=== PATIENT | female | born 1955 | race Caucasian/White ===

== ENCOUNTER 2019-10-23 09:51 | Outpatient (CLI) | payer OTHER, SELFPAY ==
[2019-10-23 10:07] LABS: Basophils Absolute Auto 0.03 K/mm3 (0.00-0.10); Basophils Percent Auto 0.3 % (0.0-1.0); Eosinophils Absolute Auto 0.24 K/mm3 (0.02-0.50); Eosinophils Percent Auto 2.7 % (1.0-6.0); Hematocrit 45.9 % (35.0-49.0); Hemoglobin 15.4 g/dL (12.0-15.0); Immature Granulocyte Absolute 0.04 K/mm3 (0.00-0.00); Immature Granulocyte Percent A 0.4 % (0.0-0.0); Lymphocytes Absolute Auto 1.97 K/mm3 (1.10-4.50); Lymphocytes Percent Auto 22.2 % (18.0-42.0); Mean Corpuscular HGB Conc 33.6 g/dL (32.0-36.0); Mean Corpuscular Hemoglobin 30.5 pg (27.0-31.0); Mean Corpuscular Volume 90.9 fL (78.0-102.0); Mean Platelet Volume 10.1 fl (9.2-11.8); Monocytes Percent Auto 7.9 % (2.0-11.0); Neutrophils Absolute Auto 5.9 K/mm3 (1.7-7.2); Neutrophils Percent Auto 66.5 % (50.0-70.0); Platelet Count Result 260 K/mm3 (150-420); Red Blood Count 5.05 M/mm3 (4.20-5.40); Red Cell Distribution Width 12.6 % (11.6-14.4); White Blood Count 8.9 K/mm3 (4.8-10.8)
[2019-10-23 10:23] LABS: INR 0.9; Prothrombin Time 9.8 Seconds (9.64-11.0)
[2019-10-23 13:14] LABS: Anion Gap 15.7 mmol/L (7-16); Blood Urea Nitrogen 10 mg/dL (7-18); Carbon Dioxide 29 mmol/L (21-32); Chloride 100 mmol/L (98-108); Potassium 4.7 mmol/L (3.5-5.1); Sodium 140 mmol/L (136-145)
[2019-10-23 13:15] LABS: Calcium 9.8 mg/dL (8.5-10.1); Estimated Glomerular Filt Rate > 60; Glucose 131 mg/dL (70-99); Magnesium 1.8 mg/dL (1.8-2.4); Osmolality Calculated 291 mOsm/kg (285-295)
== END 2019-10-23 09:52 | disposition home or self-care (01) ==
LOC: CHSLAB 09:55
PROVIDERS: PCP Emergency Medicine; Visit Provider Specialist
DX: I25.10 Atherosclerotic heart disease of native coronary artery without angina pectoris (principal); Z01.812 Encounter for preprocedural laboratory examination
CPT/HCPCS: 36415; 80048; 83735; 85025; 85610

== ENCOUNTER 2020-04-14 09:50 | Outpatient (CLI) | payer OTHER, SELFPAY ==
[2020-04-14 10:41] LABS: Creatinine Urine 59.04 mg/dL (40-278)
[2020-04-14 10:42] LABS: Hemoglobin A1C 8.1 % (<5.7)
[2020-04-14 10:49] LABS: MALB Creatinine Ratio 20.6 mg/g (0-30); Microalbumin Urine Random 12.2 mg/L
[2020-04-14 11:05] LABS: Alanine Aminotransferase 27 U/L (14-59); Albumin Level 3.7 g/dL (3.4-5.0); Alkaline Phosphatase 125 U/L (46-116); Anion Gap 9 mmol/L (8-16); Aspartate Amino Transferase 19 U/L (15-37); Bilirubin,Total 0.9 mg/dL (0.00-1.00); Blood Urea Nitrogen 13 mg/dL (7-18); Calcium 9.6 mg/dL (8.5-10.1); Carbon Dioxide 30 mmol/L (21-32); Chloride 99 mmol/L (98-108); Cholesterol 112 mg/dL (0-200); Estimated Glomerular Filt Rate > 60; Glucose 148 mg/dL (70-99); HDL Direct 32 mg/dL (40-60); LDL Cholesterol Calculated 41 mg/dL (<130); Osmolality Calculated 289 mOsm/kg (285-295); Potassium 4.5 mmol/L (3.5-5.1); Sodium 138 mmol/L (136-145); Total Protein 6.9 g/dL (6.4-8.2); Triglycerides 195 mg/dL (0-150)
[2020-04-18 20:13] LABS: Vitamin D 25 Hydroxy 71 ng/mL (30-100)
== END 2020-04-14 09:51 | disposition home or self-care (01) ==
PROVIDERS: PCP Emergency Medicine; Visit Provider Internal Medicine Endocrinology, Diabetes & Metabolism
DX: E78.5 Hyperlipidemia, unspecified (principal); E55.9 Vitamin D deficiency, unspecified; E11.9 Type 2 diabetes mellitus without complications
CPT/HCPCS: 36415; 80053; 80061; 82043; 82306; 83036

== ENCOUNTER 2020-04-18 12:46 | Outpatient (CLI) | payer OTHER, SELFPAY ==
--- NOTE | ~2020-04-18 | CT_ITS ---
EXAMINATION:CT lung screening DATE: 04/18/2020 14:18 INDICATION: Personal history of tobacco dependence. Current smoker with 41 pack year history. TECHNIQUE: Computed tomography (CT) of the chest was performed without intravenous contrast. Automate d exposure control and iterative reconstruction technique were employed. The dose-length product (DLP ) was 284.99 mGy-cm. COMPARISON: None. FINDINGS: There is mild emphysema. There is a 5 mm nodule in right lower lobe. Calcified left lung no dules and calcified left hilar lymph nodes are consistent with old granulomatous disease. No pleural effusion. The heart size is normal. There are coronary artery calcifications. No pericardial effusion . Calcifications in the spleen are consistent with old granulomatous disease. There is diffuse hepati c steatosis. There is mild thoracic spondylosis. IMPRESSION: 1. Lung-RADS category 2: Benign appearance or behavior. Continue annual screening with noncontrast lo w-dose chest CT in 12 months. Reviewed, dictated and finalized at location A. IMPRESSION: 1. Lung-RADS category 2: Benign appearance or behavior. Continue annual screeni ng with noncontrast low-dose chest CT in 12 months.
== END 2020-04-18 12:47 | disposition home or self-care (01) ==
LOC: CHSIMG 12:47
PROVIDERS: PCP Emergency Medicine; Visit Provider Nurse Practitioner
DX: Z12.2 Encounter for screening for malignant neoplasm of respiratory organs (principal); Z87.891 Personal history of nicotine dependence
CPT/HCPCS: G0297

== ENCOUNTER 2020-05-06 08:49 | Outpatient (CLI) | payer OTHER, SELFPAY ==
--- NOTE | ~2020-05-06 | MM_ITS ---
EXAMINATION: MM screening tiffany BI w elton HISTORY: Screening TECHNIQUE: Craniocaudal and mediolateral oblique 3-D tomosynthesis images were obtained and synthetic 2-D images were generated. CAD analysis was submitted and interpreted. COMPARISON: Comparison to multiple prior studies sequentially, with oldest reviewed study dated 12/2018. BREAST PARENCHYMAL COMPOSITION: There are scattered areas of fibroglandular density. FINDINGS: There is a cluster of nodules in the lower inner quadrant of the left breast. The right kaitlynn ast is stable without evidence for malignancy. IMPRESSION: 1. Cluster of small subcentimeter left breast nodules, lower inner quadrant. 2. Additional mammographic views and possible breast ultrasound are recommended. BI-RADS Category 0: Incomplete: Needs additional imaging evaluation. Reviewed, dictated and finalized at location A. IMPRESSION: 1. Cluster of small subcentimeter left breast nodules, lower inner quadrant. 2. Additional mammographic views and possible breast ultrasound are recommended . BI-RADS Category 0: Incomplete: Needs additional imaging evaluation.
== END 2020-05-06 08:50 | disposition home or self-care (01) ==
LOC: CHSIMG 08:50
PROVIDERS: PCP Emergency Medicine; Visit Provider Emergency Medicine
DX: Z12.31 Encounter for screening mammogram for malignant neoplasm of breast (principal)
CPT/HCPCS: 77063; 77067

== ENCOUNTER 2020-06-23 08:46 | Outpatient (CLI) | payer OTHER, SELFPAY ==
--- NOTE | ~2020-06-23 | MMUS_ITS ---
EXAMINATION: MM diagnostic tiffany LT w elton, US breast LT limited HISTORY: Cluster of small subcentimeter left breast nodules in the lower inner quadrant on 05/06/2020 s creening mammogram TECHNIQUE: Additional 3-D tomosynthesis images of the left breast were performed and synthetic 2-D im ages were generated. CAD analysis was submitted and interpreted. High resolution upper inner and lowe r inner quadrant left breast ultrasound was performed. COMPARISON: 05/06/2020, 11/04/2018 bilateral digital screening mammogram examinations FINDINGS: MAMMOGRAPHIC FINDINGS: There is mildly nodular appearing fibroglandular stroma in the mid and lower inner left breast. No lamas spicious mass, architectural distortion or significant new or developing density since 11/04/2018 is ev ident. ULTRASOUND: No suspicious mass, vascularity or shadowing is detected. Approximately 2.2 x 5mm sonolucent area without internal vascularity or suspicious shadowing is 7:00 2 cm from the nipple. At 8:00 4 cm from the nipple there is a cluster of cysts measuring approximately 3.7 x 9.3 mm There is a 3 mm simple cyst at 9:00 5 cm from the nipple. There is a cluster of cysts at 10:00 4 cm from nipple, measuring 6.3 x 3.7 mm overall dimension. IMPRESSION: 1. Probably benign findings 2. 6 month diagnostic left mammogram and left breast ultrasound follow-up are recommended. BI-RADS category 3, probably benign findings. Reviewed, dictated and finalized at location A. IMPRESSION: 1. Probably benign findings 2. 6 month diagnostic left mammogram and left breast ultrasound follow-up are r ecommended. BI-RADS category 3, probably benign findings.
== END 2020-06-23 08:47 | disposition home or self-care (01) ==
LOC: CHSIMG 08:47
PROVIDERS: PCP Emergency Medicine; Visit Provider Emergency Medicine
DX: R92.2 Inconclusive mammogram (principal)
CPT/HCPCS: 76642; 77061; 77065; G0279

== ENCOUNTER 2020-09-09 07:56 | Outpatient (CLI) | payer OTHER, SELFPAY ==
[2020-09-09 08:22] LABS: Creatinine Urine 63.49 mg/dL (40-278); MALB Creatinine Ratio 20.4 mg/g (0-30); Microalbumin Urine Random < 13.0 mg/L
[2020-09-09 08:24] LABS: Hemoglobin A1C 6.3 % (<5.7)
[2020-09-09 09:57] LABS: Rheumatoid Factor Screen Negative (Negative)
[2020-09-09 10:04] LABS: Alanine Aminotransferase 21 U/L (14-59); Alkaline Phosphatase 118 U/L (46-116); Anion Gap 7 mmol/L (8-16); Aspartate Amino Transferase 11 U/L (15-37); Bilirubin,Total 0.8 mg/dL (0.00-1.00); Blood Urea Nitrogen 8 mg/dL (7-18); Calcium 9.7 mg/dL (8.5-10.1); Carbon Dioxide 31 mmol/L (21-32); Chloride 98 mmol/L (98-108); Estimated Glomerular Filt Rate > 60; Free T4 Free Thyroxine 1.27 ng/dL (0.76-1.46); Glucose 82 mg/dL (70-99); Osmolality Calculated 279 mOsm/kg (285-295); Potassium 4.2 mmol/L (3.5-5.1); Sodium 136 mmol/L (136-145); Thyroid Stimulating Hormone 0.81 uIU/mL (0.36-3.74); Vitamin B12 220 pg/mL (193-986)
[2020-09-12 03:34] LABS: Thyroid Peroxidase Antibodies <1 IU/mL (<9)
[2020-09-13 22:08] LABS: Anti Cyclic Citrullinated Pept <16 Units (<20)
== END 2020-09-09 07:57 | disposition home or self-care (01) ==
LOC: CHSLAB 07:58
PROVIDERS: PCP Emergency Medicine; Visit Provider Internal Medicine Endocrinology, Diabetes & Metabolism
DX: E11.9 Type 2 diabetes mellitus without complications (principal); R53.83 Other fatigue; M19.90 Unspecified osteoarthritis, unspecified site
CPT/HCPCS: 36415; 80053; 82043; 82607; 83036; 84439; 84443; 86038; 86200; 86376; 86430

== ENCOUNTER 2020-12-08 10:04 | Outpatient (CLI) | payer OTHER, SELFPAY ==
[2020-12-08 10:37] LABS: Hemoglobin A1C 6.5 % (<5.7)
[2020-12-08 10:38] LABS: Creatinine Urine 18.27 mg/dL (40-278); MALB Creatinine Ratio 71.1 mg/g (0-30); Microalbumin Urine Random < 13.0 mg/L
[2020-12-08 11:40] LABS: Alanine Aminotransferase 20 U/L (14-59); Albumin Level 3.7 g/dL (3.4-5.0); Alkaline Phosphatase 123 U/L (46-116); Anion Gap 8 mmol/L (8-16); Aspartate Amino Transferase 12 U/L (15-37); Bilirubin,Total 0.9 mg/dL (0.00-1.00); Blood Urea Nitrogen 11 mg/dL (7-18); Calcium 9.5 mg/dL (8.5-10.1); Carbon Dioxide 29 mmol/L (21-32); Chloride 99 mmol/L (98-108); Cholesterol 122 mg/dL (0-200); Estimated Glomerular Filt Rate > 60; Glucose 103 mg/dL (70-99); HDL Direct 32 mg/dL (40-60); LDL Cholesterol Calculated 58 mg/dL (<130); Osmolality Calculated 281 mOsm/kg (285-295); Potassium 4.4 mmol/L (3.5-5.1); Sodium 136 mmol/L (136-145); Thyroid Stimulating Hormone 0.24 uIU/mL (0.36-3.74); Triglycerides 158 mg/dL (0-150)
[2020-12-08 12:22] LABS: Free T4 Free Thyroxine 1.31 ng/dL (0.76-1.46)
== END 2020-12-08 10:05 | disposition home or self-care (01) ==
LOC: CHSLAB 10:07
PROVIDERS: PCP Emergency Medicine; Visit Provider Internal Medicine Endocrinology, Diabetes & Metabolism
DX: E11.9 Type 2 diabetes mellitus without complications (principal); E78.5 Hyperlipidemia, unspecified
CPT/HCPCS: 36415; 80053; 80061; 82043; 83036; 84439; 84443

== ENCOUNTER 2020-12-26 08:42 | Outpatient (CLI) | payer OTHER, SELFPAY ==
--- NOTE | ~2020-12-26 | CT_ITS ---
EXAMINATION:CT diagnostic chest wo con DATE: 12/26/2020 09:08 INDICATION: Solitary pulmonary nodule. TECHNIQUE: Computed tomography (CT) of the chest was performed without intravenous contrast. Automate d exposure control and iterative reconstruction technique were employed. The dose-length product (DLP ) was 212.25 mGy-cm. COMPARISON: Chest CT 04/18/2020 FINDINGS: There is mild emphysema. Calcified left lung nodules and calcified left hilar lymph nodes a re consistent with old granulomatous disease. There is a stable 6 mm nodule in right lower lobe, like ly benign. No pleural effusion. There are nodules in the thyroid measuring up to 13 mm, likely not cl inically significant. The heart size is normal. There are coronary artery calcifications. No pericard ial effusion. There are changes of cholecystectomy. Calcifications in the spleen are consistent with old granulomatous disease. There is mild thoracic spondylosis. IMPRESSION: 1. Lung-RADS category 2: Benign appearance or behavior. Continue annual screening with noncontrast lo w-dose chest CT in 12 months. Reviewed, dictated and finalized at location A. IMPRESSION: 1. Lung-RADS category 2: Benign appearance or behavior. Continue annual screeni ng with noncontrast low-dose chest CT in 12 months.
== END 2020-12-26 08:43 | disposition home or self-care (01) ==
LOC: CHSIMG 08:44
PROVIDERS: PCP Emergency Medicine; Visit Provider Nurse Practitioner
DX: R91.1 Solitary pulmonary nodule (principal)
CPT/HCPCS: 71250

== ENCOUNTER 2021-01-24 08:45 | Outpatient (CLI) | payer OTHER, SELFPAY ==
--- NOTE | ~2021-01-24 | MMUS_ITS ---
EXAMINATION: MM diagnostic tiffany LT w elton, US breast LT limited HISTORY: Six-month diagnostic mammogram and ultrasound follow-up of probable benign findings TECHNIQUE: Full field and spot ML, MLO and craniocaudal 3-D tomosynthesis images of the left breast w ere performed and synthetic 2-D images were generated. CAD analysis was submitted and interpreted. Hi gh resolution targeted left breast ultrasound at 7:00-10:00 was performed. COMPARISON: 06/23/2020 diagnostic left mammogram and limited left breast ultrasound 05/2020, 11/04/2018 left digital screening views BREAST PARENCHYMAL COMPOSITION: There are scattered areas of fibroglandular density. FINDINGS: MAMMOGRAPHIC FINDINGS: No suspicious mass, architectural distortion, malignant calcification, skin thickening or retraction or significant new or developing density is evident. Occasional benign calcifications. ULTRASOUND: There is no significant interval change in size or sonographic features of 4 lesions noted between 7: 00, 8:00, 9:00 and 10:00 position since 06/23/2020. No suspicious shadowing or suspicious internal va scularity is noted. IMPRESSION: 1. Probable benign findings 2. Six-month follow-up diagnostic left mammogram and left breast ultrasound examination are recommend ed BI-RADS category 3, probably benign findings. Reviewed, dictated and finalized at location A. IMPRESSION: 1. Probable benign findings 2. Six-month follow-up diagnostic left mammogram and left breast ultrasound exa mination are recommended BI-RADS category 3, probably benign findings.
== END 2021-01-24 08:46 | disposition home or self-care (01) ==
LOC: CHSIMG 08:46
PROVIDERS: PCP Emergency Medicine; Visit Provider Emergency Medicine
DX: R92.2 Inconclusive mammogram (principal)
CPT/HCPCS: 76642; 77061; 77065; G0279

== ENCOUNTER 2021-04-28 07:47 | Outpatient (RCR) | payer OTHER, SELFPAY ==
--- NOTE | 2021-04-28 09:00 | PTOPEVAL ---
Thank you for referring Drea Barker to [facility].? The patient is scheduled to be seen for therapy? ____x/week for ___ weeks. Please review, sign, date and return this plan of care ERASMO. I agree with and certify that the following plan of care is medically necessary. Referring Physician Date Admitting Provider: Attending Provider: Brandon Schroeder MD Referring Provider: *PT Outpatient Evaluation Start: 04/28/21 08:05 Freq: Status: Active Protocol: Document 04/28/21 08:[address] [facility] (Rec: 04/28/21 08:[address] [facility] [id number]) Therapy Assessment Status Assessment Status Assessment Status Evaluation Evaluation Information Problem Diagnosis L knee pain Onset 03/20/21 Additional Evaluation Detail LEFS = 72% functionally declined Subjective Information patient reports she has been Query Text:As Reported By Patient/ having pain along the inside Family of the L knee that she describes as pinching. she reports no injury, but after her follow up with her MD last month she had a string of 3-4 days in a row of mm spasms in the L LE. she reports she then she has had this pinching pain along the inside of the L knee. she reports her pain is not constant. she reports increased pain when up on her feet, walking, ambulating stairs. she reports decreased pain when resting/off her feet . she reports a history of lower back pain/surgeries ( fusions). she reports her fusions were due to having symptoms radiating down the L LE. she reports this new knee pain feels different. Prior Level of Function Comments Additional Prior Level of Function prior to her L knee pain Comments beginning, she reports she has had pain in the LE's from back issues, but was able to walk and ambulate stairs without this pinching pain on the inside of the L knee. Pain Assessment Timing of Pain Assessment Timing of Pain Assessment Assessment Pain Scale Pain Scale Used Numeric (1 - 10)
--- NOTE | 2021-06-27 09:58 | PCPTNOTE ---
patient reports her MD has cancelled her therapy for now. as of this date, she will be dc'd from skilled PT services and all progress will be taken from her most recent evaluation/note KENYA
== END 2021-05-18 16:06 | disposition home or self-care (01) ==
LOC: CHSPT 07:47
PROVIDERS: PCP Emergency Medicine; Visit Provider Emergency Medicine
DX: M25.562 Pain in left knee (principal)
CPT/HCPCS: 97014; 97110; 97161; G0283

== ENCOUNTER 2021-05-30 09:26 | Outpatient (CLI) | payer OTHER, SELFPAY ==
[2021-05-30 09:52] LABS: Hemoglobin A1C 6.2 % (<5.7)
[2021-05-30 10:03] LABS: Basophils Absolute Auto 0.03 K/mm3 (0.00-0.10); Basophils Percent Auto 0.4 % (0.0-1.0); Eosinophils Absolute Auto 0.15 K/mm3 (0.02-0.50); Eosinophils Percent Auto 2.1 % (1.0-6.0); Hematocrit 42.3 % (35.0-49.0); Hemoglobin 14.1 g/dL (12.0-15.0); Immature Granulocyte Absolute 0.02 K/mm3 (0.00-0.00); Immature Granulocyte Percent A 0.3 % (0.0-0.0); Lymphocytes Absolute Auto 2.01 K/mm3 (1.10-4.50); Lymphocytes Percent Auto 27.8 % (18.0-42.0); Mean Corpuscular HGB Conc 33.3 g/dL (32.0-36.0); Mean Corpuscular Hemoglobin 29.9 pg (27.0-31.0); Mean Corpuscular Volume 89.8 fL (78.0-102.0); Mean Platelet Volume 10.7 fl (9.2-11.8); Monocytes Absolute Auto 0.54 K/mm3 (0.10-0.90); Monocytes Percent Auto 7.5 % (2.0-11.0); Neutrophils Absolute Auto 4.5 K/mm3 (1.7-7.2); Neutrophils Percent Auto 61.9 % (50.0-70.0); Platelet Count Result 228 K/mm3 (150-420); Red Blood Count 4.71 M/mm3 (4.20-5.40); Red Cell Distribution Width 12.3 % (11.6-14.4); White Blood Count 7.2 K/mm3 (4.8-10.8)
[2021-05-30 10:33] LABS: Creatinine Urine 28.19 mg/dL (40-278); MALB Creatinine Ratio 46.1 mg/g (0-30); Microalbumin Urine Random < 13.0 mg/L
[2021-05-30 10:41] LABS: Alanine Aminotransferase 24 U/L (14-59); Albumin Level 3.8 g/dL (3.4-5.0); Alkaline Phosphatase 106 U/L (46-116); Anion Gap 9 mmol/L (8-16); Aspartate Amino Transferase 12 U/L (15-37); Bilirubin,Total 0.8 mg/dL (0.00-1.00); Blood Urea Nitrogen 11 mg/dL (7-18); Calcium 9.1 mg/dL (8.5-10.1); Carbon Dioxide 31 mmol/L (21-32); Chloride 101 mmol/L (98-108); Cholesterol 199 mg/dL (0-200); Estimated Glomerular Filt Rate > 60; Free T4 Free Thyroxine 1.07 ng/dL (0.76-1.46); Glucose 104 mg/dL (70-99); HDL Direct 37 mg/dL (40-60); LDL Cholesterol Calculated 125 mg/dL (<130); Osmolality Calculated 291 mOsm/kg (285-295); Potassium 4.2 mmol/L (3.5-5.1); Sodium 141 mmol/L (136-145); Thyroid Stimulating Hormone 0.47 uIU/mL (0.36-3.74); Total Protein 6.4 g/dL (6.4-8.2); Triglycerides 186 mg/dL (0-150)
[2021-06-02 11:30] LABS: Alpha-1-Antitrypsin, QN 180 mg/dL (83-199)
[2021-06-05 05:00] LABS: Immunoglobulin E 21 kU/L (<=114)
== END 2021-05-30 09:27 | disposition home or self-care (01) ==
LOC: CHSLAB 09:29
PROVIDERS: PCP Emergency Medicine; Visit Provider Nurse Practitioner
DX: E11.9 Type 2 diabetes mellitus without complications (principal); E78.5 Hyperlipidemia, unspecified; J44.9 Chronic obstructive pulmonary disease, unspecified; R06.09 Other forms of dyspnea
CPT/HCPCS: 36415; 80053; 80061; 82043; 82103; 82104; 82785; 83036; 84439; 84443; 85025; 86003

== ENCOUNTER 2021-06-30 10:56 | Outpatient (CLI) | payer OTHER, SELFPAY ==
--- NOTE | ~2021-06-30 | XR_ITS ---
EXAMINATION: XR knee LT 3V DATE: 06/30/2021 11:22 INDICATION: Left knee pain. TECHNIQUE: 3 views of left knee were obtained. COMPARISON: None. FINDINGS: Bone alignment is normal. No fracture. Osteopenia is noted. There is mild tricompartmental osteoarthritis. No knee joint effusion. IMPRESSION: 1. Mild left knee osteoarthritis. Reviewed, dictated and finalized at location A.
== END 2021-06-30 10:57 | disposition home or self-care (01) ==
LOC: CHSIMG 10:57
PROVIDERS: PCP Emergency Medicine; Visit Provider Emergency Medicine
DX: M25.562 Pain in left knee (principal)
CPT/HCPCS: 73562

== ENCOUNTER 2021-07-31 09:31 | Outpatient (CLI) | payer OTHER, SELFPAY ==
--- NOTE | ~2021-07-31 | MMUS_ITS ---
EXAMINATION: MM diagnostic tiffany BI w elton, US breast LT limited HISTORY: Six-month follow-up of probable benign findings at 7:00-10:00, left breast TECHNIQUE: ML, MLO and craniocaudal 3-D tomosynthesis images of both breasts were performed and synth etic 2-D images were generated. CAD analysis was submitted and interpreted. High resolution upper inn er and lower inner left breast ultrasound was performed. COMPARISON: 01/24/2021 and 06/23/2020 diagnostic left mammogram and limited left breast ultrasound exa minations 05/06/2020 bilateral screening mammogram BREAST PARENCHYMAL COMPOSITION: There are scattered areas of fibroglandular density. FINDINGS: MAMMOGRAPHIC FINDINGS: There is a 3.4 x 5.8 mm circumscribed mass in the posterior inner mid left breast Small benign-appearing right axillary tail circumscribed mass, likely a benign intramammary lymph nod e, stable since 05/06/2020. No suspicious mass or architectural distortion, malignant calcification, skin thickening or retractio n of either breast is noted otherwise. Minimal benign calcification. ULTRASOUND: 8:00 4 cm from nipple: Circumscribed approximately 3.2 x 5.2 mm probable septated cyst without [employer] intern al vascularity or posterior shadowing. No suspicious mass or shadowing is detected in the inner half of the left breast. IMPRESSION: 1. Probable benign findings 2. 6 month diagnostic left mammogram and left breast ultrasound follow-up are recommended BI-RADS category 3, probably benign findings. Reviewed, dictated and finalized at location A. ET MAKER IMPRESSION: 1. Probable benign findings 2. 6 month diagnostic left mammogram and left breast ultrasound follow-up are r ecommended BI-RADS category 3, probably benign findings.
== END 2021-07-31 09:32 | disposition home or self-care (01) ==
LOC: CHSIMG 09:32
PROVIDERS: PCP Emergency Medicine; Visit Provider Emergency Medicine
DX: R92.2 Inconclusive mammogram (principal)
CPT/HCPCS: 76642; 77062; 77066; G0279

== ENCOUNTER 2021-12-04 08:01 | Outpatient (CLI) | payer OTHER, SELFPAY ==
[2021-12-04 09:02] LABS: Creatinine Urine 28.73 mg/dL (40-278); MALB Creatinine Ratio 45.2 mg/g (0-30); Microalbumin Urine Random < 13.0 mg/L
[2021-12-04 11:08] LABS: Alanine Aminotransferase 19 U/L (14-59); Albumin Level 3.8 g/dL (3.4-5.0); Alkaline Phosphatase 137 U/L (46-116); Anion Gap 9 mmol/L (8-16); Aspartate Amino Transferase 11 U/L (15-37); Bilirubin,Total 0.8 mg/dL (0.00-1.00); Blood Urea Nitrogen 16 mg/dL (7-18); Calcium 9.5 mg/dL (8.5-10.1); Carbon Dioxide 30 mmol/L (21-32); Chloride 97 mmol/L (98-108); Cholesterol 114 mg/dL (0-200); Estimated Glomerular Filt Rate > 60; Free T4 Free Thyroxine 1.29 ng/dL (0.76-1.46); Glucose 142 mg/dL (70-99); HDL Direct 34 mg/dL (40-60); LDL Cholesterol Calculated 37 mg/dL (<130); Osmolality Calculated 285 mOsm/kg (285-295); Potassium 4.4 mmol/L (3.5-5.1); Sodium 136 mmol/L (136-145); Total Protein 6.6 g/dL (6.4-8.2); Triglycerides 216 mg/dL (0-150)
== END 2021-12-04 08:02 | disposition home or self-care (01) ==
LOC: CHSLAB 08:03
PROVIDERS: PCP Emergency Medicine; Visit Provider Internal Medicine Endocrinology, Diabetes & Metabolism
DX: E78.5 Hyperlipidemia, unspecified (principal); E11.65 Type 2 diabetes mellitus with hyperglycemia
CPT/HCPCS: 36415; 80053; 80061; 82043; 83036; 84439; 84443

== ENCOUNTER 2021-12-21 08:09 | Outpatient (CLI) | payer OTHER, SELFPAY ==
--- NOTE | ~2021-12-21 | DEXA_ITS ---
Bone Density Report Name: MARY JO NEWELL Age: 66 Sex: Female Ethnicity: White Date of : 1955 Indication: postmenopausal; screening for osteoporosis; prior fracture; Referring Provider: HARESH, TISHA Study: Bone densitometry was performed. Exam Date: December 21, 2021 Accession number: [id number] Bone Density: Region BMD T-score Z-score Classification Femoral Neck (Left) 0.614 -2.1 -0.6 Osteopenia Total Hip (Left) 0.787 -1.3 -0.1 Osteopenia Femoral Neck (Right) 0.730 -1.1 0.4 Osteopenia Total Hip (Right) 0.817 -1.0 0.2 Normal Femoral Neck Mean 0.672 -1.6 -0.1 Osteopenia Total Hip Mean 0.802 -1.2 0.0 Osteopenia World Health Organization criteria for BMD impression classify patients as: Normal (T-score at or above -1.0), Osteopenia (T-score between -1.0 and -2.5), or Osteoporosis (T-score at or below -2.5). 10-year Fracture Risk: FRAX not reported because: Prior hip or vertebral fracture Clinical Information Provided by Patient: Have had a previous hip or vertebral fracture Has had a low trauma fracture Smokes Has used the following medications: Vitamin D, Calcium Patient maximum height was 68 Menopause Age: 47 No regular weight bearing exercise Does not regularly consume dairy products Drinks caffeinated beverages Onset of menses at age 14 Number of children 2 Impression: The patient has low bone mass, based on the Left Femoral Neck T-score. The patient has risk factors, including: smoking, previous fracture. Discussion: INCREASED RISK OF FRACTURE DUE TO HISTORY OF FRACTURE. The patient's previous fracture puts the patient at high risk of a future fracture. In untreated patients, the risk of osteoporotic fracture increases approximately two-fold for each 1.0 SD decrease in T-score. Low bone density is not the only risk factor for fracture; also consider factors such as patient's age, frailty or poor health, risk of falling, risk of injury, previous osteoporotic fracture, family history of osteoporosis, cigarette smoking, low body weight, etc. Not everyone with a low trauma fracture has osteoporosis; osteomalacia and other metabolic bone disorders should also be considered. Patients who have osteoporosis should be evaluated for specific diseases and conditions (secondary causes) that may cause or contribute to bone loss and fracture risk. National Osteoporosis Foundation (NOF) recommends pharmacologic intervention for patients with a prior hip or vertebral fracture regardless of BMD T-score. The patient should follow a healthful lifestyle (good nutrition with adequate calcium and vitamin D, and appropriate weight-bearing exercise). Follow-Up: Consider a repeat BMD and Vertebral Fracture Assessment (VFA) exam in 2 years or sooner if medically necessary, to reassess this patient's status
--- NOTE | ~2021-12-21 | CT_ITS ---
EXAMINATION:CT diagnostic chest wo con DATE: 12/21/2021 08:33 INDICATION: Solitary pulmonary nodule. TECHNIQUE: Computed tomography (CT) of the chest was performed without intravenous contrast. Automate d exposure control and iterative reconstruction technique were employed. The dose-length product (DLP ) was 373.07 mGy-cm. COMPARISON: Chest CT 12/26/2020, 04/18/2020 FINDINGS: Calcified left lung nodules and calcified left hilar lymph nodes are consistent with old gr anulomatous disease. There is a 5 mm nodule in right lower lobe without change. There are two 2 mm no dules in left upper lobe without change. There is mild emphysema. No pleural effusion. The heart size is normal. There are coronary artery calcifications. No pericardial effusion. Calcifications in the liver and spleen are consistent with old granulomatous disease. There is mild thoracic spondylosis. IMPRESSION: 1. Lung-RADS category 2: Benign appearance or behavior. Continue annual screening with noncontrast lo w-dose chest CT in 12 months. Reviewed, dictated and finalized at location B. IMPRESSION: 1. Lung-RADS category 2: Benign appearance or behavior. Continue annual screeni ng with noncontrast low-dose chest CT in 12 months.
== END 2021-12-21 08:10 | disposition home or self-care (01) ==
PROVIDERS: PCP Emergency Medicine; Visit Provider Nurse Practitioner
DX: R91.1 Solitary pulmonary nodule (principal); M81.0 Age-related osteoporosis without current pathological fracture
CPT/HCPCS: 71250; 77080

== ENCOUNTER 2022-01-16 00:17 | Day surgery (SDC) | payer OTHER, SELFPAY ==
[2022-01-08 08:31] VITALS: BMI 28.1
[2022-01-16 09:00] VITALS: BP 123/68; PULSE 74; RESP 19; TEMP 36.3; O2SAT 98
[2022-01-16] MEDS: LACTATED RINGERS 1,000 ML 150 ML IV CONT (09:13)
[2022-01-16 09:16] LABS: Glucose Point of Care 187 mg/dl (65-105)
--- NOTE | 2022-01-16 09:36 | WPDANESEPPF ---
Anes - Initial Pre Proc Eval Procedure: Operation Date: 01/16/22 10:00 Proposed Procedures p Esophagogastroduodenoscopy & Screening Colonoscopy - Caio Nicholas MD Date/Time: 01/16/22 09:36 Surgeon: Caio Nicholas MD Pre Op Diagnosis: french's esophagus, hx of colon polyps Patient Data Age: 66 Gender: F Height: 1.73 m Weight: 81.2 kg Last Vital Signs Temp 97.3 F L 01/16/22 09:00 Pulse 74 01/16/22 09:00 Resp 19 01/16/22 09:00 BP 123/68 01/16/22 09:00 Pulse Ox 98 01/16/22 09:00 Allergies Allergy/AdvReac Type Severity Reaction Status Date / Time cyclobenzaprine Allergy Unknown unkwown Verified 01/16/22 08:58 lisinopril Allergy Unknown unkwown Verified 01/16/22 08:58 Home Medications Medication Instructions Recorded Confirmed Type albuterol sulfate 90 mcg/actuation 1 inhalation INHALATION Q4H PRN 08/06/19 01/08/22 History aerosol inhaler ergocalciferol (vitamin D2) 1,250 50,000 unit PO WEEKLY 08/06/19 01/08/22 History mcg (50,000 unit) capsule hydrocodone 10 mg-acetaminophen 1 tablet PO Q6H PRN 08/06/19 01/08/22 History 325 mg tablet losartan 100 mg tablet 100 mg PO DAILY 08/06/19 01/08/22 History lovastatin 20 mg tablet 20 mg PO DAILY 08/06/19 01/08/22 History metformin 500 mg tablet,extended 1,000 mg PO BID tablet 08/06/19 01/08/22 History release 24 hr metoprolol succinate 200 mg 200 mg PO DAILY 08/06/19 01/08/22 History tablet,extended release 24 hr omeprazole 20 mg capsule,delayed 20 mg PO DAILY 08/06/19 01/08/22 History release glimepiride 1 mg PO DAILY 01/08/22 01/08/22 History liraglutide [Victoza 2-Naren] 1.2 mg SUBCUT DAILY 01/08/22 01/08/22 History Laboratory Tests 01/16/22 09:11 POC Capillary Glucose 187 mg/dl H mg/dl (65-105) Patient hx anesthesia problems: none Family hx anesthesia problems: none Results Review: All pre-operative results and documents have been reviewed as part of the pre-operative evaluation. [facility] Past Medical History Medical History (Updated 08/07/19 @ 10:10 by Baldemar Fowler, DO) CAD in [place] artery Chest pain in adult Diabetes 1.5, managed as type 2 ADAMES (dyspnea on exertion) Dyslipidemia Elevated hemoglobin Essential hypertension Hyperkalemia Spinal stenosis of lumbar region Type 2 diabetes mellitus without complication, without long-term current use of insulin Surgical History Surgical History (Updated 08/06/19 @ 11:38 by Magdalena Osullivan, [facility]) Personal history of spine surgery Family History Family History (Updated 12/26/18 @ 09:15 by DOCTOR UNKNOWN) Father Family history of cardiovascular disease Acute myocardial infarction Sibling Family history of cardiovascular disease Mother Family history of malignant neoplasm Social History Social History Smoking packs per day: 1 Smoking cigarettes per day: 20.0 Years smoked: 50 Smoking pack-years: 50.00 Smoking status: Current every day smoker Tobacco type: cigarettes Alcohol intake: never Living arrangements: with family Spiritual care concerns: No Anes - Eval Final PreProcedure Day of Procedure 01/16/22 09:36 Patient weight: overweight Heart: regular rate and rhythm Lungs: clear to auscultation Airway: Mallampati scale class II Neurological: alert and oriented Last oral intake: >/= 8 hours ASA classification: III Emergent: no Anesthetic plan: proceed Anesthesia type and monitoring: general GIVS and standard monitoring Results Review: All pre-operative results and documents have been reviewed as part of the pre-operative evaluation. Informed Consent: The patient's anesthetic plan and its attendant risks and benefits were discussed with the patient/family/POA. Questions were solicited and answers provided to the satisfaction of the patient/family/POA.
--- NOTE | 2022-01-16 09:43 | PM.HPGS ---
History of Present Illness History of Present Illness Consent: Risks, benefits, and alternatives have been discussed and questions answered. Patient agrees to proceed with procedure. Chief complaint: french's esophagus, hx of colon polyps Narrative: Drea Barker is a 66 year old female with french's in 2019 on ppi, history of polyps with last colonoscopy 2019 Review of Systems Constitutional: Constitutional: Denies headache(s) and Denies weakness Eyes: Eyes: Denies blurry vision ENT: Reports Normal hearing present, Denies headache(s) and Denies neck pain Cardiovascular: Cardiovascular: Denies chest pain and Denies dyspnea Respiratory: Respiratory: Denies dyspnea Gastrointestinal: Gastrointestinal: Reports no additional gastrointestinal complaints Genitourinary: Genitourinary: Denies dysuria Musculoskeletal: Musculoskeletal: Denies neck pain Integumentary/Breasts: Skin/Breast: Denies dry skin Neurologic: Reports Normal hearing present, Denies headache(s) and Denies weakness Psychiatric: Psychiatric: Denies anxiety Endocrine: Endocrine: Denies change in body appearance Hematologic/Lymphatic: Hematologic/Lymphatic: Denies easy bleeding Allergic/Immunologic: Allergic/Immunologic: Denies urticaria PMFSH Past Medical History Medical History (Updated 01/16/22 @ 09:44 by Caio Nicholas MD) French esophagus CAD in [place] artery Chest pain in adult Colon polyp Diabetes 1.5, managed as type 2 ADAMES (dyspnea on exertion) Dyslipidemia Elevated hemoglobin Essential hypertension Hyperkalemia Spinal stenosis of lumbar region Type 2 diabetes mellitus without complication, without long-term current use of insulin Surgical History Surgical History (Updated 08/06/19 @ 11:38 by Magdalena Osullivan CMA) Personal history of spine surgery Family History Family History (Updated 12/26/18 @ 09:15 by DOCTOR UNKNOWN) Father Family history of cardiovascular disease Acute myocardial infarction Sibling Family history of cardiovascular disease Mother Family history of malignant neoplasm Social History Social History Smoking packs per day: 1 Smoking cigarettes per day: 20.0 Years smoked: 50 Smoking pack-years: 50.00 Smoking status: Current every day smoker Tobacco type: cigarettes Alcohol intake: never Living arrangements: with family Spiritual care concerns: No Meds Home Medications and Allergies Home Medications Medication Instructions Recorded Confirmed Type albuterol sulfate 90 mcg/actuation 1 inhalation INHALATION Q4H PRN 08/06/19 01/08/22 History aerosol inhaler ergocalciferol (vitamin D2) 1,250 50,000 unit PO WEEKLY 08/06/19 01/08/22 History mcg (50,000 unit) capsule hydrocodone 10 mg-acetaminophen 1 tablet PO Q6H PRN 08/06/19 01/08/22 History 325 mg tablet losartan 100 mg tablet 100 mg PO DAILY 08/06/19 01/08/22 History lovastatin 20 mg tablet 20 mg PO DAILY 08/06/19 01/08/22 History metformin 500 mg tablet,extended 1,000 mg PO BID tablet 08/06/19 01/08/22 History release 24 hr metoprolol succinate 200 mg 200 mg PO DAILY 08/06/19 01/08/22 History tablet,extended release 24 hr omeprazole 20 mg capsule,delayed 20 mg PO DAILY 08/06/19 01/08/22 History release glimepiride 1 mg PO DAILY 01/08/22 01/08/22 History liraglutide [Victoza 2-Naren] 1.2 mg SUBCUT DAILY 01/08/22 01/08/22 History Allergies Allergy/AdvReac Type Severity Reaction Status Date / Time cyclobenzaprine Allergy Unknown unkwown Verified 01/16/22 08:58 lisinopril Allergy Unknown unkwown Verified 01/16/22 08:58 Vital Signs Vital Signs - 24 hr 01/16/22 09:00 Temperature 97.3 F L Pulse Rate 74 Respiratory Rate 19 Blood Pressure 123/68 Pulse Oximetry 98 Exam Const: General: comfortable and no acute distress HENMT: General nose exam: Normal nares present Eyes: General: appearance normal, both eyes and all related structures Neck: Neck:
--- NOTE | 2022-01-16 10:01 | SUR.OPER ---
EGD COMPLETED [id number] COLONOSCOPY STARTED AT 1001
[2022-01-16 10:22] VITALS: BP 111/65; PULSE 70; RESP 20; O2SAT 94
[2022-01-16 10:32] VITALS: BP 104/54; PULSE 68; RESP 16; O2SAT 95
[2022-01-16 10:42] VITALS: BP 121/69; PULSE 66; RESP 19; O2SAT 96
== END 2022-01-16 10:55 | disposition home or self-care (01) ==
PROVIDERS: PCP Emergency Medicine; Visit Provider Internal Medicine Gastroenterology
PROC: 0DJ08ZZ Inspection of Upper Intestinal Tract, Via Natural or Artificial Opening Endoscopic (ICD-10-PCS; CPT 43235; principal; 2022-01-16 10:00)
DX: Z12.11 Encounter for screening for malignant neoplasm of colon (principal); D12.3 Benign neoplasm of transverse colon; K57.30 Diverticulosis of large intestine without perforation or abscess without bleeding; K64.8 Other hemorrhoids; K21.9 Gastro-esophageal reflux disease without esophagitis; K22.70 Barrett's esophagus without dysplasia; K44.9 Diaphragmatic hernia without obstruction or gangrene; K29.50 Unspecified chronic gastritis without bleeding; I25.10 Atherosclerotic heart disease of native coronary artery without angina pectoris; E13.9 Other specified diabetes mellitus without complications; I10 Essential (primary) hypertension; E78.5 Hyperlipidemia, unspecified; F17.210 Nicotine dependence, cigarettes, uncomplicated; Z79.51 Long term (current) use of inhaled steroids; Z79.84 Long term (current) use of oral hypoglycemic drugs; Z79.899 Other long term (current) drug therapy
CPT/HCPCS: 45385; 43239; 82948; 88305; J2704; J7120

== ENCOUNTER 2022-02-20 08:48 | Outpatient (CLI) | payer OTHER, SELFPAY ==
--- NOTE | ~2022-02-20 | MMUS_ITS ---
EXAMINATION: MM diagnostic tiffany LT w elton, US breast LT limited HISTORY: Six-month follow-up of probable benign finding of left breast at 8:00 4 cm from nipple TECHNIQUE: ML, MLO and CC 3-D tomosynthesis images of the left breast were performed and synthetic 2- D images were generated. CAD analysis was submitted and interpreted. High resolution targeted 8:00 le ft breast ultrasound was performed. COMPARISON: 07/31/2021 diagnostic left mammogram and limited left breast ultrasound 01/24/2021 diagnostic left mammogram and Limited breast ultrasound BREAST PARENCHYMAL COMPOSITION: There are scattered areas of fibroglandular density. FINDINGS: MAMMOGRAPHIC FINDINGS: No suspicious mass, architectural distortion, malignant calcification, skin thickening or retraction or significant new or developing density is evident. Occasional benign calcifications. ULTRASOUND: 8:00 5 cm from nipple: 1.7 x 2.5 x 2.8 mm circumscribed hypoechoic lesion without internal vascularit y or posterior shadowing this is diminished in size since 07/31/2021. IMPRESSION: 1. No mammographic evidence of malignancy 2. Routine annual mammographic screening is recommended BI-RADS Category 2: Benign finding(s). Reviewed, dictated and finalized at location A. IMPRESSION: 1. No mammographic evidence of malignancy 2. Routine annual mammographic screening is recommended BI-RADS Category 2: Benign finding(s).
== END 2022-02-20 08:49 | disposition home or self-care (01) ==
LOC: CHSIMG 08:49
PROVIDERS: PCP Emergency Medicine; Visit Provider Emergency Medicine
DX: N63.20 Unspecified lump in the left breast, unspecified quadrant (principal)
CPT/HCPCS: 76642; 77061; 77065; G0279

== ENCOUNTER 2022-05-09 09:14 | Outpatient (CLI) | payer OTHER, SELFPAY ==
[2022-05-09 09:56] LABS: Basophils Absolute Auto 0.01 K/mm3 (0.00-0.10); Basophils Percent Auto 0.2 % (0.0-1.0); Eosinophils Absolute Auto 0.08 K/mm3 (0.02-0.50); Eosinophils Percent Auto 1.7 % (1.0-6.0); Hematocrit 40.5 % (35.0-49.0); Hemoglobin 13.4 g/dL (12.0-15.0); Immature Granulocyte Absolute 0.01 K/mm3 (0.00-0.00); Immature Granulocyte Percent A 0.2 % (0.0-0.0); Lymphocytes Absolute Auto 1.29 K/mm3 (1.10-4.50); Lymphocytes Percent Auto 27.5 % (18.0-42.0); Mean Corpuscular HGB Conc 33.1 g/dL (32.0-36.0); Mean Corpuscular Hemoglobin 30.1 pg (27.0-31.0); Mean Platelet Volume 10.3 fl (9.2-11.8); Monocytes Absolute Auto 0.48 K/mm3 (0.10-0.90); Monocytes Percent Auto 10.2 % (2.0-11.0); Neutrophils Absolute Auto 2.8 K/mm3 (1.7-7.2); Neutrophils Percent Auto 60.2 % (50.0-70.0); Platelet Count Result 188 K/mm3 (150-420); Red Blood Count 4.45 M/mm3 (4.20-5.40); Red Cell Distribution Width 12.3 % (11.6-14.4); White Blood Count 4.7 K/mm3 (4.8-10.8)
[2022-05-09 10:05] LABS: Creatinine Urine 27.56 mg/dL (40-278); MALB Creatinine Ratio 47.1 mg/g (0-30); Microalbumin Urine Random < 13.0 mg/L
[2022-05-09 10:06] LABS: Hemoglobin A1C 6.6 % (<5.7)
[2022-05-09 10:32] LABS: Alanine Aminotransferase 17 U/L (14-59); Albumin Level 3.4 g/dL (3.4-5.0); Alkaline Phosphatase 105 U/L (46-116); Anion Gap 6 mmol/L (8-16); Aspartate Amino Transferase 15 U/L (15-37); Bilirubin,Total 0.5 mg/dL (0.00-1.00); Blood Urea Nitrogen 9 mg/dL (7-18); Carbon Dioxide 33 mmol/L (21-32); Chloride 100 mmol/L (98-108); Cholesterol 103 mg/dL (0-200); Estimated Glomerular Filt Rate > 60; Free T4 Free Thyroxine 1.38 ng/dL (0.76-1.46); Glucose 111 mg/dL (70-99); HDL Direct 34 mg/dL (40-60); LDL Cholesterol Calculated 40 mg/dL (<130); Osmolality Calculated 287 mOsm/kg (285-295); Potassium 3.9 mmol/L (3.5-5.1); Sodium 139 mmol/L (136-145); Thyroid Stimulating Hormone 0.21 uIU/mL (0.36-3.74); Total Protein 6.7 g/dL (6.4-8.2); Triglycerides 144 mg/dL (0-150)
== END 2022-05-09 09:15 | disposition home or self-care (01) ==
LOC: CHSLAB 09:17
PROVIDERS: PCP Emergency Medicine; Visit Provider Internal Medicine Endocrinology, Diabetes & Metabolism
DX: E78.5 Hyperlipidemia, unspecified (principal); E11.9 Type 2 diabetes mellitus without complications
CPT/HCPCS: 36415; 80053; 80061; 82043; 83036; 84439; 84443; 85025

== ENCOUNTER 2022-08-21 08:05 | Outpatient (CLI) | payer OTHER, SELFPAY ==
--- NOTE | ~2022-08-21 | MM_ITS ---
EXAMINATION: MM screening [facility] BI w elton HISTORY: Screening TECHNIQUE: Craniocaudal and mediolateral oblique 3-D tomosynthesis images were obtained and synthetic 2-D images were generated. CAD analysis was submitted and interpreted. COMPARISON: 05/06/2020 BREAST PARENCHYMAL COMPOSITION: Breast composed of scattered areas of fibroglandular density FINDINGS: Stable appearance to left breast asymmetries. There is no evidence of suspicious mass, calc ification, or architectural distortion to suggest malignancy in either breast. There has been no susp icious interval change. IMPRESSION: 1. No mammographic evidence of malignancy. 2. Recommend routine screening mammography in one year. BI-RADS Category 2: Benign finding(s). Reviewed, dictated and finalized at location A. INIST CLASS B
== END 2022-08-21 08:06 | disposition home or self-care (01) ==
LOC: CHSIMG 08:07
PROVIDERS: PCP Emergency Medicine; Visit Provider Emergency Medicine
DX: Z12.31 Encounter for screening mammogram for malignant neoplasm of breast (principal)
CPT/HCPCS: 77063; 77067

== ENCOUNTER 2022-09-18 09:20 | Outpatient (CLI) | payer OTHER, SELFPAY ==
[2022-09-18 10:27] LABS: Free T4 Free Thyroxine 1.28 ng/dL (0.76-1.46)
[2022-09-20 16:57] LABS: Vitamin D 25 Hydroxy 80 ng/mL (30-100)
[2022-09-21 05:40] LABS: Thyroid Peroxidase Antibodies <1 IU/mL (<9)
[2022-09-22 14:17] LABS: Total Triiodothyronine (T3) 168.7 ng/dL (76-181)
[2022-09-22 14:23] LABS: Thyroid Stimulating Immunoglob <89 % baseline (<140)
== END 2022-09-18 09:21 | disposition home or self-care (01) ==
LOC: CHSLAB 09:22
PROVIDERS: PCP Emergency Medicine; Visit Provider Emergency Medicine
DX: E07.9 Disorder of thyroid, unspecified (principal); M85.80 Other specified disorders of bone density and structure, unspecified site
CPT/HCPCS: 36415; 82306; 84439; 84443; 84445; 84480; 86376

== ENCOUNTER 2022-11-23 10:02 | Outpatient (CLI) | payer OTHER, SELFPAY ==
[2022-11-23 11:09] LABS: Creatinine Urine 13.18 mg/dL (40-278); MALB Creatinine Ratio 98.6 mg/g (0-30); Microalbumin Urine Random < 13.0 mg/L
[2022-11-23 11:11] LABS: Hemoglobin A1C 5.9 % (<5.7)
[2022-11-23 11:38] LABS: Alanine Aminotransferase 19 U/L (14-59); Alkaline Phosphatase 119 U/L (46-116); Anion Gap 7 mmol/L (8-16); Aspartate Amino Transferase 14 U/L (15-37); Bilirubin,Total 0.7 mg/dL (0.00-1.00); Blood Urea Nitrogen 13 mg/dL (7-18); Calcium 9.9 mg/dL (8.5-10.1); Carbon Dioxide 34 mmol/L (21-32); Chloride 101 mmol/L (98-108); Cholesterol 106 mg/dL (0-200); Estimated Glomerular Filt Rate > 60; Glucose 97 mg/dL (70-99); HDL Direct 36 mg/dL (40-60); LDL Cholesterol Calculated 42 mg/dL (<130); Osmolality Calculated 294 mOsm/kg (285-295); Potassium 4.6 mmol/L (3.5-5.1); Sodium 142 mmol/L (136-145); Thyroid Stimulating Hormone 0.17 uIU/mL (0.36-3.74); Total Protein 7.1 g/dL (6.4-8.2); Triglycerides 139 mg/dL (0-150)
== END 2022-11-23 10:03 | disposition home or self-care (01) ==
PROVIDERS: PCP Emergency Medicine; Visit Provider Internal Medicine Endocrinology, Diabetes & Metabolism
DX: E11.65 Type 2 diabetes mellitus with hyperglycemia (principal); E78.5 Hyperlipidemia, unspecified
CPT/HCPCS: 36415; 80053; 80061; 82043; 83036; 84443

== ENCOUNTER 2022-12-21 07:42 | Outpatient (CLI) | payer OTHER, SELFPAY ==
--- NOTE | ~2022-12-21 | CT_ITS ---
EXAMINATION: CT diagnostic chest wo con DATE: 12/21/2022 08:03 INDICATION: Solitary pulmonary nodule TECHNIQUE: Computed tomography (CT) of the chest was performed without intravenous contrast. The dose -length product was 131.39 mGy-cm. Automated exposure control and iterative reconstruction technique were employed. COMPARISON: CT dated 12/21/2021 FINDINGS: Heart size is normal. There is atherosclerosis of the aorta and coronary arteries. No signi ficant pleural or pericardial effusion. There are calcifications of the spleen, consistent with chron ic granulomatous disease. There are calcified granulomas of the lungs. There is mild emphysema. Stabl e 5 mm right lower lobe nodule. There are small left upper lobe nodules measuring 2 mm or less. No en dobronchial lesions. No thoracic lymphadenopathy. No acute osseous abnormality. IMPRESSION: 1. Stable pulmonary nodules, likely benign. Recommend follow-up low dose CT chest in 12 months Reviewed, dictated and finalized at location A. IMPRESSION: 1. Stable pulmonary nodules, likely benign. Recommend follow-up low dose CT [facility] st in 12 months
== END 2022-12-21 07:43 | disposition home or self-care (01) ==
LOC: CHSIMG 07:44
PROVIDERS: PCP Emergency Medicine; Visit Provider Nurse Practitioner
DX: R91.1 Solitary pulmonary nodule (principal)
CPT/HCPCS: 71250

== ENCOUNTER 2023-02-04 08:00 | Outpatient (CLI) | payer OTHER, SELFPAY ==
[2023-02-04 08:19] LABS: Basophils Absolute Auto 0.04 K/mm3 (0.00-0.10); Basophils Percent Auto 0.4 % (0.0-1.0); Eosinophils Absolute Auto 0.17 K/mm3 (0.02-0.50); Eosinophils Percent Auto 1.8 % (1.0-6.0); Hematocrit 45.3 % (35.0-42.0); Hemoglobin 14.4 g/dL (11.7-13.8); Immature Granulocyte Absolute 0.03 K/mm3 (0.00-0.00); Immature Granulocyte Percent A 0.3 % (0.0-0.0); Lymphocytes Absolute Auto 1.74 K/mm3 (1.10-4.50); Lymphocytes Percent Auto 18.8 % (18.0-42.0); Mean Corpuscular HGB Conc 31.8 g/dL (32.0-36.0); Mean Corpuscular Hemoglobin 29.1 pg (27.0-31.0); Mean Corpuscular Volume 91.5 fL (78.0-102.0); Mean Platelet Volume 10.1 fl (9.2-11.8); Monocytes Absolute Auto 0.78 K/mm3 (0.10-0.90); Monocytes Percent Auto 8.4 % (2.0-11.0); Neutrophils Absolute Auto 6.5 K/mm3 (1.7-7.2); Neutrophils Percent Auto 70.3 % (50.0-70.0); Platelet Count Result 254 K/mm3 (150-420); Red Blood Count 4.95 M/mm3 (4.20-5.40); Red Cell Distribution Width 13.1 % (11.6-14.4); White Blood Count 9.2 K/mm3 (4.8-10.8)
[2023-02-04 08:20] LABS: Appearance Urine Clear (Clear); Bilirubin Urine Negative (Negative); Blood Urine Negative (Negative); Color Urine Light Yellow (Yellow); Glucose Urine UA Negative (Negative); Ketones Urine Negative (Negative); Leukocyte Esterase Ur Negative LEU/UL (Negative); Nitrate Urine Negative (Negative); Protein Urine Negative (Negative); Specific Grav Ur <= 1.005 (1.010-1.020); Urobilinogen Urine 0.2 mg/dL (0.2-1.0)
[2023-02-04 08:28] LABS: Add Urine Microscopic? NO
[2023-02-04 08:37] LABS: Hemoglobin A1C 5.6 % (<5.7)
[2023-02-04 08:56] LABS: Creatinine Urine 13.15 mg/dL (40-278)
[2023-02-04 08:59] LABS: MALB Creatinine Ratio 100.3 mg/g (0-30); Microalbumin Urine Random 13.2 mg/L
[2023-02-04 09:16] LABS: Alanine Aminotransferase 18 U/L (14-59); Albumin Level 3.8 g/dL (3.4-5.0); Alkaline Phosphatase 109 U/L (46-116); Anion Gap 8 mmol/L (8-16); Aspartate Amino Transferase 14 U/L (15-37); Bilirubin Direct 0.2 mg/dL (0-0.2); Bilirubin,Total 0.7 mg/dL (0.00-1.00); Blood Urea Nitrogen 12 mg/dL (7-18); Calcium 9.5 mg/dL (8.5-10.1); Carbon Dioxide 32 mmol/L (21-32); Chloride 100 mmol/L (98-108); Cholesterol 102 mg/dL (0-200); Estimated Glomerular Filt Rate > 60; Folic Acid 16.4 ng/mL (8.6->20); Glucose 103 mg/dL (70-99); HDL Direct 42 mg/dL (40-60); LDL Cholesterol Calculated 31 mg/dL (<130); Magnesium 1.6 mg/dL (1.8-2.4); Osmolality Calculated 289 mOsm/kg (285-295); Phosphorus 4.3 mg/dL (2.6-4.7); Potassium 4.2 mmol/L (3.5-5.1); Sodium 140 mmol/L (136-145); Total Protein 6.8 g/dL (6.4-8.2); Triglycerides 144 mg/dL (0-150); Vitamin B12 198 pg/mL (193-986)
[2023-02-04 09:17] LABS: Thyroid Stimulating Hormone Reflex 0.12 u/IU/mL (0.36-3.74)
[2023-02-07 17:45] LABS: Vitamin D 25 Hydroxy 84 ng/mL (30-100)
== END 2023-02-04 08:01 | disposition home or self-care (01) ==
LOC: CHSLAB 08:04
PROVIDERS: PCP Emergency Medicine; Visit Provider Emergency Medicine
DX: Z00.00 Encounter for general adult medical examination without abnormal findings (principal); E07.9 Disorder of thyroid, unspecified; E11.41 Type 2 diabetes mellitus with diabetic mononeuropathy; E55.9 Vitamin D deficiency, unspecified; E78.2 Mixed hyperlipidemia; G89.4 Chronic pain syndrome; I10 Essential (primary) hypertension; J43.2 Centrilobular emphysema; M85.80 Other specified disorders of bone density and structure, unspecified site; R63.4 Abnormal weight loss
CPT/HCPCS: 36415; 80061; 80069; 80076; 81003; 82043; 82306; 82607; 82746; 83036; 83735; 84439; 84443; 85025

== ENCOUNTER 2023-03-08 08:45 | Outpatient (CLI) | payer OTHER, SELFPAY ==
[2023-03-08 09:18] LABS: Creatinine Urine < 13.00 mg/dL (40-278); Microalbumin Urine Random < 13.0 mg/L
[2023-03-08 09:20] LABS: Hemoglobin A1C 5.7 % (<5.7)
[2023-03-08 10:10] LABS: Alanine Aminotransferase 19 U/L (14-59); Albumin Level 3.7 g/dL (3.4-5.0); Alkaline Phosphatase 100 U/L (46-116); Anion Gap 7 mmol/L (8-16); Aspartate Amino Transferase 10 U/L (15-37); Bilirubin,Total 0.7 mg/dL (0.00-1.00); Blood Urea Nitrogen 10 mg/dL (7-18); Calcium 9.5 mg/dL (8.5-10.1); Carbon Dioxide 30 mmol/L (21-32); Chloride 100 mmol/L (98-108); Cholesterol 108 mg/dL (0-200); Estimated Glomerular Filt Rate > 60; Glucose 111 mg/dL (70-99); HDL Direct 40 mg/dL (40-60); LDL Cholesterol Calculated 50 mg/dL (<130); Osmolality Calculated 284 mOsm/kg (285-295); Potassium 4.3 mmol/L (3.5-5.1); Sodium 137 mmol/L (136-145); Thyroid Stimulating Hormone 0.17 uIU/mL (0.36-3.74); Total Protein 6.5 g/dL (6.4-8.2); Triglycerides 92 mg/dL (0-150)
== END 2023-03-08 08:46 | disposition home or self-care (01) ==
LOC: CHSLAB 08:49
PROVIDERS: PCP Emergency Medicine; Visit Provider Internal Medicine Endocrinology, Diabetes & Metabolism
DX: E78.5 Hyperlipidemia, unspecified (principal); E11.9 Type 2 diabetes mellitus without complications
CPT/HCPCS: 36415; 80053; 80061; 82043; 83036; 84443

== ENCOUNTER 2023-05-11 09:56 | Outpatient (CLI) | payer MEDICARE, SELFPAY ==
[2023-05-15 06:52] LABS: Prolactin 3.9 ng/mL (***)
== END 2023-05-11 09:57 | disposition home or self-care (01) ==
LOC: CHSLAB 09:57
PROVIDERS: PCP Nurse Practitioner; Visit Provider Nurse Practitioner
DX: N64.52 Nipple discharge (principal)
CPT/HCPCS: 36415; 84146

== ENCOUNTER 2023-07-15 08:55 | Outpatient (CLI) | payer MEDICARE, SELFPAY ==
[2023-07-15 09:15] LABS: Basophils Absolute Auto 0.04 K/mm3 (0.00-0.10); Basophils Percent Auto 0.5 % (0.0-1.0); Eosinophils Absolute Auto 0.15 K/mm3 (0.02-0.50); Hematocrit 46.1 % (35.0-42.0); Hemoglobin 15.4 g/dL (11.7-13.8); Immature Granulocyte Absolute 0.04 K/mm3 (0.00-0.00); Immature Granulocyte Percent A 0.5 % (0.0-0.0); Lymphocytes Absolute Auto 2.25 K/mm3 (1.10-4.50); Lymphocytes Percent Auto 30.3 % (18.0-42.0); Mean Corpuscular HGB Conc 33.4 g/dL (32.0-36.0); Mean Corpuscular Hemoglobin 30.9 pg (27.0-31.0); Mean Corpuscular Volume 92.4 fL (78.0-102.0); Mean Platelet Volume 10.1 fl (9.2-11.8); Monocytes Absolute Auto 0.68 K/mm3 (0.10-0.90); Monocytes Percent Auto 9.2 % (2.0-11.0); Neutrophils Absolute Auto 4.3 K/mm3 (1.7-7.2); Neutrophils Percent Auto 57.5 % (50.0-70.0); Platelet Count Result 258 K/mm3 (150-420); Red Blood Count 4.99 M/mm3 (4.20-5.40); Red Cell Distribution Width 11.9 % (11.6-14.4); White Blood Count 7.4 K/mm3 (4.8-10.8)
[2023-07-15 10:19] LABS: Ferritin 38 ng/mL (8-252); Free T4 Free Thyroxine 1.26 ng/dL (0.76-1.46); Iron 52 ug/dL (50-170); Percent Iron Saturation 14 % (12-57); Thyroid Stimulating Hormone 0.31 uIU/mL (0.36-3.74)
[2023-07-17 13:28] LABS: Total Triiodothyronine (T3) 130.8 ng/dL (76-181)
[2023-07-20 14:57] LABS: Block/Specimen ID Not Given; CALR Exon 9 Mutation Not Detected (Not Detected); CSF3R Exon 14/17 Mutation Not Detected (Not Detected); Clinical Indication Not Given; JAK2 Exon 12 Mutation Not Detected (Not Detected); JAK2 V617F Mutation Not Detected (Not Detected); MPL Exon 10 Mutation Not Detected (Not Detected)
== END 2023-07-15 08:56 | disposition home or self-care (01) ==
LOC: CHSLAB 09:02
PROVIDERS: PCP Emergency Medicine; Visit Provider Emergency Medicine
DX: D75.1 Secondary polycythemia (principal); E07.9 Disorder of thyroid, unspecified; E83.42 Hypomagnesemia; G89.4 Chronic pain syndrome; N64.59 Other signs and symptoms in breast; E11.9 Type 2 diabetes mellitus without complications
CPT/HCPCS: 36415; 81219; 81270; 81279; 81339; 81479; 82728; 83540; 83550; 83735; 84439; 84443; 84480; 85025

== ENCOUNTER 2023-07-19 08:35 | Outpatient (CLI) | payer MEDICARE, SELFPAY ==
--- NOTE | ~2023-07-19 | MMUS_ITS ---
EXAMINATION: MM diagnostic tiffany BI w elton, US breast BI limited HISTORY: Bilateral nipple discharge TECHNIQUE: Craniocaudal, mediolateral, and mediolateral oblique 3-D tomosynthesis images of the breas ts were performed and synthetic 2-D images were generated. CAD analysis was submitted and interpreted . High resolution limited bilateral breast ultrasound was performed. COMPARISON: 08/21/2022, 02/20/2022, 07/31/2021, 01/24/2021, 06/23/2020 BREAST PARENCHYMAL COMPOSITION: There are scattered areas of fibroglandular density. FINDINGS: MAMMOGRAPHIC FINDINGS: No suspicious mass, calcification, or architectural distortion are identified in either breast to sug gest malignancy. There has been no suspicious interval change. No mammographic correlate is identifie d for the patient's reported bilateral nipple discharge. ULTRASOUND: No sonographic correlate is identified for the patient's reported bilateral nipple discharge. IMPRESSION: 1. No specific mammographic or sonographic correlate is identified for the patient's reported bilater al nipple discharge Further evaluation at this time should be based on clinical assessment. Continued follow-up physical examination is recommended.. Consider surgical evaluation. 2. Recommend routine screening mammography in one year. BI-RADS Category 1: Negative Reviewed, dictated and finalized at location A. RT PACKER IMPRESSION: 1. No specific mammographic or sonographic correlate is identified for the radha ent's reported bilateral nipple discharge Further evaluation at this time shoul d be based on clinical assessment. Continued follow-up physical examination is recommended.. Consider surgical evaluation. 2. Recommend routine screening mammography in one year. BI-RADS Category 1: Negative
== END 2023-07-19 08:36 | disposition home or self-care (01) ==
LOC: CHSIMG 08:36
PROVIDERS: PCP Emergency Medicine; Visit Provider Nurse Practitioner
DX: N64.52 Nipple discharge (principal)
CPT/HCPCS: 76642; 77062; 77066; G0279

== ENCOUNTER 2023-07-31 12:47 | Outpatient (CLI) | payer MEDICARE, SELFPAY ==
--- NOTE | 2023-08-22 13:44 | WPDPFTINT ---
PFT Procedure Performed PFT Procedure Performed Spirometry with Pre/Post Bronchodilator Plethysmography (Lung Vol) Diffusing Cap (DLCO) Flow Vol Loop PFT Interpretation DOS: 07/31/2023 REQUESTING: Latonia Barber [facility] REASON FOR TESTING: COPD PULMONARY FUNCTION TESTS Results are reliable and reproducible. Spirometry: FEV1 is 1.77 L, 70% predicted, mildly reduced. FVC is 2.89 L, 91% predicted, normal. FEV1/ FVC ratio is 61% decreased, consistent with airflow obstruction. After bronchodilator, there is a 3% increase in the FEV1, 1.82 L, 72% predicted, mildly reduced. After bronchodilator there is an 8% increase in the FVC, 3.12 L, 98% predicted, normal. FEV1/FVC ratio is 58%, reduced, consistent with airflow obstruction. Lung volumes: Total lung capacity 6.68 L, 118% predicted, normal. Residual volume is 3.79 L, 171%, moderate air trapping. RV/TLC is increased 57% consistent with air trapping. Airway resistance elevated 378%. Diffusion: DLCO is 15.4, 69% predicted, normal. DLCO/ VA is 3.35, 90% predicted, normal. Flow volume loop: There is mild coving of the expiratory limb. IMPRESSION: This study shows a mild obstructive ventilatory impairment without response to bronchodilator, moderate air trapping, and normal diffusion. Lack of response to bronchodilator should not preclude use if clinically indicated. No prior studies for comparison. Olinda Islas MD
== END 2023-07-31 12:48 | disposition home or self-care (01) ==
PROVIDERS: PCP Emergency Medicine; Visit Provider Nurse Practitioner
DX: J44.9 Chronic obstructive pulmonary disease, unspecified (principal)
CPT/HCPCS: 94060; 94618; 94726; 94729

== ENCOUNTER 2023-10-11 12:44 | Emergency (ER) | payer MEDICARE, SELFPAY ==
[2023-10-11 12:44] VITALS: BP 126/66; PULSE 73; RESP 20; TEMP 36.6; O2SAT 96
--- NOTE | 2023-10-11 12:58 | PCRCNOTE ---
1250 called talked with Mague LLOYD, asked for SANDRITA REESE to order a f/u ABG now that pt has been placed on the vent x 2 hrs
--- NOTE | 2023-10-11 14:33 | ED.EXTPRO ---
HPI - Extremity Problem General Chief complaint: Extremity Problem,Nontraumatic Stated complaint: right elbow swelling and redness Time Seen by Provider: 10/11/23 13:01 Source: patient Mode of arrival: ambulatory Limitations: no limitations History of Present Illness HPI Narrative: Patient is a 68-year-old female with a significant past medical history presents today with a cyst on her right elbow. Patient has had a cyst on right elbow over the last couple weeks. He states that it just got worse last few days. And was worsened today and anchored on to the ER. He states that is affecting her ability to bend her elbow. She would like to get this is removed. MD Complaint: extremity pain Onset (ago): week(s) Pain Consistency: intermittent Location: right and upper extremity Severity scale (1-10): 3 Quality: sharp Radiation: none Relieving factors: nothing Exacerbating factors: range of motion Associated symptoms: denies other symptoms Related Data Home Medications Medication Instructions Recorded Confirmed albuterol sulfate 90 mcg/actuation 1 inhalation inhalation Q4H PRN 08/06/19 01/08/22 aerosol inhaler (Ventolin HFA) Shortness Of Breath ergocalciferol (vitamin D2) 1,250 50,000 unit PO WEEKLY 08/06/19 01/08/22 mcg (50,000 unit) capsule hydrocodone 10 mg-acetaminophen 1 tablet PO Q6H PRN Pain 08/06/19 01/08/22 325 mg tablet ([place]) losartan 100 mg tablet 100 mg PO DAILY 08/06/19 01/08/22 lovastatin 20 mg tablet 20 mg PO DAILY 08/06/19 01/08/22 metformin 500 mg tablet,extended 1,000 mg PO BID 08/06/19 01/08/22 release 24 hr metoprolol succinate 200 mg 200 mg PO DAILY 08/06/19 01/08/22 tablet,extended release 24 hr glimepiride 1 mg tablet 1 mg PO DAILY 01/08/22 01/08/22 liraglutide 0.6 mg/0.1 mL (18 mg/3 1.2 mg subcut DAILY 01/08/22 01/08/22 mL) subcutaneous pen injector (Victoza 2-Naren) Allergies Allergy/AdvReac Type Severity Reaction Status Date / Time cyclobenzaprine Allergy Unknown unkwown Verified 01/16/22 08:58 lisinopril Allergy Unknown unkwown Verified 01/16/22 08:58 Review of Systems Review of Systems: All systems reviewed & are unremarkable except as noted in HPI and below Constitutional: Constitutional: Reports no additional constitutional complaints Eyes: Eyes: Reports no additional eye complaints ENT: Reports system reviewed and no additional complaints, except as documented Cardiovascular: Cardiovascular: Reports no additional cardiovascular complaints Respiratory: Respiratory: Reports no additional respiratory complaints Gastrointestinal: Gastrointestinal: Reports no additional gastrointestinal complaints Genitourinary: Genitourinary: Reports no additional female genitourinary complaints Musculoskeletal: Musculoskeletal: Reports no additional musculoskeletal complaints Integumentary/Breasts: Skin/Breast: Reports as per HPI Comments: skin cyst Neurologic: Reports system reviewed and no additional complaints, except as documented Psychiatric: Psychiatric: Reports no additional psychiatric complaints Endocrine: Endocrine: Reports no additional endocrine complaints Hematologic/Lymphatic: Hematologic/Lymphatic: Reports no additional hematologic/lymphatic complaints Allergic/Immunologic: Allergic/Immunologic: Reports no additional allergic/immunologic complaints [facility] Past Medical History Medical History Epstein esophagus CAD in [place] artery Chest pain in adult Colon polyp Diabetes 1.5, managed as type 2 ADAMES (dyspnea on exertion) Dyslipidemia Elevated hemoglobin Essential hypertension Hyperkalemia Spinal stenosis of lumbar region Type 2 diabetes mellitus without complication, without long-term current use of insulin Surgical History Surgical History Personal history of spine surgery Family History Family History (Reviewed 10/11/23 @ 14:37 by Yamil
[2023-10-11 14:50] VITALS: BP 125/68; PULSE 75; RESP 17; TEMP 36.6; O2SAT 97
== END 2023-10-11 14:50 | disposition home or self-care (01) ==
PROVIDERS: Emergency Provider Family Medicine; PCP Emergency Medicine
DX: L02.413 Cutaneous abscess of right upper limb (principal); L72.9 Follicular cyst of the skin and subcutaneous tissue, unspecified; I25.10 Atherosclerotic heart disease of native coronary artery without angina pectoris; E78.5 Hyperlipidemia, unspecified; I10 Essential (primary) hypertension; E13.9 Other specified diabetes mellitus without complications; F17.210 Nicotine dependence, cigarettes, uncomplicated
CPT/HCPCS: 10060; 99283

== ENCOUNTER 2023-10-16 23:20 | Emergency (ER) | payer MEDICARE, SELFPAY ==
--- NOTE | ~2023-10-16 | XR_ITS ---
Portable chest x-ray Comparison: None Clinical History: Chest pain Findings: Calcified left midlung granuloma noted. Lungs are otherwise clear. Cardiomediastinal silh ouette is stable. Bones and soft tissues are unremarkable. Impression: No significant pulmonary abnormality. Reviewed, dictated and finalized at [facility]. N MARKETING ANALYST Impression: No significant pulmonary abnormality.
--- NOTE | 2023-10-16 23:24 | ED.CHESTPAIN ---
HPI - Chest Pain General Chief Complaint: Chest Pain Stated Complaint: chest pain Time Seen by Provider: 10/16/23 23:24 Source: patient Mode of arrival: EMS Limitations: no limitations History of Present Illness HPI narrative: 68-year-old female, smoker with a history of hypertension, diabetes mellitus, dyslipidemia, colonic polyps, spinal stenosis, Status post back surgery many years ago, CAD, negative stress test in December of 2018 with an EF of greater than 70%, presents to the ER with acute onset -- substernal chest pain radiating to the back. The patient rated the pain as 8/10. The pain started acutely while she was resting 1 hour ago. She received aspirin and sublingual nitro by EMS which decreased her chest pain to 2/10. No nausea/ vomiting. No diaphoresis or lightheadedness. An EKG done by the EMS did not show any acute ST-T changes. Patient had chest pains for which she had a negative stress test in December of 2018. Subsequently she was seen by [facility] and had a cardiac catheterization following which she did not have placement of any stents. -- Bilateral leg weakness. the patient felt that her leg sway not able to support her. The patient is able to raise her legs and move her legs on command. no bladder or bowel involvement. The patient has a history of spinal stenosis status post surgery more than 20 years ago. The patient had a recent cyst removal from the elbow and she is currently on doxycycline. MD complaint: chest pain Onset (ago): minute(s) ( 30 minutes ago) Timing of current episode: constant Prior episodes: Yes Onset: during rest Pain location: substernal Pain radiation: back Severity: severe Pain scale (0-10): 8 Quality: aching Relieving factors: nitroglycerin Exacerbating factors: nothing Related Data Home Medications Medication Instructions Recorded Confirmed albuterol sulfate 90 mcg/actuation 1 inhalation inhalation Q4H PRN 08/06/19 10/16/23 aerosol inhaler (Ventolin HFA) Shortness Of Breath hydrocodone 10 mg-acetaminophen 1 tablet PO Q6H PRN Pain 08/06/19 10/16/23 325 mg tablet ([place]) losartan 100 mg tablet 100 mg PO DAILY 08/06/19 10/16/23 metformin 500 mg tablet,extended 1,000 mg PO BID 08/06/19 10/16/23 release 24 hr metoprolol succinate 200 mg 200 mg PO DAILY 08/06/19 10/16/23 tablet,extended release 24 hr magnesium oxide 400 mg PO BID 10/14/23 10/16/23 rosuvastatin 10 mg tablet 10 mg PO DAILY 10/16/23 10/16/23 umeclidinium 62.5 mcg-vilanterol 1 inh inhalation DAILY 10/16/23 10/16/23 25 mcg/actuation powdr for inhalation (Anoro Ellipta) Allergies Allergy/AdvReac Type Severity Reaction Status Date / Time cyclobenzaprine Allergy Unknown unkwown Verified 10/14/23 08:15 lisinopril Allergy Unknown unkwown Verified 10/14/23 08:15 Review of Systems Review of Systems: All systems reviewed & are unremarkable except as noted in HPI and below Constitutional: Constitutional: Reports as per HPI and Reports no additional constitutional complaints Eyes: Eyes: Reports as per HPI and Reports no additional eye complaints ENT: Reports system reviewed and no additional complaints, except as documented and Reports as per HPI Cardiovascular: Cardiovascular: Reports as per HPI, Reports no additional cardiovascular complaints and Reports chest pain Respiratory: Respiratory: Reports as per HPI and Reports no additional respiratory complaints Gastrointestinal: Gastrointestinal: Reports as per HPI and Reports no additional gastrointestinal complaints Genitourinary: Genitourinary: Reports no additional female genitourinary complaints Musculoskeletal: Musculoskeletal: Reports no additional musculoskeletal complaints and Reports as per HPI Integumentary/Breasts: Skin/Breast: Reports system reviewed and no additional complaints, except as docu and Reports as per HPI Neurologic: Reports system reviewed and no additional complaints, except as documented and Reports as per HPI Comments:
--- NOTE | 2023-10-16 23:32 | ECG_ITS ---
Measurements Intervals [place] Rate: 62 P: 68 TN: 238 QRS: 5 QRSD: 115 T: 51 QT: 426 QTc: 434 Interpretive Statements SINUS RHYTHM WITH FIRST DEGREE AV BLOCK MODERATE INTRAVENTRICULAR CONDUCTION DELAY [110+ ms QRS DURATION] NO PREVIOUS ECG AVAILABLE FOR COMPARISON Electronically Signed On 10-17-2023 12:32:22 RECYCLABLE MATERIALS DISTRIBUTOR by Missy North M.D.
[2023-10-16 23:33] VITALS: BP 162/74; PULSE 63; RESP 20; TEMP 36.6; O2SAT 100
[2023-10-16 23:35] VITALS: PULSE 68
[2023-10-16 23:51] LABS: Basophils Absolute Auto 0.07 K/mm3 (0.00-0.10); Basophils Percent Auto 0.6 % (0.0-1.0); Eosinophils Absolute Auto 0.15 K/mm3 (0.02-0.50); Eosinophils Percent Auto 1.3 % (1.0-6.0); Hematocrit 41.1 % (35.0-42.0); Hemoglobin 13.7 g/dL (11.7-13.8); Immature Granulocyte Absolute 0.04 K/mm3 (0.00-0.00); Immature Granulocyte Percent A 0.3 % (0.0-0.0); Lymphocytes Absolute Auto 1.66 K/mm3 (1.10-4.50); Lymphocytes Percent Auto 14.2 % (18.0-42.0); Mean Corpuscular HGB Conc 33.3 g/dL (32.0-36.0); Mean Corpuscular Volume 89.9 fL (78.0-102.0); Mean Platelet Volume 10.4 fl (9.2-11.8); Monocytes Absolute Auto 0.79 K/mm3 (0.10-0.90); Monocytes Percent Auto 6.8 % (2.0-11.0); Neutrophils Percent Auto 76.8 % (50.0-70.0); Platelet Count Result 238 K/mm3 (150-420); Red Blood Count 4.57 M/mm3 (4.20-5.40); Red Cell Distribution Width 11.9 % (11.6-14.4); White Blood Count 11.7 K/mm3 (4.8-10.8)
[2023-10-17 00:04] VITALS: BP 130/63; PULSE 65; RESP 18; O2SAT 97
[2023-10-17 00:05] LABS: INR 0.9; Partial Thromboplastin Time 24.6 SEC (23.90-30.70); Prothrombin Time 10.3 Seconds (9.50-12.10)
[2023-10-17 00:10] LABS: Appearance Urine Clear (Clear); Bilirubin Urine Negative (Negative); Blood Urine Negative (Negative); Color Urine Light Yellow (Yellow); Glucose Urine UA Negative (Negative); Ketones Urine Negative (Negative); Leukocyte Esterase Ur Negative LEU/UL (Negative); Nitrate Urine Negative (Negative); Protein Urine Negative (Negative); Specific Grav Ur <= 1.005 (1.010-1.020); Urobilinogen Urine 0.2 mg/dL (0.2-1.0)
[2023-10-17 00:11] LABS: Add Urine Microscopic? NO
[2023-10-17 00:11] LABS: Alanine Aminotransferase 17 U/L (14-59); Albumin Level 3.3 g/dL (3.4-5.0); Alkaline Phosphatase 142 U/L (46-116); Anion Gap 5 mmol/L (8-16); Aspartate Amino Transferase 10 U/L (15-37); Bilirubin,Total 0.7 mg/dL (0.00-1.00); Blood Urea Nitrogen 15 mg/dL (7-18); Calcium 8.8 mg/dL (8.5-10.1); Carbon Dioxide 31 mmol/L (21-32); Chloride 96 mmol/L (98-108); Estimated CRCL calculation 70 ml/min; Estimated Glomerular Filt Rate > 60; Glucose 214 mg/dL (70-99); Osmolality Calculated 280 mOsm/kg (285-295); Potassium 4.3 mmol/L (3.5-5.1); Sodium 132 mmol/L (136-145); Total Protein 6.5 g/dL (6.4-8.2); Troponin I 31.2 ng/L (0.00-60.4)
[2023-10-17 00:14] LABS: Lactic Acid Reflex 1.5 mmol/L (0.4-2.0)
[2023-10-17 00:43] VITALS: BP 130/74; PULSE 68; RESP 18; O2SAT 97
--- NOTE | 2023-10-17 00:46 | PC.NURSE ---
Spoke c pt about d/c home and repeat troponin. Pt wanting to go see her safe expert and PCP this Saturday as scheduled and decided no need for repeat trop. Pt given d/c instructions.
== END 2023-10-17 00:49 | disposition home or self-care (01) ==
PROVIDERS: Emergency Provider Internal Medicine Critical Care Medicine; PCP Emergency Medicine
DX: R07.9 Chest pain, unspecified (principal); J44.9 Chronic obstructive pulmonary disease, unspecified; E11.65 Type 2 diabetes mellitus with hyperglycemia; I10 Essential (primary) hypertension; E78.5 Hyperlipidemia, unspecified; I25.10 Atherosclerotic heart disease of native coronary artery without angina pectoris; F17.210 Nicotine dependence, cigarettes, uncomplicated; Z79.84 Long term (current) use of oral hypoglycemic drugs; Z79.899 Other long term (current) drug therapy
CPT/HCPCS: 36415; 71045; 80053; 81003; 83605; 84484; 85025; 85610; 85730; 93005; 99284

== ENCOUNTER 2023-10-18 10:00 | Outpatient (CLI) | payer MEDICARE, SELFPAY ==
--- NOTE | ~2023-10-18 | CT_ITS ---
EXAMINATION: CTA chest PE protocol DATE: 10/18/2023 10:38 INDICATION: Chest pain and leg pain TECHNIQUE: Computed tomography angiography (CTA) of the chest was performed with 100 mL Omnipaque-350 intravenous contrast timed to evaluate the pulmonary arteries. Coronal maximum intensity projection 3D-reconstructions were created by the technologist. Automated exposure control and iterative reconst ruction technique were employed. Exam dose: 575.98 mGy-cm total exam DLP. COMPARISON: October 16, 2023 portable AP chest December 21, 2022 CT chest FINDINGS: There is diagnostic contrast enhancement of the pulmonary arteries and no evidence of pulmo nary embolism. Thyroid generalized enlargement, heterogeneous density and occasional calcifications, consistent with thyroid goiter. Mild discoid atelectasis or scarring at the lingula. No pulmonary infiltrate or consolidation. Stable small opacity in the peripheral right lower lobe no significant new or enlarging pulmonary opa cities are noted. Calcified pulmonary granulomas and calcified left hilar nodes, consistent with old pulmonary granulom atous disease. Multiple splenic calcified granulomas are noted as well. Normal heart size. Trace pericardial fluid. No thoracic aortic aneurysm. There is aortic and coronary artery calcification. No hilar or mediastinal mass lesion or lymphadenopathy. Normal morphology of the adrenal glands. Status post cholecystectomy. Degenerative changes of the cervical and thoracic spine; no suspicious osteolytic or osteoblastic les ions. IMPRESSION: No evidence of pulmonary embolism Reviewed, dictated and finalized at Location [facility]. Reviewed, dictated and finalized at location B. ING TECHNICIAN
--- NOTE | ~2023-10-18 | US_ITS ---
EXAMINATION: US venous doppler [facility] DATE: 10/18/2023 11:14 INDICATION: Chest pain and lower limb pain TECHNIQUE: Grayscale ultrasound images without and with compression and Doppler ultrasound images of the bilateral lower extremity veins were obtained. COMPARISON: None. FINDINGS: The visualized portions of right common femoral vein, profunda (deep) femoral vein, femoral vein, pop liteal vein, posterior tibial veins, peroneal veins, gastrocnemius vein and greater saphenous vein at the outflow and throughout the thigh are patent. The visualized portions of left common femoral vein, profunda femoral vein, femoral vein, popliteal v ein, posterior tibial veins, peroneal veins, gastrocnemius vein and greater saphenous vein at the out flow and throughout the thigh are patent. IMPRESSION: 1. No deep venous thrombosis in either lower limb. Reviewed, dictated and finalized at location A. RMATION ASSISTANT
== END 2023-10-18 10:01 | disposition home or self-care (01) ==
LOC: ANHIMG 10:01
PROVIDERS: PCP Emergency Medicine; Visit Provider Emergency Medicine
DX: M79.662 Pain in left lower leg (principal); M79.661 Pain in right lower leg; R07.9 Chest pain, unspecified
CPT/HCPCS: 71275; 93970; Q9967

== ENCOUNTER 2023-10-28 09:09 | Outpatient (CLI) | payer MEDICARE, SELFPAY ==
--- NOTE | ~2023-10-28 | MR_ITS ---
MR breast BI wo/w con 10/28/2023 12:27 ORNAMENTAL METALWORK DESIGNER INDICATION: Nipple discharge TECHNIQUE: MRI of the breasts perform using standard protocol pre-and post IV contrast with the follo wing sequences: Axial T2 STIR, axial T1, axial vibrant T1 with fat suppression precontrast and multip hasic postcontrast. 15 cc MultiHance administered intravenously. COMPARISON: Comparison to multiple prior studies sequentially, with oldest reviewed study dated 08/03. FINDINGS: There are no abnormalities on the precontrast sequences. There is minimal background parenc hymal enhancement. No enhancing lesions following contrast administration. No areas of enhancement meeting threshold criteria on CAD analysis. No evidence of signal abnormalities in the axillary or i nternal mammary node distributions. LEFT BREAST: No signal abnormalities on precontrast sequences. There is minimal background parenchym al enhancement. There is focal nonmass-like enhancement with rapid washout kinetics in the lower inne r quadrant of the left breast at approximately 9:00, middle third with area measuring 9 x 7 x 8 mm. T here is a second area of nonmass-like enhancement in the lower inner quadrant with rapid washout kine tics, located at 7:00, middle third measuring 7 x 5 x 3 mm. No evidence of signal abnormalities in th e axillary or internal mammary node distributions.] IMPRESSION: 1: Right breast: Negative. No evidence of malignancy. BI-RADS category 1. Recommend annual mammo graphy follow-up. 2: Left breast: 2 separate areas of nonmasslike enhancement in the lower inner quadrant. Recommend f ollow-up second look left breast ultrasound. BI-RADS CATEGORY 0 - INCOMPLETE STUDY, NEED ADDITIONAL IMAGING EVALUATION. Reviewed, dictated and finalized at location A. MENTAL METALWORK DESIGNER IMPRESSION: 1: Right breast: Negative. No evidence of malignancy. BI-RADS category 1. Recommend annual mammography follow-up. 2: Left breast: 2 separate areas of nonmasslike enhancement in the lower inner quadrant. Recommend follow-up second look left breast ultrasound. BI-RADS CATEGORY 0 - INCOMPLETE STUDY, NEED ADDITIONAL IMAGING EVALUATION.
== END 2023-10-28 09:10 | disposition home or self-care (01) ==
LOC: ANHIMG 09:17
PROVIDERS: PCP Emergency Medicine; Visit Provider Surgery
DX: N64.52 Nipple discharge (principal); R93.89 Abnormal findings on diagnostic imaging of other specified body structures
CPT/HCPCS: 77049; A9577; C8908

== ENCOUNTER 2023-11-28 07:36 | Outpatient (CLI) | payer MEDICARE, SELFPAY ==
--- NOTE | ~2023-11-28 | MR_ITS ---
EXAMINATION: MR lumbar spine wo con DATE: 11/28/2023 08:36 INDICATION: Back pain. Leg weakness. TECHNIQUE: Magnetic resonance imaging (MRI) of the lumbar spine was performed without intravenous con trast. COMPARISON: Lumbar spine MRI 07/15/2018 FINDINGS: There is 14 degrees levoscoliosis of lumbar spine. There is 7 mm anterolisthesis of L5 on S 1. There are changes of anterior fusion procedure at L5-S1 with pedicle screws. Vertebral body height s are normal. There is mildly decreased disc height at L2-L3, severely decreased disc height at L3-L4 , mildly decreased disc height at L4-L5, and severely decreased disc height at L5-S1. The distal spin al cord signal intensity is normal. The conus medullaris is at L1-L2. The following disc levels are s pecifically discussed: L1-L2: The disc does not extend beyond the endplate margin. There is mild bilateral facet joint osteo arthritis. There is no neural foraminal stenosis. There is no central canal stenosis. L2-L3: The disc is bulging. There is mild bilateral facet joint osteoarthritis. There is mild bilater al neural foraminal stenosis. There is mild central canal stenosis. L3-L4: The disc is bulging and has an annular fissure. There is severe bilateral facet joint osteoart hritis. There is moderate bilateral neural foraminal stenosis. There is mild central canal stenosis w ith posterior decompression. L4-L5: There is a central protrusion with annular fissure. There is mild bilateral facet joint hypert rophy. There is mild right neural foraminal stenosis. There is mild central canal stenosis. L5-S1: The disc does not extend beyond the endplate margin. There is no facet joint hypertrophy. Ther e is no neural foraminal stenosis. There is no central canal stenosis. IMPRESSION: 1. Severe lumbar spondylosis, mildly worsened from 07/15/2018. 2. Posterior fusion procedure at L5-S1. 3. Lumbar levoscoliosis. Reviewed, dictated and finalized at location A.
--- NOTE | ~2023-11-28 | US_ITS ---
EXAMINATION: US thyroid DATE: 11/28/2023 08:07 INDICATION: Thyroid nodule. Enlarged thyroid. TECHNIQUE: Multiple ultrasound images of the thyroid were obtained. COMPARISON: None. FINDINGS: The right thyroid lobe measures 5.4 x 2.4 x 2.3 cm. The left thyroid lobe measures 5.9 x 2.5 x 2.8 c m. There are multiple nodules in the thyroid with similar ultrasound appearance. In the right thyroi d lobe, there is a 2.8 cm almost entirely solid, hypoechoic, wider than tall nodule with lobulated ma rgin without echogenic foci (TI-RADS TR4). In the right thyroid lobe, there is an 1.8 cm almost entir lyly solid, hypoechoic, wider than tall nodule with lobulated margin without echogenic foci (TR4). In the left thyroid lobe, there is a 2.3 cm almost entirely solid, hypoechoic, wider than tall nodule lo bulated margin without echogenic foci (TR4). IMPRESSION: 1. Multinodular goiter. Ultrasound-guided fine-needle aspiration of 2 nodules is recommended. Reviewed, dictated and finalized at location A. IMPRESSION: 1. Multinodular goiter. Ultrasound-guided fine-needle aspiration of 2 nodules i s recommended.
== END 2023-11-28 07:37 | disposition home or self-care (01) ==
LOC: CHSIMG 07:37
PROVIDERS: PCP Emergency Medicine; Visit Provider Emergency Medicine
DX: M54.50 Low back pain, unspecified (principal); R53.1 Weakness; E04.1 Nontoxic single thyroid nodule; M43.06 Spondylolysis, lumbar region; Z98.1 Arthrodesis status; M41.86 Other forms of scoliosis, lumbar region
CPT/HCPCS: 72148; 76536

== ENCOUNTER 2023-12-19 01:22 | Day surgery (SDC) | payer MEDICARE, SELFPAY ==
[2023-12-12 09:39] VITALS: BMI 26.8
--- NOTE | 2023-12-12 09:59 | PC.NURSE ---
Report to the Outpatient Waiting Room, entrance under the green pavilion located off [facility], at time __8:30AM on date __12/19/23 . Planned Procedure Time: __9:30AM . Time changes happen often and if your time is changed the preop area will call you the afternoon before. - You and your visitor will be asked to self-screen and do not enter if you have any COVID symptoms. - A mask is optional within the hospital at this time. LOCAL ANESTHESIA LIGHT BREAKFAST MORNING OF SURGERY. Take the following medications with a SIP of water the morning of surgery: ____MORNING MEDICATION DO NOT STOP ANY OF YOUR OTHER PRESCRIPTION MEDICATIONS PRIOR TO SURGERY ?EXCEPT THE FOLLOWING Medications to discontinue per physician NONE Date to take last dose Please no make-up, nail bahraini, hairspray, perfume, deodorant, or body powder the day of surgery. No jewelry (including any body piercings) or valuables the day of surgery, leave them at home. Please take a shower or bath the night before, or the morning of, surgery with an antibacterial soap. Wear comfortable, loose fitting clothing. Children are encouraged to wear pajamas. - Jewelry must be removed prior to entering the operating room. Rings and piercings that are not removed may be cut off. - The hospital will not accept responsibility for valuables. - Please leave all valuables, including medications, at home the day of surgery. If you are going home after surgery, a licensed road train driver must drive you home. - NO public transportation without another adult if you receive anesthesia. - We recommend that an adult stay with you for 24 hours following discharge. - We also recommend that you do not drive, make important decision, drink alcoholic beverages, or take any drugs that were not prescribed by your health care provider for at least 24 hours after your discharge time. Follow any additional instructions given to you from your surgeon. If you or anyone in your household have experienced Covid symptoms in the past week, please notify your surgeon or the nurse liaison at the phone number below for possible testing. Telephone instructions given to ____PATIENT and asked if any additional questions and then verbalized understanding. Patient advised to call surgeon office or pre surgery nurse liaison [phone] if any additional questions.
[2023-12-19] VITALS (11 sets, daily range): BP systolic 112–150; BP diastolic 58–92; PULSE 61–71; RESP 16–18; TEMP 36.1; O2SAT 85–94
--- NOTE | 2023-12-19 07:19 | WPDHPUPDATE1 ---
History and Physical Update Update Date/Time: 12/19/23 07:19 History and Physical has been reviewed, including an updated exam of the patient. There are NO changes in the patient's condition. Risks, benefits, and alternatives have been discussed and questions answered. Patient agrees to proceed with procedure.
[2023-12-19] MEDS: LIDO 1%/EPINEPHRINE 1:100,000 50 ML VIAL 8 ML INFILTRATE (10:12)
[2023-12-19] MEDS: BACITRACIN OINTMENT 15 GM TUBE 1 APPLIC TOPICAL (10:43)
--- NOTE | 2023-12-19 12:08 | W.PM.PROC2 ---
Procedure Note - Detailed Date of Procedure 12/19/23 Pre-op Diagnosis BCCA right nasal ala Post-op Diagnosis Other Procedure Performed 0.7 cm excision of basal cell carcinoma of the right nasal ala with frozen section and full-thickness skin graft 0.5 sq cm Surgeon Jose Jeff MD Anesthesia Local Indications Biopsy-proven basal cell carcinoma Findings Basal cell carcinoma Description of Procedure The biopsy site on the right nasal ala was marked as the patient waited in the holding area. She had signed consent for the surgery. She was taken to the operating placed supine on the operating table. A time-out was held and confirmed. The site was identified the face was prepped and draped in usual fashion including the right upper neck. The site was carefully marked for a small excision. This area was infiltrated with 1% lidocaine with epinephrine. Adequate anesthesia was obtained. A 15 C blade was used to excise the biopsy site and 1 and half mm of radial margin in addition. The excision extended through the skin and into subcutaneous fat. The specimen was marked with a suture for the most superior aspect and sent for frozen section. The pathologist revealed basal cell carcinoma and free margins. The small site was closed with a full-thickness skin graft this was harvested from the right auricular sulcus region. It sat nicely in the recipient wound. It was fixed with 6 0 interrupted nylon. The donor site was closed with 6 0 interrupted nylon.. Patient tolerated this well and was discharge instructions wound care follow-up and some bacitracin on sutures. Estimated Blood Loss 3 Drains No Packing No Pathology Yes Complications No immediate complications Condition Stable Disposition Same day
== END 2023-12-19 12:14 | disposition home or self-care (01) ==
PROVIDERS: PCP Emergency Medicine; Visit Provider Plastic Surgery
PROC: (CPT 11641; principal; 2023-12-19 09:30)
DX: C44.311 Basal cell carcinoma of skin of nose (principal); E11.9 Type 2 diabetes mellitus without complications; I10 Essential (primary) hypertension
CPT/HCPCS: 11641; 15260; 88305; 88331; A9270

== ENCOUNTER 2024-01-16 08:00 | Outpatient (CLI) | payer MEDICARE, SELFPAY ==
[2024-01-16 08:23] LABS: Basophils Absolute Auto 0.04 K/mm3 (0.00-0.10); Basophils Percent Auto 0.6 % (0.0-1.0); Eosinophils Absolute Auto 0.15 K/mm3 (0.02-0.50); Eosinophils Percent Auto 2.4 % (1.0-6.0); Hematocrit 43.9 % (35.0-42.0); Hemoglobin 14.4 g/dL (11.7-13.8); Immature Granulocyte Absolute 0.02 K/mm3 (0.00-0.00); Immature Granulocyte Percent A 0.3 % (0.0-0.0); Lymphocytes Absolute Auto 1.67 K/mm3 (1.10-4.50); Lymphocytes Percent Auto 26.9 % (18.0-42.0); Mean Corpuscular HGB Conc 32.8 g/dL (32-36); Mean Corpuscular Volume 91.5 fL (78.0-102.0); Mean Platelet Volume 10.2 fl (9.2-11.8); Monocytes Absolute Auto 0.42 K/mm3 (0.10-0.90); Monocytes Percent Auto 6.8 % (2.0-11.0); Neutrophils Absolute Auto 3.91 K/mm3 (1.70-7.20); Platelet Count Result 238 K/mm3 (150-420); Red Cell Distribution Width 11.5 % (11.6-14.4); White Blood Count 6.2 K/mm3 (4.8-10.8)
[2024-01-16 08:24] LABS: Appearance Urine Clear (Clear); Bilirubin Urine Negative (Negative); Blood Urine Negative (Negative); Color Urine Light Yellow (Yellow); Glucose Urine UA Negative (Negative); Ketones Urine Negative (Negative); Leukocyte Esterase Ur Trace LEU/UL (Negative); Nitrate Urine Negative (Negative); Protein Urine Negative (Negative); Urobilinogen Urine 0.2 mg/dL (0.2-1.0)
[2024-01-16 08:34] LABS: Creatinine Urine 16.15 mg/dL (40-278); MALB Creatinine Ratio 80.4 mg/g (0-30); Microalbumin Urine Random < 13.0 mg/L
[2024-01-16 08:38] LABS: Hemoglobin A1C 7.8 % (<5.7)
[2024-01-16 08:48] LABS: Add Urine Microscopic? YES; Bacteria Urine Rare /hpf; RBC Urine None seen /hpf (0-2); WBC Urine None seen /hpf (0-3)
[2024-01-16 09:26] LABS: Alanine Aminotransferase 11 U/L (14-59); Albumin Level 3.5 g/dL (3.4-5.0); Alkaline Phosphatase 148 U/L (46-116); Anion Gap 6 mmol/L (4-12); Aspartate Amino Transferase < 10 U/L (15-37); Bilirubin Direct 0.2 mg/dL (0-0.2); Bilirubin,Total 0.6 mg/dL (0.00-1.00); Blood Urea Nitrogen 11 mg/dL (7-18); Calcium 9.6 mg/dL (8.5-10.1); Carbon Dioxide 33 mmol/L (21-32); Chloride 97 mmol/L (98-108); Cholesterol 129 mg/dL (0-200); Estimated Glomerular Filt Rate > 60; Folic Acid 10.3 ng/mL (8.6->20); Glucose 167 mg/dL (70-99); HDL Direct 41 mg/dL (40-60); Iron 49 ug/dL (50-170); LDL Cholesterol Calculated 66 mg/dL (<130); Magnesium 1.7 mg/dL (1.8-2.4); Osmolality Calculated 285 mOsm/kg (285-295); Percent Iron Saturation 14 % (12-57); Phosphorus 3.9 mg/dL (2.6-4.7); Potassium 4.4 mmol/L (3.5-5.1); Sodium 136 mmol/L (136-145); Total Protein 6.2 g/dL (6.4-8.2); Triglycerides 108 mg/dL (0-150); Vitamin B12 234 pg/mL (193-986)
[2024-01-16 09:28] LABS: Free T4 Free Thyroxine Reflex 1.15 ng/dL (0.76-1.46); Thyroid Stimulating Hormone Reflex 0.09 u/IU/mL (0.36-3.74)
[2024-01-17 08:36] LABS: Ferritin 46 ng/mL (8-252)
[2024-01-18 07:29] LABS: Vitamin D 25 Hydroxy 100 ng/mL (30-100)
== END 2024-01-16 08:01 | disposition home or self-care (01) ==
LOC: CHSLAB 08:03
PROVIDERS: PCP Emergency Medicine; Visit Provider Emergency Medicine
DX: C44.91 Basal cell carcinoma of skin, unspecified (principal); D75.1 Secondary polycythemia; E04.1 Nontoxic single thyroid nodule; E11.41 Type 2 diabetes mellitus with diabetic mononeuropathy; E78.2 Mixed hyperlipidemia; E83.42 Hypomagnesemia; G89.4 Chronic pain syndrome; I10 Essential (primary) hypertension; I25.10 Atherosclerotic heart disease of native coronary artery without angina pectoris; I78.1 Nevus, non-neoplastic; J43.2 Centrilobular emphysema; K22.70 Barrett's esophagus without dysplasia; M47.896 Other spondylosis, lumbar region; M85.80 Other specified disorders of bone density and structure, unspecified site; N64.59 Other signs and symptoms in breast; M62.81 Muscle weakness (generalized)
CPT/HCPCS: 36415; 80061; 80069; 80076; 81001; 82043; 82306; 82607; 82728; 82746; 83036; 83540; 83550; 83735; 84439; 84443; 85025

== ENCOUNTER 2024-01-28 12:11 | Outpatient (CLI) | payer MEDICARE, SELFPAY ==
--- NOTE | ~2024-01-28 | US_ITS ---
EXAMINATION: 1. US FNA w image guidance 2. US FNA additional DATE: 01/28/2024 13:37 INDICATION: Thyroid nodule. TECHNIQUE: The procedure and its benefits and risks were discussed with the patient. Risks specifically discusse d included bleeding. The patient verbalized understanding of the risks and agreed to proceed. The nec k was prepped and draped in the usual sterile manner. 1% lidocaine was used for local anesthesia. 6 passes were made with a 25G needle into the lesion in right thyroid lobe under ultrasound guidance. 6 passes were made with a 25-gauge needle into the lesion in the left thyroid lobe under ultrasound g uidance. There were no immediate complications. FINDINGS: Grayscale ultrasound images demonstrate needles advanced into a 3.1 cm nodule in right thyroid lobe f or biopsy. Ultrasound images demonstrate needles advanced into a 2.4 cm nodule in left thyroid lobe f or biopsy. IMPRESSION: 1. Ultrasound-guided fine needle aspiration of a right thyroid nodule. 2. Ultrasound-guided fine-needle aspiration of a left thyroid nodule. Reviewed, dictated and finalized at location A. IMPRESSION: 1. Ultrasound-guided fine needle aspiration of a right thyroid nodule. 2. Ultrasound-guided fine-needle aspiration of a left thyroid nodule.
== END 2024-01-28 12:12 | disposition home or self-care (01) ==
PROVIDERS: PCP Emergency Medicine; Visit Provider Emergency Medicine
DX: E04.2 Nontoxic multinodular goiter (principal)
CPT/HCPCS: 10005; 10006; 88172; 88173; 88305; J1100; J1200; J2371; J2405; J2704

== ENCOUNTER 2024-02-07 06:59 | Outpatient (CLI) | payer MEDICARE, SELFPAY ==
--- NOTE | ~2024-02-07 | US_ITS ---
Renal-Bladder ultrasound Clinical History: Proteinuria Technique: Real-time sonographic imaging of the kidneys and urinary bladder was performed. Findings: The right kidney measures 10.5 cm in length and the left kidney measures 10.8 cm. There is no hydronephrosis or renal calculus identified. Renal cortical echogenicity is within normal limits. No renal mass lesion is identified. The urinary bladder is partially distended at the time of this exam. No intraluminal echoes are ident ified. No abnormal wall thickening is seen. Impression: Unremarkable ultrasound of the kidneys and urinary bladder. Reviewed, dictated and finalized at location M. Impression: Unremarkable ultrasound of the kidneys and urinary bladder.
== END 2024-02-07 07:00 | disposition home or self-care (01) ==
LOC: CHSIMG 07:00
PROVIDERS: PCP Emergency Medicine; Visit Provider Emergency Medicine
DX: R80.9 Proteinuria, unspecified (principal)
CPT/HCPCS: 76775

== ENCOUNTER 2024-06-29 09:32 | Outpatient (CLI) | payer MEDICARE, SELFPAY ==
--- NOTE | ~2024-06-29 | MMUS_ITS ---
EXAMINATION: MM diagnostic tiffany BI w elton, US breast LT limited HISTORY: Left breast discharge and medial pain TECHNIQUE: 3-D tomosynthesis images of the breasts were performed and synthetic 2-D images were gener ated. CAD analysis was submitted and interpreted. High resolution limited left breast ultrasound was performed. COMPARISON: 07/19/2023 BREAST PARENCHYMAL COMPOSITION:Not Dense. The breasts are almost entirely fatty FINDINGS: MAMMOGRAPHIC FINDINGS: Parenchymal pattern of both breasts is unchanged. No suspicious mass lesion or distortion seen. No lamas spicious microcalcification. ULTRASOUND: No dilated ducts seen in the left subareolar region. There is a 3 mm probable cystic mass at the 9:00 position left breast, 9 cm from the nipple. IMPRESSION: No evidence for malignancy. 3 mm probable left breast cyst, as above. BI-RADS Category 2: Benign finding(s). Reviewed, dictated and finalized at [facility]. IMPRESSION: No evidence for malignancy. 3 mm probable left breast cyst, as above. BI-RADS Category 2: Benign finding(s).
== END 2024-06-29 09:33 | disposition home or self-care (01) ==
LOC: CHSIMG 09:37
PROVIDERS: PCP Emergency Medicine; Visit Provider Surgery
DX: R92.8 Other abnormal and inconclusive findings on diagnostic imaging of breast (principal); N64.52 Nipple discharge; N60.02 Solitary cyst of left breast
CPT/HCPCS: 76642; 77062; 77066; G0279

== ENCOUNTER 2024-10-06 08:24 | Outpatient (CLI) | payer MEDICARE, SELFPAY ==
--- OUTSIDE RECORDS SUMMARY | 2024-10-06 08:38 | XMS_ITS | Encounter Summary ---
Author Organization [facility] Healthcare Address [address] [place] [address] Care Team Providers Care Sales Superintendent Name Role Phone Brandon Schroeder MD Primary Care Provider [phone] Dasha Collazo KILN TENDER Unavailable [phone] Reason for Visit * Reason Comments Diabetes Encounter Details Date Type Department Care Team (Late st Contact Info) Description 10/05/2024 9:30 AM TRADING SPECIALIST Office Visit [facility] Diabetes and Endocrinology [address] [place] [phone] [place] [address] [facility] [address], [place] [address] Type 2 diabetes mellitus with diabetic polyneuropathy, without long-term current use of insulin (HCC) (Primary Dx); Abnormal thyroid function test; Hypertension associated with diabetes (HCC); Hyperlipidemia associated with type 2 diabetes mellitus (HCC); Overweight with body mass index (BMI) of 29 to 29.9 in adult; Smoking greater than 40 pack years Social History Tobacco Use Types Packs/Day Years Used Date Smoking Tobacco: Heavy Smoker Cigarettes Smokeless Tobacco: Never Comments:Smoking History Pac ks/day: 1 Packs Alcohol Use Standard Drinks/Week Comments No 0 (1 standard drink = 0.6 oz pur e alcohol) AUDIT-C Answer Date Recorded Q1: How often do you have a drink containing alc ohol? Never 11/04/2020 Average Number of Drinks Not on file 021 Frequency of Binge Drinking Not on file 12/2020 Comments Unknown Sex and Gender Information Value Date Recorded Sex Assigned at Not on file Legal Sex Female 11:41 AM TRADING SPECIALIST Gender Identity Not on file Sexual Orientation Not on file documented as of this encounter Last Filed Vital Signs Vital Sign Reading Time Taken Comments Blood Pressure 130/80 10/05/2024 9:34 AM TRADING SPECIALIST Pulse 77 10/05/2024 9:34 AM TRADING SPECIALIST Temperature - - Respiratory Rate 17 10/05/2024 9:34 AM TRADING SPECIALIST Oxygen Saturation - - Inhaled Oxygen Concentration - - Weight 86.6 kg (191 lb) 10/05/2024 9:34 AM TRADING SPECIALIST Height 172.7 cm (5' 8 ) 10/05/2024 9:34 AM TRADING SPECIALIST Body Mass Index 29.04 10/05/2024 9:34 AM TRADING SPECIALIST documented in this encounter Patient Instructions * Patient Instructions* Tisha Nash MD - 10/05/2024 9:30 AM TRADING SPECIALIST VISIT SUMMARY: Today, we discussed your current health status and made several adjustments to your treatment plan to better manage your conditions. We reviewed your diabetes, hypertension, hyperlipidemia, vitamin levels, thyroid function, and smoking habits. We also discussed the importance of regular foot and eye exams, especially given your diabetes. YOUR PLAN: -TYPE 2 DIABETES MELLITUS: Your blood sugar levels have increased slightly. We will increase your Glimepiride dose to 1mg twice daily to help lower your blood sugar. Please check your A1c again in 3 months to see how this adjustment is working. -HYPERLIPIDEMIA: Your cholesterol levels are being well-managed with your current medication. Continue taking Rosuvastatin 10mg daily. -HYPERTENSION: Your blood pressure is under control with your current medications. Continue taking Losartan 100mg daily and Metoprolol XL 200mg daily. -VITAMIN B12 DEFICIENCY: Your Vitamin B12 levels are on the low side. Start taking ecna-hzw-ehlrqbhOsdcnop B12 supplements, 1000mcg, two tablets daily. -VITAMIN D SUPPLEMENTATION: Your Vitamin D levels are high. Reduce your Vitamin D supplementation to 50,000 IU once a month. -THYROID FUNCTION: Your thyroid levels were low. We will repeat the TSH and free T4 tests to monitor your thyroid function. -DIABETIC FOOT EXAM: You have mild bunions and calluses on your feet but no signs of nerve damage. Continue with regular foot care and consider using insoles to reduce pressure on the callused areas. -SMOKING: Smoking increases your risk of cancer, heart disease, and stroke, especially with diabetes. Please try to reduce your smoking. -BONE DENSITY: You have not had a bone density scan in several years. We will order a bone density scan to check your bone health. -DIABETIC EYE EXAM: You have not had an eye exam in several years. Please schedule a diabetic eye exam with an garment steamer to check for any eye issues related to diabetes. INSTRUCTIONS: Please follow up in 3 months to assess your response to the increased Glimepiride dose and review your lab results. Additionally, schedule a diabetic eye exam and a bone density scan as soon as possible. ING SPECIALIST documented in this encounter Ordered Prescriptions Prescription Sig Dispense Quantity Refills Last Filled Start Date End Date metFORMIN (GLUCOPHAGE) 500 mg tabletIndications: Type 2 diabetes mellitus with diabetic polyneuropathy, without long-term current use of insulin (HCC) Take 2 tablets (1,000 mg total) by mouth 2 (two) times a day with meals 360 tablet 3 10/05/2024 6 glimepiride (AMARYL) 1 mg tabletIndications: Type 2 diabetes mellitus with diabetic polyneuropathy, without long-term current use of insulin (HCC) Take 1 tablet (1 mg total) by mouth 2 (two) times a day with meals 180 tablet 3 10/05/2024 6 metoprolol XL (TOPROL-XL) 200 mg extended release tabletIndications: Hypertension associated with diabetes (HCC) Take 1 tablet (200 mg total) by mouth daily 10/05/2024 documented in this encounter Progress Notes * Tisha Nash MD - 10/05/2024 9:30 AM CST Images from the original note were not included. [facility] Subjective/Objective Patient ID: Drea Barker is a 69 y.o. female Chief Complaint Diabetes HPI This patient has verbally consented to recording this visit in order to utilize AI technology in generating this note. History of Present Illness Patient is seen today for consultation for type 2 diabetes mellitus, requested by Dr. Alexandre REESE Drea, a patient with a history of type 2 diabetes, hypertension, hyperlipidemia, and COPD, presents for her first visit after being referred by her primary care doctor, Dr. Schroeder. She has been managing her diabetes for several years and was previously under the care of Dr. Edith Barrios, a habilitation training specialist who has since left the practice. Drea has been taking metformin and glimepiride for her diabetes. She previously used Victoza injections, which she discontinued due to side effects. She reports that she has gained some weight back after discontinuing the Victoza injections, but is still below her highest recorded weight. Her most recent hemoglobin A1c was 8.1, up from 7.8 in December of the previous year. Drea also has a history of hypertension, for which she takes losartan and metoprolol. She has hyperlipidemia, managed with rosuvastatin. She has COPD and is a long-term smoker, currently smoking about a pack to a pack and a half per day. She has not had any complications from her diabetes, such asneuropathy, heart attacks, strokes, or diabetic retinopathy. However, she has not had an eye examination in many years. Drea has had multiple surgeries on her arms and back, and experiences some tremors in her left hand, which she attributes to weakness from her surgeries. She has not had any falls or fractures. She has been on and off steroids for bronchitis. Physical Exam VITALS: BP- 130/80 MEASUREMENTS: WT- 191 HEENT: Neck soft, thyroid gland palpable. No lymph nodes palpable. Submandibular glands noted. CARDIOVASCULAR: Heart sounds normal, no murmurs. EXTREMITIES: Mild bilateral bunions, calluses on both feet. Fungal infection on toes. NEUROLOGICAL: Sensation to light touch intact on feet. Certain tremors noted on left hand. SKIN: Fungal infection on toes. Calluses on both feet. Physical Exam Musculoskeletal: Right foot: Bunion present. Left foot: Bunion present. Feet: Right foot: Protective Sensation: 10 sites tested. 10 sites sensed. Skin integrity: Callus present. Toenail Condition: Fungal disease present. Left foot: Protective Sensation: 10 sites tested. 10 sites sensed. Skin integrity: Callus present. Toenail Condition: Fungal disease present. Results LABS HbA1c: 8.1 (10/05/2024) HbA1c: 7.8 (01/2024) Cr: 0.65 (01/16/2024) eGFR: >60 (01/16/2024) Total cholesterol: 129 (01/16/2024) HDL: 41 (01/16/2024) LDL: 66 (01/16/2024) Triglycerides: 108 (01/16/2024) Vitamin B12: 234 (01/16/2024) Free T4: 1.15 (01/16/2024) TSH: 0.09 (01/16/2024) Vitamin D 25-hydroxy: 100 (01/16/2024) Drea was seen today for diabetes. Diagnoses and all orders for this visit: Type 2 diabetes mellitus with diabetic polyneuropathy, without long-term current use of insulin (HCC) - POCT glucose - POCT hemoglobin A1c - glimepiride (AMARYL) 1 mg tablet; Take 1 tablet (1 mg total) by mouth 2 (two) times a day with meals - metFORMIN (GLUCOPHAGE) 500 mg tablet; Take 2 tablets (1,000 mg total) by mouth 2 (two) times a day with meals - Comprehensive metabolic panel; Future - Albumin Creatinine Ratio, Urine; Future - Lipid panel; Future - Comprehensive metabolic panel - Albumin Creatinine Ratio, Urine - Lipid panel Abnormal thyroid function test - TSH; Future - T4, free; Future - T3, free; Future - TSH - T4, free - T3, free Hypertension associated with diabetes (HCC) - metoprolol XL (TOPROL-XL) 200 mg extended release tablet; Take 1 tablet (200 mg total) by mouth daily Hyperlipidemia associated with type 2 diabetes mellitus (HCC) Overweight with body mass index (BMI) of 29 to 29.9 in adult Smoking greater than 40 pack years Assessment & Plan Type 2 Diabetes Mellitus Chronic, uncontrolled, slight worsening, goal A1c less than 7% without hypoglycemia A1c increased from 7.8 to 8.1. Patient previously had weight loss with Victoza but is not interested in resuming. Currently on Metformin 1000mg BID and Glimepiride 1mg daily. Discussed options for intensifying treatment including increasing Glimepiride, adding Januvia, or switching to Farxiga. Patient prefers to increase Glimepiride. -Increase Glimepiride to 1mg BID. -Check A1c in 3 months. Hyperlipidemia On Rosuvastatin 10mg daily. Lipid panel from January 2024 was within normal limits. -Continue Rosuvastatin 10mg daily. Hypertension On Losartan 100mg daily and Metoprolol XL 200mg daily. Blood pressure today was 130/80. -Continue Losartan 100mg daily and Metoprolol XL 200mg daily. Vitamin B12 deficiency Vitamin B12 on the low normal side. Patient has a history of B12 deficiency and was previously on injections and then oral supplements. -Start tmub-xae-olmkwtb Vitamin B12 1000mcg, take 2 tablets daily. Vitamin D supplementation Vitamin D level in the upper limit of normal. Patient currently taking 50,000 IU every other week. -Reduce Vitamin D supplementation to 50,000 IU monthly. Thyroid function TSH was low at 0.09 in January 2024. Patient denies symptoms of hyperthyroidism. -Repeat TSH and free T4. Diabetic foot exam Mild bilateral bunions and calluses on both feet. No signs of neuropathy. -Advise patient to continue foot care and consider insoles to reduce pressure on callused areas. Smoking Patient smokes 1-1.5 packs per day. Discussed the increased risk of cancer, cardiovascular disease,and stroke, especially in the context of diabetes. -Encourage patient to reduce smoking. Bone density Patient has not had a bone density scan in several years and has a history of smoking. -Order bone density scan. Diabetic eye exam Patient has not had an eye exam in several years. -Advise patient to schedule a diabetic eye exam with an garment steamer. Follow-up Plan to see patient back in 3 months to assess response to increased Glimepiride dose and review lab results. Tisha Celeste MD ING SPECIALIST documented in this encounter Plan of Treatment Scheduled Orders Name Type Priority Associated Diagnoses Orde r Schedule Comprehensive metabolic panel Lab Routine Type 2 diabetes mellitus with diabetic polyneuropathy, without long-term current use of insulin ([facility]) Expected: 10/05/2024, Expires: 10/05/2025 Albumin Creatinine Ratio, Urine Lab Routine Type 2 diabetes mellitus with diabetic polyneuropathy, without long-term current use of insulin (HCC) Expected: 10/05/2024, Expires: 10/05/2025 Lipid panel Lab Routine Type 2 diabetes mellitus with diabetic polyneuropathy, without long-term current use of insulin (HCC) Expected: 10/05/2024, Expires: 10/05/2025 TSH Lab Routine Abnormal thyroid function test Expected: 10/05/2024, Expires: 10/05/2025 T4, free Lab Routine Abnormal thyroid function test Expected: 10/05/2024, Expires: 10/05/2025 T3, free Lab Routine Abnormal thyroid function test Expected: 10/05/2024, Expires: 10/05/2025 documented as of this encounter Procedures Procedure Name Priority Date/Time Associated Diagnosis Comments POCT HEMOGLOBIN A1C Routine 10/05/2024 9 :36 AM TRADING SPECIALIST Type 2 diabetes mellitus with diabetic polyneuropathy, without long-term current use of insulin (HCC) POCT GLUCOSE Routine 10/05/2024 9:36 AM TRADING SPECIALIST Type 2 diabetes mellitus with diabetic polyneuropathy, without long-term current use of insulin ([facility]) documented in this encounter Results * POCT hemoglobin A1c (10/05/2024 9:36 AM TRADING SPECIALIST) Hemoglobin A1C, POC 8.1 4.0 - 5.6 % Blood 10/05/2024 9:36 AM TRADING SPECIALIST Tisha Celeste MD POINT OF CARE TEST ORDERABLES Final Result * POCT glucose (10/05/2024 9:36 AM TRADING SPECIALIST) Glucose Blood, POC 156 mg/dL Blood 10/05/2024 9:36 AM TRADING SPECIALIST Tisha Celeste MD POINT OF CARE TEST ORDERABLES Final Result documented in this encounter Visit Diagnoses Diagnosis Type 2 diabetes mellitus with diabetic polyneuropathy, without long-term current use of insulin (HCC)- Primary Abnormal thyroid function test Nonspecific abnormal results of thyroid function study Hypertension associated with diabetes (HCC) Unspecified essential hypertension Hyperlipidemia associated with type 2 diabetes mellitus (HCC) Overweight with body mass index (BMI) of 29 to 29.9 in adult Smoking greater than 40 pack years documented in this encounter Discontinued Medications Medication Sig Discontinue Reason Start Date End Da te Victoza 2-Naren 0.6 mg/0.1 mL (18 mg/3 mL) injection 07/20/2021 10/05/2024 metoprolol XL (TOPROL-XL) 200 mg 24 hr tablet take 1 Tablet by ORAL route 2 times every day 11/30/2016 10/05/2024 glimepiride (AMARYL) 1 mg tablet Reorder 06/13/2021 10/05/2024 metFORMIN (GLUCOPHAGE) 500 mg tablet take 1 by Oral route 2 times every day Reorder 11/30/2016 10/05/2024 documented as of this encounter Care Teams Sales Superintendent Relationship Specialty Start Date End Date Brandon Schroeder MD [address] [place] [address] [place] [address] PCP - General Family Medicine 10/12/21 Dasha Collazo NP [address] [place] [address] Nurse Practitioner Obstetrics and Gynecology 07/23/23 documented as of this encounter
--- OUTSIDE RECORDS SUMMARY | 2024-10-06 08:38 | XMS_ITS | Clinical Summary ---
Author Organization [facility] Address [address] [place] [address]. [place], [place] [address] [place] [address] Care Team Providers Care Imaging Analyst Name Role Phone Brandon Schroeder MD Primary Care Provider [phone] Leonid Cameron MD Unavailable [phone] Allergies Active Allergy Reactions Criticality Noted Date Comments Cyclobenzaprine Nausea Only 10/07/2019 Empagliflozin Unknown 05/10/2022 Lisinopril Nausea Only 10/07/2019 Medications losartan 100 MG tablet Take 1 tablet (100 mg total) by mouth daily. 9 Active metFORMIN 500 MG tablet Take 1 tablet (500 mg total) by mouth daily with breakfast. 9 Active metoprolol succinate ER 200 MG 24 hr tablet Take 1 tablet (200 mg total) by mouth daily. 4 Active albuterol sulfate HFA 108 (90 Base) MCG/ACT inhaler Inhale 2 puffs into the lungs every 4 (four) hours as needed. 6 Active hydrocodone-melanie taminophen 10-325 MG tablet Take 1 tablet by mouth 3 (three) times daily as needed. 9 Active vitamin D2, ergocalciferol, 01518 UNITS capsule Take 1 capsule (50,000 Units total) by mouth once a week. 9 Active alogliptin 25 MG tablet Take 1 tablet (25 mg total) by mouth daily. 0 Active aspirin 81 MG chewable tablet Chew 1 tablet (81 mg total) by mouth daily. Active vitamin D3, cholecalciferol , 5000 UNITS capsule Take 1 capsule (5,000 Units total) by mouth daily. Active umeclidinium-vi lanterol 62.5-25 MCG/INH inhaler Inhale 1 puff into the lungs daily. Active omeprazole 20 MG capsule 1 Active Blood Glucose Monitoring Suppl (Sandglaz VERIO) w/Device Kit 2 Active ONETOUCH VERIO test strip 2 Active TRUEPLUS PEN NEEDLES 31G X 8 MM [facility] 2 Active TRUEplus Lancets 28G [facility] 2 Active BEVESPI AEROSPHERE 9-4.8 MCG/ACT Aerosol 1 Active magnesium oxide (MAG-OX) 400 MG tablet take one tablet orally BID 4 Active albuterol (PROVENTIL) (2.5 MG/3ML) 0.083% nebulizer solution Inhale 3 mL 3 times a day by nebulization route for 30 days. Active rosuvastatin (CRESTOR) 10 MG tablet Take 1 tablet (10 mg total) by mouth nightly at bedtime. Active Active Problems Problem Noted Date Diagnosed Date Coronary artery calcification seen on CAT scan 0 10/19/2019 Essential hypertension 10/19/2019 Tobacco abuse 10/19/2019 Mixed hyperlipidemia 10/19/2019 EDIE (obstructive sleep apnea) 10/19/2019 GERD (gastroesophageal reflux disease) Immunizations Name Administration Dates Next Due MODERNA COVID-19 (12+) MRNA, LNP-S, PF, 100 MCG/ 0.5 ML DOSE 12/20/2020,11/22/2020 Family History Medical History Relation Comments CHF Father Cancer Mother Relation Status Comments Father Mother Social History Tobacco Use Types Packs/Day Years Used Date Smoking Tobacco: Heavy Smoker Cigarettes Smokeless Tobacco: Never Alcohol Use Standard Drinks/Week Comments Not Currently 0 (1 standard drink = 0.6 oz pur e alcohol) Comments Unknown Sex and Gender Information Value Date Recorded Sex Assigned at Not on file Legal Sex Female 1:30 AM CDT Gender Identity Not on file Sexual Orientation Not on file Occupation Industry Job Start Date Job End Date Disabled Not on file Not on file Not on file Last Filed Vital Signs Vital Sign Reading Time Taken Comments Blood Pressure 124/58 10/10/2023 8:00 AM FIRST GRADE TEACHER Pulse 69 10/10/2023 8:00 AM FIRST GRADE TEACHER Temperature 36.2 ??C (97.2 ??F) 10/29/2019 9:05 AM CS T Respiratory Rate 14 10/10/2023 8:00 AM FIRST GRADE TEACHER Oxygen Saturation 94% 05/10/2022 2:55 PM CDT Inhaled Oxygen Concentration - - Weight 80.5 kg (177 lb 6.4 oz) 10/10/2023 8:00 A M FIRST GRADE TEACHER Height 172.7 cm (5' 8 ) 10/10/2023 8:00 AM FIRST GRADE TEACHER Body Mass Index 26.97 10/10/2023 8:00 AM FIRST GRADE TEACHER Plan of Treatment Upcoming Encounters Date Type Department Care Team (Late st Contact Info) Description 10/14/2024 2:00 PM FIRST GRADE TEACHER Office Visit [facility] [place] [address] Leonid Cameron MD [address] [place] [id number] Health Maintenance Due Date Last Done Comments Colorectal Cancer Screening Colonoscopy (10 Years) 1957 Hepatitis C 1975 DTaP, Tdap and Td Vaccines (1 - Tdap) 1976 Mammogram Screening 1997 Zoster Vaccines (1 of 2) 2007 ASCVD LDL 12/12/2016 12/13/2015, 05/01/2015, 09/06/2014, Additional history exists RSV Immunization or 60+ Years (1 - Risk 60-74 years 1-dose series) 2017 Annual Medicare Wellness Visit 2022 Dexa Scan (General) 2022 Pneumococcal Vaccine: 65+ Years (3 of 3 - PPSV23 or PCV20) 2022 11/20/2016, 06/04/2014 COVID-19 Vaccine (3 - season) 2024 12/20/2020, 11/22/2020 Influenza Adult (#1) 2024 07/31/2022, 07/18/2021, 06/04/2014, Additional history exists Meningococcal B Vaccine Aged Out No l onger eligible based on patient's age to complete this topic Meningococcal Vaccine Aged Out No jessenia tino eligible based on patient's age to complete this topic RSV Immunizations Under 20 Months Aged Out No longer eligible based on patient's age to complete this topic Procedures Procedure Name Priority Date/Time Associated Diagnosis Comments LIPID W/CALC LDL Routine 12/13/2015 9:49 AM CDT COLONOSCOPY Routine FIRST GRADE TEACHER from Last 3 Months or Most Recently Relevant to Health Maintenance Results * (ABNORMAL) LIPID W/CALC LDL (12/13/2015 9:49 AM CDT) CHOLESTEROL 166 <200 MG/DL [facility] TO EPIC CONVERSION TRIGLYCERIDES 399(H) <150 MG/DL [facility] TO EPIC CONVERSION HDL 35(L) >55 MG/DL [facility] T O EPIC CONVERSION LDL (CALCULATED) 51.2 <130 MG/L [facility] TO EPIC CONVERSION CHOL/HDL RATIO 4.7 [facility] OUP TO EPIC CONVERSION Comment: Result Comment: ? INTERPRETATION OF RESULTS NHLBI RECOMMENDED RANGES ? CHOLESTEROL MG/DL ?LDL MG/DL ?DESIRABLE ? <200 ?<130 ?BORDERLINE ?200-239 ? 130-159 ?HIGH RISK ? >240 ?>160 ?? REFERENCE VALUE FOR HDL CHOLESTEROL ?RISK LEVEL ??MALE MG/DL ? FEMALE MG/DL ?DECREASED ?>45 ?>55 ?AVERAGE ? 45 ? 55 ?INCREASED ?<45 ?<55 12/13/2015 9:49 AM CDT 12/13/2015 9:49 AM CDT Narrative [facility] TO EPIC CONVERSION - 12/13/2015 12:45 PM CDT Result Communication: Mail Results to Patient us Michael Tapia MD LABORATORY Final Res ult [facility] TO EPIC CONVERSION * Colonoscopy ( FIRST GRADE TEACHER) Narrative [facility] TO EPIC CONVERSION - FIRST GRADE TEACHER Documented hx of procedure Procedure Note Rolando Reese MD - 07/06/2018 Documented hx of procedure us Generic Conversion Md REESE GI PROCEDURE ORDERABLES Final Result Performing Organization Address [facility] de Phone Number [facility] TO EPIC CONVERSION from Last 3 Months or Most Recently Relevant to Health Maintenance Insurance Advance Directives * Full Code (Latest Code Status on File) Date Activated Date Inactivated Comments 10/29/2019 12:00 PM 10/29/2019 3:27 PM Care Teams Imaging Analyst Relationship Specialty Start Date End Date Brandon Schroeder MD PCP - General FAMILY PRACTICE 09/03/19 Leonid Cameron MD [address] [place] [address] INTERVENTIONAL CARDIOLOGY 04/14/24
--- OUTSIDE RECORDS SUMMARY | 2024-10-06 08:38 | XMS_ITS | Clinical Summary ---
Author Organization [facility] [place] Address [facility] [place] [address] Care Team Providers Care Zoo Director Name Role Phone Brandon Schroeder MD Primary Care Provider [phone] Dasha Collazo SHEEP RANCHER Unavailable [phone] Allergies Active Allergy Reactions Criticality Noted Date Comments Cyclobenzaprine Nausea only,Nausea A nd Vomiting Medium 10/20/2018 Reaction: Nausea, Cyclobenzaprine Hcl Nausea only Low 10/12/2021 Empagliflozin Unknown 10/20/2018 Lisinopril Other (See comments),Cough,Nausea only High Reaction: dry throat, choking, cough, Medications albuterol HFA (VENTOLIN HFA) 90 mcg/actuation inhaler inhale 2 puff by inhalation route every 4 - 6 hours as needed 0 Inhaler 0 12/01/19 17 Active OneTouch Verio test strips strip 07/20/20 21 Active ergocalciferol (VITAMIN D) 50,000 unit capsule 07/20/20 21 Active omeprazole (PriLOSEC) 20 mg capsule 03/18/20 20 Active rosuvastatin (CRESTOR) 10 mg tablet 07/20/20 21 Active HYDROcodone-ac etaminophen (NORCO) 10-325 mg per tablet 07/20/20 21 Active Bevespi Aerosphere 9-4.8 mcg inhaler 08/21/20 21 Active losartan (COZAAR) 100 mg tablet 09/19/19 22 Active TechLITE Pen Needle 31 gauge x 5/16 needle 10/08/19 22 Active blood glucose diagnostic (OneTouch Verio test strips) strip OneTouch Verio test strips USE TO TEST BLOOD SUGAR TWICE A DAY BEFORE MEALS Active metoprolol XL (TOPROL-XL) 200 mg extended release tabletIndicati ons:Hypertensi on associated with diabetes (HCC) Take 1 tablet (200 mg total) by mouth daily 10/05/19 25 Active glimepiride (AMARYL) 1 mg tabletIndicati ons:Type 2 diabetes mellitus with diabetic polyneuropathy , without long-term current use of insulin (HCC) Take 1 tablet (1 mg total) by mouth 2 (two) times a day with meals 180 tablet 3 10/05/19 25 026 Active metFORMIN (GLUCOPHAGE) 500 mg tabletIndicati ons:Type 2 diabetes mellitus with diabetic polyneuropathy , without long-term current use of insulin (HCC) Take 2 tablets (1,000 mg total) by mouth 2 (two) times a day with meals 360 tablet 3 10/05/19 25 026 Active metoprolol XL (TOPROL-XL) 200 mg 24 hr tablet take 1 Tablet by ORAL route 2 times every day 0 0 12/01/19 17 025 Discontinued metFORMIN (GLUCOPHAGE) 500 mg tablet take 1 by Oral route 2 times every day 0 0 12/01/19 17 025 Discontinued(Re order) Victoza 2-Naren 0.6 mg/0.1 mL (18 mg/3 mL) injection 07/20/20 21 025 Discontinued glimepiride (AMARYL) 1 mg tablet 06/13/20 21 025 Discontinued(Re order) Active Problems Problem Noted Date Diagnosed Date Type 2 diabetes mellitus wit h diabetic mononeuropathy, without long-term current use of insulin 10/05/2024 Abnormal thyroid function test 10/05/2024 Overweight with body mass in dex (BMI) of 29 to 29.9 in adult 10/05/2024 Smoking greater than 40 pack years 10/05/2024 Chest pain 11/30/2016 Overview (01/25/2017): Chest pain in adult Hypertension associated with diabetes 11/30/2016 Overview (01/25/2017): Essential hypertension Tobacco use 11/30/2016 Overview (01/25/2017): Tobacco use Hyperlipidemia associated with type 2 diabetes m ellitus 11/30/2016 Overview (01/25/2017): Mixed hyperlipidemia Chronic pain associated with significant psychosocial dysfunction 11/30/2016 Overview (01/25/2017): Chronic pain disorder Diabetic neuropathy 11/30/2016 Overview (01/25/2017): Type 2 diabetes, uncontrolled, with neuropathy Encounters Date Type Department Care Team Description 10/05/2024 9:30 AM DICTAPHONE OPERATOR Office Visit [facility] Diabetes and Endocrinology [address] [place] [address] Tisha Nash MD Type 2 diabetes mellitus with diabetic polyneuropathy, without long-term current use of insulin (HCC) (Primary Dx); Abnormal thyroid function test; Hypertension associated with diabetes (HCC); Hyperlipidemia associated with type 2 diabetes mellitus (HCC); Overweight with body mass index (BMI) of 29 to 29.9 in adult; Smoking greater than 40 pack years from Last 3 Months Surgical History Surgery Date Site/Laterality Comments CHOLECYSTECTOMY Cholecystectomy BACK SURGERY ULNAR TUNNEL RELEASE THORACIC OUTLET SURGERY Medical History Medical History Date Comments Hx Other Medical Lumbar laminect arturo Hx Other Medical Thoracic outlet surgery Type 2 diabetes mellitus (HCC) D iabetes type 2 Hypercholesterolemia High choles terol Heart valve disease Valvular dis ease Disease of thyroid gland Thyroid disease; Comments: ELU 11/30/2016 -for benign nodules Chronic obstructive pulmonary disease (HCC) COPD Family History Medical History Relation Name Comments Other Brother CABG in his 30' s; Heart disease Father Cardiovascular disease; Cause of : Cardiovascular disease Other Father MS's when young CABG; Cause of : MS's when young CABG Hyperlipidemia Mother Hyperlipidemi a; Hypertension Mother Hypertension; Liver cancer Mother Cancer, liver; Cause of : Cancer, liver Lung cancer Mother Cancer, lung; C ause of : Cancer, lung Stroke Mother Stroke; Relation Name Status Comments Brother Father Mother (Age 60) Social History Tobacco Use Types Packs/Day Years [...] on file Legal Sex Female 11:41 AM DICTAPHONE OPERATOR Gender Identity Not on file Sexual Orientation Not on file Obstetrics History Last Filed Vital Signs Vital Sign Reading Time Taken Comments Blood Pressure 130/80 10/05/2024 9:34 AM DICTAPHONE OPERATOR Pulse 77 10/05/2024 9:34 AM DICTAPHONE OPERATOR Temperature 36.1 ??C (97 ??F) 11/04/2020 9:23 AM DICTAPHONE OPERATOR Respiratory Rate 17 10/05/2024 9:34 AM DICTAPHONE OPERATOR Oxygen Saturation 90% 11/30/2016 3:58 PM CDT Inhaled Oxygen Concentration - - Weight 86.6 kg (191 lb) 10/05/2024 9:34 AM DICTAPHONE OPERATOR Height 172.7 cm (5' 8 ) 10/05/2024 9:34 AM DICTAPHONE OPERATOR Body Mass Index 29.04 10/05/2024 9:34 AM DICTAPHONE OPERATOR Plan of Treatment Health Maintenance Due Date Last Done Comments Albumin Creatinine Ratio, Urine 1957 Breast Cancer Screening-Mammogram 1957 Colon Cancer Screening-Colonoscopy 1957 Depression Screening 1957 Fall Risk Assessment 1957 Hepatitis C Screening 1957 Osteoporosis Screening-Bone Density Scan 1957 eGFR 1957 Dilated Eye Exam 1957 Foot Exam 1957 DTaP/Tdap/Td Vaccine (1 - Tdap) 1968 Hepatitis B Screening 1975 Zoster Vaccine (1 of 2) 2007 Lipid Panel 09/02/2016 09/02/2015 Pneumococcal vaccine 65+ (3 of 3 - PPSV23 or PCV20) 2022 11/20/2016, 06/04/2014 Well Visit 65+ 2022 Covid-19 Vaccine (3 - 2023-2 5 season) 2024 12/20/2020, 11/22/2020 Influenza Vaccine (#1) 2024 1, 09/03/2015, 06/04/2014, Additional history exists Hemoglobin A1C 04/04/2025 10/05/2024 Procedures Procedure Name Priority Date/Time Associated Diagnosis Comments POCT HEMOGLOBIN A1C Routine 10/05/2024 9 :36 AM DICTAPHONE OPERATOR Type 2 diabetes mellitus with diabetic polyneuropathy, without long-term current use of insulin (HCC) POCT GLUCOSE Routine 10/05/2024 9:36 AM DICTAPHONE OPERATOR Type 2 diabetes mellitus with diabetic polyneuropathy, without long-term current use of insulin (HCC) SERUM LIPID PANEL Routine 09/02/2015 1:5 5 AM DICTAPHONE OPERATOR from Last 3 Months or Most Recently Relevant to Health Maintenance Results * POCT hemoglobin A1c (10/05/2024 9:36 AM DICTAPHONE OPERATOR) Hemoglobin A1C, POC 8.1 4.0 - 5.6 % Blood 10/05/2024 9:36 AM DICTAPHONE OPERATOR Tisha Celeste MD POINT OF CARE TEST ORDERABLES Final Result * POCT glucose (10/05/2024 9:36 AM DICTAPHONE OPERATOR) Glucose Blood, POC 156 mg/dL Blood 10/05/2024 9:36 AM DICTAPHONE OPERATOR Tisha Celeste MD POINT OF CARE TEST ORDERABLES Final Result * (ABNORMAL) Serum lipid panel (09/02/2015 1:55 AM DICTAPHONE OPERATOR) Cholesterol 135 0 - 200 mg/dl HISTORICAL RESULTS Comment: Interpretive Data Desirable: ?<200 mg/dL Borderline high: ??200-239 mg/dL High: ? >240 mg/dL Literature Reference: National Cholesterol Education Program (NCEP) Expert Panel on Detection, Evaluation, and Treatment of High Blood Cholesterol in Adults (Adult Treatment Panel III). ??Circulation 2004; 110:227. Current interpretive data was last revised on 2005. Triglycerides 155(H) 0 - 150 mg/dl HISTORICAL RESULTS Comment: Interpretive Data Desirable: ? < 150 mg/dL Borderline High: ? 150 - 199 mg/dL High: ?> 200 mg/dL Literature Reference: See Cholesterol Current interpretive data was last revised on 07. HDL 37(L) 40 - 199 mg/dl HISTORICAL RESULTS Comment: Interpretive Data Less than 40 mg/dL - low; A major risk factor for heart disease. Greater than or equal to 60 mg/dL - High; ??considered protective of heart disease. Literature Reference: See Cholesterol Current interpretive data was last revised on 2008. LDL 67 0 - 129 mg/dl HISTORICAL RESULTS Comment: Interpretive Data Optimal: ? < 100 mg/dL Near Optimal: ?100 - 129 mg/dL Borderline High: ?? 130 - 159 mg/dL High: ?> 160 mg/dL Literature Reference: See Cholesterol Current interpretive data was last revised on 07. Non-HDL cholesterol, calculated 98 mg/dl HISTORICAL RESULTS Comment: Interpretive Data When triglycerides are >200 mg/dL, non-HDL C is a secondary target of therapy, with a goal 30 mg/dL higher than the identified LDL-C goal. Reference: ??See Cholesterol Reference. Current interpretive data was last revised 2012. Serum 09/02/2015 1:55 AM DICTAPHONE OPERATOR us Historical Provider LAB BLOOD ORDERABLES Sara morales Result HISTORICAL RESULTS from Last 3 Months or Most Recently Relevant to Health Maintenance Insurance [facility] MEDICARE [facility] MEDICARE Address: [address] [place] [id number] Care Teams Zoo Director Relationship Specialty Start Date End Date Brandon Schroeder MD [address] [place] [address] PCP - General Family Medicine 10/12/21 Dasha Collazo NP [address] [place] [address] Nurse Practitioner Obstetrics and Gynecology 07/23/23
--- OUTSIDE RECORDS SUMMARY | 2024-10-06 08:38 | XMS_ITS | Referral Summary ---
Author Organization [facility] Address [address] [place] [address] Care Team Providers Care Inventory Administrator Name Role Phone Brandon Schroeder MD Primary Care Provider [phone] Dasha Collazo [employer]NT Unavailable [phone] Encounters Date Type Department Care Team Description 10/05/2024 9:30 AM CASE ASSISTANT Office Visit [facility] Diabetes and Endocrinology [address] [place] [id number] Tisha Nash MD Type 2 diabetes mellitus with diabetic polyneuropathy, without long-term current use of insulin (HCC) (Primary Dx); Abnormal thyroid function test; Hypertension associated with diabetes (HCC); Hyperlipidemia associated with type 2 diabetes mellitus (HCC); Overweight with body mass index (BMI) of 29 to 29.9 in adult; Smoking greater than 40 pack years from Last 3 Months Allergies Active Allergy Reactions Criticality Noted Date [...] etaminophen (NORCO) 10-325 mg per tablet 07/20/20 Active Bevespi Aerosphere 9-4.8 mcg inhaler 08/21/20 Active losartan (COZAAR) 100 mg tablet 09/19/19 Active TechLITE Pen Needle 31 gauge x 5/16 needle 10/08/19 22 Active blood glucose diagnostic (OneTouch Verio test strips) strip OneTouch Verio test strips USE TO TEST BLOOD SUGAR TWICE A DAY BEFORE MEALS Active metoprolol XL (TOPROL-XL) 200 mg extended release tabletIndicati ons:Hypertensi on associated with diabetes (HCC) Take 1 tablet (200 mg total) by mouth daily 10/05/19 Active glimepiride (AMARYL) 1 mg tabletIndicati ons:Type [...] (01/25/2017): Type 2 diabetes, uncontrolled, with neuropathy Social History Tobacco Use Types Packs/Day Years [...] on file Legal Sex Female 11:41 AM CASE ASSISTANT Gender Identity Not on file Sexual Orientation Not on file Last Filed Vital Signs Vital Sign Reading Time Taken Comments Blood Pressure 130/80 10/05/2024 9:34 AM CASE ASSISTANT Pulse 77 10/05/2024 9:34 AM CASE ASSISTANT Temperature 36.1 ??C (97 ??F) 11/04/2020 9:23 AM CASE ASSISTANT Respiratory Rate 17 10/05/2024 9:34 AM CASE ASSISTANT Oxygen Saturation 90% 11/30/2016 3:58 PM CDT Inhaled Oxygen Concentration - - Weight 86.6 kg (191 lb) 10/05/2024 9:34 AM CASE ASSISTANT Height 172.7 cm (5' 8 ) 10/05/2024 9:34 AM CASE ASSISTANT Body Mass Index 29.04 10/05/2024 9:34 AM CASE ASSISTANT Plan of Treatment Not on file Procedures Procedure Name Priority Date/Time Associated Diagnosis Comments POCT HEMOGLOBIN A1C Routine 10/05/2024 9 :36 AM CASE ASSISTANT Type 2 diabetes mellitus with diabetic polyneuropathy, without long-term current use of insulin (HCC) POCT GLUCOSE Routine 10/05/2024 9:36 AM CASE ASSISTANT Type 2 diabetes mellitus with diabetic polyneuropathy, without long-term current use of insulin (HCC) SERUM LIPID PANEL Routine 09/02/2015 1:5 5 AM CASE ASSISTANT from Last 3 Months or Most Recently Relevant to Health Maintenance Results * POCT hemoglobin A1c (10/05/2024 9:36 AM CASE ASSISTANT) Hemoglobin A1C, POC 8.1 4.0 - 5.6 % Blood 10/05/2024 9:36 AM CASE ASSISTANT Tisha Celeste MD POINT OF CARE TEST ORDERABLES Final Result * POCT glucose (10/05/2024 9:36 AM CASE ASSISTANT) Glucose Blood, POC 156 mg/dL Blood 10/05/2024 9:36 AM CASE ASSISTANT Tisha Celeste MD POINT OF CARE TEST ORDERABLES Final Result * (ABNORMAL) Serum lipid panel (09/02/2015 1:55 AM CASE ASSISTANT) Cholesterol 135 0 - 200 mg/dl HISTORICAL [...] last revised 2012. Serum 09/02/2015 1:55 AM CASE ASSISTANT us Historical Provider LAB BLOOD ORDERABLES Sara morales Result HISTORICAL RESULTS from Last 3 Months or Most Recently Relevant to Health Maintenance Insurance [facility] MEDICARE [facility] MEDICARE Address: [address] [address] [place] [address] Care Teams Inventory Administrator Relationship Specialty Start Date End Date Brandon Schroeder MD [facility] [place] [address] PCP - General Family Medicine 10/12/21 Dasha Collazo NP [address] [place] [address] Nurse Practitioner Obstetrics and Gynecology 07/23/23
--- OUTSIDE RECORDS SUMMARY | 2024-10-06 08:39 | XMS_ITS | Encounter Summary ---
Author Organization [facility] Address [address] [place] [address]. [place], [place] [address] [place] [address] Care Team Providers Care Family Preservation Worker Name Role Phone Michael Tapia MD Primary Care Provider [phone] Alfred Benton MD Primary Care Provider [phone] Alfred Benton MD Primary Care Provider [phone] Alfred Benton MD Primary Care Provider [phone] Alfred Benton MD Primary Care Provider [phone] Alfred Benton MD Primary Care Provider [phone] Brandon Schroeder MD Primary Care Provider [phone] Jose Childers MD Unavailable Leonid Mari MD Unavailable [phone] Encounter Details Date Type Department Care Team (Late st Contact Info) Description 08/17/2013 Abstract [facility] CONVERSION [address] [place] [address] , Generic Conversion, Social History Tobacco Use Types Packs/Day Years Used Date Smoking Tobacco: Smoker, Current Status Unknown Comments Unknown Sex and Gender Information Value Date Recorded Sex Assigned at Not on file Legal Sex Female 1:30 AM CDT Gender Identity Not on file Sexual Orientation Not on file documented as of this encounter Plan of Treatment Upcoming Encounters Date Type Department Care Team (Late st Contact Info) Description 10/14/2024 2:00 PM E LEARNING SPECIALIST Office Visit [facility] [place] [address] Leonid Cameron MD [address] [place] [id number] documented as of this encounter Visit Diagnoses Not on filedocumented in this encounter Care Teams Family Preservation Worker Relationship Specialty Start Date End Date Michael Tapia MD PCP - General INTERNAL MEDICINE 10/31/16 09/02/19 [place] [address] [place] [address] PCP - General 05/10/14 10/30/16 [place] [address] [place] [address] PCP - General 12/28/13 05/09/14 [place] [address] [address] PCP - General 11/23/13 12/27/13 [place] [address] [place] [address] PCP - General 11/18/13 11/22/13 [place] [address] [address] PCP - General 11/09/13 11/17/13 [place] [address] [place] [address] PCP - General FAMILY PRACTICE 09/03/19 [place] [address] Forest Supervisor CARDIOVASCULAR DISEASE 09/03/19 04/13/24 Leonid Cameron MD [address] [place], [place] [id number] INTERVENTIONAL CARDIOLOGY 04/14/24 documented as of this encounter
--- OUTSIDE RECORDS SUMMARY | 2024-10-06 08:39 | XMS_ITS | Encounter Summary ---
Author Organization [facility] Address [address] [facility] [address] [place] [address] Care Team Providers Care Mental Health Coordinator Name Role Phone Michael Tapia MD Primary Care Provider + Brandon Schroeder MD Primary Care Provider [phone] Dasha Collazo COLLEGE TUTOR Unavailable [phone] Encounter Details Date Type Department Care Team (Late st Contact Info) Description 11/30/2016 Orders Only [facility] ProviderIshan MD [address] [place] [address] Social History Tobacco Use Types Packs/Day Years Used Date Smoking Tobacco: Never Assessed Comments Unknown Sex and Gender Information Value Date Recorded Sex Assigned at Not on file Legal Sex Female 11:41 AM INSTRUCTOR WEAVING Gender Identity Not on file Sexual Orientation Not on file documented as of this encounter Plan of Treatment Not on file documented as of this encounter Procedures Procedure Name Priority Date/Time Associated Diagnosis Comments CARDIOLOGY REPORT 11/30/2016 documented in this encounter Results * CARDIOLOGY REPORT (11/30/2016) Anatomical Region Laterality Modality Other Narrative 11/30/2016 Ordered by an unspecified provider. Historical Provider [facility] BENJI PEREZ Final Result documented in this encounter Visit Diagnoses Not on filedocumented in this encounter Care Teams Mental Health Coordinator Relationship Specialty Start Date End Date Michael Tapia MD PCP - General 11/30/16 10/11/21 Brandon Schroeder MD [facility] [place] [address] PCP - General Family Medicine 10/12/21 Dasha Collazo NP [address] [place] [address] Nurse Practitioner Obstetrics and Gynecology 07/23/23 documented as of this encounter
--- OUTSIDE RECORDS SUMMARY | 2024-10-06 08:39 | XMS_ITS | Encounter Summary ---
Author Organization [facility] Address [address] [place] [address]. [place], [place] [address] [place] [address] Care Team Providers Care Labor Economics Teacher Name Role Phone Michael Tapia MD Primary Care Provider [phone] Alfred Benton MD Primary Care Provider [phone] Brandon Schroeder MD Primary Care Provider [phone] Jose Childers MD Unavailable Unavailabl e Leonid Cameron MD Unavailable [phone] Encounter Details Date Type Department Care Team (Late st Contact Info) Description 04/17/2016 Abstract [facility] CONVERSION [address] [place], [place] [id number] , Generic ConversionMD Social History Tobacco Use Types Packs/Day Years [...] st Contact Info) Description 10/14/2024 2:00 PM HOME CARE LIAISON Office Visit [facility] [place] [address] Leonid Cameron MD [address] [place] [address] documented as of this encounter Visit Diagnoses Not on filedocumented in this encounter Care Teams Labor Economics Teacher Relationship Specialty Start Date End Date Michael Tapia MD PCP - General INTERNAL MEDICINE 10/31/16 09/02/19 [place] [address] [place], [place] [id number] PCP - General 05/10/14 10/30/16 [place] [address] [place], [place] [id number] PCP - General FAMILY PRACTICE 09/03/19 [place] [address] [place] [address] Vehicle Body Sander CARDIOVASCULAR DISEASE 09/03/19 04/13/24 Leonid Cameron MD [address] [place] [id number] INTERVENTIONAL CARDIOLOGY 04/14/24 documented as of this encounter
--- OUTSIDE RECORDS SUMMARY | 2024-10-06 08:39 | XMS_ITS | Continuity of Care Document ---
Author Organization [facility] Address [address] [place] [address] [place] [address] Phone Care Team Providers Care Flight Reservations Manager Name Role Phone Brandon Schroeder MD Unavailable Unavailable Allergies, Adverse Reactions, Alerts Substance Reaction Status Criticality empagliflozin Active No Information lisinopril Nausea Active No Information CYCLOBENZAPRINE HCL Nausea Active No Infor mation Medications Medication Instructions Dosage Effective Dates (start - stop) Status Comments hydrocodone 10 mg-acetaminophen 325 mg tablet take 1 by Oral route 3 times every day as needed 1 - Active PRN for pain, avoid driving or operate machines omeprazole 20 mg capsule,delayed release take 1 capsule by oral route every day before a meal 20 MG - Active glimepiride 2 mg tablet take 1 tablet by oral route every day 2 MG - Active magnesium 400 mg (as magnesium oxide) tablet take one tablet orally BID - Active metformin 500 mg tablet take 2 tablet by oral route 2 times every day with morning and evening meals 1000 MG - Active metoprolol succinate ER 200 mg tablet,extended release 24 hr take 1 tablet by oral route every day 200 MG - Active Ventolin HFA 90 mcg/actuation aerosol inhaler inhale 2 puff by inhalation route every 4 - 6 hours as needed as needed - Active PRN For sob losartan 100 mg tablet take 1 tablet by oral route every day 100 MG - Active Crestor 10 mg tablet take 1 tablet by oral route every day 10 MG - Active Vitamin D2 1,250 mcg (50,000 unit) capsule take 1 capsule by oral route every week - Active Anoro Ellipta 62.5 mcg-25 mcg/actuation powder for inhalation inhale 1 puff by inhalation route every day at the same time each day 1.00 puff - Active Procedures Procedure Date OFFICE/OUTPATIENT VISIT, EST OFFICE/OUTPATIENT VISIT, EST OFFICE/OUTPATIENT VISIT, EST OFFICE/OUTPATIENT VISIT, EST OFFICE/OUTPATIENT VISIT, EST OFFICE/OUTPATIENT VISIT, EST OFFICE/OUTPATIENT VISIT, EST OFFICE/OUTPATIENT VISIT, EST OFFICE/OUTPATIENT VISIT, EST OFFICE/OUTPATIENT VISIT, EST OFFICE/OUTPATIENT VISIT, EST OFFICE/OUTPATIENT VISIT, EST OFFICE/OUTPATIENT VISIT, EST OFFICE/OUTPATIENT VISIT, EST OFFICE/OUTPATIENT VISIT, EST OFFICE/OUTPATIENT VISIT, EST OFFICE/OUTPATIENT VISIT, EST PREV VISIT, EST, 65 & OVER OFFICE/OUTPATIENT VISIT, EST OFFICE/OUTPATIENT VISIT, EST OFFICE/OUTPATIENT VISIT, EST OFFICE/OUTPATIENT VISIT, EST OFFICE/OUTPATIENT VISIT, EST OFFICE/OUTPATIENT VISIT, EST -2022 PREV VISIT, EST, 65 & OVER OFFICE/OUTPATIENT VISIT, EST OFFICE/OUTPATIENT VISIT, EST OFFICE/OUTPATIENT VISIT, EST OFFICE/OUTPATIENT VISIT, EST OFFICE/OUTPATIENT VISIT, EST OFFICE/OUTPATIENT VISIT, EST OFFICE/OUTPATIENT VISIT, EST OFFICE/OUTPATIENT VISIT, EST OFFICE/OUTPATIENT VISIT, EST OFFICE/OUTPATIENT VISIT, EST OFFICE/OUTPATIENT VISIT, EST PREV VISIT, EST, AGE 40-64 OFFICE/OUTPATIENT VISIT, EST OFFICE/OUTPATIENT VISIT, EST OFFICE/OUTPATIENT VISIT, EST OFFICE/OUTPATIENT VISIT, EST OFFICE/OUTPATIENT VISIT, EST OFFICE/OUTPATIENT VISIT, EST OFFICE/OUTPATIENT VISIT, EST OFFICE/OUTPATIENT VISIT, EST OFFICE/OUTPATIENT VISIT, EST OFFICE/OUTPATIENT VISIT, EST OFFICE/OUTPATIENT VISIT, EST PREV VISIT, EST, AGE 40-64 OFFICE/OUTPATIENT VISIT, EST OFFICE/OUTPATIENT VISIT, EST OFFICE/OUTPATIENT VISIT, EST OFFICE/OUTPATIENT VISIT, EST OFFICE/OUTPATIENT VISIT, EST OFFICE/OUTPATIENT VISIT, EST OFFICE/OUTPATIENT VISIT, EST OFFICE/OUTPATIENT VISIT, EST OFFICE/OUTPATIENT VISIT, EST OFFICE/OUTPATIENT VISIT, EST OFFICE/OUTPATIENT VISIT, EST OFFICE/OUTPATIENT VISIT, EST OFFICE/OUTPATIENT VISIT, EST OFFICE/OUTPATIENT VISIT, EST PREV VISIT, EST, AGE 40-64 OFFICE/OUTPATIENT VISIT, EST OFFICE/OUTPATIENT VISIT, EST OFFICE/OUTPATIENT VISIT, EST OFFICE/OUTPATIENT VISIT, EST OFFICE/OUTPATIENT VISIT, EST OFFICE/OUTPATIENT VISIT, EST OFFICE/OUTPATIENT VISIT, EST OFFICE/OUTPATIENT VISIT, EST OFFICE/OUTPATIENT VISIT, EST OFFICE/OUTPATIENT VISIT, EST OFFICE/OUTPATIENT VISIT, EST OFFICE/OUTPATIENT VISIT, EST PREV VISIT, NEW, AGE 40-64 OFFICE/OUTPATIENT VISIT, NEW Advance Directives Directive Yes / No Effective Date File Name No Information Encounters Encounter Description Practice Location Reason(s) For Visit Diagnoses Date Provider Providers Copied on Encounter OFFICE/OUTPA TIENT VISIT, EST [facility], [address], [place], [place], [address], tel:[phone] [facility] DM (chief complaint) pain (chief complaint) mag (chief complaint) french (chief complaint) Chronic pain syndromeHypomagnese miaBarrett's esophagus without dysplasiaType 2 diabetes mellitus with diabetic mononeuropathy 0- 5 Schroeder Brandon. [address], [place], [place], [address] , [place]. tel:[phone] OFFICE/OUTPA TIENT VISIT, EST [facility], [address] [place], [address], [place] tel:[phone] [facility] pain (chief complaint) skin (chief complaint) HTN (chief complaint) Chronic pain syndromeEssential (primary) hypertensionNevus, non-neoplastic 4 Alexandre Taylor. [address], [place], [place], [address] , [place]. tel:[phone] OFFICE/OUTPA TIENT VISIT, EST [facility], [address] [place] [place], [address], [place] tel:[phone] [facility] pain (chief complaint) breast1 (chief complaint) DM (chief complaint) Chronic pain syndromeType 2 diabetes mellitus with diabetic mononeuropathyMass in the left breast 4 Alexandre Taylor. [address], [place], [place], [address] , [place]. tel:[phone] OFFICE/OUTPA TIENT VISIT, EST [facility], [address] [place], [address], [place] tel:[phone] [facility] pain (chief complaint) breast (chief complaint) HTN (chief complaint) Chronic pain syndromeEssential (primary) hypertensionMass in the left breast 4 Alexandre Taylor. [address], [place], [place], [address] , [place]. tel:[phone] [facility], [address], [place], [place], [address], [place] tel:[phone] [facility] No Information Sep-3 4 Schroeder Brandon. [address], [place], [place], [address] , [place]. tel:[phone] OFFICE/OUTPA TIENT VISIT, [facility], [address], [place], [place], [address], [place] tel:[phone] [facility] pain (chief complaint) Chronic pain syndrome Sep-2 4 Alexandre Taylor. [address], [place], [place], [address] , [place]. tel:[phone] OFFICE/OUTPA TIENT VISIT, [facility], [address], [place], [place], [address], [place] tel:[phone] [facility] pain (chief complaint) DM (chief complaint) Chronic pain syndromeType 2 diabetes mellitus with diabetic mononeuropathy 4 Alexandre Taylor. [address], [place], [place], [address] , [place]. tel:[phone] OFFICE/OUTPA TIENT VISIT, [facility], [address], [place], [place], [address], [place] tel:[phone] [facility] pain (chief complaint) COPD1 (chief complaint) DM (chief complaint) Centrilobular emphysemaChronic pain syndromeType 2 diabetes mellitus with diabetic nephropathy 4 Schroeder Brandon. [address], [place], [place], [address] , [place]. tel:[phone] OFFICE/OUTPA TIENT VISIT, [facility], [address], [place], [place], [address], [place] tel:[phone] [facility] pain (chief complaint) DM (chief complaint) thyroid1 (chief complaint) Chronic pain syndromeThyroid noduleType 2 diabetes mellitus with diabetic nephropathy Stewart-2 8-202 4 Alexandre Brandon. [address], [place], [place], [address] , [place]. tel:[phone] OFFICE/OUTPA TIENT VISIT, [facility], [address], [place], [place], [address], [place] tel:[phone] [facility] Barrett1 (chief complaint) DM (chief complaint) Type 2 diabetes mellitus with diabetic mononeuropathyBarre tt's esophagus without dysplasia 4 Schroeder Brandon. [address], [place], [place], [address] , [place]. tel:[phone] OFFICE/OUTPA TIENT VISIT, [facility], [address], [place], [place], [address], [place] tel:[phone] [facility] DM (chief complaint) polycythem ia1 (chief complaint) thyroid1 (chief complaint) pain1 (chief complaint) osteopenia 1 (chief complaint) COPD1 (chief complaint) Centrilobular emphysemaHypomagnes emiaOther spondylosis, lumbar regionType 2 diabetes mellitus with diabetic mononeuropathySecon victor manuel polycythemiaOther specified disorder of bone densityThyroid nodule 4 Alexandre Brandon. [address], [place], [place], [address] , [place]. tel:[phone] OFFICE/OUTPA TIENT VISIT, [facility], [address] [place] [place], [address], [place] tel:[phone] [facility] back pain1 (chief complaint) COPD1 (chief complaint) thyroid nodule1 (chief complaint) HTN (chief complaint) HLP (chief complaint) DM (chief complaint) Thyroid noduleCentrilobular emphysemaEssential (primary) hypertensionHypomag nesemiaMixed hyperlipidemiaOther spondylosis, lumbar regionType 2 diabetes mellitus with diabetic mononeuropathy 4 Alexandre Brandon. [address], [place], [place], [address] , [place]. tel:[phone] OFFICE/OUTPA TIENT VISIT, [facility], [address], [place], [place], [address], [place] tel:[phone] [facility] thyroid nodule1 (chief complaint) back pain1 (chief complaint) basal (chief complaint) Other spondylosis, lumbar regionThyroid noduleBasal cell carcinoma of skin Dec-0 4 Alexandre Taylor. [address], [place], [place], [address] , [place]. tel:[phone] OFFICE/OUTPA TIENT VISIT, [facility], [address] [place] [place], [address], [place] tel:[phone] [facility] pain (chief complaint) skin (chief complaint) leg weak1 (chief complaint) thyroid1 (chief complaint) Chronic pain syndromeMuscle weakness (generalized)Thyroi d noduleNevus, non-neoplastic Oct-0 4 Alexandre Taylor. [address], [place], [place], [address] , [place]. tel:[phone] OFFICE/OUTPA TIENT VISIT, [facility], [address] [place] [place], [address], [place] tel:[phone] [facility] pain (chief complaint) elbow cyst1 (chief complaint) leg pain1 (chief complaint) nipple1 (chief complaint) Anterior chest-wall painMuscle weakness (generalized)Other signs and symptoms in breastAbscess of bursa, right elbow 4 Alexandre Taylor. [address], [place], [place], [address] , [place]. tel:[phone] OFFICE/OUTPA TIENT VISIT, [facility], [address] [place] [place], [address], [place] tel:[phone] [facility] osteopenia 1 (chief complaint) COPD1 (chief complaint) pain (chief complaint) CAD (chief complaint) Centrilobular emphysemaOther specified disorder of bone densityChronic pain syndromeCoronary artery disease of [place] coronary artery without angina pectoris Feb 4 Alexandre Taylor. [address], [place], [place], [address] , [place]. tel:[phone] OFFICE/OUTPA TIENT VISIT, EST [facility], [address], [place], [place], [address], [place] tel:[phone] [facility] pain (chief complaint) HTN (chief complaint) mag1 (chief complaint) Chronic pain syndromeHypomagnese miaEssential (primary) hypertensionOther signs and symptoms in breast 4 Alexandre Taylor. [address], [place], [place], [address] , [place]. tel:[phone] OFFICE/OUTPA TIENT VISIT, EST [facility], [address], [place], [place], [address], [place] tel:[phone] [facility] polycythem ia1 (chief complaint) thyroid1 (chief complaint) barrett1 (chief complaint) mag (chief complaint) pain (chief complaint) nipple (chief complaint) French's esophagus without dysplasiaChronic pain syndromeDisorder of thyroid, unspecifiedHypomagn esemiaSecondary polycythemiaCentril obular emphysemaOther signs and symptoms in breast 3 Alexandre Taylor. [address], [place], [place], [address] , [place]. [phone] PREV VISIT, EST, 65 & OVER [facility], [address], [place], [place], [address], [place] tel:[phone] [facility] physical (chief complaint) HypomagnesemiaEssen tial (primary) hypertensionChronic pain syndromeSecondary polycythemiaType 2 diabetes mellitus with diabetic mononeuropathyDisor moises of thyroid, unspecifiedMixed hyperlipidemiaBarre tt's esophagus without dysplasiaEncounter for general adult medical exam w abnormal findingsObstructive sleep apnea (adult) (pediatric) 3 Alexandre Taylor. [address], [place], [place], [address] , [place]. tel:[phone] OFFICE/OUTPA TIENT VISIT, [facility], [address], [place], [place], [address], [place] tel:[phone] [facility] pain (chief complaint) HTN (chief complaint) low mag (chief complaint) Chronic pain syndromeHypomagnese miaEssential (primary) hypertensionOther signs and symptoms in breastSecondary polycythemia 3 Alexandre Taylor. [address], [place], [place], [address] , [place]. tel:[phone] OFFICE/OUTPA TIENT VISIT, [facility], [address], [place], [place], [address], [place] tel:[phone] [facility] DM (chief complaint) pain1 (chief complaint) breast1 (chief complaint) Chronic pain syndromeType 2 diabetes mellitus with diabetic mononeuropathyOther signs and symptoms in breast 3 Alexandre Taylor. [address], [place], [place], [address] , [place]. tel:[phone] OFFICE/OUTPA TIENT VISIT, [facility], [address] [place] [place], [address], [place] tel:[phone] [facility] DM (chief complaint) pain (chief complaint) mag (chief complaint) breast1 (chief complaint) Chronic pain syndromeType 2 diabetes mellitus with diabetic mononeuropathyOther signs and symptoms in breastDisorder of thyroid, unspecifiedHypomagn esemia 3 Alexandre Taylor. [address], [place], [place], [address] , [place]. tel:[phone] OFFICE/OUTPA TIENT VISIT, [facility], [address] [place] [place], [address], [place] tel:[phone] [facility] thyroid1 (chief complaint) polycytehe mia1 (chief complaint) mag (chief complaint) DM (chief complaint) polycythem ia1 (chief complaint) barrett1 (chief complaint) Mixed hyperlipidemiaDisor moises of thyroid, unspecifiedType 2 diabetes mellitus with diabetic mononeuropathySecon victor manuel polycythemiaBarrett 's esophagus without dysplasiaHypomagnes emiaChronic pain syndrome 3 Alexandre Taylor. [address], [place], [place], [address] , [place]. tel:[phone] OFFICE/OUTPA TIENT VISIT, [facility], [address], [place], [place], [address], [place] tel:[phone] [facility] pain (chief complaint) HLP (chief complaint) HTN (chief complaint) Chronic pain syndromeMixed hyperlipidemiaEssen tial (primary) hypertension 3 Alexandre Mary [address], [place], [place], [address] , [place]. tel:[phone] PREV VISIT, EST, 65 & OVER [facility], [address], [place], [place], [address], [place] tel:[phone] [facility] physical (chief complaint) Encounter for general adult medical examination without abnormal findings 3 Alexandre Mary [address], [place], [place], [address] , [place]. tel:[phone] OFFICE/OUTPA TIENT VISIT, [facility], [address], [place], [place], [address], [place] tel:[phone] [facility] pain (chief complaint) Chronic pain syndromeCentrilobul ar emphysema 3 Alexandre Taylor. [address], [place], [place], [address] , [place]. tel:[phone] OFFICE/OUTPA TIENT VISIT, [facility], [address], [place], [place], [address], [place] tel:[phone] [facility] pain (chief complaint) HTN (chief complaint) weight loss1 (chief complaint) Chronic pain syndromeEssential (primary) hypertensionDisorde r of thyroid, unspecifiedAbnormal weight loss 3 Alexandre Taylor. [address], [place], [place], [address] , [place]. tel:[phone] OFFICE/OUTPA TIENT VISIT, [facility], [address] [place], [address], [place] tel:[phone] [facility] HTN (chief complaint) pain (chief complaint) thyroid1 (chief complaint) osteopenia 1 (chief complaint) Disorder of thyroid, unspecifiedEssentia l (primary) hypertensionOther specified disorder of bone densityChronic pain syndrome 3 Alexandre Taylor. [address], [place], [place], [address] , [place]. [phone] OFFICE/OUTPA TIENT VISIT, [facility], [address] [place], [address], [place] tel:[phone] [facility] Thyroid1 (chief complaint) DM (chief complaint) HTN (chief complaint) pain (chief complaint) osteopenia 1 (chief complaint) Inconclusive mammogramOther specified disorder of bone densityType 2 diabetes mellitus with diabetic mononeuropathyDisor moises of thyroid, unspecifiedAbnormal weight lossMixed hyperlipidemiaEssen tial (primary) hypertension 3 Alexandre Taylor. [address], [place], [place], [address] , [place]. [phone] OFFICE/OUTPA TIENT VISIT, [facility], [address] [place], [address], [place] tel:[phone] [facility] pain (chief complaint) HTN (chief complaint) Chronic pain syndromeEssential (primary) hypertension 2 Alexandre Taylor. [address], [place], [place], [address] , [place]. [phone] OFFICE/OUTPA TIENT VISIT, [facility], [address] [place] [place], [address], [place] tel:[phone] [facility] pain (chief complaint) HTN (chief complaint) mammo (chief complaint) Essential (primary) hypertensionInconcl usive mammogramChronic pain syndrome 2 Schroeder Brandon. [address], [place], [place], [address] , [place]. tel:[phone] OFFICE/OUTPA TIENT VISIT, [facility], [address], [place], [place], [address], [place] tel:[phone] [facility] pain (chief complaint) HTN (chief complaint) mammo (chief complaint) Chronic pain syndromeInconclusiv e mammogramEssential (primary) hypertension 2 Schroeder Brandon. [address], [place], [place], [address] , [place]. tel:[phone] OFFICE/OUTPA TIENT VISIT, [facility], [address], [place], [place], [address], [place] tel:[phone] [facility] Chronic pain syndrome 2 Alexandre Taylor. [address], [place], [place], [address] , [place]. tel:[phone] OFFICE/OUTPA TIENT VISIT, [facility], [address], [place], [place], [address], [place] tel:[phone] [facility] pain (chief complaint) Chronic pain syndrome 2 Schroeder Brandon. [address], [place], [place], [address] , [place]. tel:[phone] OFFICE/OUTPA TIENT VISIT, [facility], [address], [place], [place], [address], [place] tel:[phone] [facility] HLP (chief complaint) Barrett1 (chief complaint) mammo1 (chief complaint) pain (chief complaint) Inconclusive mammogramChronic pain syndromeBarrett's esophagus without dysplasiaPolyp of colonMixed hyperlipidemia 2 Schroeder Brandon. [address], [place], [address] , [place]. tel:[phone] OFFICE/OUTPA TIENT VISIT, [facility], [address], [place], [place], [address], [place] tel:[phone] [facility] pain1 (chief complaint) mammo (chief complaint) Chronic pain syndromeInconclusiv e mammogram 2 Alexandre Taylor. [address], [place], [place], [address] , [place]. tel:[phone] PREV VISIT, EST, AGE 40-64 [facility], [address], [place], [place], [address], [place] tel:[phone] [facility] physical (chief complaint) Encounter for general adult medical examination without abnormal findings 2 Alexandre Taylor. [address], [place], [place], [address] , [place]. tel:[phone] OFFICE/OUTPA TIENT VISIT, [facility], [address], [place], [place], [address], [place] tel:[phone] [facility] pain (chief complaint) knee pain1 (chief complaint) lung nodule1 (chief complaint) barrett1 (chief complaint) sleep apnea1 (chief complaint) Chronic pain syndromeBarrett's esophagus without dysplasiaPolyp of colonOther specified disorder of bone densityPain in left kneeSleep apneaSolitary lung noduleInconclusive mammogram 2 Alexandre Taylor. [address], [place], [address] , [place]. [phone] OFFICE/OUTPA TIENT VISIT, EST [facility], [address], [place], [place], [address], [place] tel:[phone] [facility] pain (chief complaint) french (chief complaint) osteopenia 1 (chief complaint) French's esophagus without dysplasiaChronic pain syndromeOther specified disorder of bone density 2 Alexandre Taylor. [address], [place], [place], [address] , [place]. [phone] OFFICE/OUTPA TIENT VISIT, [facility], [address], [place], [place], [address], [place] tel:[phone] [facility] pain (chief complaint) knee pain1 (chief complaint) Chronic pain syndromePain in left knee 2 Alexandre Mary [address], [place], [place], [address] , [place]. tel:[phone] OFFICE/OUTPA TIENT VISIT, [facility], [address], [place], [place], [address], [place] tel:[phone] [facility] pain (chief complaint) knee pain1 (chief complaint) mammo (chief complaint) Pain in left kneeInconclusive mammogramChronic pain syndromeOther specified disorder of bone density 2 Alexandre Mary [address], [place], [place], [address] , [place]. tel:[phone] OFFICE/OUTPA TIENT VISIT, [facility], [address], [place], [place], [address], [place] tel:[phone] [facility] pain (chief complaint) Chronic pain syndromeInconclusiv e mammogram 1 Alexandre Mary [address], [place], [place], [address] , [place]. tel:[phone] OFFICE/OUTPA TIENT VISIT, [facility], [address] [place] [place], [address], [place] [phone] [facility] pain (chief complaint) Chronic pain syndromePain in left knee 1 Alexandre Mary [address], [place], [place], [address] , [place]. tel:[phone] OFFICE/OUTPA TIENT VISIT, [facility], [address], [place], [place], [address], [place] tel:[phone] [facility] pain (chief complaint) mammo (chief complaint) HTN (chief complaint) nevus1 (chief complaint) Chronic pain syndromeNevus, non-neoplasticPain in left kneeInconclusive mammogramEssential (primary) hypertension 1 Alexandre Mary [address], [place], [place], [address] , [place]. tel:[phone] OFFICE/OUTPA TIENT VISIT, [facility], [address], [place], [address], [place] tel:[phone] [facility] pain1 (chief complaint) knee pain1 (chief complaint) mole (chief complaint) Chronic pain syndromeNevus, non-neoplasticPain in left knee Sep-2 1 Alexandre Mary [address], [place], [place], [address] , [place]. tel:[phone] OFFICE/OUTPA TIENT VISIT, [facility], [address], [place], [place], [address], [place] tel:[phone] [facility] pain (chief complaint) leg pain1 (chief complaint) nevus1 (chief complaint) weight loss1 (chief complaint) Chronic pain syndromeAbnormal weight lossNevus, non-neoplasticPain in left kneeNeuropathy 1 Alexandre Mary [address], [place], [place], [address] , [place]. tel:[phone] OFFICE/OUTPA TIENT VISIT, [facility], [address], [place], [address], [place] tel:[phone] [facility] pain (chief complaint) HLP (chief complaint) mammo (chief complaint) Inconclusive mammogramHyperlipid emiaChronic pain syndrome 1 Alexandre Mary [address], [place], [place], [address] , [place]. tel:[phone] OFFICE/OUTPA TIENT VISIT, [facility], [address], [place], [place], [address], [place] tel:[phone] [facility] back pain1 (chief complaint) Chronic pain syndrome 1 Schroeder Brandon. [address] [address], [place], [place], [address] , [place]. tel:[phone] PREV VISIT, EST, AGE 40-64 [facility], [address], [place], [place], [address], [place] tel:[phone] [facility] physical (chief complaint) Encounter for general adult medical examination without abnormal findings 1 Alexandre Taylor. [address], [address], [place], [place], [address] , [place]. tel:[phone] OFFICE/OUTPA TIENT VISIT, [facility], [address], [place], [place], [address], [place] tel:[phone] [facility] back pain1 (chief complaint) breast1 (chief complaint) barrett1 (chief complaint) HLP (chief complaint) Chronic pain syndromeBarrett's esophagus without dysplasiaSolitary lung noduleInconclusive mammogramHyperlipid emia 1 Alexandre Taylor. [address], [address], [place], [place], [address] , [place]. tel:[phone] OFFICE/OUTPA TIENT VISIT, EST [facility], [address], [place], [place], [address], [place] tel:[phone] [facility] pain (chief complaint) Chronic pain syndromeOther spondylosis, lumbar region 1 Alexandre Taylor. [address], [address], [place], [place], [address] , [place]. tel:[phone] OFFICE/OUTPA TIENT VISIT, EST [facility], [address], [place], [place], [address], [place] tel:[phone] [facility] pain (chief complaint) Other spondylosis, lumbar regionChronic pain syndrome Fe 1 Alexandre Taylor. [address], [address], [place], [place], [address] , [place]. tel:[phone] OFFICE/OUTPA TIENT VISIT, [facility], [address], [place], [place], [address], [place] tel:[phone] [facility] pain (chief complaint) osteoporos is1 (chief complaint) DM (chief complaint) french (chief complaint) Chronic pain syndromeBarrett's esophagus without dysplasiaOther specified disorder of bone densityType 2 diabetes mellitus with diabetic mononeuropathy 1 Alexandre Mary [address], [address], [place], [place], [address] , [place]. tel: [phone] OFFICE/OUTPA TIENT VISIT, [facility], [address], [place], [place], [address], [place] tel:[phone] [facility] pain (chief complaint) Chronic pain syndrome 0 Alexandre Mary [address], [address], [place], [place], [address] , [place]. tel:[phone] OFFICE/OUTPA TIENT VISIT, [facility], [address], [place], [address], [place] tel:[phone] [facility] pain (chief complaint) mammogram1 (chief complaint) Inconclusive mammogramChronic pain syndrome 0 Alexandre Mary [address], [address], [place], [place], [address] , [place]. tel:[phone] OFFICE/OUTPA TIENT VISIT, [facility], [address], [place], [place], [address], [place] tel:[phone] [facility] pain (chief complaint) mammo (chief complaint) HLP (chief complaint) HTN (chief complaint) Inconclusive mammogramHyperlipid emiaEssential (primary) hypertensionType 2 diabetes mellitus with diabetic mononeuropathyChron ic pain syndrome 0 Alexandre Mary [address], [address], [place], [address] , [place]. tel:[phone] OFFICE/OUTPA TIENT VISIT, [facility], [address], [place], [place], [address], [place] tel:[phone] [facility] back pain1 (chief complaint) mammo (chief complaint) sleep apnea1 (chief complaint) lung nodule1 (chief complaint) Chronic pain syndromeSleep apneaSolitary lung noduleInconclusive mammogram 0 Alexandre Mary [address], [address], [place], [place], [address] , [place]. tel:[phone] OFFICE/OUTPA TIENT VISIT, [facility], [address], [place], [place], [address], [place] tel:[phone] [facility] back pain1 (chief complaint) tobacco1 (chief complaint) HLP (chief complaint) DM (chief complaint) HyperlipidemiaChron ic pain syndromeType 2 diabetes mellitus with diabetic mononeuropathyOsteo porosisTobacco useEncounter for oth screening for malignant neoplasm of breast 0 Alexandre Mary [address], [address], [place], [place], [address] , [place]. tel:[phone] OFFICE/OUTPA TIENT VISIT, [facility], [address], [place], [place], [address], [place] tel:[phone] [facility] French (chief complaint) back pain1 (chief complaint) Chronic pain syndromeBarrett's esophagus without dysplasiaHyperlipid emia 0 Alexandre Mary [address], [address], [place], [place], [address] , [place]. tel:[phone] OFFICE/OUTPA TIENT VISIT, [facility], [address], [place], [address], [place] tel:[phone] [facility] back pain1 (chief complaint) HTN (chief complaint) HLP (chief complaint) sleep apnea1 (chief complaint) Chronic pain syndromeHyperlipide miaEssential (primary) hypertensionSleep apnea 0 Alexandre Mary [address], [address], [place], [address] , [place]. [phone] OFFICE/OUTPA TIENT VISIT, [facility], [address], [place], [place], [address], [place] tel:[phone] [facility] back pain1 (chief complaint) Barrett1 (chief complaint) French's esophagus without dysplasiaChronic pain syndrome 0 Alexandre Mary [address], [address], [place], [place], [address] , [place]. tel:[phone] OFFICE/OUTPA TIENT VISIT, [facility], [address], [place], [place], [address], [place] tel:[phone] [facility] back pain1 (chief complaint) DM (chief complaint) osteoporos is1 (chief complaint) COPD1 (chief complaint) CAD (chief complaint) OsteoporosisEmphyse maChronic pain syndromeType 2 diabetes mellitus with diabetic mononeuropathyCoron angelo artery disease of [place] coronary artery without angina pectoris 0 Alexandre Mary [address], [address], [place], [place], [address] , [place]. tel:[phone] OFFICE/OUTPA TIENT VISIT, [facility], [address], [place], [place], [address], [place] tel:[phone] [facility] back pain1 (chief complaint) sleep apnea1 (chief complaint) DM (chief complaint) osteopenia 1 (chief complaint) HLP (chief complaint) Chronic pain syndromeHyperlipide miaType 2 diabetes mellitus with diabetic mononeuropathyOther specified disorder of bone densitySleep apneaIron deficiency 0 Alexandre Mary [address], [address], [place], [place], [address] , [place]. [phone] Referring Provider: Garima Camacho [address], [place], [place], [address]. tel:[phone] PREV VISIT, EST, AGE 40-64 [facility], [address], [place], [place], [address], [place] tel:[phone] [facility] physical (chief complaint) Encntr for general adult medical exam w/o abnormal findings Fe-2 0-202 0 Alexandre Taylor. [address], [address], [place], [place], [address] , [place]. tel:[phone] Referring Provider: Brandon Schroeder [address], [place], [place], [address]. tel:[phone] OFFICE/OUTPA TIENT VISIT, [facility], [address], [place], [address], [place] tel:[phone] [facility] sleep apnea1 (chief complaint) back pain1 (chief complaint) osteoporos is1 (chief complaint) barrett1 (chief complaint) CAD (chief complaint) Coronary artery disease of [place] coronary artery without angina pectorisSleep apneaOsteoporosisBa rrett's esophagus without dysplasiaLumbago with sciatica, left side 0 Alexandre Taylor. [address], [address], [place], [place], [address] , [place]. tel:[phone] Referring Provider: Garima Camacho [address], [place], [place], [address]. tel:[phone] OFFICE/OUTPA TIENT VISIT, [facility], [address], [place], [place], [address], [place] tel:[phone] [facility] back pain1 (chief complaint) sleep apnea1 (chief complaint) Sleep apneaLumbago with sciatica, left sideNeuropathyNevus , non-neoplastic 9 Alexandre Taylor. [address], [address], [place], [place], [address] , [place]. tel:[phone] Referring Provider: Garima Camacho [address], [place], [place], [address]. tel:[phone] OFFICE/OUTPA TIENT VISIT, [facility], [address], [place], [address], [place] tel:[phone] [facility] chronic pain1 (chief complaint) sleep apnea1 (chief complaint) osteoporos is1 (chief complaint) Sleep apneaOsteoporosisCh ronic pain syndromeTobacco use 0 9 Alexandre Mary [address], [address], [place], [address] , [place]. tel:[phone] Referring Provider: Garima Camacho [address], [place], [place], [address]. tel:[phone] OFFICE/OUTPA TIENT VISIT, [facility], [address], [place], [address], [place] tel:[phone] [facility] chronic pain (chief complaint) sleep apnea1 (chief complaint) CAD (chief complaint) Chronic pain syndromeSleep apneaCoronary artery disease of [place] coronary artery without angina pectoris 9 Alexandre Mary [address], [address], [place], [place], [address] , [place]. [phone] Referring Provider: Garima Camacho [address], [place], [place], [address]. tel:[phone] OFFICE/OUTPA TIENT VISIT, [facility], [address], [place], [place], [address], [place] tel:[phone] [facility] sleep apnea1 (chief complaint) chronic pain1 (chief complaint) DM (chief complaint) COPD1 (chief complaint) Type 2 diabetes mellitus with diabetic mononeuropathyEmphy semaSleep apneaChronic pain syndrome 9 Alexandre Mary [address], [place], [place], [address] , [place]. [phone] Referring Provider: Garima Camacho [address], [place], [place], [address]. tel:[phone] OFFICE/OUTPA TIENT VISIT, [facility], [address], [place], [address], [place] tel:[phone] [facility] chronic pain1 (chief complaint) sleep apena1 (chief complaint) Chronic pain syndromeSleep apnea 9 Alexandre Mary [address], [address], [place], [place], [address] , [place]. tel:[phone] Referring Provider: Brandon Schroeder, [address], [place], [place], [address]. tel:[phone] OFFICE/OUTPA TIENT VISIT, [facility], [address], [place], [place], [address], [place] tel:[phone] [facility] chronic pain (chief complaint) French (chief complaint) sleep apnea1 (chief complaint) COPD1 (chief complaint) DM (chief complaint) HTN (chief complaint) EmphysemaBarrett's esophagus without dysplasiaSleep apneaChronic pain syndromeType 2 diabetes mellitus with diabetic mononeuropathyEssen tial (primary) hypertension 9 Alexandre Taylor. [address], [address], [place], [place], [address] , . tel:[phone] Referring Provider: Garima Camacho [address], [place], [place], [address]. tel:[phone] OFFICE/OUTPA TIENT VISIT, [facility], [address], [place], [place], [address], [place] tel:[phone] [facility] GERD1 (chief complaint) back pain1 (chief complaint) CAD1 (chief complaint) sleep apnea1 (chief complaint) COPD1 (chief complaint) EmphysemaCoronary artery disease of [place] coronary artery without angina pectorisGERD with esophagitisSleep apneaOsteoporosisCh ronic pain syndrome 9 Alexandre Taylor. [address], [address], [place], [place], [address] , [place]. tel:[phone] Referring Provider: Brandon Schroeder [address], [place], [place], [address]. tel:[phone] OFFICE/OUTPA TIENT VISIT, [facility], [address], [place], [address], [place] tel:[phone] [facility] back pain1 (chief complaint) CAD1 (chief complaint) sleep apnea1 (chief complaint) GERD1 (chief complaint) Coronary artery disease of [place] coronary artery without angina pectorisGERD with esophagitisSleep apneaChronic pain syndrome 9 Alexandre Taylor. [address], [address], [place], [place], [address] , [place]. tel:[phone] Referring Provider: Garima Camacho [address], [place], [place], [address]. tel:[phone] OFFICE/OUTPA TIENT VISIT, [facility], [address], [place], [place], [address], [place] tel:[phone] [facility] gerd1 (chief complaint) CAD (chief complaint) back pain1 (chief complaint) Inconclusive mammogramSleep apneaCoronary artery disease of [place] coronary artery without angina pectorisGERD with esophagitisChronic pain syndrome 9 Alexandre Taylor. [address], [place], [place], [address] , [place]. tel:[phone] Referring Provider: Garima Camacho [address], [place], [place], [address]. tel:[phone] OFFICE/OUTPA TIENT VISIT, [facility], [address], [place], [place], [address], [place] tel:[phone] [facility] osteoporos is1 (chief complaint) chronic pain (chief complaint) breast1 (chief complaint) sleep apnea1 (chief complaint) HLP (chief complaint) HyperlipidemiaChron ic pain syndromeOsteoporosi sInconclusive mammogramSleep apneaTobacco useType 2 diabetes mellitus with diabetic mononeuropathy 9 Alexandre Taylor. [address], [address], [place], [place], [address] , [place]. tel:[phone] Referring Provider: Garima Camacho [address], [place], [place], [address]. tel:[phone] OFFICE/OUTPA TIENT VISIT, [facility], [address], [place], [place], [address], [place] tel:[phone] [facility] DM (chief complaint) polycythem ia1 (chief complaint) HLP (chief complaint) chronic pain1 (chief complaint) HyperlipidemiaSecon victor manuel polycythemiaType 2 diabetes mellitus with diabetic mononeuropathyOther specified abnormal findings of blood chemistryChronic pain syndrome 9 Alexandre Taylor. [address], [address], [place], [place], [address] , [place]. tel:[phone] Referring Provider: Garima Camacho [facility], [place], [place], [address]. tel:[phone] PREV VISIT, NEW, AGE 40-64 [facility], [address], [place], [place], [address], [place] tel:[phone] [facility] Physical (chief complaint) Encounter for general adult medical exam w abnormal findingsEssential (primary) hypertensionType 2 diabetes mellitus with diabetic mononeuropathyHyper lipidemiaChronic pain syndrome 9 Alexandre Taylor. [address], [place], [place], [address] , [place]. tel:[phone] Referring Provider: Garima Camacho [facility] [address], [place], [place], [address]. tel:[phone] Family History Family Member Type Diagnosis Age At Onset Mother Problem (finding) of colon CA (Cause Of ) 68 Father Problem (finding) of CHF (Cause Of D eath) 65 Brother Problem (finding) Alive and well Payers Payer name Insurance type Covered alliance party ID Authoriza tion(s) No Information Social History Type Description Quantity Date Captured Comments Alcohol Use Details No Caffeine Use Details Unknown Tobacco Use Status Heavy cigarette smok er (20-39 cigs/day) Smoking Status Heavy tobacco smoker Sex Female Vital Signs Date / Time: Height Weight BMI Pulse Rate Blood Pressure Temperature Respiratory Rate Body Surface Area Head Circumference BMI percentile Pulse Ox Inhaled Ox 10:26 AM 68.00 in 190.60 lbs 28.9 8 kg/m eter (2) 74 /min 120/72 mm[Hg] 98.0 F 16 /min Chief Complaint And Reason For Visit From encounter dated '09/11/2024 10:21'. DM (chief complaint). Description: Pt has DM Pt is on metformin and amaryl. Her glucose is around 120s. Pt has alysa with endo next month Pt needs amaryl refilled. pain (chief complaint). Description: Pt has low back pain with neuropathy. Pt failed neurontin. Pt takes norco PRn for pain. . Pt denies any loss of bladder control. Pt has chronic sciatica and leg numbness. Pt denies any worsening pain. Pt denies any saddle area paresthesia. Pt had MRI done which showed severe spondylosis. mag (chief complaint). Description: Pt has low mag. Pt is on mag. Pt needs it refilled french (chief complaint). Description: Pt has french Pt is on omeprazole and doing ok pt denies any GERD Plan Of Treatment Date Type Action Status Goal Tobacco cessation counseling completed Goal Tobacco cessation counseling completed Goal Tobacco cessation counseling completed Goal Special diet education compl eted Goal Tobacco cessation counseling completed Goal Special diet education compl eted Goal Special diet education compl eted Goal Special diet education compl eted Goal Tobacco cessation counseling completed Goal Tobacco cessation counseling completed Goal Special diet education compl eted Goal Special diet education compl eted Goal Tobacco cessation counseling completed Goal Tobacco cessation counseling completed Goal Special diet education compl eted Goal Special diet education compl eted Goal Tobacco cessation counseling completed Goal Special diet education compl eted Goal Special diet education compl eted Goal Tobacco cessation counseling completed Goal Tobacco cessation counseling completed Goal Special diet education compl eted Goal Special diet education compl eted Goal Tobacco cessation counseling completed Goal Tobacco cessation counseling completed Goal Special diet education compl eted Referral Ordered: Dermatology (related to Nevus, non-neoplastic) ordered Referral Ordered: Endocrinology, Diabetes and Metabolism (related to Type 2 diabetes mellitus with diabetic mononeuropathy) ordered Referral Ordered: US KIDNEY ordered Referral Referred To: Janel REESE, Olinda Ramos [id number] [facility]
[address] [place], [place], [address] Ordered: Referrals: Olinda Islas MD. Evaluate and treat ordered Referral Ordered: US GUIDANCE ordered Referral Ordered: Plastic Surgery (related to Nevus, non-neoplastic) ordered Referral Ordered: Referrals: Plastic Surgery. Evaluate and treat ordered Referral Ordered: US THYROID ordered Referral Ordered: CT PULMONARY ordered Referral Ordered: MRI LUMBAR SPINE W/O DYE ordered Referral Ordered: Pulmonology (related to Centrilobular emphysema) ordered Referral Ordered: Vivian Harper -[facility] : Surgery (related to Other signs and symptoms in breast) ordered Referral Referred To: Vivian Harper [address] [place], [place], [phone] Ordered: Referrals: [facility] : Surgery. Vivian Harper. Evaluate and treat ordered Referral Ordered: Endocrinology, Diabetes and Metabolism (related to Type 2 diabetes mellitus with diabetic mononeuropathy) ordered Referral Ordered: Dwayne Hennessy MD -[facility] : Obstetrics & Gynecology (related to Other signs and symptoms in breast) ordered Referral Referred To: Dwayne Hennessy MD, Dr [place], [place], [phone] Ordered: Referrals: [facility] : Obstetrics & Gynecology. Dwayne Hennessy MD. Evaluate and treat ordered Referral Ordered: Referrals: Endocrinology, Diabetes and Metabolism. Evaluate and treat ordered Referral Ordered: MAMMOGRAM, BOTH BREASTS ordered Referral Ordered: KNEE XRAY, 3 VIEW Left ordered Referral Referred To: Estela REESE, Rosales Shoemaker [address]
[place] [address] [place], [place], [address] Ordered: Referrals: Estela REESE, Rosales Shoemaker. Evaluate and treat ordered Referral Ordered: Physical Therapy (related to Pain in left knee) ordered Referral Ordered: Dermatology (related to Nevus, non-neoplastic) ordered Referral Referred To: Physical Therapy Ordered: Referrals: Physical Therapy. Evaluate and treat ordered Referral Ordered: Dermatology (related to Nevus, non-neoplastic) ordered Referral Ordered: Referrals: Dermatology. Evaluate and treat ordered Referral Referred To: Vineet Willis MD [address]
[place], [address] Ordered: Referrals: Vineet Willis MD. Evaluate and treat ordered Referral Ordered: Pulmonology (related to Sleep apnea) ordered Referral Ordered: Referrals: Pulmonology. Evaluate and treat ordered Referral Ordered: Baldemar Fowler -[facility] : Internal Medicine : Cardiovascular Disease (related to Coronary artery disease of [place] coronary artery without angina pectoris) ordered Referral Referred To: Baldemar Fowler [address] [place], [place] [address] Ordered: Referrals: [facility] : Internal Medicine : Cardiovascular Disease. Baldemar Fowler. Evaluate and treat ordered Referral Ordered: MAMMOGRAM, ONE BREAST ordered Referral Ordered: Grant Mendez -[facility] : Internal Medicine : Endocrinology, Diabetes & Metabolism (related to Type 2 diabetes mellitus with diabetic mononeuropathy) ordered Referral Ordered: SLEEP STUDY, ATTENDED ordered Referral Referred To: Grant Mendez [address] [place], [place] [id number] Ordered: Referrals: [facility] : Internal Medicine : Endocrinology, Diabetes & Metabolism. Grant Mendez. Evaluate and treat ordered Referral Ordered: DXA BONE DENSITY, AXIAL ordered Referral Ordered: COLONOSCOPY AND BIOPSY ordered Referral Ordered: CT THORAX W/O DYE ordered Referral Ordered: MAMMOGRAM, SCREENING ordered Appointment Drea Barker BOOKED History Of Present Illness Encounter Date Complaint History Of Prese nt Illness DM Pt has DM Pt is on metformin and amaryl. Her glucose is around 120s. Pt has alysa with endo next month Pt needs amaryl refilled. mag Pt has low mag. Pt is on mag. Pt needs it refilled french Pt has french P t is on omeprazole and doing ok pt denies any GERD pain Pt has low back pain with neuropathy. Pt failed neurontin. Pt takes norco PRn for pain. . Pt denies any loss of bladder control. Pt has chronic sciatica and leg numbness. Pt denies any worsening pain. Pt denies any saddle area paresthesia. Pt had MRI done which showed severe spondylosis. skin Pt c/o left fore arm skin lesion with recurrent scab for several months Pt denies any bleeding. Pt does have fair skin HTN Pt has HTN. Pt t akes metoprolol and losartan and her bp is borderline high Pt denies any chest pain or headache pain Pt has low back pain with neuropathy. Pt failed neurontin. Pt takes norco PRn for pain. . Pt denies any loss of bladder control. Pt has chronic sciatica and leg numbness. Pt denies any worsening pain. Pt denies any saddle area paresthesia. Pt had MRI done which showed severe spondylosis. DM Pt has DM Pt is on metformin and amaryl. Pt states that her glucose is around 120s Pt has alysa with endo next October Pt needs med refilled breast1 Pt has chronic l eft nipple discharge. Pt is seeing breast specialist and she had negative diagnostic mammo and left ultrasound pt will do breast surgery to remove duct soon pain Pt has low back pain with neuropathy. Pt failed neurontin. Pt takes norco PRn for pain. . Pt denies any loss of bladder control. Pt has chronic sciatica and leg numbness. Pt denies any worsening pain. Pt denies any saddle area paresthesia. Pt had MRI done which showed severe spondylosis. pain Pt has low back pain with neuropathy. Pt failed neurontin. Pt takes norco PRn for pain. . Pt denies any loss of bladder control. Pt has chronic sciatica and leg numbness. Pt denies any worsening pain. Pt denies any saddle area paresthesia. Pt had MRI done which showed severe spondylosis. breast Additional infor mation: PIt has abnormal breast MRi and she supposes to do ultrasound but she never did. Pt wants screening mammo. Pt denies any breast abnormality. Pt denies any breast discharge. HTN Pt has HTn pt ta kes metoprolol and losartan and her bp is borderline high pain Pt has low back pain with neuropathy. Pt failed neurontin. Pt takes norco PRn for pain. . Pt denies any loss of bladder control. Pt has chronic sciatica and leg numbness. Pt denies any worsening pain. Pt denies any saddle area paresthesia. Pt had MRI done which showed severe spondylosis. DM Pt has DM Pt is on metformin and amaryl and her BG is improving and around 100. Pt denies any hypoglycemia pain Pt has low back pain with neuropathy. Pt failed neurontin. Pt takes norco PRn for pain. . Pt denies any loss of bladder control. Pt has chronic sciatica and leg numbness. Pt denies any worsening pain. Pt denies any saddle area paresthesia. Pt had MRI done which showed severe spondylosis. pain Pt has low back pain with neuropathy. Pt failed neurontin. Pt takes norco PRn for pain. . Pt denies any loss of bladder control. Pt has chronic sciatica and leg numbness. Pt denies any worsening pain. Pt denies any saddle area paresthesia. Pt had MRI done which showed severe spondylosis. DM Pt has DM pt dorothy es metformin and amaryl. Pt has been taking amaryl after meal and she no longer feels shaky. BG around 110s . COPD1 Pt has COPD Pt i s on anoro Pt saw pulmonary recently and she was told to continue anoro for now DM Pt has DM with n ephropathy Pt had normal renal ultrasound .pt is on metformin and amaryl. Pt states that she feels slightly shaky after taking amaryl Pt has been taking amaryl empty stomached. pt also has not been checking glucose thyroid1 Pt has suppresse d TSH and normal T4 .Pt denies any chest pain or palpitation Pt has benign thyroid nodule Pt has not heard from endo yet pain Pt has low back pain with neuropathy. Pt failed neurontin. Pt takes norco PRn for pain. . Pt denies any loss of bladder control. Pt has chronic sciatica and leg numbness. Pt denies any worsening pain. Pt denies any saddle area paresthesia. Pt had MRI done which showed severe spondylosis. Barrett1 Pt has french e sophagus .Pt takes omeprazole. Pt denies any GERD or abd pain DM Pt has DM Pt is on metformin and amaryl. Her glucose is around 130s pt needs metformin refilled. pain1 Pt has low back pain with neuropathy. Pt failed neurontin. Pt takes norco PRn for pain. . Pt denies any loss of bladder control. Pt has chronic sciatica and leg numbness. Pt denies any worsening pain. Pt denies any saddle area paresthesia. Pt had MRI done which showed severe spondylosis. DM Pt has DM> pt is on metformin only. Her glucose and a1c are getting worse .Pt never followed up with endo. polycythemia1 Pt has polycythe delisa Pt has normal iron and ferritin and also JAK2. Pt does smoke thyroid1 Pt has chronical ly subclinical hyperthyroidism. Pt denies any dysphagia or neck pain. Pt has thyroid nodule. Pt had biopsy done which was benign. Pt denies any dysphagia or neck pain osteopenia1 Pt has osteopeni a. pt takes calcium and vitamin D, her vitamin D is high COPD1 Pt has COPD Pt u ses anoro and albuterol. Pt has alysa with pulmonary on march 13. Pt needs albuterol refilled. back pain1 Pt has low back pain with neuropathy. Pt failed neurontin. Pt takes norco PRn for pain. . Pt denies any loss of bladder control. Pt has chronic sciatica and leg numbness. Pt denies any worsening pain. Pt denies any saddle area paresthesia. Pt had MRI done which showed severe spondylosis. COPD1 Pt has COPD Pt i s on anoro and she uses albuterol 1-2 per day Pt is still a smoker. Pt wants to see pulmonary closer to [place] thyroid nodule1 Pt has thyroid n odule and she has biopsy scheduled in one week. Pt denies any dysphagia or neck pain HTN Pt takes losarta n and metoprolol. Pt denies any chest pain or headache. Pt denies any chest pain HLP Pt has HLP, Pt t salvador Stephenson. Pt denies any myalgia DM Pt has DM Pt is on metformin only Pt never made alysa with new endo Pt denies any neuropathy Pt denies any polyuria polydipsia. thyroid nodule1 Pt has multiple nodule on thyroid Pt denies any dysphagia or neck. Pt needs biopsy back pain1 Pt has low back pain with neuropathy. Pt failed neurontin. Pt takes norco PRn for pain. . Pt denies any loss of bladder control. Pt has chronic sciatica and leg numbness. Pt denies any worsening pain. Pt denies any saddle area paresthesia. Pt had MRI done which showed severe spondylosis. basal Pt has basal casey l on right side of nose which was diagnosed recently. Pt will go back for further removal pain Pt has low back pain with neuropathy. Pt failed neurontin. Pt takes norco PRn for pain. . Pt denies any loss of bladder control. Pt has chronic sciatica and leg numbness. Pt denies any worsening pain. Pt denies any saddle area paresthesia. skin Pt c/o chronic s pot on right side of nose and sometimes it scabs Pt denies any bleeding or itching or irritation Pt states that sometimes it gets dark under the sun. Pt notices a small spot for more than 6 months Pt denies any size change leg weak1 Pt c/o bilateral leg weakness and low back pain Pt denies any loss of bowel or bladder control or saddle area paresthesia Pt had negative duplex venous doppler study. Pt has not done MRI of L spine yet thyroid1 Pt has enlarged thyroid Pt denies any dysphagia or neck pain elbow cyst1 Pt notices acute onset of swelling and red cyst right elbow area one week ago. Pt denies any fever ,Pt went to ER on 10/11/23 and the cyst was removed by ER with several sutures. Pt was given doxycycline. Pt denies any drainage leg pain1 Pt c/o acute ons et of bilateral leg weakness and pain on 10/16/23 and she could not get up from squatting position .pt does have chronic low back pain with sciatica and neuropathy both legs but her leg weakness and pain is worse since last week. Pt ambulate with cane Pt felt panic and she started to have chest pain and she went to ER and EKG was negative and troponin was negative and she told me ER did not address the leg weakness and pain at all. Pt did see cardiology 4 days ago and she was cleared of any acute cardiac issue Pt no longer has any chest pain. Pt denies any sob Pt denies any incontinences. Pt states that both thigh and leg hurts nipple1 pt has nipple di scharge and she saw breast specialist and will do MRI of breast soon pain Pt has low back pain with neuropathy. Pt failed neurontin. Pt takes norco PRn for pain. . Pt denies any loss of bladder control. Pt has chronic sciatica and leg numbness. Pt denies any worsening pain. Pt denies any saddle area paresthesia. osteopenia1 Pt has osteopeni a Pt takes calcium and D and she needs vitamin d refilled. COPD1 Pt has emphysema on PFT Pt has not been able to make alysa with pulmonary since she moved Pt uses anoro now and albuterol PRn Pt denies any hemoptysis pain Pt has low back pain with neuropathy. Pt failed neurontin. Pt takes norco PRn for pain. . Pt denies any loss of bladder control. Pt has chronic sciatica and leg numbness. Pt denies any worsening pain. Pt denies any saddle area paresthesia. CAD Pt has history o f CAD Pt denies any chest pain Pt had negative cardiac cath several years ago Pt has alysa with cardiology next week pain Pt has low back pain with neuropathy. Pt failed neurontin. Pt takes norco PRn for pain. . Pt denies any loss of bladder control. Pt has chronic sciatica and leg numbness. Pt denies any worsening pain. Pt denies any saddle area paresthesia. HTN Pt has HTN Pt ta kes metoprolol and losartan and her bp is high Pt denies any chest pain or headache Pt states that she is in pain today mag1 Pt has chronic l ow mag. Pt is on mag. Pt needs it refilled polycythemia1 Pt has chronic p olycythemia. Pt has normal iron and ferritin and JAK2. pt does smoke and she has sleep apnea. Pt does not want to use cpap. thyroid1 Pt has slightly suppressed tsh with normal T4 and T3. pt denies any dysphagia or neck pain Pt has been seeing endo and was told she has benign condition. Pt denies any dysphagia or neck pain. Pt has not made alysa with new endo yet due to transportation issue. Pt denies any chest pain or palpitation or headache nipple Pt has bilateral clear nipple discharge for several months Pt denies any breast pain or nodule. Pt denies any breast warmth or rash Pt had benign diagnostic mammo and ultrasound recently by [employer]EC[employer]. Pt was referred to breast specialist in [facility] but she could not make to [facility] mag Pt has been taki ng mag supplement and her mag is normal pain Pt has low back pain with neuropathy. Pt failed neurontin. Pt takes norco PRn for pain. . Pt denies any loss of bladder control. Pt has chronic sciatica and leg numbness. Pt denies any worsening pain. Pt denies any saddle area paresthesia. barrett1 Pt has french . Pt has not been taking omeprazole due to lack of GERD. physical Pt needs annual physical. Pt has chronic back pain Pt takes norco PRN for pain and doing ok Pt denies any loss of bowel or bladder control or saddle area paresthesia. Pt saw neurosurgeon and [facility] in the past without any resolution. Pt has french with colon polyp Pt is on omeprazole and doing ok. . Pt has HLP and high TG Pt takes crestor. Pt denies any myalgia. Pt has DM .Pt takes trulicity, metformin. Pt has alysa with new endo soon. Pt takes losartan and metoprolol and her bp is stable Pt still smokes pt sees pulmonary for COPD Pt had benign LDCT recently Pt overall feels fine. Pt c/o mild cough, sinus congestion, sore throat, ear pain for 3 days Pt denies any fever or sob. pain Pt has low back pain with neuropathy. Pt failed neurontin. Pt takes norco PRn for pain. . Pt denies any loss of bladder control. Pt has chronic sciatica and leg numbness. Pt denies any worsening pain. Pt denies any saddle area paresthesia. HTN Pt has HTN Pt ta kes metoprolol and losartan and her bp is stable. low mag Pt has low mag P t has been taking mag. Pt denies any chest pain or palpitation or weakness. breast1 Pt notices bilat eral clear nipple discharge for one month with mild left breast discomfort for several weeks. Pt denies any redness or warmth or retraction Pt denies any axillary lymph. Pt denies any purulent drainage. Pt denies any fever. Pt had prolactin done which is normal Pt saw porcelain mixer and she was told to do mammogram and do prolactin Pt denies any breast redness or warmth pain1 Pt has back pain with neuropathy. Pt failed neurontin. Pt takes norco PRn for pain. . Pt denies any loss of bladder control. Pt has chronic sciatica and leg numbness. Pt denies any worsening pain. Pt denies any saddle area paresthesia. DM Pt has DM. Pt is on metformin and trulicity Pt has alysa with endo in two months. Her glucose is around 120 DM Pt has DM. Pt sa w jasmina and her glucose and A1c were very low and she is off amaryl and she is on metformin 500 mg once per day now. Pt is still trulicity. pain Pt has back pain with neuropathy. Pt failed neurontin. Pt takes norco PRn for pain. . Pt denies any loss of bladder control. Pt has chronic sciatica and leg numbness. Pt denies any worsening pain. Pt denies any saddle area paresthesia. mag Pt has low mag. Pt started magnesium last month Pt denies any cramp breast1 Pt notices bilat eral clear nipple discharge for several weeks with mild left breast discomfort for several weeks. Pt denies any redness or warmth or retraction Pt denies any axillary lymph. Pt denies any purulent drainage. Pt denies any fever polycythemia1 Pt has polycythe delisa Pt does smoke and she has sleep apnea. thyroid1 Pt has subclinic al hyperthyroidism. .Pt denies any dysphagia or neck pain pt sees endo for above. polycytehemia1 Pt has polycythe delisa. Pt does have sleep apnea but she does not use cpap. Pt is long time smoker mag Pt has low mag. Pt denies any muscle cramp. DM Pt takes metform in and amaryl and trulicity and her glucose and DM is doing very well. Pt sees endo. Pt has proteinuria barrett1 Pt has french . Pt takes omeprazole Pt needs refill but her GI told her to get it from me. HLP Pt has HLP Pt machelle stephenson Pt denies any myalgia. Pt had lab done but results not available pain Pt has back pain with neuropathy. Pt failed neurontin. Pt takes norco PRn for pain. . Pt denies any loss of bladder control. Pt has chronic sciatica and leg numbness. Pt denies any worsening pain. Pt denies any saddle area paresthesia. HTN Pt has HTn< pt t akes losartan and metoprolol and her bp is stable Pt denies any chest pain or headache physical Pt needs annual physical. Pt has chronic back pain Pt takes norco PRN for pain and doing ok Pt denies any loss of bowel or bladder control or saddle area paresthesia. Pt saw neurosurgeon and [facility] management in the past without any resolution. Pt has french with colon polyp Pt is on omeprazole and doing ok. . Pt has HLP and high TG Pt takes crestor. Pt denies any myalgia. Pt has DM .Pt takes trulicity, metformin and amaryl. Pt sees endo. Pt takes losartan and metoprolol and her bp is stable Pt still smokes pt sees pulmonary for COPD Pt had benign LDCT. pain Pt has back pain with neuropathy. Pt failed neurontin. Pt takes norco PRn for pain. . Pt denies any loss of bladder control. Pt has chronic sciatica and leg numbness. Pt denies any worsening pain. Pt denies any saddle area paresthesia. HTN Pt has HTn Pt ta kes losartan and metoprolol. her bp is high Pt feels stressed Pt denies any chest pain or headache weight loss1 Pt has been losi ng weight Pt denies any bowel change or any appetite loss or nausea, vomiting Pt does have suppressed TSH. Pt had negative EGD and colonoscopy. pt is on trulicity pain Pt has back pain with neuropathy. Pt failed neurontin. Pt takes norco PRn for pain. . Pt denies any loss of bladder control. Pt has chronic sciatica and leg numbness. Pt denies any worsening pain. Pt denies any saddle area paresthesia. HTN Pt takes metopro lol and her bp is ok Pt denies any chest pain or headache thyroid1 Pt has subclinic al hyperthyroidism Pt denies any dysphagia or neck pain .her TSH is suppressed but t3, t4 and TPO and TSI all ok .lab missed thyroglobulin osteopenia1 Pt has osteopeni a. her vitamin D is ok Pt denies any fx pain Pt has back pain with neuropathy. Pt failed neurontin. Pt takes norco PRn for pain. . Pt denies any loss of bladder control. Pt has chronic sciatica and leg numbness. Pt denies any worsening pain. Pt denies any saddle area paresthesia. DM Pt has DM Pt dorothy es metformin and amaryl and trulicity. Pt lost some weight. Her A1c is 6.6 Pt denies any neuropathy pt denies any polyuria, ,polydipsia. Pt has proteinuria. Pt has loss of appetite due to trulicity HTN Pt has HTN. Pt t akes losartan and metoprolol but she is out of metoprolol since yesterday Pt denies any chest pian or headache. Pt is also stressed pain Pt has back pain with neuropathy. Pt failed neurontin. Pt takes norco PRn for pain. . Pt denies any loss of bladder control. Pt has chronic sciatica and leg numbness. Pt denies any worsening pain. Pt denies any saddle area paresthesia. osteopenia1 Pt has osteopeni a. Pt takes calcium and D and she tries weight bearing exercise Thyroid1 Pt had lab done by endo last May which showed suppressed TSH. Pt denies any chest pain, palpitation, headache. Pt denies any dysphagia or neck pain HTN Pt has HTN pt ta kes metoprolol and losartan and her bp is ok today pain Pt has back pain with neuropathy. Pt failed neurontin. Pt takes norco PRn for pain. . Pt denies any loss of bladder control. Pt has chronic sciatica and leg numbness. Pt denies any worsening pain. Pt denies any saddle area paresthesia. pain Pt has back pain with neuropathy. Pt failed neurontin. Pt takes norco PRn for pain. . Pt denies any loss of bladder control. Pt has chronic sciatica and leg numbness. Pt denies any worsening pain. Pt denies any saddle area paresthesia. HTN Pt has HTN. Pt t akes losartan and metoprolol and her bp is borderline high today .Pt denies any chest pain or headache . mammo Pt has history o f breast nodule Pt denies any breast issue Pt needs screening mammo HTN Pt has HTN Pt ta kes metoprolol and losartan and her bp is around 130/80 Pt needs metoprolol refilled . mammo Pt has history o f left breast benign nodule Pt denies any breast pain, distortion, discoloration, retraction, nipple discharge, pain, etc. pain Pt has back pain with neuropathy. Pt failed neurontin. Pt takes norco PRn for pain. . Pt denies any loss of bladder control. Pt has chronic sciatica and leg numbness. Pt denies any worsening pain. Pt denies any saddle area paresthesia. pain Pt has back pain with neuropathy. Pt failed neurontin. Pt takes norco PRn for pain. . Pt denies any loss of bladder control. Pt has chronic sciatica and leg numbness. Pt denies any worsening pain. Pt denies any saddle area paresthesia. HLP Pt has HLP Pt ta kes crestor. Pt needs it refilled. Pt denies any myalgia. Lipid profile ok Barrett1 Pt has french a nd tubular adenoma. Pt takes omeprazole and doing ok. pt denies any lower GI issue mammo1 Pt denies any br east issue Pt had diagnostic left mammo and ultrasound done which were benign pain Pt has back pain with neuropathy. Pt failed neurontin. Pt takes norco PRn for pain. . Pt denies any loss of bladder control. Pt has chronic sciatica and leg numbness. Pt denies any worsening pain. Pt denies any saddle area paresthesia. mammo Pt has abnormal mammo and she will do diagnostic left mammo and ultrasound next week pt denies any breast issue pain1 Pt has back pain with neuropathy. Pt failed neurontin. Pt takes norco PRn for pain. . Pt denies any loss of bladder control. Pt has chronic sciatica and leg numbness. Pt denies any worsening pain. Pt denies any saddle area paresthesia. physical Pt needs annual physical. Pt has chronic back pain Pt takes norco PRN for pain and doing ok Pt denies any loss of bowel or bladder control or saddle area paresthesia .Pt has french with colon polyp Pt just had EGD and colonoscopy done and biopsy pending ,pt is on omeprazole. Pt has HLP and high TG Pt takes crestor. Pt denies any myalgia. Pt has DM .Her A1c is slightly worse Pt takes victoza, metformin and amaryl. Pt takes losartan and metoprolol and her bp is stable Pt still smokes pt sees pulmonary for COPD Pt had benign LDCT. pain Pt has back pain with neuropathy. Pt failed neurontin. Pt takes norco PRn for pain. . Pt denies any loss of bladder control. Pt has chronic sciatica and leg numbness. Pt denies any worsening pain. Pt denies any saddle area paresthesia. 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 Pt is seeing ortho who recommended surgery but she could not do surgery now due to family situation. 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 pt denies any fatigue or snoring or any trouble with breathing at night lung nodule1 Pt has history o f lung nodule with tobacco history. pt sees pulmonary. pt uses inhaler .Pt has LDCT scheduled for next week per pulmonary barrett1 Pt has french e sophagus and she is on omeprazole and she also has history of colon polyp with unknown nature. Pt has alysa for EGD and colonoscopy with GI in two weeks. Pt denies any lower GI issue osteopenia1 Pt has osteopeni a on bone density 2018 Pt takes calcium and D. Pt denies any fx french pt has french e sophagus. Pt underwent esophageal ablation 2018. Pt takes omeprazole daily pt denies any abd pain or GERD pain Pt has back pain with neuropathy. Pt failed neurontin. Pt takes norco PRn for pain. . Pt denies any loss of bladder control. Pt has chronic sciatica and leg numbness. Pt denies any worsening pain. Pt denies any saddle area paresthesia. pain Pt has back pain with neuropathy. Pt failed neurontin. Pt takes norco PRn for pain. . Pt denies any loss of bladder control. Pt has chronic sciatica and leg numbness. Pt denies any worsening pain. Pt denies any saddle area paresthesia. knee pain1 Pt has chronic k nee pain Pt is seeing ortho and she will do MRi soon. mammo Pt had diagnotic mammo and left ultrasound done and was benign and needs to repeat in 6 months Pt denies any breast pain, nodule, dimpling or discoloration or nipple drainage pain Pt has back pain with neuropathy. Pt failed neurontin. Pt takes norco PRn for pain. . Pt denies any loss of bladder control. Pt has chronic sciatica and leg numbness. Pt denies any worsening pain. Pt denies any saddle area paresthesia. knee pain1 Pt has left knee pain Pt is seeing ortho and she received an injection but did not help ,Pt denies any redness or warmth . Pt has normal ROM pain Pt has back pain with neuropathy. Pt failed neurontin. Pt takes norco PRn for pain. . Pt denies any loss of bladder control. Pt has chronic sciatica and leg numbness. Pt denies any worsening pain. Pt denies any saddle area paresthesia. pain Pt has back pain with neuropathy. Pt failed neurontin. Pt takes norco PRn for pain. . Pt denies any loss of bladder control. Pt has chronic sciatica and leg numbness. Pt denies any worsening pain. Pt has alysa with ortho for knee pain in August Pt denies any redness or swelling knee Pt denies any injury. her knee x ray showed arthritis only pain Pt has back pain with neuropathy. Pt failed neurontin. Pt takes norco PRn for pain. . Pt denies any loss of bladder control. Pt has chronic sciatica and leg numbness. Pt denies any worsening pain. Pt has alysa with ortho for knee pain in August Pt denies any redness or swelling knee Pt denies any injury mammo Pt denies any br east issue or nodule or discharge. pt needs diagnostic left mammo and she also need right screening mammo HTN Pt has HTn Pt ta kes metoprolol and also losartan and her bp is stable. Pt needs refill nevus1 Pt has multiple nevus and she just had skin check by dermatology and was told ok Pt was told to follow up in one year for recheck knee pain1 Pt c/o medial le ft knee pain Pt denies any swelling Pt states that PT made the pain worse Pt denies any injury mole Pt has multiple nevus all over body. Pt has not heard from dermatology yet pain1 Pt has back pain with neuropathy. Pt failed neurontin. Pt takes norco PRn for pain. . Pt denies any loss of bladder control. Pt has chronic sciatica and leg numbness. Pt denies any worsening pain. Pt saw neurosurgery at [facility] and was told that she is not surgical candidate Pt was told to do injections but she failed injection and she is not interested in it. nevus1 Pt has multiple nevus all over body. Pt never saw dermatology in the past for full skin check weight loss1 Pt has been losi ng weight recently. Pt feels full after eating. Pt denies any appetite loss, nausea, vomiting Pt has french s/p ablation and she is on omeprazole. Pt denies any change of bowel or blood in stool pain Pt has back pain with neuropathy. Pt failed neurontin. Pt takes norco PRn for pain. . Pt denies any loss of bladder control. Pt has chronic sciatica and leg numbness. Pt denies any worsening pain. Pt saw neurosurgery at [facility] and was told that she is not surgical candidate Pt was told to do injections but she failed injection and she is not interested in it. Pt states that lyrica did not help her neuropathy and pain leg pain1 Pt c/o acute ons et of left lower leg pain and she feels that she has something pitched around her leg. Pt states that she feels the pinched feeling around medial to left knee and she denies any calf pain or posterior thigh pain Pt denies any recent travel or bedrest. Pt unable to pinpoint whether it was her knee or leg. Pt denies any leg swelling Pt denies any worsening neuropathy. Pt denies any swelling. Pt also has some jay horse feeling both legs chronically. Pt denies any back pain or sciatica or any loss of bowel or bladder control. Pt denies any saddle area paresthesia. Pt denies any chest pain or sob. Pt feels that the left medial leg feeling is different than typical sciatica HLP Pt has HLP Pt ta ester stephenson and her lipid profile is ok. pt denies any myalgia mammo Pt had benign di agnostic left mammo with ultrasound Pt denies any breast issue pain Pt has back pain with neuropathy. Pt failed neurontin. Pt takes norco PRn for pain. . Pt denies any loss of bladder control. Pt has chronic sciatica and leg numbness. Pt denies any worsening pain. Pt saw neurosurgery at [facility] and was told that she is not surgical candidate Pt was told to do injections but she failed injection and she is not interested in it. Pt wants to take up to 4 norco per day back pain1 Pt has back pain with neuropathy. Pt failed neurontin. Pt takes norco PRn for pain. . Pt denies any loss of bladder control. Pt has chronic sciatica and leg numbness. Pt denies any worsening pain. Pt saw neurosurgery at [facility] last month and was told that she is not surgical candidate Pt was told to do injections but she failed injection and she is not interested in it. physical Pt needs annual physical. Pt has chronic low elan pain Pt has DDD and mild sciatica .Pt denies any loss of bladder or bowel control pt doing ok with norco .Pt has proteinuria, Dm, and slightly suppressed TSH Pt denies any neck pain or dysphagia. Pt had lung CT done which is benign but showed small thyroid nodule. Pt overall feels well. Pt denies any new complaints breast1 Pt denies any br eat issue or palpable nodule or pain Pt needs diagnostic left mammo with ultrasound now. back pain1 Pt has back pain with neuropathy. Pt failed neurontin. Pt takes norco PRn for pain. . Pt denies any loss of bladder control. Pt has chronic sciatica and leg numbness. Pt denies any worsening pain. Pt saw neurosurgery at [facility] last month and was told that she is not surgical candidate Pt was told to do injections but she failed injection and she is not interested in it. barrett1 Pt has french P t underwent ablation last June and she is doing ok with omeprazole. Pt denies any abd pain HLP Pt takes crestor Pt denies any myalgia Pt just had lab done by endo and was A1c down to 6 and lipid ok pain Pt has back pain with neuropathy. Pt failed neurontin. Pt takes norco PRn for pain. . Pt denies any loss of bladder control. Pt has chronic sciatica and leg numbness. Pt denies any worsening pain. Pt saw neurosurgery at [facility] last month and was told that she is not surgical candidate Pt was told to do injections but she failed injection and she is not interested in it. pain Pt has back pain with neuropathy. Pt failed neurontin. Pt takes norco PRn for pain. . Pt denies any loss of bladder control. Pt has chronic sciatica and leg numbness. Pt denies any worsening pain. Pt states that her neurosurgery appointment was canceled again and she told me [facility] told her they no longer takes her scanlon so they will not be able to see her at all. french Pt has french e sophagus s/p ablation Pt is on omeprazole. Pt doing ok DM Pt has DM. Pt ta kes metformin, amaryl and victoza. Pt just saw endo and she had lab done and her A1c is down to 6 per patient. Her amaryl dose was adjusted to lower per pt pain Pt has back pain with neuropathy. Pt failed neurontin. Pt takes norco PRn for pain. . Pt denies any loss of bladder control. Pt has chronic sciatica and leg numbness. Pt denies any worsening pain. Pt has alysa with neurosurgery soon osteoporosis1 Pt has osteopeni a. Pt takes calcium and D and she sees endo. Pt denies any fracture pain Pt has back pain with neuropathy. Pt failed neurontin. Pt takes norco PRn for pain. . Pt denies any loss of bladder control. Pt has chronic sciatica and leg numbness. Pt denies any worsening pain. Pt has alysa with neurosurgery at in October now due to COVID mammogram1 Pt has abnormal left mammogram with cluster nodules Pt denies any palpable nodule or breast pain or discoloration or dimpling or discharge pain Pt has back pain with neuropathy. Pt failed neurontin. Pt takes norco PRn for pain. . Pt denies any loss of bladder control. Pt has chronic sciatica and leg numbness. Pt denies any worsening pain. Pt has alysa with [facility]surgery at [facility] next [facility] HTN Pt has HTn. Pt t akes metoprolol and losartan. Her bp was around 130/70. Pt denies any chest pain or headache HLP Pt just had lab done by jasmina and she is on victoza now and her has borderline high TG. Pt takes crestor. Pt denies any myalgia. Pt is off alogliptin. mammo Pt has left beronica st nodule. Pt has not done diagnostic mammo and ultrasound yet. pain Pt has back pain with neuropathy. Pt failed neurontin. Pt takes norco PRn for pain. . Pt denies any loss of bladder control. Pt has chronic sciatica and leg numbness. Pt denies any worsening pain. Pt still has not made alysa with neurosurgery yet . back pain1 Pt has back pain with neuropathy. Pt failed neurontin. Pt takes norco PRn for pain. . Pt denies any loss of bladder control. Pt has chronic sciatica and leg numbness. Pt denies any worsening pain. Pt still has not made alysa with neurosurgery yet . sleep apnea1 Pt has sleep voice instructor ea Pt failed cpap. pt told me she will have inspire done for implant to help her with sleep apnea lung nodule1 Pt has lung nodu le on LDCT which appears benign Pt told me pulmonary wants her to repeat lung CT in 6 months instead of one year pt does have copd Pt still smoking ,PT denies any hemoptysis mammo Pt had abnormal mammogram .Pt has clusters of nodule left breast .Pt denies any breast nodule or pain. Pt denies any redness or warmth Pt denies any nipple discharge tobacco1 Pt denies any he moptysis, worsening sob or cough. Pt had negative LDCT. Pt sees pulmonary HLP Pt has HLP. Pt t salvador stephenson pt denies any myalgia. Pt just had lab done which showed much improved lipid profile DM Pt sees endo Pt takes metformin and amaryl and alogliptin. by endo. Pt states that her glucose is around 140s. Her A1c is slightly worse .Pt denies any polyuria, polydipsia. Pt does have neuropathy back pain1 Pt has back pain with neuropathy. Pt failed neurontin. Pt takes norco PRn for pain. . Pt denies any loss of bladder control. Pt has chronic sciatica and leg numbness. Pt denies any worsening pain. Pt needs to see neurosurgery at [facility] and she still has not made appointment yet. French Pt has French P t takes omeprazole. Pt denies any abd pain. Pt had EGD done recently and she still has french. Pt will do ablation next week by GI back pain1 Pt has back pain with neuropathy. Pt failed neurontin. Pt takes norco PRn for pain. . Pt denies any loss of bladder control. Pt has chronic sciatica and leg numbness. Pt denies any worsening pain back pain1 Pt has back pain with neuropathy. Pt failed neurontin. Pt takes norco PRn for pain. Pt is waiting for alysa with neurosurgery at [facility]. Pt denies any loss of bladder control. Pt has chronic sciatica and leg numbness. Pt states that neurosurgery at [facility] told her that they are not scheduling new patient due to COVID-19. HTN Pt has HTn. Pt t akes losartan and metoprolol. Pt has not been checking her BP at home Pt denies any chest pain or headache HLP Pt has HLP. Pt t salvador lovastatin Pt denies any myalgia. her LDL is not at goal sleep apnea1 Pt has sleep voice instructor ea .Pt states that she is still not using cpap Pt states that the machine is not working right and she wants to discuss with her pulmonary back pain1 Pt has back pain with neuropathy. Pt failed neurontin. Pt takes norco PRn for pain. Pt is waiting for alysa with neurosurgery at [facility]. Pt denies any loss of bladder control. Pt has chronic sciatica and leg numbness. 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 Pt takes omeprazole and doing ok .Pt denies any GERD or abd pain DM Pt saw Dr Todd vergara nd she is still metformin and amaryl and alogliptin she is taking same medication and she supposes to do lab in 6 months. Pt states that her glucose is 160 at home. osteoporosis1 Pt just saw Dr. Barrios and she was told to continue calcium and D for now. Pt denies any fx COPD1 Pt has COPD pt i s on bevespi now and she is off incruse from pulmonary. Pt uses albuterol twice per day .Pt denies any hemoptysis back pain1 Pt has back pain with neuropathy. Pt failed neurontin. Pt takes norco PRn for pain Pt saw Dr. soto and she was referred to neurosurgery at [facility] for neck issue .However, [facility] is not taking new pt now due to COVID. Pt denies any loss of bladder control CAD Pt had negative cardiac cath recently per pt Pt denies any chest pain HLP Pt takes lovasta tin. her TG is high Pt denies any myalgia osteopenia1 Pt has osteopeni a Pt takes calcium and D and is working on weight bearing exercise. Pt needs D refilled. DM Pt has alysa with todd in 4 days. pt needs meds refill. Pt is on metformin and amaryl. her A1c is 7.6. her glucose is around 160s back pain1 Pt has chronic l ow back pain Pt just saw Dr. Soto who told her she needs to see neurosurgery at [facility]. Pt is waiting for referral. Pt needs norco refilled .Pt failed neurontin sleep apnea1 Pt has sleep voice instructor ea Pt is seeing pulmonary and she has alysa in two weeks. she will ask LDCT. pt was referred to ENT physical Pt needs annual physical, pt has DM Pt takes metformin and amaryl and aloglipitin and her BG is around 170s. her endo canceled appointment again Pt has chronic low back pain pt is seeing Dr. soto and she had MRI of neck and T and L spine recently Pt denies any loss of bladder control. pt has COPD Pt uses incruse and ventolin .Pt sees pulmonary .Pt has CAD. Pt just saw a new sport internship and will do cardiac cath pt denies any chest pain. Pt denies any chest pian. Pt has sleep apnea and she is on cpap now. Pt denies any other complaints barrett1 Pt has french. pt takes omeprazole. Pt will do repeat EGD in 5 months Pt denies any GERD or abd pain osteoporosis1 Pt has osteoporo sis. Pt is on calcium and vitamin D currently. Pt already seen endo and she suppose to start on bisphonates but her endo had some emergency and her alysa was canceled until next month back pain1 Pt has back pain with neuropathy. Pt states that neurontin is not helping pt just seen Dr. soto (ortho spine) and will do MRI of L spine soon. Pt takes norco PRn for pain Pt failed NSAID and ultram sleep apnea1 Pt is seeing pul ligia now and will get new cpap. CAD Pt has alysa with another sport internship for 2nd opinion Pt denies any chest pain Pt had old infarct . back pain1 Pt has chronic l ow back pain with chronic left sciatica. Pt has left leg numbness and tingling Pt states that she notices worsening left leg paresthesia recently Pt states that she feels some weakness left leg and she almost fell twice recently Pt also notices worsening paresthesia on the side of her left foot pt denies any claudication sleep apnea1 Pt has sleep voice instructor ea pt is noncompliant with cpap Pt now states that she has sinus dryness and pain with cpap Pt does have appointment with pulmonary next month, Pt has COPD and she continues to smoke osteoporosis1 Pt takes calcium and D only for now. Pt told me endo told her that there is nothing she can do?? chronic pain1 Pt has chronic l ow back pain Pt denies ay worsening pain Pt denies any loss of bladder control Pt has DDD, Pt takes norco PRN for pain Pt failed NSAID and ultram. Pt has history of back surgery. sleep apnea1 Pt has sleep voice instructor ea. Pt is working with [employer] to try to fix the mask issue Pt states that they did some setting change and she is doing better. pt has alysa with cardiology in 6 days. Pt did not call cardiology regarding the abnormal stress test Pt also did not call cardiology regarding pulmonary sleep apnea1 Pt has sleep voice instructor ea Pt states that she has trouble tolerating the masks which makes her throat very dry. Pt still does not have appointment with pulmonary yet chronic pain Pt has chronic l ow back pain Pt denies ay worsening pain Pt denies any loss of bladder control Pt has DDD, Pt takes norco PRN for pain Pt failed NSAID and ultram. Pt has history of back surgery. CAD Pt has CAD with HTN, P takes metoprolol and losartan. Her BP is stable. Pt is seeing cardiology. Her recent nuclear stress test which showed mild infarct. Pt denies any chest pain sleep apnea1 Pt has sleep voice instructor ea Pt is not using cpap due to unable to tolerate mask on her face. Pt feels fatigue chronic pain1 Pt has chronic l ow back pain Pt denies ay worsening pain Pt denies any loss of bladder control Pt has DDD, Pt takes norco PRN for pain Pt failed NSAID and ultram DM Pt has DM. Pt ta kes metformin, amaryl and alogliptin. Her BG is around 130s Her A1c is down to 6.4. Pt has mild neuropathy symptoms. Pt failed lyrica and neurontin COPD1 Pt has COPD Pt t akes incruse. Pt uses ventolin about 1-2 per week Pt denies any worsening sob, cough. or ay hemoptysis. sleep apena1 Pt has sleep voice instructor ea Pt started CPAP but she is having a hard time tolerating the masks. Pt states that she is up all night with the mask not fitting well Pt feels uncomfortable. Pt feels dry mouth as well. chronic pain1 Pt has chronic l ow back pain. Pt has history of back surgery. Pt denies any loss of bladder control Pt denies any worsening pain Pt has 6/10 pain Pt failed NSAID and ultram chronic pain Pt has chronic l ow back pain Pt denies any worsening pain Pt denies any loss of bladder control. Pt failed NSAID and ultram French pt had EGD done which showed French. Pt has daily GERD. Pt is on omeprazole currently and doing ok. Pt denies any abd pain Her colonoscopy was ok per pt DM Pt has DM. Pt is taking metformin and amaryl and also she just started alogliptin by endo. Pt denies any hypoglycemia. Pt states that her BG is around 130s. HTN Pt takes losarta n and she needs refill. BP stable sleep apnea1 Pt has sleep voice instructor ea. Pt just had cpAP done and is waiting for CPAP set up COPD1 Pt has COPD Pt u ses incruse and ventolin Pt uses ventolin 1-2 per week. pt denies any acute sob. Pt denies any hemoptysis, cough or worsening sob CAD1 Pt has CAD Pt tucker d benign echo. Cardiac stress test showed small infarct pt denies any chest pain. Pt takes baby ASA daily back pain1 pt has chronic l ow back pain Pt denies any worsening pain Pt denies any loss of bladder control. Pt failed NSAID and ultram ,Pt takes norco PRN and doing ok GERD1 Pt has daily KING d Pt takes omeprazole and doing ok. Pt has alysa for EGD tomorrow. Pt denies any ad pain sleep apnea1 Pt has sleep voice instructor ea. Pt supposes to do cpAP study soon. Pt does snore and feels fatigue COPD1 Pt has copd. Pt uses incruse and she uses albuterol very rarely. Pt denies any hemoptysis, worsening sob or cough Pt just had PFT done back pain1 Pt has chronic l ow back pain. Pt has sciatica and leg numbness. pt had back surgery x 2. pt failed NSAID and ultram. Pt failed neurontin and lyrica CAD1 Pt has CAD pt de nies any chest pain. Pt has intermittent nonexertional chest pain Pt seen sport internship already. Pt will do stress test and echo later this week. Pt denies any acute chest pain sleep apnea1 Pt has sleep voice instructor ea symptoms Pt does snore and feels extreme fatigue. Pt will have home sleep study tomorrow. GERD1 Pt states that o meprazole is helping very much with her GERD Pt has appointment with Dr. Decker in two week. Pt has history of colon polyp 4 years ago. Pt denies any lower gi bleeding CAD Pt has signs of CAD on chest CT Pt denies any chest pain gerd1 Pt has GERD Pt h as ? esophagitis. Pt takes tums frequently. Pt denies any abd pain back pain1 Pt has chronic s evere low back pain. pt has numbness and sciatica. Pt denies any loss of bladder control. Pt doing ok with norco. pt failed Neurontin and lyrica chronic pain Pt has chronic s evere low back pain with sciatica and leg numbness. pt has 8/10 pain Pt used to see pain management but they no longer take her insurance Pt denies any loss of bladder control. Pt failed NSAID and ultram breast1 Pt has abnormal mammogram. Pt denies any breast pain or nodule sleep apnea1 Pt does snore an d also she feels fatigue. pt has mild polycythemia. Pt has not heard from sleep study yet. HLP Pt needs lovasta tin refilled. osteoporosis1 Pt has osteoporo sis. Pt denies any fracture. DM Pt has DM with p roteinuria. Pt takes metformin and amaryl. Pt states that she does NOT check her BG. pt denies any polyuria, polydipsia polycythemia1 Pt has polycythe delisa. Pt does smoke. pt does snore at night. Pt feels chronic fatigue HLP Pt has high tG p t takes lovastatin. Pt denies any myalgia. chronic pain1 Pt has chronic s evere low back pain with bilateral sciatica and leg numbness. Pt denies any worsening pain. However pt has severely limited daily function due to severity of her low back pain. Pt has bilateral feet numbness Physical Pt needs annual physical. Pt has DM Pt takes metformin and amaryl. Her BG is around 150s. Pt denies any polyuria, polydipsia. Pt has HTn. Pt takes metoprolol and losartan and her bp is stable. Pt has HLP. Pt takes lovastatin. Pt denies any myalgia. Pt has chronic severe low back pain with bilateral sciatica and leg numbness. Pt denies any loss of bladder control. Pt denies any worsening pain Pt has 7/10 pain daily. Pt used to take pain medication from pain management who no longer takes her insurance. Pt has not had any pain meds for several months Pt failed NSAID and ultram. Pt denies any other complaints Instructions Date Instruction Additional Infor vinny Special diet education Related t o Body mass index (BMI) 31.0-31.9, adult Quit smoking Related to Sleep apnea Special diet education Related t o Body mass index (BMI) 31.0-31.9, adult Quit smoking Related to Sleep apnea Quit smoking Related to Sleep apnea Special diet education Related t o Body mass index (BMI) 30.0-30.9, adult Special diet education Related t o Body mass index (BMI) 30.0-30.9, adult Quit smoking Related to Chron ic pain syndrome Quit smoking Related to Type 2 diabetes mellitus with diabetic mononeuropathy Weight management Related to Typ e 2 diabetes mellitus with diabetic mononeuropathy Special diet education Related t o Body mass index (BMI) 31.0-31.9, adult Weight management Related to Chr onic pain syndrome Quit smoking Related to Chron ic pain syndrome Increase physical activity Relat ed to Chronic pain syndrome Special diet education Related t o Body mass index (BMI) 30.0-30.9, adult Special diet education Related t o Body mass index (BMI) 30.0-30.9, adult Quit smoking Related to Emphy sema Special diet education Related t o Body mass index (BMI) 31.0-31.9, adult Quit smoking Related to Emphy sema Special diet education Related t o Body mass index (BMI) 30.0-30.9, adult Quit smoking Related to Coron angelo artery disease of [place] coronary artery without angina pectoris Quit smoking Related to Incon clusive mammogram Special diet education Related t o Body mass index (BMI) 32.0-32.9, adult Special diet education Related t o Body mass index (BMI) 31.0-31.9, adult Stop smoking. Related to Hyper lipidemia Follow a low sodium diet. Relate d to Hyperlipidemia Special diet education Related t o Body mass index (BMI) 31.0-31.9, adult Special diet education Related t o Body mass index (BMI) 30.0-30.9, adult Assessments Type Assessment Date assessment Chronic pain syndrome assessment Hypomagnesemia assessment French's esophagus without dysp lasia assessment Type 2 diabetes mellitus with di abetic mononeuropathy Mental Status Date Cognitive Assessment Orientation - [place] ed to time, place, person, situation.
== END 2024-10-06 08:25 | disposition home or self-care (01) ==
LOC: ANHSURGERY 08:27
PROVIDERS: PCP Emergency Medicine; Visit Provider Surgery
DX: Z01.818 Encounter for other preprocedural examination (principal); E11.9 Type 2 diabetes mellitus without complications
CPT/HCPCS: 36415

== ENCOUNTER → 2024-10-07 01:15 | Day surgery (SDC) | payer MEDICARE, SELFPAY ==
--- NOTE | 2024-10-01 13:18 | PC.NURSE ---
Report to the Outpatient Waiting Room, entrance under the green pavilion located off [facility], at time _12OO NOON on date _10/07/24 . Planned Procedure Time: __2 PM .? Time changes happen often and if your time is changed the preop area will call you the afternoon before. - You and your visitor will be asked to self-screen and do not enter if you have any COVID symptoms. Please call surgeon if you need to reschedule. - A mask is optional within the hospital at this time. Patients may have clear liquids (water, carbonated beverages, clear teas, apple juice) until 3 hours prior to surgery( 11 AM) with a maximum of 20 ounces. - No food from midnight until time of surgery and no smoking. This includes no chewing gum, candy or mints. - Take only the following medications with a SIP of water on the morning of surgery: _ANORO INHALER,HYDROCODONE IF NEEDED FOR PAIN,METOPROLOL DO NOT STOP ANY OF YOUR OTHER PRESCRIPTION MEDICATIONS PRIOR TO SURGERY EXCEPT THE FOLLOWING Medications to discontinue per physician NONE Please no make-up, nail bulgarian, hairspray, perfume, deodorant, or body powder the day of surgery.? No jewelry (including any body piercings) or valuables the day of surgery, leave them at home.? Please take a shower or bath the night before, or the morning of, surgery with an antibacterial soap.? Wear comfortable, loose fitting clothing.? Children are encouraged to wear pajamas. - Jewelry must be removed prior to entering the operating room.? Rings and piercings that are not removed may be cut off. - The hospital will not accept responsibility for valuables.? - Please leave all valuables, including medications, at home the day of surgery. If you are going home after surgery, a licensed route salesman and driver must drive you home.? - NO public transportation without another adult if you receive anesthesia. - We recommend that an adult stay with you for 24 hours following discharge. - We also recommend that you do not drive, make important decision, drink alcoholic beverages, or take any drugs that were not prescribed by your health care provider for at least 24 hours after your discharge time. Hold all vitamins and supplements for 3 days per anesthesiologist. Follow any additional instructions given to you from your surgeon. Telephone instructions given to __PATIENT and asked if any additional questions and then verbalized understanding. Patient advised to call surgeon office or pre surgery nurse liaison [phone] if any additional questions.
[2024-10-01 13:35] VITALS: BMI 29.2
[2024-10-07] VITALS (7 sets, daily range): BP systolic 118–155; BP diastolic 59–72; PULSE 63–72; RESP 14–20; TEMP 36.2–36.3; O2SAT 92–100; BMI 28.5
--- OUTSIDE RECORDS SUMMARY | 2024-10-07 01:18 | XMS_ITS | Referral Summary ---
Author Organization [facility] Address [address] [place] [id number] Care Team Providers Care Mounter [employer] Name Role Phone Brandon Schroeder MD Primary Care Provider [phone] Dasha Collazo WAREHOUSE SHIPPER Unavailable Encounters Date Type Department Care Team Description 10/05/2024 9:30 AM SACK MAKER Office Visit [facility] Diabetes and Endocrinology [address] [place] [phone] Tisha Nash MD Type 2 diabetes mellitus [...] on file Legal Sex Female 11:41 AM SACK MAKER Gender Identity Not on file Sexual Orientation Not on file Last Filed Vital Signs Vital Sign Reading Time Taken Comments Blood Pressure 130/80 10/05/2024 9:34 AM SACK MAKER Pulse 77 10/05/2024 9:34 AM SACK MAKER Temperature 36.1 ??C (97 ??F) 11/04/2020 9:23 AM SACK MAKER Respiratory Rate 17 10/05/2024 9:34 AM SACK MAKER Oxygen Saturation 90% 11/30/2016 3:58 PM CDT Inhaled Oxygen Concentration - - Weight 86.6 kg (191 lb) 10/05/2024 9:34 AM SACK MAKER Height 172.7 cm (5' 8 ) 10/05/2024 9:34 AM SACK MAKER Body Mass Index 29.04 10/05/2024 9:34 AM SACK MAKER Plan of Treatment Not on file Procedures Procedure Name Priority Date/Time Associated Diagnosis Comments POCT HEMOGLOBIN A1C Routine 10/05/2024 9 :36 AM SACK MAKER Type 2 diabetes mellitus with diabetic polyneuropathy, without long-term current use of insulin (HCC) POCT GLUCOSE Routine 10/05/2024 9:36 AM SACK MAKER Type 2 diabetes mellitus with diabetic polyneuropathy, without long-term current use of insulin (HCC) SERUM LIPID PANEL Routine 09/02/2015 1:5 5 AM SACK MAKER from Last 3 Months or Most Recently Relevant to Health Maintenance Results * POCT hemoglobin A1c (10/05/2024 9:36 AM SACK MAKER) Hemoglobin A1C, POC 8.1 4.0 - 5.6 % Blood 10/05/2024 9:36 AM SACK MAKER Tisha Celeste MD POINT OF CARE TEST ORDERABLES Final Result * POCT glucose (10/05/2024 9:36 AM SACK MAKER) Glucose Blood, POC 156 mg/dL Blood 10/05/2024 9:36 AM SACK MAKER Tisha Celeste MD POINT OF CARE TEST ORDERABLES Final Result * (ABNORMAL) Serum lipid panel (09/02/2015 1:55 AM SACK MAKER) Cholesterol 135 0 - 200 mg/dl HISTORICAL [...] last revised 2012. Serum 09/02/2015 1:55 AM SACK MAKER us Historical Provider LAB BLOOD ORDERABLES Sara morales Result HISTORICAL RESULTS from Last 3 Months or Most Recently Relevant to Health Maintenance Insurance [facility] MEDICARE SOLUTIONS Care Teams Mounter [employer] Relationship Specialty Start Date End Date Brandon Schroeder MD [facility] [place] [address] PCP - General Family Medicine 10/12/21 Dasha Collazo NP [address] [place] [address] Nurse Practitioner Obstetrics and Gynecology 07/23/23
--- OUTSIDE RECORDS SUMMARY | 2024-10-07 01:18 | XMS_ITS | Encounter Summary ---
Author Organization [facility] Address [address] [facility] [address] [place] [id number] Care Team Providers Care Model Photographers' Name Role Phone Michael Tapia MD Primary Care Provider + Brandon Schroeder MD Primary Care Provider [phone] Dasha Collazo INDUSTRIAL TECHNICIAN Unavailable [phone] Encounter Details Date Type Department Care Team (Late st Contact Info) Description 11/30/2016 Orders Only [facility] ProviderIshan MD [address] [place] [id number] Social History Tobacco Use Types Packs/Day Years Used Date Smoking Tobacco: Never Assessed Comments Unknown Sex and Gender Information Value Date Recorded Sex Assigned at Not on file Legal Sex Female 11:41 AM MEDICARE COMPLIANCE AUDITOR Gender Identity Not on file Sexual Orientation [...] provider. Historical Provider [facility] Final Result documented in this encounter Visit Diagnoses Not on filedocumented in this encounter Care Teams Model Photographers' Relationship Specialty Start Date End Date Michael Tapia MD PCP - General 11/30/16 10/11/[address] [facility] [place] [address] PCP - General Family Medicine 10/12/21 Dasha Collazo NP [address] [place] [address] Nurse Practitioner Obstetrics and Gynecology 07/23/23 documented as of this encounter
--- OUTSIDE RECORDS SUMMARY | 2024-10-07 01:18 | XMS_ITS | Clinical Summary ---
Author Organization [facility] Address [facility] [place] [address] Care Team Providers Care Chief Operator Lock Tender Name Role Phone Brandon Schroeder MD Primary Care Provider [phone] Dasha Collazo BOARD LAYER Unavailable [phone] Allergies Active Allergy Reactions Criticality Noted Date [...] Department Care Team Description 10/05/2024 9:30 AM YOUTH DEVELOPMENT SPECIALIST Office Visit [facility] Diabetes and Endocrinology [address] [place] [id number] Tisha Nash MD Type 2 diabetes [...] Cause of : Cardiovascular disease Other Father MN's when young CABG; Cause of : MN's when young CABG Hyperlipidemia Mother Hyperlipidemi a; [...] on file Legal Sex Female 11:41 AM YOUTH DEVELOPMENT SPECIALIST Gender Identity Not on file Sexual Orientation Not on file Obstetrics History Last Filed Vital Signs Vital Sign Reading Time Taken Comments Blood Pressure 130/80 10/05/2024 9:34 AM YOUTH DEVELOPMENT SPECIALIST Pulse 77 10/05/2024 9:34 AM YOUTH DEVELOPMENT SPECIALIST Temperature 36.1 ??C (97 ??F) 11/04/2020 9:23 AM YOUTH DEVELOPMENT SPECIALIST Respiratory Rate 17 10/05/2024 9:34 AM YOUTH DEVELOPMENT SPECIALIST Oxygen Saturation 90% 11/30/2016 3:58 PM CDT Inhaled Oxygen Concentration - - Weight 86.6 kg (191 lb) 10/05/2024 9:34 AM YOUTH DEVELOPMENT SPECIALIST Height 172.7 cm (5' 8 ) 10/05/2024 9:34 AM YOUTH DEVELOPMENT SPECIALIST Body Mass Index 29.04 10/05/2024 9:34 AM YOUTH DEVELOPMENT SPECIALIST Plan of Treatment Health Maintenance Due Date [...] HEMOGLOBIN A1C Routine 10/05/2024 9 :36 AM YOUTH DEVELOPMENT SPECIALIST Type 2 diabetes mellitus with diabetic polyneuropathy, without long-term current use of insulin (HCC) POCT GLUCOSE Routine 10/05/2024 9:36 AM YOUTH DEVELOPMENT SPECIALIST Type 2 diabetes mellitus with diabetic polyneuropathy, without long-term current use of insulin (HCC) SERUM LIPID PANEL Routine 09/02/2015 1:5 5 AM YOUTH DEVELOPMENT SPECIALIST from Last 3 Months or Most Recently Relevant to Health Maintenance Results * POCT hemoglobin A1c (10/05/2024 9:36 AM YOUTH DEVELOPMENT SPECIALIST) Hemoglobin A1C, POC 8.1 4.0 - 5.6 % Blood 10/05/2024 9:36 AM YOUTH DEVELOPMENT SPECIALIST Tisha Celeste MD POINT OF CARE TEST ORDERABLES Final Result * POCT glucose (10/05/2024 9:36 AM YOUTH DEVELOPMENT SPECIALIST) Glucose Blood, POC 156 mg/dL Blood 10/05/2024 9:36 AM YOUTH DEVELOPMENT SPECIALIST Tisha Celeste MD POINT OF CARE TEST ORDERABLES Final Result * (ABNORMAL) Serum lipid panel (09/02/2015 1:55 AM YOUTH DEVELOPMENT SPECIALIST) Cholesterol 135 0 - 200 mg/dl HISTORICAL [...] last revised 2012. Serum 09/02/2015 1:55 AM YOUTH DEVELOPMENT SPECIALIST us Historical Provider LAB BLOOD ORDERABLES Sara morales Result HISTORICAL RESULTS from Last 3 Months or Most Recently Relevant to Health Maintenance Insurance [facility] [employer] Care Teams Chief Operator Lock Tender Relationship Specialty Start Date End Date Brandon Schroeder MD [address] [place] [address] PCP - General Family Medicine 10/12/21 Dasha Collazo NP [address] [place] [address] Nurse Practitioner Obstetrics and Gynecology 07/23/23
--- OUTSIDE RECORDS SUMMARY | 2024-10-07 01:18 | XMS_ITS | Clinical Summary ---
Author Organization [facility] Address [facility] [place] [address] Care Team Providers Care Cloth Wire Weaver Name Role Phone Brandon Schroeder MD Primary Care Provider [phone] Leonid Cameron MD Unavailable [phone] Allergies Active Allergy Reactions Criticality Noted [...] as needed. 9 Active vitamin D2, ergocalciferol, 71582 UNITS capsule Take 1 capsule (50,000 Units [...] capsule 1 Active Blood Glucose Monitoring Suppl (ONETOUCH VERIO) w/Device Kit 2 Active ONETOUCH VERIO test strip 2 Active TRUEPLUS PEN NEEDLES 31G X 8 MM Misc 2 Active TRUEplus Lancets 28G Misc 2 Active BEVESPI AEROSPHERE 9-4.8 MCG/ACT Aerosol [...] Comments Blood Pressure 124/58 10/10/2023 8:00 AM SWIMMING POOL SERVICER Pulse 69 10/10/2023 8:00 AM SWIMMING POOL SERVICER Temperature 36.2 ??C (97.2 ??F) 10/29/2019 9:05 AM CS T Respiratory Rate 14 10/10/2023 8:00 AM SWIMMING POOL SERVICER Oxygen Saturation 94% 05/10/2022 2:55 PM CDT Inhaled Oxygen Concentration - - Weight 80.5 kg (177 lb 6.4 oz) 10/10/2023 8:00 A M SWIMMING POOL SERVICER Height 172.7 cm (5' 8 ) 10/10/2023 8:00 AM SWIMMING POOL SERVICER Body Mass Index 26.97 10/10/2023 8:00 AM SWIMMING POOL SERVICER Plan of Treatment Upcoming Encounters Date Type Department Care Team (Late st Contact Info) Description 10/14/2024 2:00 PM SWIMMING POOL SERVICER Office Visit [facility] [place] [address] Leonid Cameron MD [address] [place] [address] Health Maintenance Due Date Last Done Comments Colorectal Cancer Screening Colonoscopy (10 Years) 1957 Hepatitis C 1975 DTaP, Tdap and Td Vaccines (1 - Tdap) 1976 Mammogram Screening 1997 Zoster Vaccines (1 of 2) 2007 ASCVD LDL 12/12/2016 12/13/2015, 05/0 01/2015, 09/06/2014, Additional history exists RSV Immunization or [...] Routine 12/13/2015 9:49 AM CDT COLONOSCOPY Routine SWIMMING POOL SERVICER from Last 3 Months or Most Recently [...] [employer] TO EPIC CONVERSION * Colonoscopy ( SWIMMING POOL SERVICER) Narrative [facility] TO EPIC CONVERSION - SWIMMING POOL SERVICER Documented hx of procedure Procedure Note Rolando Reese MD - 07/06/2018 Documented hx of procedure us Generic Conversion Md REESE GI PROCEDURE ORDERABLES Final Result Performing Organization Address City/[facility] Co de Phone Number [employer] TO EPIC CONVERSION from Last 3 Months or Most Recently Relevant to Health Maintenance Insurance Advance Directives * Full Code (Latest Code Status on File) Date Activated Date Inactivated Comments 10/29/2019 12:00 PM 10/29/2019 3:27 PM Care Teams Cloth Wire Weaver Relationship Specialty Start Date End Date Brandon Schroeder MD PCP - General FAMILY PRACTICE 09/03/19 Leonid Cameron MD [address] [place] [address] INTERVENTIONAL CARDIOLOGY 04/14/24
--- OUTSIDE RECORDS SUMMARY | 2024-10-07 01:18 | XMS_ITS | Encounter Summary ---
Author Organization [facility] Address [address] [place] [address] Care Team Providers Care Commercial Manager Name Role Phone Michael Tapia MD Primary Care Provider [phone] Alfred Benton MD Primary Care Provider [phone] Brandon Schroeder MD Primary Care Provider Jose Childers MD Unavailable [facility] Leonid Ortiz MD Unavailable [phone] Encounter Details Date Type Department Care Team (Late st Contact Info) Description 04/17/2016 Abstract [facility] CONVERSION [address] [place] [address] , Generic ConversionMD Social History Tobacco Use [...] st Contact Info) Description 10/14/2024 2:00 PM LOAD OUT PERSON Office Visit [facility] [place] [id number] Leonid Cameron MD [address] [place] [id number] documented as of this encounter Visit Diagnoses Not on filedocumented in this encounter Care Teams Commercial Manager Relationship Specialty Start Date End Date Michael Tapia MD PCP - General INTERNAL MEDICINE 10/31/16 09/02/19 [place] [address] [place], [place] [id number] PCP - General 05/10/14 10/30/16 [place] [address] [place] [address] PCP - General FAMILY PRACTICE 09/03/19 [place] [address] [address] [address] [place] [address] Master Data Analyst CARDIOVASCULAR DISEASE 09/03/19 04/13/24 Leonid Cameron MD [address] [place] [address] INTERVENTIONAL CARDIOLOGY 04/14/24 documented as of this encounter
--- OUTSIDE RECORDS SUMMARY | 2024-10-07 01:18 | XMS_ITS | Continuity of Care Document ---
Author Organization [facility] Address [address] [place] [address] [place] [address] Phone Care Team Providers Care Urologic Surgeon Name Role Phone Brandon Schroeder MD Unavailable [...] Copied on Encounter OFFICE/OUTPA TIENT VISIT, EST [facility], [address], [place], [place], [address], tel:[phone] [facility] DM (chief complaint) pain (chief complaint) mag (chief complaint) french (chief complaint) Chronic pain syndromeHypomagnese miaBarrett's esophagus without dysplasiaType 2 diabetes mellitus with diabetic mononeuropathy 0- 5 Schroeder Brandon. [address], [place], [place], [address] , [place]. tel:[phone] OFFICE/OUTPA TIENT VISIT, EST [facility], [address], [address], [place] tel:[phone] [facility] pain (chief complaint) skin (chief complaint) HTN (chief complaint) Chronic pain syndromeEssential (primary) hypertensionNevus, non-neoplastic 4 Alexandre Taylor. [address], [place], [place], [address] , [place]. tel:[phone] OFFICE/OUTPA TIENT VISIT, EST [facility], [address], [address], [place] tel:[phone] [facility] pain (chief complaint) breast1 (chief complaint) DM (chief complaint) Chronic pain syndromeType 2 diabetes mellitus with diabetic mononeuropathyMass in the left breast 4 Alexandre Taylor. [address], [place], [place], [address] , [place]. tel:[phone] OFFICE/OUTPA TIENT VISIT, EST [facility], [address] [place], [address], [place] tel:[phone] [facility] pain (chief complaint) breast (chief complaint) HTN (chief complaint) Chronic pain syndromeEssential (primary) hypertensionMass in the left breast 4 Alexandre Taylor. [address], [place], [place], [address] , [place]. tel:[phone] [facility], [address], [place], [place], [address], [place] tel:[phone] [facility] No Information Sep-3 4 Schroeder Brandon. [address], [place], [place], [address] , [place]. tel:[phone] OFFICE/OUTPA TIENT VISIT, [facility], [address], [place], [place], [address], [place] tel:[phone] [facility] pain (chief complaint) Chronic pain syndrome Sep-2 4 Alexandre Taylor. [address], [place], [place], [address] , [place]. tel:[phone] OFFICE/OUTPA TIENT VISIT, [facility], [address], [place], [place], [address], [place] tel:[phone] [facility] pain (chief complaint) DM (chief complaint) Chronic pain syndromeType 2 diabetes mellitus with diabetic mononeuropathy 4 Alexandre Taylor. [address], [place], [place], [address] , [place]. tel:[phone] OFFICE/OUTPA TIENT VISIT, [facility], [address], [place], [place], [address], [place] tel:[phone] [facility] pain (chief complaint) COPD1 (chief complaint) DM (chief complaint) Centrilobular emphysemaChronic pain syndromeType 2 diabetes mellitus with diabetic nephropathy 4 Schroeder Brandon. [address], [place], [place], [address] , [place]. tel:[phone] OFFICE/OUTPA TIENT VISIT, [facility], [address], [place], [place], [address], [place] tel:[phone] [facility] pain (chief complaint) DM (chief complaint) thyroid1 (chief complaint) Chronic pain syndromeThyroid noduleType 2 diabetes mellitus with diabetic nephropathy Stewart-2 8-202 4 Alexandre Brandon. [address], [place], [place], [address] , [place]. tel:[phone] OFFICE/OUTPA TIENT VISIT, [facility], [address], [place], [place], [address], [place] tel:[phone] [facility] Barrett1 (chief complaint) DM (chief complaint) Type 2 diabetes mellitus with diabetic mononeuropathyBarre tt's esophagus without dysplasia 4 Schroeder Brandon. [address], [place], [place], [address] , [place]. tel:[phone] OFFICE/OUTPA TIENT VISIT, [facility], [address], [place], [place], [address], [place] tel:[phone] [facility] DM (chief complaint) polycythem ia1 (chief complaint) thyroid1 (chief complaint) pain1 (chief complaint) osteopenia 1 (chief complaint) COPD1 (chief complaint) Centrilobular emphysemaHypomagnes emiaOther spondylosis, lumbar regionType 2 diabetes mellitus with diabetic mononeuropathySecon victor manuel polycythemiaOther specified disorder of bone densityThyroid nodule 4 Alexandre Brandon. [address], [place], [address] , [place]. tel:[phone] OFFICE/OUTPA TIENT VISIT, [facility], [address], [place], [address], [place] tel:[phone] [facility] back pain1 (chief complaint) COPD1 (chief complaint) thyroid nodule1 (chief complaint) HTN (chief complaint) HLP (chief complaint) DM (chief complaint) Thyroid noduleCentrilobular emphysemaEssential (primary) hypertensionHypomag nesemiaMixed hyperlipidemiaOther spondylosis, lumbar regionType 2 diabetes mellitus with diabetic mononeuropathy 4 Alexandre Brandon. [address], [place], [address] , [place]. tel:[phone] OFFICE/OUTPA TIENT VISIT, [facility], [address], [place], [address], [place] tel:[phone] [facility] thyroid nodule1 (chief complaint) back pain1 (chief complaint) basal (chief complaint) Other spondylosis, lumbar regionThyroid noduleBasal cell carcinoma of skin Dec-0 4 Alexandre Taylor. [address], [place], [place], [address] , [place]. tel:[phone] OFFICE/OUTPA TIENT VISIT, [facility], [address] [place], [address], [place] tel:[phone] [facility] pain (chief complaint) skin (chief complaint) leg weak1 (chief complaint) thyroid1 (chief complaint) Chronic pain syndromeMuscle weakness (generalized)Thyroi d noduleNevus, non-neoplastic Oct-0 4 Alexandre Taylor. [address], [place], [address] , [place]. tel:[phone] OFFICE/OUTPA TIENT VISIT, [facility], [address] [place], [address], [place] tel:[phone] [facility] pain (chief complaint) elbow cyst1 (chief complaint) leg pain1 (chief complaint) nipple1 (chief complaint) Anterior chest-wall painMuscle weakness (generalized)Other signs and symptoms in breastAbscess of bursa, right elbow 4 Alexandre Taylor. [address], [place], [place], [address] , [place]. tel:[phone] OFFICE/OUTPA TIENT VISIT, [facility], [address], [address], [place] tel:[phone] [facility] osteopenia 1 (chief complaint) COPD1 (chief complaint) pain (chief complaint) CAD (chief complaint) Centrilobular emphysemaOther specified disorder of bone densityChronic pain syndromeCoronary artery disease of [place] coronary artery without angina pectoris Feb 4 Alexandre Taylor. [address], [place], [place], [address] , [place]. tel:[phone] OFFICE/OUTPA TIENT VISIT, EST [facility], [address], [place], [place], [address], [place] tel:[phone] [facility] pain (chief complaint) HTN (chief complaint) mag1 (chief complaint) Chronic pain syndromeHypomagnese miaEssential (primary) hypertensionOther signs and symptoms in breast 4 Alexandre Taylor. [address], [place], [address] , [place]. tel:[phone] OFFICE/OUTPA TIENT VISIT, EST [facility], [address], [place], [address], [place] tel:[phone] [facility] polycythem ia1 (chief complaint) thyroid1 (chief complaint) barrett1 (chief complaint) mag (chief complaint) pain (chief complaint) nipple (chief complaint) French's esophagus without dysplasiaChronic pain syndromeDisorder of thyroid, unspecifiedHypomagn esemiaSecondary polycythemiaCentril obular emphysemaOther signs and symptoms in breast 3 Alexandre Taylor. [address], [place], [place], [address] , [place]. [phone] PREV VISIT, EST, 65 & OVER [facility], [address], [place], [place], [address], [place] tel:[phone] [facility] physical (chief complaint) HypomagnesemiaEssen tial (primary) hypertensionChronic pain syndromeSecondary polycythemiaType 2 diabetes mellitus with diabetic mononeuropathyDisor moises of thyroid, unspecifiedMixed hyperlipidemiaBarre tt's esophagus without dysplasiaEncounter for general adult medical exam w abnormal findingsObstructive sleep apnea (adult) (pediatric) 3 Alexandre Taylor. [address], [place], [place], [address] , [place]. tel:[phone] OFFICE/OUTPA TIENT VISIT, [facility], [address], [place], [address], [place] tel:[phone] [facility] pain (chief complaint) HTN (chief complaint) low mag (chief complaint) Chronic pain syndromeHypomagnese miaEssential (primary) hypertensionOther signs and symptoms in breastSecondary polycythemia 3 Alexandre Taylor. [address], [place], [place], [address] , [place]. tel:[phone] OFFICE/OUTPA TIENT VISIT, [facility], [address], [place], [address], [place] tel:[phone] [facility] DM (chief complaint) pain1 (chief complaint) breast1 (chief complaint) Chronic pain syndromeType 2 diabetes mellitus with diabetic mononeuropathyOther signs and symptoms in breast 3 Alexandre Taylor. [address], [place], [address] , [place]. tel:[phone] OFFICE/OUTPA TIENT VISIT, [facility], [address] [place], [address], [place] tel:[phone] [facility] DM (chief complaint) pain (chief complaint) mag (chief complaint) breast1 (chief complaint) Chronic pain syndromeType 2 diabetes mellitus with diabetic mononeuropathyOther signs and symptoms in breastDisorder of thyroid, unspecifiedHypomagn esemia 3 Alexandre Taylor. [address], [place], [place], [address] , [place]. tel:[phone] OFFICE/OUTPA TIENT VISIT, [facility], [address], [address], [place] tel:[phone] [facility] thyroid1 (chief complaint) polycytehe mia1 (chief complaint) mag (chief complaint) DM (chief complaint) polycythem ia1 (chief complaint) barrett1 (chief complaint) Mixed hyperlipidemiaDisor moises of thyroid, unspecifiedType 2 diabetes mellitus with diabetic mononeuropathySecon victor manuel polycythemiaBarrett 's esophagus without dysplasiaHypomagnes emiaChronic pain syndrome 3 Alexandre Taylor. [address], [place], [address] , [place]. tel:[phone] OFFICE/OUTPA TIENT VISIT, [facility], [address], [place], [place], [address], [place] tel:[phone] [facility] pain (chief complaint) HLP (chief complaint) HTN (chief complaint) Chronic pain syndromeMixed hyperlipidemiaEssen tial (primary) hypertension 3 Alexandre Mary [address], [place], [place], [address] , [place]. tel:[phone] PREV VISIT, EST, 65 & OVER [facility], [address], [place], [place], [address], [place] tel:[phone] [facility] physical (chief complaint) Encounter for general adult medical examination without abnormal findings 3 Alexandre Mary [address], [place], [place], [address] , [place]. tel:[phone] OFFICE/OUTPA TIENT VISIT, [facility], [address], [place], [place], [address], [place] tel:[phone] [facility] pain (chief complaint) Chronic pain syndromeCentrilobul ar emphysema 3 Alexandre Taylor. [address], [place], [place], [address] , [place]. tel:[phone] OFFICE/OUTPA TIENT VISIT, [facility], [address], [place], [place], [address], [place] tel:[phone] [facility] pain (chief complaint) HTN (chief complaint) weight loss1 (chief complaint) Chronic pain syndromeEssential (primary) hypertensionDisorde r of thyroid, unspecifiedAbnormal weight loss 3 Alexandre Taylor. [address], [place], [place], [address] , [place]. tel:[phone] OFFICE/OUTPA TIENT VISIT, [facility], [address], [place], [address], [place] tel:[phone] [facility] HTN (chief complaint) pain (chief complaint) thyroid1 (chief complaint) osteopenia 1 (chief complaint) Disorder of thyroid, unspecifiedEssentia l (primary) hypertensionOther specified disorder of bone densityChronic pain syndrome 3 Alexandre Taylor. [address], [place], [place], [address] , [place]. [phone] OFFICE/OUTPA TIENT VISIT, [facility], [address], [place], [address], [place] tel:[phone] [facility] Thyroid1 (chief complaint) DM (chief complaint) HTN (chief complaint) pain (chief complaint) osteopenia 1 (chief complaint) Inconclusive mammogramOther specified disorder of bone densityType 2 diabetes mellitus with diabetic mononeuropathyDisor moises of thyroid, unspecifiedAbnormal weight lossMixed hyperlipidemiaEssen tial (primary) hypertension 3 Alexandre Taylor. [address], [place], [place], [address] , [place]. [phone] OFFICE/OUTPA TIENT VISIT, [facility], [address], [place], [address], [place] tel:[phone] [facility] pain (chief complaint) HTN (chief complaint) Chronic pain syndromeEssential (primary) hypertension 2 Alexandre Taylor. [address], [place], [place], [address] , [place]. [phone] OFFICE/OUTPA TIENT VISIT, [facility], [address], [place], [address], [place] tel:[phone] [facility] pain (chief complaint) HTN (chief complaint) mammo (chief complaint) Essential (primary) hypertensionInconcl usive mammogramChronic pain syndrome 2 Schroeder Brandon. [address], [place], [place], [address] , [place]. tel:[phone] OFFICE/OUTPA TIENT VISIT, [facility], [address], [place], [place], [address], [place] tel:[phone] [facility] pain (chief complaint) HTN (chief complaint) mammo (chief complaint) Chronic pain syndromeInconclusiv e mammogramEssential (primary) hypertension 2 Schroeder Brandon. [address], [place], [place], [address] , [place]. tel:[phone] OFFICE/OUTPA TIENT VISIT, [facility], [address], [place], [place], [address], [place] tel:[phone] [facility] Chronic pain syndrome 2 Alexandre Taylor. [address], [place], [place], [address] , [place]. tel:[phone] OFFICE/OUTPA TIENT VISIT, [facility], [address], [place], [place], [address], [place] tel:[phone] [facility] pain (chief complaint) Chronic pain syndrome 2 Schroeder Brandon. [address], [place], [place], [address] , [place]. tel:[phone] OFFICE/OUTPA TIENT VISIT, [facility], [address], [place], [place], [address], [place] tel:[phone] [facility] HLP (chief complaint) Barrett1 (chief complaint) mammo1 (chief complaint) pain (chief complaint) Inconclusive mammogramChronic pain syndromeBarrett's esophagus without dysplasiaPolyp of colonMixed hyperlipidemia 2 Schroeder Brandon. [address], [place], [place], [address] , [place]. tel:[phone] OFFICE/OUTPA TIENT VISIT, [facility], [address], [place], [address], [place] tel:[phone] [facility] pain1 (chief complaint) mammo (chief complaint) Chronic pain syndromeInconclusiv e mammogram 2 Alexandre Taylor. [address], [place], [place], [address] , [place]. tel:[phone] PREV VISIT, EST, AGE 40-64 [facility], [address], [place], [place], [address], [place] tel:[phone] [facility] physical (chief complaint) Encounter for general adult medical examination without abnormal findings 2 Alexandre Taylor. [address], [place], [place], [address] , [place]. tel:[phone] OFFICE/OUTPA TIENT VISIT, [facility], [address], [place], [place], [address], [place] tel:[phone] [facility] pain (chief complaint) knee pain1 (chief complaint) lung nodule1 (chief complaint) barrett1 (chief complaint) sleep apnea1 (chief complaint) Chronic pain syndromeBarrett's esophagus without dysplasiaPolyp of colonOther specified disorder of bone densityPain in left kneeSleep apneaSolitary lung noduleInconclusive mammogram 2 Alexandre Taylor. [address], [place], [place], [address] , [place]. [phone] OFFICE/OUTPA TIENT VISIT, EST [facility], [address], [place], [place], [address], [place] tel:[phone] [facility] pain (chief complaint) french (chief complaint) osteopenia 1 (chief complaint) French's esophagus without dysplasiaChronic pain syndromeOther specified disorder of bone density 2 Alexandre Taylor. [address], [place], [place], [address] , [place]. [phone] OFFICE/OUTPA TIENT VISIT, [facility], [address], [place], [place], [address], [place] tel:[phone] [facility] pain (chief complaint) knee pain1 (chief complaint) Chronic pain syndromePain in left knee 2 Alexandre Mary [address], [place], [place], [address] , [place]. tel:[phone] OFFICE/OUTPA TIENT VISIT, [facility], [address], [place], [address], [place] tel:[phone] [facility] pain (chief complaint) knee pain1 (chief complaint) mammo (chief complaint) Pain in left kneeInconclusive mammogramChronic pain syndromeOther specified disorder of bone density 2 Alexandre Mary [address], [place], [place], [address] , [place]. tel:[phone] OFFICE/OUTPA TIENT VISIT, [facility], [address], [place], [place], [address], [place] tel:[phone] [facility] pain (chief complaint) Chronic pain syndromeInconclusiv e mammogram 1 Alexandre Mary [address], [place], [place], [address] , [place]. tel:[phone] OFFICE/OUTPA TIENT VISIT, [facility], [address], [place], [address], [place] [phone] [facility] pain (chief complaint) Chronic pain syndromePain in left knee 1 Alexandre Mary [address], [place], [place], [address] , [place]. tel:[phone] OFFICE/OUTPA TIENT VISIT, [facility], [address], [place], [place], [address], [place] tel:[phone] [facility] pain (chief complaint) mammo (chief complaint) HTN (chief complaint) nevus1 (chief complaint) Chronic pain syndromeNevus, non-neoplasticPain in left kneeInconclusive mammogramEssential (primary) hypertension 1 Alexandre Mary [address], [place], [place], [address] , [place]. tel:[phone] OFFICE/OUTPA TIENT VISIT, [facility], [address], [place], [place], [address], [place] tel:[phone] [facility] pain1 (chief complaint) knee pain1 (chief complaint) mole (chief complaint) Chronic pain syndromeNevus, non-neoplasticPain in left knee Sep-2 1 Alexandre Mary [address], [place], [place], [address] , [place]. tel:[phone] OFFICE/OUTPA TIENT VISIT, [facility], [address], [place], [place], [address], [place] tel:[phone] [facility] pain (chief complaint) leg pain1 (chief complaint) nevus1 (chief complaint) weight loss1 (chief complaint) Chronic pain syndromeAbnormal weight lossNevus, non-neoplasticPain in left kneeNeuropathy 1 Alexandre Mary [address], [place], [address] , [place]. tel:[phone] OFFICE/OUTPA TIENT VISIT, [facility], [address], [place], [place], [address], [place] tel:[phone] [facility] pain (chief complaint) HLP (chief complaint) mammo (chief complaint) Inconclusive mammogramHyperlipid emiaChronic pain syndrome 1 Alexandre Mary [address], [place], [place], [address] , [place]. tel:[phone] OFFICE/OUTPA TIENT VISIT, [facility], [address], [place], [address], [place] tel:[phone] [facility] back pain1 (chief complaint) Chronic pain syndrome 1 Schroeder Brandon. [address], [place], [place], [address] , [place]. tel:[phone] PREV VISIT, EST, AGE 40-64 [facility], [address], [place], [place], [address], [place] tel:[phone] [facility] physical (chief complaint) Encounter for general adult medical examination without abnormal findings 1 Alexandre Taylor. [address], [place], [place], [address] , [place]. tel:[phone] OFFICE/OUTPA TIENT VISIT, [facility], [address], [place], [place], [address], [place] tel:[phone] [facility] back pain1 (chief complaint) breast1 (chief complaint) barrett1 (chief complaint) HLP (chief complaint) Chronic pain syndromeBarrett's esophagus without dysplasiaSolitary lung noduleInconclusive mammogramHyperlipid emia 1 Alexandre Taylor. [address], [place], [place], [address] , [place]. tel:[phone] OFFICE/OUTPA TIENT VISIT, EST [facility], [address], [place], [place], [address], [place] tel:[phone] [facility] pain (chief complaint) Chronic pain syndromeOther spondylosis, lumbar region 1 Alexandre Taylor. [address], [place], [address] , [place]. tel:[phone] OFFICE/OUTPA TIENT VISIT, EST [facility], [address], [place], [place], [address], [place] tel:[phone] [facility] pain (chief complaint) Other spondylosis, lumbar regionChronic pain syndrome Fe 1 Alexandre Taylor. [address], [place], [place], [address] , [place]. tel:[phone] OFFICE/OUTPA TIENT VISIT, [facility], [address], [place], [place], [address], [place] tel:[phone] [facility] pain (chief complaint) osteoporos is1 (chief complaint) DM (chief complaint) french (chief complaint) Chronic pain syndromeBarrett's esophagus without dysplasiaOther specified disorder of bone densityType 2 diabetes mellitus with diabetic mononeuropathy 1 Alexandre Mary [address], [place], [place], [address] , [place]. tel: [phone] OFFICE/OUTPA TIENT VISIT, [facility], [address], [place], [place], [address], [place] tel:[phone] [facility] pain (chief complaint) Chronic pain syndrome 0 Alexandre Mary [address], [place], [address] , [place]. tel:[phone] OFFICE/OUTPA TIENT VISIT, [facility], [address], [place], [address], [place] tel:[phone] [facility] pain (chief complaint) mammogram1 (chief complaint) Inconclusive mammogramChronic pain syndrome 0 Alexandre Mary [address], [place], [place], [address] , [place]. tel:[phone] OFFICE/OUTPA TIENT VISIT, [facility], [address], [place], [address], [place] tel:[phone] [facility] pain (chief complaint) mammo (chief complaint) HLP (chief complaint) HTN (chief complaint) Inconclusive mammogramHyperlipid emiaEssential (primary) hypertensionType 2 diabetes mellitus with diabetic mononeuropathyChron ic pain syndrome 0 Alexandre Mary [address], [place], [place], [address] , [place]. tel:[phone] OFFICE/OUTPA TIENT VISIT, [facility] [facility], [address], [place], [place], [address], [place] tel:[phone] [facility] back pain1 (chief complaint) mammo (chief complaint) sleep apnea1 (chief complaint) lung nodule1 (chief complaint) Chronic pain syndromeSleep apneaSolitary lung noduleInconclusive mammogram 0 Alexandre Mary [address], [place], [place], [address] , [place]. tel:[phone] OFFICE/OUTPA TIENT VISIT, [facility], [address], [place], [place], [address], [place] tel:[phone] [facility] back pain1 (chief complaint) tobacco1 (chief complaint) HLP (chief complaint) DM (chief complaint) HyperlipidemiaChron ic pain syndromeType 2 diabetes mellitus with diabetic mononeuropathyOsteo porosisTobacco useEncounter for oth screening for malignant neoplasm of breast 0 Alexandre Mary [address], [address], [place], [place], [address] , [place]. [phone] OFFICE/OUTPA TIENT VISIT, [facility], [address], [place], [place], [address], [place] tel:[phone] [facility] French (chief complaint) back pain1 (chief complaint) Chronic pain syndromeBarrett's esophagus without dysplasiaHyperlipid emia 0 Alexandre Mary [address], [address], [place], [place], [address] , [place]. tel:[phone] OFFICE/OUTPA TIENT VISIT, [facility], [address], [place], [place], [address], [place] tel:[phone] [facility] back pain1 (chief complaint) HTN (chief complaint) HLP (chief complaint) sleep apnea1 (chief complaint) Chronic pain syndromeHyperlipide miaEssential (primary) hypertensionSleep apnea 0 Alexandre Mary [address], [place], [address] , [place]. [phone] OFFICE/OUTPA TIENT VISIT, [facility], [address], [place], [place], [address], [place] tel:[phone] [facility] back pain1 (chief complaint) Barrett1 (chief complaint) French's esophagus without dysplasiaChronic pain syndrome 0 Alexandre Mary [address], [place], [place], [address] , [place]. tel:[phone] OFFICE/OUTPA TIENT VISIT, [facility], [address], [place], [place], [address], [place] tel:[phone] [facility] back pain1 (chief complaint) DM (chief complaint) osteoporos is1 (chief complaint) COPD1 (chief complaint) CAD (chief complaint) OsteoporosisEmphyse maChronic pain syndromeType 2 diabetes mellitus with diabetic mononeuropathyCoron angelo artery disease of [place] coronary artery without angina pectoris 0 Alexandre Mary [address], [address], [place], [place], [address] , [place]. tel:[phone] OFFICE/OUTPA TIENT VISIT, [facility], [address], [place], [address], [place] tel:[phone] [facility] back pain1 (chief complaint) sleep apnea1 (chief complaint) DM (chief complaint) osteopenia 1 (chief complaint) HLP (chief complaint) Chronic pain syndromeHyperlipide miaType 2 diabetes mellitus with diabetic mononeuropathyOther specified disorder of bone densitySleep apneaIron deficiency 0 Alexandre Mary [address], [place], [address] , [place]. [phone] Referring Provider: Garima Camacho [address], [place], [place], [address]. tel:[phone] PREV VISIT, EST, AGE 40-64 [facility], [address], [place], [place], [address], [place] tel:[phone] [facility] physical (chief complaint) Encntr for general adult medical exam w/o abnormal findings Fe-2 0-202 0 Alexandre Taylor. [address], [place], [place], [address] , [place]. tel:[phone] Referring Provider: Brandon Schroeder [address], [place], [place], [address]. tel:[phone] OFFICE/OUTPA TIENT VISIT, [facility], [address], [place], [address], [place] tel:[phone] [facility] sleep apnea1 (chief complaint) back pain1 (chief complaint) osteoporos is1 (chief complaint) barrett1 (chief complaint) CAD (chief complaint) Coronary artery disease of [place] coronary artery without angina pectorisSleep apneaOsteoporosisBa rrett's esophagus without dysplasiaLumbago with sciatica, left side 0 Alexandre Taylor. [address], [place], [place], [address] , [place]. tel:[phone] Referring Provider: Garima Camacho [address], [place], [place], [address]. tel:[phone] OFFICE/OUTPA TIENT VISIT, [facility], [address], [place], [place], [address], [place] tel:[phone] [facility] back pain1 (chief complaint) sleep apnea1 (chief complaint) Sleep apneaLumbago with sciatica, left sideNeuropathyNevus , non-neoplastic 9 Alexandre Taylor. [address], [place], [address] , [place]. tel:[phone] Referring Provider: Garima Camacho [address], [place], [place], [address]. tel:[phone] OFFICE/OUTPA TIENT VISIT, [facility], [address], [place], [place], [address], [place] tel:[phone] [facility] chronic pain1 (chief complaint) sleep apnea1 (chief complaint) osteoporos is1 (chief complaint) Sleep apneaOsteoporosisCh ronic pain syndromeTobacco use 0 9 Alexandre Mary [address], [place], [address] , [place]. tel:[phone] Referring Provider: Garima Camacho [address], [place], [place], [address]. tel:[phone] OFFICE/OUTPA TIENT VISIT, [facility], [address], [place], [address], [place] tel:[phone] [facility] chronic pain (chief complaint) sleep apnea1 (chief complaint) CAD (chief complaint) Chronic pain syndromeSleep apneaCoronary artery disease of petersburg coronary artery without angina pectoris 9 Alexandre Mary [address], [place], [place], [address] , [place]. [phone] Referring Provider: Garima Camacho [address], [place], [place], [address]. tel:[phone] OFFICE/OUTPA TIENT VISIT, [facility], [address], [place], [place], [address], [place] tel:[phone] [facility] sleep apnea1 (chief complaint) chronic pain1 (chief complaint) DM (chief complaint) COPD1 (chief complaint) Type 2 diabetes mellitus with diabetic mononeuropathyEmphy semaSleep apneaChronic pain syndrome 9 Alexandre Mary [address], [place], [address] , [place]. [phone] Referring Provider: Garima Camacho [address], [place], [place], [address]. tel:[phone] OFFICE/OUTPA TIENT VISIT, [facility], [address], [place], [address], [place] tel:[phone] [facility] chronic pain1 (chief complaint) sleep apena1 (chief complaint) Chronic pain syndromeSleep apnea 9 Alexandre Mary [address], [place], [place], [address] , [place]. tel:[phone] Referring Provider: Brandon Schroeder, [address], [place], [place], [address]. tel:[phone] OFFICE/OUTPA TIENT VISIT, [facility], [address], [place], [address], [place] tel:[phone] [facility] chronic pain (chief complaint) French (chief complaint) sleep apnea1 (chief complaint) COPD1 (chief complaint) DM (chief complaint) HTN (chief complaint) EmphysemaBarrett's esophagus without dysplasiaSleep apneaChronic pain syndromeType 2 diabetes mellitus with diabetic mononeuropathyEssen tial (primary) hypertension 9 Alexandre Taylor. [address], [place], [address] , . tel:[phone] Referring Provider: Garima Camacho [address], [place], [address]. tel:[phone] OFFICE/OUTPA TIENT VISIT, [facility], [address], [place], [address], [place] tel:[phone] [facility] GERD1 (chief complaint) back pain1 (chief complaint) CAD1 (chief complaint) sleep apnea1 (chief complaint) COPD1 (chief complaint) EmphysemaCoronary artery disease of [place]eters[place] coronary artery without angina pectorisGERD with esophagitisSleep apneaOsteoporosisCh ronic pain syndrome 9 Alexandre Taylor. [address], [place], [address] , [place]. tel:[phone] Referring Provider: Brandon Schroeder [address], [place], [place], [address]. tel:[phone] OFFICE/OUTPA TIENT VISIT, [facility], [address], [place], [address], [place] tel:[phone] [facility] back pain1 (chief complaint) CAD1 (chief complaint) sleep apnea1 (chief complaint) GERD1 (chief complaint) Coronary artery disease of [place] coronary artery without angina pectorisGERD with esophagitisSleep apneaChronic pain syndrome 9 Alexandre Taylor. [address], [place], [address] , [place]. tel:[phone] Referring Provider: Garima Camacho [address], [place], [place], [address]. tel:[phone] OFFICE/OUTPA TIENT VISIT, [facility], [address], [place], [address], [place] tel:[phone] [facility] gerd1 (chief complaint) CAD (chief complaint) back pain1 (chief complaint) Inconclusive mammogramSleep apneaCoronary artery disease of peters[place] coronary artery without angina pectorisGERD with esophagitisChronic pain syndrome 9 Alexandre Taylor. [address], [place], [address] , [place]. tel:[phone] Referring Provider: Garima Camacho [address], [place], [address]. tel:[phone] OFFICE/OUTPA TIENT VISIT, [facility], [address], [place], [address], [place] tel:[phone] [facility] osteoporos is1 (chief complaint) chronic pain (chief complaint) breast1 (chief complaint) sleep apnea1 (chief complaint) HLP (chief complaint) HyperlipidemiaChron ic pain syndromeOsteoporosi sInconclusive mammogramSleep apneaTobacco useType 2 diabetes mellitus with diabetic mononeuropathy 9 Alexandre Taylor. [address], [place], [place], [address] , [place]. tel:[phone] Referring Provider: Garima Camacho [address], [place], [address]. tel:[phone] OFFICE/OUTPA TIENT VISIT, [facility], [address], [place], [address], [place] tel:[phone] [facility] DM (chief complaint) polycythem ia1 (chief complaint) HLP (chief complaint) chronic pain1 (chief complaint) HyperlipidemiaSecon victor manuel polycythemiaType 2 diabetes mellitus with diabetic mononeuropathyOther specified abnormal findings of blood chemistryChronic pain syndrome 9 Alexandre Taylor. [address], [place], [place], [address] , [place]. tel:[phone] Referring Provider: Garima Camacho [facility], [place], [place], [address]. tel:[phone] PREV VISIT, NEW, AGE 40-64 [facility], [address], [place], [place], [address], [place] tel:[phone] [facility] Physical (chief complaint) Encounter for general adult medical exam w abnormal findingsEssential (primary) hypertensionType 2 diabetes mellitus with diabetic mononeuropathyHyper lipidemiaChronic pain syndrome 9 Alexandre Taylor. [address], [place], [address] , [place]. tel:[phone] Referring Provider: Garima Camacho [facility], [place], [place], [address]. tel:[phone] Family History Family Member Type Diagnosis Age At Onset Mother Problem (finding) of colon CA (Cause Of ) 68 Father Problem (finding) of CHF (Cause Of D eath) 65 Brother Problem (finding) Alive and well Payers Payer name Insurance type Covered green party ID Authoriza tion(s) No Information Social [...] Referral Referred To: Janel REESE, Olinda Ramos [id number] [facility]
[address] [place], [place], [address] Ordered: Referrals: Olinda Islas MD. Evaluate and [...] ordered Referral Referred To: Vivian Harper [address] [place], [place], [id number] Ordered: Referrals: Allopathic & Osteopathic Physicians : Surgery. Vivian Harper. Evaluate and treat ordered Referral Ordered: Endocrinology, Diabetes and Metabolism (related to Type 2 diabetes mellitus with diabetic mononeuropathy) ordered Referral Ordered: Dwayne Hennesys MD -Allopathic & Osteopathic Physicians : Obstetrics & Gynecology (related to Other signs and symptoms in breast) ordered Referral Referred To: Dwayne Hennessy MD, Dr [place], [place], [phone] Ordered: Referrals: Allopathic & Osteopathic Physicians : Obstetrics & Gynecology. Dwayne Hennessy MD. Evaluate and treat ordered Referral Ordered: Referrals: Endocrinology, Diabetes and Metabolism. Evaluate and treat ordered Referral Ordered: MAMMOGRAM, BOTH BREASTS ordered Referral Ordered: KNEE XRAY, 3 VIEW Left ordered Referral Referred To: Estela REESE, Rosales Shoemaker [address] [place], [place], [address] Ordered: Referrals: Estela REESE, Rosales Shoemaker. Evaluate [...] Willis MD [address]
[place], [address] Ordered: Referrals: Vineet Willis MD. Evaluate and treat ordered Referral Ordered: Pulmonology (related to Sleep apnea) ordered Referral Ordered: Referrals: Pulmonology. Evaluate and treat ordered Referral Ordered: Baldemar Fowler -Allopathic & Osteopathic Physicians : Internal Medicine : Cardiovascular Disease (related to Coronary artery disease of petersburg coronary artery without angina pectoris) ordered Referral Referred To: Baldemar Fowler [address] [place], [place] [id number] Ordered: Referrals: Allopathic & Osteopathic Physicians : [...] Grant Mendez [address] [place], [place] [id number] Ordered: Referrals: Allopathic & Osteopathic Physicians : [...] had MRI done which showed severe spondylosis. breast1 Pt has chronic l eft nipple discharge. Pt is seeing breast specialist and she had negative diagnostic mammo and left ultrasound pt will do breast surgery to remove duct soon DM Pt has DM Pt is on metformin and amaryl. Pt states that her glucose is around 120s Pt has alysa with endo next October Pt needs med refilled pain Pt has low back pain with [...] see pulmonary closer to her home in [place] thyroid nodule1 Pt has thyroid n odule [...] benign diagnostic mammo and ultrasound recently by HORSE SHOW MANAGER. Pt was referred to breast specialist in [facility] but she could not make to [facility] mag Pt has been [...] prolactin done which is normal Pt saw vamp creaser and she was told to do mammogram and do prolactin Pt denies any breast redness or warmth DM Pt has DM. Pt is on metformin and trulicity Pt has alysa with endo in two months. Her glucose is around 120 pain1 Pt has back pain with neuropathy. Pt failed neurontin. Pt takes norco PRn for pain. . Pt denies any loss of bladder control. Pt has chronic sciatica and leg numbness. Pt denies any worsening pain. Pt denies any saddle area paresthesia. DM Pt has DM. Pt sa w endo and her glucose and A1c were very [...] any purulent drainage. Pt denies any fever thyroid1 Pt has subclinic al hyperthyroidism. .Pt [...] told her to get it from me. polycythemia1 Pt has polycythe delisa Pt does smoke and she has sleep apnea. HLP Pt has HLP Pt ta ester stephenson Pt denies any myalgia. Pt had lab done but results not available HTN Pt has HTn< pt t akes losartan and metoprolol and her bp is stable Pt denies any chest pain or headache pain Pt has back pain with neuropathy. [...] any breast issue Pt needs screening mammo pain Pt has back pain with neuropathy. [...] paresthesia. HLP Pt has HLP Pt ta ester crestor. Pt needs it refilled. Pt denies [...] pain. Pt denies any saddle area paresthesia. pain1 Pt has back pain with neuropathy. Pt failed neurontin. Pt takes norco PRn for pain. . Pt denies any loss of bladder control. Pt has chronic sciatica and leg numbness. Pt denies any worsening pain. Pt denies any saddle area paresthesia. mammo Pt has abnormal mammo and she will do diagnostic left mammo and ultrasound next week pt denies any breast issue physical Pt needs annual physical. Pt has [...] pulmonary for COPD Pt had benign LDCT. lung nodule1 Pt has history o f [...] weeks. 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 pt denies any fatigue or snoring or any trouble with breathing at night french pt has french e sophagus. Pt underwent esophageal ablation 2018. Pt takes omeprazole daily pt denies any abd pain or GERD osteopenia1 Pt has osteopeni a on bone density 2018 Pt takes calcium and D. Pt denies any fx pain Pt has [...] any worsening pain. Pt saw neurosurgery at [facility] and was told that she is not [...] any worsening pain. Pt saw neurosurgery at [facility] and was told that she is not [...] any worsening pain. Pt saw neurosurgery at [facility] and was told that she is not [...] any worsening pain. Pt saw neurosurgery at [facility] last month and was told that she [...] any worsening pain. Pt saw neurosurgery at [facility] last month and was told that she [...] any worsening pain. Pt saw neurosurgery at [facility] last month and was told that she [...] [facility] pain Pt has back pain with neuropathy. Pt failed neurontin. Pt takes norco PRn for pain. . Pt denies any loss of bladder control. Pt has chronic sciatica and leg numbness. Pt denies any worsening pain. Pt still has not made alysa with neurosurgery yet . mammo Pt has left beronica st nodule. Pt has not done diagnostic mammo and ultrasound yet. HLP Pt just had lab done by endo and she is on victoza now and her has borderline high TG. Pt takes crestor. Pt denies any myalgia. Pt is off alogliptin. HTN Pt has HTn. Pt t akes metoprolol and losartan. Her bp was around 130/70. Pt denies any chest pain or headache back pain1 Pt has back pain with neuropathy. Pt failed neurontin. Pt takes norco PRn for pain. . Pt denies any loss of bladder control. Pt has chronic sciatica and leg numbness. Pt denies any worsening pain. Pt still has not made alysa with neurosurgery yet . sleep apnea1 Pt has sleep packing house laborer ea Pt failed cpap. pt told me [...] pain. Pt needs to see neurosurgery at [facility] and she still has not made [...] is waiting for alysa with neurosurgery at [facility]. Pt denies any loss of bladder control. Pt has chronic sciatica and leg numbness. Pt states that neurosurgery at [facility] told her that they are not scheduling new patient due to COVID-19. HTN Pt has HTn. Pt t akes losartan and metoprolol. Pt has not been checking her BP at home Pt denies any chest pain or headache HLP Pt has HLP. Pt t salvador lovastatin Pt denies any myalgia. her LDL is not at goal sleep apnea1 Pt has sleep packing house laborer ea .Pt states that she is still not using cpap Pt states that the machine is not working right and she wants to discuss with her pulmonary back pain1 Pt has back pain with neuropathy. Pt failed neurontin. Pt takes norco PRn for pain. Pt is waiting for alysa with neurosurgery at [facility]. Pt denies any loss of bladder [...] and she was referred to neurosurgery at [facility] for neck issue .However, [facility] is not taking new pt now due to COVID. Pt denies any loss of bladder control CAD Pt had negative cardiac cath recently per pt Pt denies any chest pain back pain1 Pt has chronic l ow back pain Pt just saw Dr. Soto who told her she needs to see neurosurgery at [facility]. Pt is waiting for referral. Pt needs norco refilled .Pt failed neurontin DM Pt has alysa with todd in 4 days. pt needs meds refill. Pt is on metformin and amaryl. her A1c is 7.6. her glucose is around 160s osteopenia1 Pt has osteopeni a Pt takes calcium and D and is working on weight bearing exercise. Pt needs D refilled. HLP Pt takes lovasta tin. her TG is high Pt denies any myalgia sleep apnea1 Pt has sleep packing house laborer ea Pt is seeing pulmonary and she [...] has CAD. Pt just saw a new chute man and will do cardiac cath pt denies any chest pain. Pt denies any chest pian. Pt has sleep apnea and she is on cpap now. Pt denies any other complaints sleep apnea1 Pt is seeing pul ligia now and will get new cpap. back pain1 Pt has back pain with neuropathy. Pt states that neurontin is not helping pt just seen Dr. soto (ortho spine) and will do MRI of L spine soon. Pt takes norco PRn for pain Pt failed NSAID and ultram osteoporosis1 Pt has osteoporo sis. Pt is on calcium and vitamin D currently. Pt already seen endo and she suppose to start on bisphonates but her endo had some emergency and her alysa was canceled until next month barrett1 Pt has french. pt takes omeprazole. 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 sleep apnea1 Pt has sleep packing house laborer ea. Pt is working with [employer] to try to fix the mask issue Pt states that they did some setting change and she is doing better. pt has alysa with cardiology in 6 days. Pt did not call cardiology regarding the abnormal stress test Pt also did not call cardiology regarding pulmonary sleep apnea1 Pt has sleep packing house laborer ea Pt states that she has trouble [...] chest pain sleep apnea1 Pt has sleep packing house laborer ea Pt is not using cpap due [...] ay hemoptysis. sleep apena1 Pt has sleep packing house laborer ea Pt started CPAP but she is [...] BP stable sleep apnea1 Pt has sleep packing house laborer ea. Pt just had cpAP done and is waiting for CPAP set up COPD1 Pt has COPD Pt u ses incruse and ventolin Pt uses ventolin 1-2 per week. pt denies any acute sob. Pt denies any hemoptysis, cough or worsening sob back pain1 pt has chronic l ow back pain Pt denies any worsening pain Pt denies any loss of bladder control. Pt failed NSAID and ultram ,Pt takes norco PRN and doing ok CAD1 Pt has CAD Pt tucker d benign echo. Cardiac stress test showed small infarct pt denies any chest pain. Pt takes baby ASA daily GERD1 Pt has daily KING d Pt takes omeprazole and doing ok. Pt has alysa for EGD tomorrow. Pt denies any ad pain sleep apnea1 Pt has sleep packing house laborer ea. Pt supposes to do cpAP study [...] has intermittent nonexertional chest pain Pt seen chute man already. Pt will do stress test and echo later this week. Pt denies any acute chest pain sleep apnea1 Pt has sleep packing house laborer ea symptoms Pt does snore and feels extreme fatigue. Pt will have home sleep study tomorrow. GERD1 Pt states that o meprazole is helping very much with her GERD Pt has appointment with Dr. Decker in two week. Pt has history of colon polyp 4 years ago. Pt denies any lower gi bleeding gerd1 Pt has GERD Pt h as ? esophagitis. Pt takes tums frequently. Pt denies any abd pain CAD Pt has signs of CAD on chest CT Pt denies any chest pain back pain1 Pt has chronic s evere low back pain. pt has numbness and sciatica. Pt denies any loss of bladder control. Pt doing ok with norco. pt failed Neurontin and lyrica osteoporosis1 Pt has osteoporo sis. Pt denies any fracture. chronic pain Pt has chronic s evere [...] yet. HLP Pt needs lovasta tin refilled. DM Pt has DM with p roteinuria. [...] Related to Coron angelo artery disease of [place] coronary artery without angina pectoris Quit smoking [...] Mental Status Date Cognitive Assessment Orientation - [place] ed to time, place, person, situation.
--- OUTSIDE RECORDS SUMMARY | 2024-10-07 01:18 | XMS_ITS | Encounter Summary ---
Author Organization [facility] Address [address] [place] [address] Care Team Providers Care Mold Technician Name Role Phone Michael Tapia MD Primary Care Provider [phone] Alfred Benton MD Primary Care Provider [phone] Alfred Benton MD Primary Care Provider [phone] Alfred Benton MD Primary Care Provider [phone] Alfred Benton MD Primary Care Provider [phone] Alfred Benton MD Primary Care Provider [phone] Brandon Schroeder MD Primary Care Provider [phone] Jose Childers MD Unavailable Leonid Mari MD Unavailable [phone] Encounter Details Date Type Department Care Team (Late st Contact Info) Description 08/17/2013 Abstract [facility] CONVERSION [address] [place] [address] , Generic Conversion, Social History Tobacco Use [...] st Contact Info) Description 10/14/2024 2:00 PM STUDY ABROAD ADVISOR Office Visit [facility] [place] [id number] Leonid Cameron MD [address] [place] [address] documented as of this encounter Visit Diagnoses Not on filedocumented in this encounter Care Teams Mold Technician Relationship Specialty Start Date End Date Michael Tapia MD PCP - General INTERNAL MEDICINE 10/31/16 09/02/19 [place] [address] [place] [address] PCP - General 05/10/14 10/30/16 [place] [address] [place] [address] PCP - General 12/28/13 05/09/14 [place] [address] [place] [address] PCP - General 11/23/13 12/27/13 [place] [address] [place] [address] PCP - General 11/18/13 11/22/13 [place] [address] [place] [address] PCP - General 11/09/13 11/17/13 [place] [address] [place] [address] PCP - General FAMILY PRACTICE 09/03/19 [place] [address] [address] Daily Sales Audit Clerk CARDIOVASCULAR DISEASE 09/03/19 04/13/24 Leonid Cameron MD [address] [place] [address] INTERVENTIONAL CARDIOLOGY 04/14/24 documented as of this encounter
[2024-10-07] MEDS: ACETAMINOPHEN 500 MG TABLET 1000 MG PO (11:00)
[2024-10-07 11:02] LABS: Anion Gap 6 mmol/L (4-12); Blood Urea Nitrogen 13 mg/dL (7-17); Calcium 9.6 mg/dL (8.4-10.2); Carbon Dioxide 32 mmol/L (22-30); Chloride 98 mmol/L (98-107); Estimated CRCL calculation 105 ml/min; Estimated Glomerular Filt Rate > 60; Glucose 150 mg/dL (65-110); Potassium 4.8 mmol/L (3.4-5.0); Sodium 136 mmol/L (137-145)
[2024-10-07 11:03] LABS: Glucose Point of Care 158 mg/dl (65-105)
--- NOTE | 2024-10-07 12:02 | WPDHPUPDATE1 ---
History and Physical Update Update Date/Time: 10/07/24 12:02 - Excisional biopsy of left mammary duct with possible total duct excision and adjacent tissue transfer. History and Physical has been reviewed, including an updated exam of the patient. There are NO changes in the patient's condition. Risks, benefits, and alternatives have been discussed and questions answered. Patient agrees to proceed with procedure.
--- NOTE | 2024-10-07 12:02 | WPDANESEPPF ---
Anes - Initial Pre Proc Eval Procedure: Operation Date: 10/07/24 12:00 Proposed Procedures p Excisional Biopsy of Left Mammary Duct, Possible Total Duct Excision, Possible Adjacent Tissue Transfer - Vivian Harper MD Date/Time: 10/07/24 12:02 Surgeon: Vivian Harper MD Pre Op Diagnosis: ab mri lft breast, pathological nipple discharge Patient Data Age: 69 Gender: F Height: 1.73 m Weight: 85 kg Last Vital Signs Temp 36.3 C L 10/07/24 10:50 Pulse 70 10/07/24 10:50 Resp 14 10/07/24 10:50 BP 136/65 10/07/24 10:50 Pulse Ox 95 10/07/24 10:50 Allergies Allergy/AdvReac Type Severity Reaction Status Date / Time cyclobenzaprine AdvReac Unknown NAUSEA/VOMI Verified 10/07/24 11:14 TING lisinopril AdvReac Unknown Cough Verified 10/07/24 11:14 Home Medications ?Medication ?Instructions ?Recorded ?Confirmed ?Type hydrocodone 10 mg-acetaminophen 1 tablet PO Q6H PRN Pain 08/06/19 10/01/24 History 325 mg tablet ([place]) losartan 100 mg tablet 100 mg PO QAM 08/06/19 10/07/24 History metformin 500 mg tablet,extended 500 mg PO BID 08/06/19 10/07/24 History release 24 hr metoprolol succinate 200 mg 200 mg PO QAM 08/06/19 10/07/24 History tablet,extended release 24 hr omeprazole 20 mg capsule,delayed 20 mg PO DAILY #30 caps 01/16/22 10/07/24 Rx release magnesium oxide 400 mg PO BID 10/14/23 10/07/24 History rosuvastatin 10 mg tablet 10 mg PO DAILY 10/16/23 10/07/24 History ergocalciferol (vitamin D2) 1,250 1,250 mcg PO WEEKLY 12/12/23 10/07/24 History mcg (50,000 unit) capsule Anoro Ellipta 62.5 mcg-25 1 inh inhalation QAM #60 ea 03/13/24 10/07/24 Rx mcg/actuation powder for inhalation (umeclidinium-vilanterol) albuterol sulfate 90 mcg/actuation 1 - 2 inh inhalation Q4-6H PRN 03/13/24 10/07/24 Rx aerosol inhaler (Ventolin HFA) Shortness Of Breath #8.5 grams glimepiride 2 mg tablet 2 mg PO DAILY 10/01/24 10/07/24 History Laboratory Tests 10/07/24 10/07/24 10:24 10:54 Sodium 136 L mmol/L (137-145) Potassium 4.8 mmol/L (3.4-5.0) Chloride 98 mmol/L (98-107) Carbon Dioxide 32 H mmol/L (22-30) Anion Gap 6 mmol/L (4-12) BUN 13 mg/dL (7-17) Creatinine 0.50 L mg/dL (0.7-1.0) Estim Creat Clear Calc 105 ml/min Estimated GFR > 60 (59 - ) Glucose 150 H mg/dL (65-110) POC Capillary Glucose 158 H mg/dl (65-105) Calcium 9.6 mg/dL (8.4-10.2) Patient hx anesthesia problems: none Family hx anesthesia problems: none Results Review: All pre-operative results and documents have been reviewed as part of the pre-operative evaluation. [facility] Past Medical History Medical History Colon polyp Epstein esophagus CAD in apache artery Chest pain in adult ADAMES (dyspnea on exertion) Diabetes 1.5, managed as type 2 Dyslipidemia Elevated hemoglobin Essential hypertension Hyperkalemia Spinal stenosis of lumbar region Type 2 diabetes mellitus without complication, without long-term current use of insulin Surgical History Surgical History Personal history of spine surgery Family History Family History Father Family history of cardiovascular disease Acute myocardial infarction Sibling Family history of cardiovascular disease Mother Family history of malignant neoplasm Social History Social History Smoking packs per day: 1.5 Smoking cigarettes per day: 30.0 Years smoked: 50 Smoking pack-years: 75.00 Smoking status: Current every day smoker Tobacco type: cigarettes Alcohol intake: never Substance use: never Substance use type: does not use Do You Feel Safe in your Home?: Yes Lack of Transportation: No Lack of Food: Never True Current Housing: I Have Housing Concerned About Future Housing: No Difficulty Paying Gas/Electric Bills: Decline to Answer Difficulty Paying for Meds: No Currently Unemployed: No Education: Decline to Answer Difficulty w/ Childcare or Family Care: No Living arrangements: with family Additional living arrangements comments: [facility] Spiritual care concerns: No Anes - Eval Final PreProcedure Day of Procedure 10/07/24 12:02 Patient weight: obese Heart: regular rate and rhythm Lungs: normal air movement Airway: Mallampati scale class 1 Neurological: alert and oriented Last oral intake: >/= 8 hours ASA classification: III Emergent: no Anesthetic plan: proceed Anesthesia type and monitoring: general and standard monitoring Results Review: All pre-operative results and documents have been reviewed as part of the pre-operative evaluation. Informed Consent: The patient's anesthetic plan and its attendant risks and benefits were discussed with the patient/family/POA. Questions were solicited and answers provided to the satisfaction of the patient/family/POA.
[2024-10-07] MEDS: ceFAZolin 2 GM/D5W 50 ML 2 GM/50 ML BAG IVPB (12:15)
[2024-10-07] MEDS: LIDOCAINE 1% LOCAL INJ 20 ML VIAL INFILTRATE (12:25)
[2024-10-07] MEDS: BUPIVACAINE/EPINEPHRINE 0.5% 30 ML VIAL 20 ML INFILTRATE (12:27)
[2024-10-07] MEDS: METHYLENE BLUE 0.5% INJ 10 ML AMPULE 20 ML IRRIGATION (12:46)
--- NOTE | 2024-10-07 13:07 | P.OP_ITS ---
Procedure Note - Detailed Date of Procedure 10/07/24 Pre-op Diagnosis Pathological left nipple discharge Post-op Diagnosis Same Procedure Performed Left total duct excision Surgeon Vivian Harper MD Anesthesia General Description of Procedure Patient was identified in the preoperative holding area brought to the operating room suite. She was laid supine in the operating table sequential compression devices were applied. The left breast was prepped and draped in a sterile fashion. A small superior periareolar incision was made and dissection was carried down through the subcutaneous tissue into the breast. I was able to express copious amount of clear fluid from a single duct externally and this duct was cannulated with a small lacrimal probe. I did proceed to inject diluted methylene blue into the duct so I could and identified through the incision. Once the duct was identified, was isolated and the surrounding tissue dissected free from the duct. I did proceed to extend the dissection down for approximately 3 cm and the specimen was just excised EN bloc and sent to pathology as a fresh specimen. The portion of the duct just underneath the nipple was marked with a stitch for orientation. The cavity was then irrigated with saline and hemostasis was assured. The central portion of the duct excision was then closed with a U-stitch using a 2-0 Vicryl to prevent nipple inversion. The deep dermal layer was then closed with 3-0 Vicryl followed by 4- 0 Monocryl subcuticular layer for the skin. Dermabond was applied followed by a sterile dressing and a surgical bra. Patient was awoken from anesthesia and taken to the recovery area in stable condition. All needles, instruments, and sponge counts were correct as reported by the operating room staff. Patient tolerated the procedure well with no immediate complications. Estimated Blood Loss 3 Pathology Yes Complications No immediate complications Condition Stable Disposition PACU [facility] Billing Surgery - Charge Forward: Surgery Billing (CPT 53637)
--- NOTE | 2024-10-07 13:08 | SUR.OPER ---
Specimen sent with MARIANA Dow and received in pathology by Kathleen
[2024-10-07] MEDS: LACTATED RINGERS 1,000 ML 30 ML IV CONT (13:20)
[2024-10-07 13:49] LABS: Glucose Point of Care 135 mg/dl (65-105)
[2024-10-07] MEDS: oxyCODONE HCL (*CRX) 5 MG TAB IR PO (14:29)
== END | disposition home or self-care (01) ==
PROVIDERS: Anesthesiology; PCP Emergency Medicine; Visit Provider Surgery
PROC: (CPT 19110; principal; 2024-10-07 12:00)
DX: D24.2 Benign neoplasm of left breast (principal); E78.5 Hyperlipidemia, unspecified; I10 Essential (primary) hypertension; E87.5 Hyperkalemia; E11.9 Type 2 diabetes mellitus without complications; I25.10 Atherosclerotic heart disease of native coronary artery without angina pectoris; M48.061 Spinal stenosis, lumbar region without neurogenic claudication; F17.210 Nicotine dependence, cigarettes, uncomplicated; E66.9 Obesity, unspecified; Z68.28 Body mass index [BMI] 28.0-28.9, adult; Z79.891 Long term (current) use of opiate analgesic; Z79.84 Long term (current) use of oral hypoglycemic drugs; Z79.51 Long term (current) use of inhaled steroids; Z98.890 Other specified postprocedural states; Z98.1 Arthrodesis status; Z87.19 Personal history of other diseases of the digestive system; Z86.0100 Personal history of colon polyps, unspecified; Z80.9 Family history of malignant neoplasm, unspecified; Z82.49 Family history of ischemic heart disease and other diseases of the circulatory system
CPT/HCPCS: 19110; 36415; 80048; 82948; 88305; A9270; J0690; J2003; J2250; J2405; J2704; J3010; J7120; Q9968

== ENCOUNTER 2024-10-09 10:15 | Outpatient (CLI) | payer MEDICARE, SELFPAY ==
[2024-10-09 10:54] LABS: Basophils Absolute Auto 0.03 K/mm3 (0.00-0.10); Basophils Percent Auto 0.4 % (0.0-1.0); Eosinophils Absolute Auto 0.23 K/mm3 (0.02-0.50); Hematocrit 43.1 % (35.0-42.0); Hemoglobin 13.9 g/dL (11.7-13.8); Immature Granulocyte Absolute 0.02 K/mm3 (0.00-0.00); Immature Granulocyte Percent A 0.3 % (0.0-0.0); Lymphocytes Absolute Auto 1.73 K/mm3 (1.10-4.50); Lymphocytes Percent Auto 22.3 % (18.0-42.0); Mean Corpuscular HGB Conc 32.3 g/dL (32-36); Mean Corpuscular Hemoglobin 29.4 pg (27.0-31.0); Mean Corpuscular Volume 91.3 fL (78.0-102.0); Mean Platelet Volume 10.3 fl (9.2-11.8); Monocytes Absolute Auto 0.61 K/mm3 (0.10-0.90); Monocytes Percent Auto 7.9 % (2.0-11.0); Neutrophils Absolute Auto 5.13 K/mm3 (1.70-7.20); Neutrophils Percent Auto 66.1 % (50.0-70.0); Platelet Count Result 251 K/mm3 (150-420); Red Blood Count 4.72 M/mm3 (4.20-5.40); Red Cell Distribution Width 12.2 % (11.6-14.4); White Blood Count 7.8 K/mm3 (4.8-10.8)
--- OUTSIDE RECORDS SUMMARY | 2024-10-09 11:03 | XMS_ITS | Referral Summary ---
Author Organization [facility] Address [address] [place] [phone] Care Team Providers Care Superintendent Radio Communications Name Role Phone Brandon Schroeder MD Primary Care Provider [phone] Dasha Collazo CENTRIFUGAL CASTING MACHINE OPERATOR Unavailable [phone] Encounters Date Type Department Care Team Description 10/05/2024 9:30 AM BEE FARMER Office Visit [facility] Diabetes and Endocrinology [address] [place] [phone] Tisha Nash MD Type 2 diabetes mellitus [...] on file Legal Sex Female 11:41 AM BEE FARMER Gender Identity Not on file Sexual Orientation Not on file Last Filed Vital Signs Vital Sign Reading Time Taken Comments Blood Pressure 130/80 10/05/2024 9:34 AM BEE FARMER Pulse 77 10/05/2024 9:34 AM BEE FARMER Temperature 36.1 C (97 F) 11/04/2020 9:23 AM BEE FARMER Respiratory Rate 17 10/05/2024 9:34 AM BEE FARMER Oxygen Saturation 90% 11/30/2016 3:58 PM CDT Inhaled Oxygen Concentration - - Weight 86.6 kg (191 lb) 10/05/2024 9:34 AM BEE FARMER Height 172.7 cm (5' 8 ) 10/05/2024 9:34 AM BEE FARMER Body Mass Index 29.04 10/05/2024 9:34 AM BEE FARMER Plan of Treatment Not on file Procedures Procedure Name Priority Date/Time Associated Diagnosis Comments POCT HEMOGLOBIN A1C Routine 10/05/2024 9 :36 AM BEE FARMER Type 2 diabetes mellitus with diabetic polyneuropathy, without long-term current use of insulin (HCC) POCT GLUCOSE Routine 10/05/2024 9:36 AM BEE FARMER Type 2 diabetes mellitus with diabetic polyneuropathy, without long-term current use of insulin (HCC) SERUM LIPID PANEL Routine 09/02/2015 1:5 5 AM BEE FARMER from Last 3 Months or Most Recently Relevant to Health Maintenance Results * POCT hemoglobin A1c (10/05/2024 9:36 AM BEE FARMER) Hemoglobin A1C, POC 8.1 4.0 - 5.6 % Blood 10/05/2024 9:36 AM BEE FARMER Tisha Celeste MD POINT OF CARE TEST ORDERABLES Final Result * POCT glucose (10/05/2024 9:36 AM BEE FARMER) Glucose Blood, POC 156 mg/dL Blood 10/05/2024 9:36 AM BEE FARMER Tisha Celeste MD POINT OF CARE TEST ORDERABLES Final Result * (ABNORMAL) Serum lipid panel (09/02/2015 1:55 AM BEE FARMER) Cholesterol 135 0 - 200 mg/dl HISTORICAL RESULTS Comment: Interpretive Data Desirable: <200 mg/dL Borderline high: 200-239 mg/dL High: >240 mg/dL Literature Reference: National Cholesterol Education Program (NCEP) Expert Panel on Detection, Evaluation, and Treatment of High Blood Cholesterol in Adults (Adult Treatment Panel III). Circulation 2004; 110:227. Current interpretive data was last revised on 2005. Triglycerides 155(H) 0 - 150 mg/dl HISTORICAL RESULTS Comment: Interpretive Data Desirable: < 150 mg/dL Borderline High: 150 - 199 mg/dL High: > 200 mg/dL Literature Reference: See Cholesterol Current interpretive data was last revised on 07. HDL 37(L) 40 - 199 mg/dl HISTORICAL RESULTS Comment: Interpretive Data Less than 40 mg/dL - low; A major risk factor for heart disease. Greater than or equal to 60 mg/dL - High; considered protective of heart disease. Literature Reference: See Cholesterol Current interpretive data was last revised on 2008. LDL 67 0 - 129 mg/dl HISTORICAL RESULTS Comment: Interpretive Data Optimal: < 100 mg/dL Near Optimal: 100 - 129 mg/dL Borderline High: 130 - 159 mg/dL High: > 160 mg/dL Literature Reference: See Cholesterol Current interpretive data was last revised on 07. Non-HDL cholesterol, calculated 98 mg/dl HISTORICAL RESULTS Comment: Interpretive Data When triglycerides are >200 mg/dL, non-HDL C is a secondary target of therapy, with a goal 30 mg/dL higher than the identified LDL-C goal. Reference: See Cholesterol Reference. Current interpretive data was last revised 2012. Serum 09/02/2015 1:55 AM BEE FARMER us Historical Provider LAB BLOOD ORDERABLES Sara morales Result HISTORICAL RESULTS from Last 3 Months or Most Recently Relevant to Health Maintenance Insurance [facility] MEDICARE SOLUTIONS Care Teams Superintendent Radio Communications Relationship Specialty Start Date End Date Brandon Schroeder MD [address] [place] [address] PCP - General Family Medicine 10/12/21 Dasha Collazo, ZARI [address] [place] [address] Nurse Practitioner Obstetrics and Gynecology 07/23/23
--- OUTSIDE RECORDS SUMMARY | 2024-10-09 11:03 | XMS_ITS | Encounter Summary ---
Author Organization [facility] Address [address] [facility] [address] [place] [address] Care Team Providers Care Commercial Credit Specialist Name Role Phone Michael Tapia MD Primary Care Provider + rBandon Schroeder MD Primary Care Provider [phone] Dasha Collazo [facility] Unavailable [phone] Encounter Details Date Type Department Care Team (Late st Contact Info) Description 11/30/2016 Orders Only [facility] ProviderIshan MD [address] [place] [address] Social History Tobacco Use Types Packs/Day Years Used Date Smoking Tobacco: Never Assessed Comments Unknown Sex and Gender Information Value Date Recorded Sex Assigned at Not on file Legal Sex Female 11:41 AM DIRECTOR OF OUTREACH Gender Identity Not on file Sexual Orientation [...] filedocumented in this encounter Care Teams Commercial Credit Specialist Relationship Specialty Start Date End Date Michael Tapia MD PCP - General 11/30/16 10/11/21 Brandon Schroeder MD [facility] [place] [address] PCP - General Family Medicine 10/12/21 Dasha Collazo NP [address] [place] [address] Nurse Practitioner Obstetrics and Gynecology 07/23/23 documented as of this encounter
--- OUTSIDE RECORDS SUMMARY | 2024-10-09 11:03 | XMS_ITS | Continuity of Care Document ---
Author Organization [facility] Address [address] [place] [address] [place] [address] Phone Care Team Providers Care Communication Technician Name Role Phone Brandon Schroeder MD Unavailable [...] for pain, avoid driving or operate machines magnesium 400 mg (as magnesium oxide) tablet take one tablet orally BID - Active glimepiride 2 mg tablet take 1 tablet by oral route every day 2 MG - Active omeprazole 20 mg capsule,delayed release take 1 capsule by oral route every day before a meal 20 MG - Active metformin 500 mg tablet take [...] as needed - Active PRN For sob Crestor 10 mg tablet take 1 tablet by oral route every day 10 MG - Active losartan 100 mg tablet take 1 tablet by oral route every day 100 MG - Active Vitamin D2 1,250 mcg [...] EST PREV VISIT, EST, 65 & OVER -2022 OFFICE/OUTPATIENT VISIT, EST OFFICE/OUTPATIENT VISIT, EST OFFICE/OUTPATIENT VISIT, EST OFFICE/OUTPATIENT VISIT, EST OFFICE/OUTPATIENT VISIT, EST OFFICE/OUTPATIENT VISIT, EST -2022 PREV VISIT, EST, 65 & OFFICE/OUTPATIENT VISIT, EST OFFICE/OUTPATIENT VISIT, EST OFFICE/OUTPATIENT VISIT, EST OFFICE/OUTPATIENT VISIT, EST OFFICE/OUTPATIENT VISIT, EST OFFICE/OUTPATIENT VISIT, EST OFFICE/OUTPATIENT VISIT, EST OFFICE/OUTPATIENT VISIT, EST OFFICE/OUTPATIENT VISIT, EST OFFICE/OUTPATIENT VISIT, EST OFFICE/OUTPATIENT VISIT, EST PREV VISIT, EST, AGE 40-64 December- OFFICE/OUTPATIENT VISIT, EST OFFICE/OUTPATIENT VISIT, EST OFFICE/OUTPATIENT [...] Providers Copied on Encounter OFFICE/OUTPA TIENT VISIT, [facility], [address], [place], [place], [address], [place] tel:[phone] [facility] DM (chief complaint) nipple (chief complaint) pain (chief complaint) mag (chief complaint) Chronic pain syndromeHypomagnese miaMixed hyperlipidemiaType 2 diabetes mellitus with diabetic mononeuropathyMass in the left breast 5 Alexandre Taylor. [address], [place], [place], [address] , [place]. tel:[phone] OFFICE/OUTPA TIENT VISIT, [facility], [address], [place], [place], [address], [place] tel:[phone] [facility] DM (chief complaint) pain (chief complaint) mag (chief complaint) french (chief complaint) Chronic pain syndromeHypomagnese miaBarrett's esophagus without dysplasiaType 2 diabetes mellitus with diabetic mononeuropathy 5 Alexandre Taylor. [address], [place], [place], [address] , [place]. tel:[phone] OFFICE/OUTPA TIENT VISIT, [facility], [address], [place], [place], [address], [place] tel:[phone] [facility] pain (chief complaint) skin (chief complaint) HTN (chief complaint) Chronic pain syndromeEssential (primary) hypertensionNevus, non-neoplastic 4 Alexandre Taylor. [address], [place], [place], [address] , [place]. tel:[phone] OFFICE/OUTPA TIENT VISIT, [facility], [address], [place], [place], [address], [place] tel:[phone] [facility] pain (chief complaint) breast1 (chief complaint) DM (chief complaint) Chronic pain syndromeType 2 diabetes mellitus with diabetic mononeuropathyMass in the left breast 4 Schroeder Brandon. [address], [place], [place], [address] , [place]. tel:[phone] OFFICE/OUTPA TIENT VISIT, [facility], [address], [place], [place], [address], [place] tel:[phone] [facility] pain (chief complaint) breast (chief complaint) HTN (chief complaint) Chronic pain syndromeEssential (primary) hypertensionMass in the left breast 4 Schroeder Brandon. [address], [place], [place], [address] , [place]. tel:[phone] [facility], [address], [place], [place], [address], [place] tel:[phone] [facility] No Information 4 Alexandre Taylor. [address], [place], [place], [address] , [place]. tel:[phone] OFFICE/OUTPA TIENT VISIT, [facility], [address], [place], [place], [address], [place] tel:[phone] [facility] pain (chief complaint) Chronic pain syndrome May- 4 Schroeder Brandon. [address], [place], [place], [address] , [place]. tel:[phone] OFFICE/OUTPA TIENT VISIT, [facility], [address], [place], [place], [address], [place] tel:[phone] [facility] pain (chief complaint) DM (chief complaint) Chronic pain syndromeType 2 diabetes mellitus with diabetic mononeuropathy 4 Schroeder Brandon. [address], [place], [place], [address] , [place]. tel:[phone] OFFICE/OUTPA TIENT VISIT, [facility], [address], [place], [place], [address], [place] tel:[phone] [facility] pain (chief complaint) COPD1 (chief complaint) DM (chief complaint) Centrilobular emphysemaChronic pain syndromeType 2 diabetes mellitus with diabetic nephropathy 4 Alexandre Taylor. [address], [place], [place], [address] , [place]. tel:[phone] OFFICE/OUTPA TIENT VISIT, [facility], [address] [place], [address], [place] tel:[phone] [facility] pain (chief complaint) DM (chief complaint) thyroid1 (chief complaint) Chronic pain syndromeThyroid noduleType 2 diabetes mellitus with diabetic nephropathy 4 Alexandre Taylor. [address], [place], [place], [address] , [place]. [phone] OFFICE/OUTPA TIENT VISIT, [facility], [address] [place], [address], [place] tel:[phone] [facility] Barrett1 (chief complaint) DM (chief complaint) Type 2 diabetes mellitus with diabetic mononeuropathyBarre tt's esophagus without dysplasia 4 Alexandre Taylor. [address], [place], [place], [address] , [place]. [phone] OFFICE/OUTPA TIENT VISIT, [facility], [address] [place], [address], [place] tel:[phone] [facility] DM (chief complaint) polycythem ia1 (chief complaint) thyroid1 (chief complaint) pain1 (chief complaint) osteopenia 1 (chief complaint) COPD1 (chief complaint) Centrilobular emphysemaHypomagnes emiaOther spondylosis, lumbar regionType 2 diabetes mellitus with diabetic mononeuropathySecon victor manuel polycythemiaOther specified disorder of bone densityThyroid nodule 4 Alexandre Taylor. [address], [place], [place], [address] , [place]. [phone] OFFICE/OUTPA TIENT VISIT, [facility], [address] [place], [address], [place] tel:[phone] [facility] back pain1 (chief complaint) COPD1 (chief complaint) thyroid nodule1 (chief complaint) HTN (chief complaint) HLP (chief complaint) DM (chief complaint) Thyroid noduleCentrilobular emphysemaEssential (primary) hypertensionHypomag nesemiaMixed hyperlipidemiaOther spondylosis, lumbar regionType 2 diabetes mellitus with diabetic mononeuropathy 4 Alexandre Taylor. [address], [place], [place], [address] , [place]. tel:[phone] OFFICE/OUTPA TIENT VISIT, EST [facility], [address] [place], [address], [place] tel:[phone] [facility] thyroid nodule1 (chief complaint) back pain1 (chief complaint) basal (chief complaint) Other spondylosis, lumbar regionThyroid noduleBasal cell carcinoma of skin 4 Alexandre Taylor. [address], [place], [place], [address] , [place]. tel:[phone] OFFICE/OUTPA TIENT VISIT, EST [facility], [address] [place], [place], [address], [place] tel:[phone] [facility] pain (chief complaint) skin (chief complaint) leg weak1 (chief complaint) thyroid1 (chief complaint) Chronic pain syndromeMuscle weakness (generalized)Thyroi d noduleNevus, non-neoplastic 4 Alexandre Taylor. [address], [place], [place], [address] , [place]. tel:[phone] OFFICE/OUTPA TIENT VISIT, EST [facility], [address] [place], [address], [place] tel:[phone] [facility] pain (chief complaint) elbow cyst1 (chief complaint) leg pain1 (chief complaint) nipple1 (chief complaint) Anterior chest-wall painMuscle weakness (generalized)Other signs and symptoms in breastAbscess of bursa, right elbow 4 Alexandre Taylor. [address], [place], [place], [address] , [place]. tel:[phone] OFFICE/OUTPA TIENT VISIT, [facility], [address], [place], [place], [address], [place] tel:[phone] [facility] osteopenia 1 (chief complaint) COPD1 (chief complaint) pain (chief complaint) CAD (chief complaint) Centrilobular emphysemaOther specified disorder of bone densityChronic pain syndromeCoronary artery disease of mcgrath coronary artery without angina pectoris 4 Alexandre Taylor. [address], [place], [place], [address] , [place]. tel:[phone] OFFICE/OUTPA TIENT VISIT, [facility], [address], [place], [place], [address], [place] tel:[phone] [facility] pain (chief complaint) HTN (chief complaint) mag1 (chief complaint) Chronic pain syndromeHypomagnese miaEssential (primary) hypertensionOther signs and symptoms in breast 4 Alexandre Taylor. [address], [place], [place], [address] , [place]. tel:[phone] OFFICE/OUTPA TIENT VISIT, [facility], [address] [place], [address], [place] tel:[phone] [facility] polycythem ia1 (chief complaint) thyroid1 (chief complaint) barrett1 (chief complaint) mag (chief complaint) pain (chief complaint) nipple (chief complaint) French's esophagus without dysplasiaChronic pain syndromeDisorder of thyroid, unspecifiedHypomagn esemiaSecondary polycythemiaCentril obular emphysemaOther signs and symptoms in breast 3 Alexandre Taylor. [address], [place], [place], [address] , [place]. tel:[phone] PREV VISIT, EST, [address] & OVER [facility], [address], [place], [place], [address], tel:[phone] [facility] physical (chief complaint) HypomagnesemiaEssen tial (primary) hypertensionChronic pain syndromeSecondary polycythemiaType 2 diabetes mellitus with diabetic mononeuropathyDisor moises of thyroid, unspecifiedMixed hyperlipidemiaBarre tt's esophagus without dysplasiaEncounter for general adult medical exam w abnormal findingsObstructive sleep apnea (adult) (pediatric) 3 Alexandre Taylor. [address], [place], [place], [address] , [place]. tel:[phone] OFFICE/OUTPA TIENT VISIT, [facility], [address], [place], [place], [address], tel:[phone] [facility] pain (chief complaint) HTN (chief complaint) low mag (chief complaint) Chronic pain syndromeHypomagnese miaEssential (primary) hypertensionOther signs and symptoms in breastSecondary polycythemia 3 Alexandre Taylor. [address], [place], [place], [address] , [place]. tel:[phone] OFFICE/OUTPA TIENT VISIT, EST [facility], [address] [place], [address], [place] tel:[phone] [facility] DM (chief complaint) pain1 (chief complaint) breast1 (chief complaint) Chronic pain syndromeType 2 diabetes mellitus with diabetic mononeuropathyOther signs and symptoms in breast 3 Alexandre Taylor. [address], [place], [place], [address] , [place]. tel:[phone] OFFICE/OUTPA TIENT VISIT, EST [facility], [address] [address] [place], [address], [place] tel:[phone] [facility] DM (chief complaint) pain (chief complaint) mag (chief complaint) breast1 (chief complaint) Chronic pain syndromeType 2 diabetes mellitus with diabetic mononeuropathyOther signs and symptoms in breastDisorder of thyroid, unspecifiedHypomagn esemia 3 Alexandre Taylor. [address], [place], [place], [address] , [place]. tel:[phone] OFFICE/OUTPA TIENT VISIT, [facility], [address], [place], [place], [address], [place] tel:[phone] [facility] thyroid1 (chief complaint) polycytehe mia1 (chief complaint) mag (chief complaint) DM (chief complaint) polycythem ia1 (chief complaint) barrett1 (chief complaint) Mixed hyperlipidemiaDisor moises of thyroid, unspecifiedType 2 diabetes mellitus with diabetic mononeuropathySecon victor manuel polycythemiaBarrett 's esophagus without dysplasiaHypomagnes emiaChronic pain syndrome 3 Alexandre Mary [address], [place], [place], [address] , [place]. tel:[phone] OFFICE/OUTPA TIENT VISIT, [facility], [address], [place], [place], [address], [place] tel:[phone] [facility] pain (chief complaint) HLP (chief complaint) HTN (chief complaint) Chronic pain syndromeMixed hyperlipidemiaEssen tial (primary) hypertension 3 Alexandre Mary [address], [place], [place], [address] , [place]. tel:[phone] PREV VISIT, EST, [address] & [address] [facility], [address], [place], [place], [address], [place] tel:[phone] [facility] physical (chief complaint) Encounter for general adult medical examination without abnormal findings 3 Alexandre Mary [address], [place], [place], [address] , [place]. tel:[phone] OFFICE/OUTPA TIENT VISIT, [facility], [address], [place], [place], [address], [place] tel:[phone] [facility] pain (chief complaint) Chronic pain syndromeCentrilobul ar emphysema 3 Alexandre Taylor. [address], [place], [place], [address] , [place]. tel:[phone] OFFICE/OUTPA TIENT VISIT, [facility], [address], [place], [place], [address], [place] tel:[phone] [facility] pain (chief complaint) HTN (chief complaint) weight loss1 (chief complaint) Chronic pain syndromeEssential (primary) hypertensionDisorde r of thyroid, unspecifiedAbnormal weight loss 3 Alexandre Taylor. [address], [place], [place], [address] , [place]. tel:[phone] OFFICE/OUTPA TIENT VISIT, [facility], [address], [place], [place], [address], [place] tel:[phone] [facility] HTN (chief complaint) pain (chief complaint) thyroid1 (chief complaint) osteopenia 1 (chief complaint) Disorder of thyroid, unspecifiedEssentia l (primary) hypertensionOther specified disorder of bone densityChronic pain syndrome 3 Alexandre Taylor. [address], [place], [place], [address] , [place]. tel:[phone] OFFICE/OUTPA TIENT VISIT, [facility], [address], [place], [place], [address], [place] tel:[phone] [facility] Thyroid1 (chief complaint) DM (chief complaint) HTN (chief complaint) pain (chief complaint) osteopenia 1 (chief complaint) Inconclusive mammogramOther specified disorder of bone densityType 2 diabetes mellitus with diabetic mononeuropathyDisor moises of thyroid, unspecifiedAbnormal weight lossMixed hyperlipidemiaEssen tial (primary) hypertension 3 Alexandre Taylor. [address], [place], [place], [address] , [place]. tel:[phone] OFFICE/OUTPA TIENT VISIT, [facility], [address], [place], [place], [address], [place] tel:[phone] [facility] pain (chief complaint) HTN (chief complaint) Chronic pain syndromeEssential (primary) hypertension 2 Alexandre Taylor. [address], [place], [place], [address] , [place]. tel:[phone] OFFICE/OUTPA TIENT VISIT, [facility], [address], [place], [place], [address], [place] tel:[phone] [facility] pain (chief complaint) HTN (chief complaint) mammo (chief complaint) Essential (primary) hypertensionInconcl usive mammogramChronic pain syndrome 2 Alexandre Taylor. [address], [place], [place], [address] , [place]. tel:[phone] OFFICE/OUTPA TIENT VISIT, [facility], [address], [place], [place], [address], [place] tel:[phone] [facility] pain (chief complaint) HTN (chief complaint) mammo (chief complaint) Chronic pain syndromeInconclusiv e mammogramEssential (primary) hypertension 2 Alexandre Taylor. [address], [place], [place], [address] , [place]. [phone] OFFICE/OUTPA TIENT VISIT, [facility], [address], [place], [place], [address], [place] tel:[phone] [facility] Chronic pain syndrome 2 Alexandre Taylor. [address], [place], [place], [address] , [place]. tel: [phone] OFFICE/OUTPA TIENT VISIT, [facility], [address], [place], [place], [address], [place] tel:[phone] [facility] pain (chief complaint) Chronic pain syndrome 2 Alexandre Taylor. [address], [place], [place], [address] , [place]. tel: [phone] OFFICE/OUTPA TIENT VISIT, EST [facility], [address], [place], [place], [address], [place] tel:[phone] [facility] HLP (chief complaint) Barrett1 (chief complaint) mammo1 (chief complaint) pain (chief complaint) Inconclusive mammogramChronic pain syndromeBarrett's esophagus without dysplasiaPolyp of colonMixed hyperlipidemia 2 Alexandre Mary [address], [place], [place], [address] , [place]. tel:[phone] OFFICE/OUTPA TIENT VISIT, [facility], [address], [place], [place], [address], [place] tel:[phone] [facility] pain1 (chief complaint) mammo (chief complaint) Chronic pain syndromeInconclusiv e mammogram 2 Alexandre Mary [address], [place], [place], [address] , [place]. tel:[phone] PREV VISIT, EST, AGE 40-66 [facility], [address], [place], [place], [address], [place] tel:[phone] [facility] physical (chief complaint) Encounter for general adult medical examination without abnormal findings 2 Alexandre Taylor. [address], [place], [place], [address] , [place]. tel:[phone] OFFICE/OUTPA TIENT VISIT, EST [facility], [address], [place], [place], [address], [place] tel:[phone] [facility] pain (chief complaint) knee pain1 (chief complaint) lung nodule1 (chief complaint) barrett1 (chief complaint) sleep apnea1 (chief complaint) Chronic pain syndromeBarrett's esophagus without dysplasiaPolyp of colonOther specified disorder of bone densityPain in left kneeSleep apneaSolitary lung noduleInconclusive mammogram 2 Alexandre Mary [address], [address], [place], [place], [address] , [place]. tel:[phone] OFFICE/OUTPA TIENT VISIT, [facility], [address], [place], [place], [address], [place] tel:[phone] [facility] pain (chief complaint) french (chief complaint) osteopenia 1 (chief complaint) French's esophagus without dysplasiaChronic pain syndromeOther specified disorder of bone density 2 Alexandre Taylor. [address], [place], [place], [address] , [place]. tel: [phone] OFFICE/OUTPA TIENT VISIT, [facility], [address], [place], [place], [address], [place] tel:[phone] [facility] pain (chief complaint) knee pain1 (chief complaint) Chronic pain syndromePain in left knee 2 Alexandre Taylor. [address], [place], [place], [address] , [place]. tel: [phone] OFFICE/OUTPA TIENT VISIT, [facility], [address], [place], [place], [address], [place] tel:[phone] [facility] pain (chief complaint) knee pain1 (chief complaint) mammo (chief complaint) Pain in left kneeInconclusive mammogramChronic pain syndromeOther specified disorder of bone density 2 Alexandre Taylor. [address], [place], [place], [address] , [place]. tel: [phone] OFFICE/OUTPA TIENT VISIT, [facility], [address], [place], [place], [address], [place] [phone] [facility] pain (chief complaint) Chronic pain syndromeInconclusiv e mammogram 1 Alexandre Mary [address], [address], [place], [place], [address] , [place]. tel:[phone] OFFICE/OUTPA TIENT VISIT, [facility], [address], [place], [place], [address], [place] tel:[phone] [facility] pain (chief complaint) Chronic pain syndromePain in left knee 1 Alexandre Mary [address], [place], [place], [address] , [place]. tel:[phone] OFFICE/OUTPA TIENT VISIT, [facility], [address] [place], [address], [place] tel:[phone] [facility] pain (chief complaint) mammo (chief complaint) HTN (chief complaint) nevus1 (chief complaint) Chronic pain syndromeNevus, non-neoplasticPain in left kneeInconclusive mammogramEssential (primary) hypertension 1 Alexandre Mary [address], [place], [place], [address] , [place]. tel:[phone] OFFICE/OUTPA TIENT VISIT, [facility], [address] [place], [address], [place] tel:[phone] [facility] pain1 (chief complaint) knee pain1 (chief complaint) mole (chief complaint) Chronic pain syndromeNevus, non-neoplasticPain in left knee May- 1 Alexandre Mary [address], [place], [place], [address] , [place]. tel:[phone] OFFICE/OUTPA TIENT VISIT, [facility], [address] [place], [address], [place] tel:[phone] [facility] pain (chief complaint) leg pain1 (chief complaint) nevus1 (chief complaint) weight loss1 (chief complaint) Chronic pain syndromeAbnormal weight lossNevus, non-neoplasticPain in left kneeNeuropathy 1 Alexandre Mary [address], [place], [address] , [place]. tel:[phone] OFFICE/OUTPA TIENT VISIT, [facility], [address] [place], [address], [place] tel:[phone] [facility] pain (chief complaint) HLP (chief complaint) mammo (chief complaint) Inconclusive mammogramHyperlipid emiaChronic pain syndrome 1 Alexandre Mary [address], [place], [place], [address] , [place]. tel:[phone] OFFICE/OUTPA TIENT VISIT, [facility], [address], [place], [place], [address], [place] tel:[phone] [facility] back pain1 (chief complaint) Chronic pain syndrome 1 Alexandre Mary [address], [place], [place], [address] , [place]. tel:[phone] PREV VISIT, EST, AGE [age] [facility], [address], [place], [place], [address], [place] tel:[phone] [facility] physical (chief complaint) Encounter for general adult medical examination without abnormal findings 1 Alexandre Mary [address], [place], [place], [address] , [place]. tel:[phone] OFFICE/OUTPA TIENT VISIT, [facility], [address], [place], [place], [address], [place] tel:[phone] [facility] back pain1 (chief complaint) breast1 (chief complaint) barrett1 (chief complaint) HLP (chief complaint) Chronic pain syndromeBarrett's esophagus without dysplasiaSolitary lung noduleInconclusive mammogramHyperlipid emia 1 Alexandre Mary [address], [address], [place], [place], [address] , [place]. tel:[phone] OFFICE/OUTPA TIENT VISIT, EST [facility], [address], [place], [place], [address], [place] tel:[phone] [facility] pain (chief complaint) Chronic pain syndromeOther spondylosis, lumbar region 1 Alexandre Mary [address], [place], [place], [address] , [place]. tel: [phone] OFFICE/OUTPA TIENT VISIT, [facility], [address], [place], [place], [address], [place] tel:[phone] [facility] pain (chief complaint) Other spondylosis, lumbar regionChronic pain syndrome 1 Alexandre Mary [address], [place], [place], [address] , [place]. tel: [phone] OFFICE/OUTPA TIENT VISIT, [facility] [facility], [address], [place], [place], [address], [place] tel:[phone] [facility] pain (chief complaint) osteoporos is1 (chief complaint) DM (chief complaint) french (chief complaint) Chronic pain syndromeBarrett's esophagus without dysplasiaOther specified disorder of bone densityType 2 diabetes mellitus with diabetic mononeuropathy 1 Alexandre Mary [address], [address], [place], [place], [address] , [place]. tel: [phone] OFFICE/OUTPA TIENT VISIT, [facility], [address], [place], [place], [address], [place] tel:[phone] [facility] pain (chief complaint) Chronic pain syndrome 0 Alexandre Mary [address], [address], [place], [place], [address] , [place]. tel: [phone] OFFICE/OUTPA TIENT VISIT, [facility], [address], [place], [place], [address], [place] tel:[phone] [facility] pain (chief complaint) mammogram1 (chief complaint) Inconclusive mammogramChronic pain syndrome 0 Alexandre Mary [address], [address], [place], [place], [address] , [place]. tel: [phone] OFFICE/OUTPA TIENT VISIT, [facility], [address], [place], [place], [address], [place] tel:[phone] [facility] pain (chief complaint) mammo (chief complaint) HLP (chief complaint) HTN (chief complaint) Inconclusive mammogramHyperlipid emiaEssential (primary) hypertensionType 2 diabetes mellitus with diabetic mononeuropathyChron ic pain syndrome 0 Alexandre Mary [address], [address], [place], [place], [address] , [place]. [phone] OFFICE/OUTPA TIENT VISIT, [facility], [address], [place], [place], [address], [place] tel:[phone] [facility] back pain1 (chief complaint) mammo (chief complaint) sleep apnea1 (chief complaint) lung nodule1 (chief complaint) Chronic pain syndromeSleep apneaSolitary lung noduleInconclusive mammogram 0 Alexandre Mary [address], [address], [place], [place], [address] , [place]. tel:[phone] OFFICE/OUTPA TIENT VISIT, [facility], [address], [place], [place], [address], [place] tel:[phone] [facility] back pain1 (chief complaint) tobacco1 (chief complaint) HLP (chief complaint) DM (chief complaint) HyperlipidemiaChron ic pain syndromeType 2 diabetes mellitus with diabetic mononeuropathyOsteo porosisTobacco useEncounter for oth screening for malignant neoplasm of breast 0 Alexandre Mary [address], [address], [place], [place], [address] , [place]. tel:[phone] OFFICE/OUTPA TIENT VISIT, [facility], [address] [place], [address], [place] tel:[phone] [facility] French (chief complaint) back pain1 (chief complaint) Chronic pain syndromeBarrett's esophagus without dysplasiaHyperlipid emia 0 Alexandre Mary [address], [place], [place], [address] , [place]. tel:[phone] OFFICE/OUTPA TIENT VISIT, [facility], [address], [place], [place], [address], [place] tel:[phone] [facility] back pain1 (chief complaint) HTN (chief complaint) HLP (chief complaint) sleep apnea1 (chief complaint) Chronic pain syndromeHyperlipide miaEssential (primary) hypertensionSleep apnea 0 Alexandre Mary [address], [address], [place], [place], [address] , [place]. [phone] OFFICE/OUTPA TIENT VISIT, [facility], [address] [place], [address], [place] tel:[phone] [facility] back pain1 (chief complaint) Barrett1 (chief complaint) French's esophagus without dysplasiaChronic pain syndrome 0 Alexandre Mary [address], [address], [place], [place], [address] , [place]. tel:[phone] OFFICE/OUTPA TIENT VISIT, [facility], [address] [employer] [place], [address], [place] tel:[phone] [facility] back pain1 (chief complaint) DM (chief complaint) osteoporos is1 (chief complaint) COPD1 (chief complaint) CAD (chief complaint) OsteoporosisEmphyse maChronic pain syndromeType 2 diabetes mellitus with diabetic mononeuropathyCoron angelo artery disease of mcgrath coronary artery without angina pectoris 0 Alexandre Mary [address], [place], [place], [address] , [place]. [phone] OFFICE/OUTPA TIENT VISIT, [facility], [address] [employer] [place], [address], [place] tel:[phone] [facility] back pain1 (chief complaint) sleep apnea1 (chief complaint) DM (chief complaint) osteopenia 1 (chief complaint) HLP (chief complaint) Chronic pain syndromeHyperlipide miaType 2 diabetes mellitus with diabetic mononeuropathyOther specified disorder of bone densitySleep apneaIron deficiency 0 Alexandre Taylor. [address], [place], [place], [address] , [place]. [phone] Referring Provider: Brandon Schroeder [address], [place], [place], [address]. tel:[phone] PREV VISIT, EST, AGE 40-66 [facility], [address], [place], [place], [address], [place] [phone] [facility] physical (chief complaint) Encntr for general adult medical exam w/o abnormal findings 0 Alexandre Taylor. [address], [place], [place], [address] , [place]. [phone] Referring Provider: Garima Camacho [address], [place], [place], [address]. tel:[phone] OFFICE/OUTPA TIENT VISIT, EST [facility], [address], [place], [place], [address], [place] [phone] [facility] sleep apnea1 (chief complaint) back pain1 (chief complaint) osteoporos is1 (chief complaint) barrett1 (chief complaint) CAD (chief complaint) Coronary artery disease of mcgrath coronary artery without angina pectorisSleep apneaOsteoporosisBa rrett's esophagus without dysplasiaLumbago with sciatica, left side 0 Alexandre Taylor. [address], [place], [place], [address] , [place]. tel:[phone] Referring Provider: Garima Camacho [address], [place], [place], [address]. tel:[phone] OFFICE/OUTPA TIENT VISIT, EST [facility], [address], [place], [place], [address], [place] tel:[phone] [facility] back pain1 (chief complaint) sleep apnea1 (chief complaint) Sleep apneaLumbago with sciatica, left sideNeuropathyNevus , non-neoplastic 9 Schroeder Brandon. [address], [place], [place], [address] , [place]. tel:[phone] Referring Provider: Garima Camacho [address], [place], [place], [address]. tel:[phone] OFFICE/OUTPA TIENT VISIT, [facility], [address], [place], [place], [address], [place] tel:[phone] [facility] chronic pain1 (chief complaint) sleep apnea1 (chief complaint) osteoporos is1 (chief complaint) Sleep apneaOsteoporosisCh ronic pain syndromeTobacco use 9 Alexandre Mary [address], [place], [place], [address] , [place]. tel:[phone] Referring Provider: Garima Camacho [address], [place], [place], [address]. tel:[phone] OFFICE/OUTPA TIENT VISIT, [facility], [address], [place], [place], [address], [place] tel:[phone] [facility] chronic pain (chief complaint) sleep apnea1 (chief complaint) CAD (chief complaint) Chronic pain syndromeSleep apneaCoronary artery disease of mcgrath coronary artery without angina pectoris 9 Alexandre Pain[address], [place], [place], [address] , [place]. tel:[phone] Referring Provider: Garima Camacho [address], [place], [place], [address]. tel:[phone] OFFICE/OUTPA TIENT VISIT, [facility], [address], [place], [place], [address], [place] tel:[phone] [facility] sleep apnea1 (chief complaint) chronic pain1 (chief complaint) DM (chief complaint) COPD1 (chief complaint) Type 2 diabetes mellitus with diabetic mononeuropathyEmphy semaSleep apneaChronic pain syndrome 9 Alexandre Taylor. [address], [place], [place], [address] , [place]. tel:[phone] Referring Provider: Brandon Schroeder [address], [place], [place], [address]. tel:[phone] OFFICE/OUTPA TIENT VISIT, [facility], [address], [place], [place], [address], [place] tel:[phone] [facility] chronic pain1 (chief complaint) sleep apena1 (chief complaint) Chronic pain syndromeSleep apnea 9 Alexandre Taylor. [address], [place], [place], [address] , [place]. tel:[phone] Referring Provider: Garima Camacho [address], [place], [place], [address]. tel:[phone] OFFICE/OUTPA TIENT VISIT, [facility], [address], [place], [place], [address], [place] tel:[phone] [facility] chronic pain (chief complaint) French (chief complaint) sleep apnea1 (chief complaint) COPD1 (chief complaint) DM (chief complaint) HTN (chief complaint) EmphysemaBarrett's esophagus without dysplasiaSleep apneaChronic pain syndromeType 2 diabetes mellitus with diabetic mononeuropathyEssen tial (primary) hypertension 9 Alexandre Taylor. [address], [place], [place], [address] , [place]. tel:[phone] Referring Provider: Garima Camacho [address], [place], [place], [address]. tel:[phone] OFFICE/OUTPA TIENT VISIT, [facility], [address], [place], [place], [address], [place] tel:[phone] [facility] GERD1 (chief complaint) back pain1 (chief complaint) CAD1 (chief complaint) sleep apnea1 (chief complaint) COPD1 (chief complaint) EmphysemaCoronary artery disease of mcgrath coronary artery without angina pectorisGERD with esophagitisSleep apneaOsteoporosisCh ronic pain syndrome 9 Alexandre Taylor. [address], [place], [place], [address] , [place]. tel:[phone] Referring Provider: Garima Camacho [address], [place], [place], [address]. tel:[phone] OFFICE/OUTPA TIENT VISIT, [facility], [address], [place], [place], [address], [place] tel:[phone] [facility] back pain1 (chief complaint) CAD1 (chief complaint) sleep apnea1 (chief complaint) GERD1 (chief complaint) Coronary artery disease of mcgrath coronary artery without angina pectorisGERD with esophagitisSleep apneaChronic pain syndrome 9 Alexandre Taylor. [address], [place], [place], [address] , [place]. tel:[phone] Referring Provider: Garima Camacho [address], [place], [place], [address]. tel:[phone] OFFICE/OUTPA TIENT VISIT, [facility], [address], [place], [place], [address], [place] tel:[phone] [facility] gerd1 (chief complaint) CAD (chief complaint) back pain1 (chief complaint) Inconclusive mammogramSleep apneaCoronary artery disease of mcgrath coronary artery without angina pectorisGERD with esophagitisChronic pain syndrome 9 Alexandre Mary [address], [place], [place], [address] , [place]. tel:[phone] Referring Provider: Garima Camacho [address], [place], [place], [address]. tel:[phone] OFFICE/OUTPA TIENT VISIT, [facility], [address], [place], [place], [address], [place] tel:[phone] [facility] osteoporos is1 (chief complaint) chronic pain (chief complaint) breast1 (chief complaint) sleep apnea1 (chief complaint) HLP (chief complaint) HyperlipidemiaChron ic pain syndromeOsteoporosi sInconclusive mammogramSleep apneaTobacco useType 2 diabetes mellitus with diabetic mononeuropathy 9 Alexandre Taylor. [address], [place], [place], [address] , . tel:[phone] Referring Provider: Garima Camacho [facility] [address], [place], [place], [address]. tel:[phone] OFFICE/OUTPA TIENT VISIT, [facility], [address] [place], [address], [place] tel:[phone] [facility] DM (chief complaint) polycythem ia1 (chief complaint) HLP (chief complaint) chronic pain1 (chief complaint) HyperlipidemiaSecon victor manuel polycythemiaType 2 diabetes mellitus with diabetic mononeuropathyOther specified abnormal findings of blood chemistryChronic pain syndrome 9 Alexandre Taylor. [address] [facility] [place], [address] , [place]. tel:[phone] Referring Provider: Garima Camacho [facility] [address], [place], [place], [address]. tel:[phone] PREV VISIT, NEW, AGE [age] [facility], [facility] [address] [place], [address], [place] tel:[phone] [facility] Physical (chief complaint) Encounter for general adult medical exam w abnormal findingsEssential (primary) hypertensionType 2 diabetes mellitus with diabetic mononeuropathyHyper lipidemiaChronic pain syndrome 9 Alexandre Taylor. [address], [place], [place], [address] , [place]. tel:[phone] Referring Provider: Garima Camacho [facility] [place], [address]. tel:[phone] Family History Family Member Type Diagnosis Age [...] Circumference BMI percentile Pulse Ox Inhaled Ox 9:23 AM 68.00 in 191.80 lbs 29.1 6 kg/m eter (2) 71 /min 170/86 mm[Hg] 98.2 F 16 /min Chief Complaint And Reason For Visit From encounter dated '10/09/2024 09:18'. DM (chief complaint). Description: Pt has DM Pt saw endo and she is on metformin and amaryl now. Pthas chronic suppressed TSH and she is harish worked up by endo as well. Pt denies any dysphagia or neck pain nipple (chief complaint). Description: Pt has chronic left nipple discharge and she had procedure done to remove duct by breast specialist recently and she has breast polyp left nipple and pathology is still pending pain (chief complaint). Description: Pt has low [...] has low mag. Pt is on mag. Plan Of Treatment Date Type Action Status [...] Referral Referred To: Janel REESE, Olinda Ramos [address] [facility]
[address], [place], [address] Ordered: Referrals: Olinda Islas MD. Evaluate and treat ordered Referral Ordered: [place] GUIDANCE ordered Referral Ordered: Plastic Surgery (related to Nevus, non-neoplastic) ordered Referral Ordered: Referrals: Plastic Surgery. Evaluate and treat ordered Referral Ordered: US THYROID ordered Referral Ordered: CT PULMONARY ordered Referral Ordered: MRI LUMBAR SPINE W/O DYE ordered Referral Ordered: Pulmonology (related to Centrilobular emphysema) ordered Referral Ordered: Vivina Harper -[facility] : Surgery (related to Other signs and symptoms in breast) ordered Referral Referred To: Vivian Harper [address] [place] [address], [phone] Ordered: Referrals: [facility] : Surgery. Vivian Harper. Evaluate and treat ordered Referral Ordered: Endocrinology, Diabetes and Metabolism (related to Type 2 diabetes mellitus with diabetic mononeuropathy) ordered Referral Ordered: Dwayne Hennessy MD -[facility] : Obstetrics & Gynecology (related to Other signs and symptoms in breast) ordered Referral Referred To: Dwayne Hennessy MD [address] [place], [place], [phone] Ordered: Referrals: [facility] : Obstetrics & Gynecology. Dwayne Hennessy MD. Evaluate and treat ordered Referral Ordered: Referrals: Endocrinology, Diabetes and Metabolism. Evaluate and treat ordered Referral Ordered: MAMMOGRAM, BOTH BREASTS ordered Referral Ordered: KNEE XRAY, 3 VIEW Left ordered Referral Referred To: Estela REESE, [facility]
[address] [place], [place], [id number] Ordered: Referrals: Rosales Palmer MD. Evaluate and treat ordered Referral Ordered: Physical Therapy (related to Pain in left knee) ordered Referral Ordered: Dermatology (related to Nevus, non-neoplastic) ordered Referral Referred To: Physical Therapy Ordered: Referrals: Physical Therapy. Evaluate and treat ordered Referral Ordered: Dermatology (related to Nevus, non-neoplastic) ordered Referral Ordered: Referrals: Dermatology. Evaluate and treat ordered Referral Referred To: Vineet Willis MD [address]
[place], [address] Ordered: Referrals: Vineet Willis MD. Evaluate and treat ordered Referral Ordered: Pulmonology (related to Sleep apnea) ordered Referral Ordered: Referrals: Pulmonology. Evaluate and treat ordered Referral Ordered: Baldemar Fowler -[facility] : Internal Medicine : Cardiovascular Disease (related to Coronary artery disease of mcgrath coronary artery without angina pectoris) ordered Referral Referred To: Baldemar Fowler [address] [place], [place] [address] Ordered: Referrals: [facility] : Internal Medicine : Cardiovascular Disease. Baldemar Fowler. Evaluate and treat ordered Referral Ordered: MAMMOGRAM, ONE BREAST ordered Referral Ordered: Grant Mendez -[facility] : Internal Medicine : Endocrinology, Diabetes & Metabolism (related to Type 2 diabetes mellitus with diabetic mononeuropathy) ordered Referral Ordered: SLEEP STUDY, ATTENDED ordered Referral Referred To: Grant Mendez [address]
[facility] [address] [place], [place] [id number] Ordered: Referrals: Allopathic & Osteopathic Physicians : [...] nt Illness DM Pt has DM Pt saw jasmina and she is on metformin and amaryl now. Pt has chronic suppressed TSH and she is harish worked up by jasmina as well. Pt denies any dysphagia or neck pain nipple Pt has chronic l eft nipple discharge and she had procedure done to remove duct by breast specialist recently and she has breast polyp left nipple and pathology is still pending pain Pt has low back pain with neuropathy. Pt failed neurontin. Pt takes norco PRn for pain. . Pt denies any loss of bladder control. Pt has chronic sciatica and leg numbness. Pt denies any worsening pain. Pt denies any saddle area paresthesia. Pt had MRI done which showed severe spondylosis. mag Pt has low mag. Pt is on mag. pain Pt has low back pain with [...] and doing ok pt denies any GERD skin Pt c/o left fore arm skin [...] see pulmonary closer to her home in [place] thyroid nodule1 Pt has thyroid n odule [...] pain. Pt denies any saddle area paresthesia. thyroid1 Pt has enlarged thyroid Pt denies any dysphagia or neck pain skin Pt c/o chronic s pot on [...] not done MRI of L spine yet elbow cyst1 Pt notices acute onset of [...] D and she needs vitamin d refilled. CAD Pt has history o f CAD Pt denies any chest pain Pt had negative cardiac cath several years ago Pt has alysa with cardiology next week COPD1 Pt has emphysema on PFT Pt [...] any saddle area paresthesia. pain Pt has low back pain with [...] is on mag. Pt needs it refilled thyroid1 Pt has slightly suppressed tsh with [...] benign diagnostic mammo and ultrasound recently by DEVELOPMENT EDUCATOR. Pt was referred to breast specialist in [facility] but she could not make to [facility] polycythemia1 Pt has chronic p olycythemia. Pt has normal iron and ferritin and JAK2. pt does smoke and she has sleep apnea. Pt does not want to use cpap. mag Pt has been taki ng mag [...] prolactin done which is normal Pt saw cable supervisor and she was told to do mammogram [...] per day now. Pt is still trulicity. mag Pt has low mag. Pt started magnesium last month Pt denies any cramp pain Pt has back pain with neuropathy. Pt failed neurontin. Pt takes norco PRn for pain. . Pt denies any loss of bladder control. Pt has chronic sciatica and leg numbness. Pt denies any worsening pain. Pt denies any saddle area paresthesia. breast1 Pt notices bilat eral clear nipple discharge for several weeks with mild left breast discomfort for several weeks. Pt denies any redness or warmth or retraction Pt denies any axillary lymph. Pt denies any purulent drainage. Pt denies any fever polycytehemia1 Pt has polycythe delisa. Pt does [...] neck pain pt sees endo for above. HLP Pt has HLP Pt ta ester [...] exercise Thyroid1 Pt had lab done by jasmina last May which showed suppressed TSH. Pt denies any chest pain, palpitation, headache. Pt denies any dysphagia or neck pain pain Pt has back pain with neuropathy. Pt failed neurontin. Pt takes norco PRn for pain. . Pt denies any loss of bladder control. Pt has chronic sciatica and leg numbness. Pt denies any worsening pain. Pt denies any saddle area paresthesia. HTN Pt has HTN pt ta kes [...] any saddle area paresthesia. mammo Pt has history o f left breast benign nodule Pt denies any breast pain, distortion, discoloration, retraction, nipple discharge, pain, etc. HTN Pt has HTN Pt ta kes metoprolol and losartan and her bp is around 130/80 Pt needs metoprolol refilled . pain Pt has back pain with neuropathy. [...] or swelling sleep apnea1 Pt has sleep plant anatomist ea but she is noncompliant with cpap. [...] any worsening pain. Pt saw neurosurgery at [facility] and was told that she is not [...] any worsening pain. Pt saw neurosurgery at [facility] and was told that she is not [...] typical sciatica HLP Pt has HLP Pt machelle stephenson and her lipid profile is ok. [...] any worsening pain. Pt saw neurosurgery at [facility] and was told that she is not [...] any worsening pain. Pt saw neurosurgery at [facility] last month and was told that she [...] feels well. Pt denies any new complaints breast Pt denies any br eat issue or palpable nodule or pain Pt needs diagnostic left mammo with ultrasound now. back pain1 Pt has back pain with neuropathy. Pt failed neurontin. Pt takes norco PRn for pain. . Pt denies any loss of bladder control. Pt has chronic sciatica and leg numbness. Pt denies any worsening pain. Pt saw neurosurgery at [facility] last month and was told that she is not surgical candidate Pt was told to do injections but she failed injection and she is not interested in it. HLP Pt takes crestor Pt denies any myalgia Pt just had lab done by endo and was A1c down to 6 and lipid ok barrett1 Pt has french P t underwent ablation last June and she is doing ok with omeprazole. Pt denies any abd pain pain Pt has back pain with neuropathy. Pt failed neurontin. Pt takes norco PRn for pain. . Pt denies any loss of bladder control. Pt has chronic sciatica and leg numbness. Pt denies any worsening pain. Pt saw neurosurgery at [facility] last month and was told that she [...] was canceled again and she told me [facility] told her they no longer takes her [...] pain. Pt has alysa with neurosurgery at [facility] next month HTN Pt has HTn. Pt [...] yet . sleep apnea1 Pt has sleep plant anatomist ea Pt failed cpap. pt told me [...] HLP Pt has HLP. Pt t salvador crestor pt denies any myalgia. Pt just had [...] pain. Pt needs to see neurosurgery at [facility] and she still has not made appointment [...] is waiting for alysa with neurosurgery at [facility]. Pt denies any loss of bladder control. Pt has chronic sciatica and leg numbness. Pt states that neurosurgery at [facility] told her that they are not scheduling new patient due to COVID-19. HTN Pt has HTn. Pt t akes losartan and metoprolol. Pt has not been checking her BP at home Pt denies any chest pain or headache HLP Pt has HLP. Pt t akes lovastatin Pt denies any myalgia. her LDL is not at goal sleep apnea1 Pt has sleep plant anatomist ea .Pt states that she is still not using cpap Pt states that the machine is not working right and she wants to discuss with her pulmonary back pain1 Pt has back pain with neuropathy. Pt failed neurontin. Pt takes norco PRn for pain. Pt is waiting [facility] [facility]. Pt denies any loss of bladder control. Pt has chronic sciatica and leg numbness. 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 Pt takes omeprazole and doing ok .Pt denies any GERD or abd pain COPD1 Pt has COPD pt i s on bevespi now and she is off incruse from pulmonary. Pt uses albuterol twice per day .Pt denies any hemoptysis osteoporosis1 Pt just saw Dr. Barrios and she was told to continue calcium and D for now. Pt denies any fx DM Pt saw Dr Todd vergara nd she is still metformin and amaryl and alogliptin she is taking same medication and she supposes to do lab in 6 months. Pt states that her glucose is 160 at home. back pain1 Pt has back pain with neuropathy. Pt failed neurontin. Pt takes norco PRn for pain Pt saw Dr. soto and she was referred to neurosurgery at [facility] for neck issue .However, [facility] is not taking new pt now due [...] her she needs to see neurosurgery at [facility]. Pt is waiting for referral. Pt needs norco refilled .Pt failed neurontin sleep apnea1 Pt has sleep plant anatomist ea Pt is seeing pulmonary and she [...] has CAD. Pt just saw a new gettering filament machine operator and will do cardiac cath pt denies [...] pain CAD Pt has alysa with another gettering filament machine operator for 2nd opinion Pt denies any chest [...] any claudication sleep apnea1 Pt has sleep plant anatomist ea pt is noncompliant with cpap Pt [...] back surgery. sleep apnea1 Pt has sleep plant anatomist ea. Pt is working with [employer] to try to fix the mask issue Pt states that they did some setting change and she is doing better. pt has alysa with cardiology in 6 days. Pt did not call cardiology regarding the abnormal stress test Pt also did not call cardiology regarding pulmonary sleep apnea1 Pt has sleep plant anatomist ea Pt states that she has trouble [...] chest pain sleep apnea1 Pt has sleep plant anatomist ea Pt is not using cpap due [...] neurontin COPD1 Pt has COPD Pt t [place]. Pt uses ventolin about 1-2 per week Pt denies any worsening sob, cough. or ay hemoptysis. chronic pain1 Pt has chronic l ow back pain. Pt has history of back surgery. Pt denies any loss of bladder control Pt denies any worsening pain Pt has 6/10 pain Pt failed NSAID and ultram sleep apena1 Pt has sleep plant anatomist ea Pt started CPAP but she is having a hard time tolerating the masks. Pt states that she is up all night with the mask not fitting well Pt feels uncomfortable. Pt feels dry mouth as well. chronic pain Pt has chronic l ow [...] BP stable sleep apnea1 Pt has sleep plant anatomist ea. Pt just had cpAP done and [...] ad pain sleep apnea1 Pt has sleep plant anatomist ea. Pt supposes to do cpAP study [...] has intermittent nonexertional chest pain Pt seen gettering filament machine operator already. Pt will do stress test and echo later this week. Pt denies any acute chest pain sleep apnea1 Pt has sleep plant anatomist ea symptoms Pt does snore and feels [...] o Body mass index (BMI) 30.0-30.9, adult Increase physical activity Relat ed to Chronic pain syndrome Quit smoking Related to Chron ic pain syndrome Weight management Related to Chr onic pain syndrome Special diet education Related t o Body mass index (BMI) 30.0-30.9, adult Quit smoking Related to Emphy sema Special diet education Related t o Body mass index (BMI) 31.0-31.9, adult Quit smoking Related to Emphy sema Special diet education Related t o Body mass index (BMI) 30.0-30.9, adult Quit smoking Related to Coron angelo artery disease of mcgrath coronary artery without angina pectoris Special diet education Related t o Body mass index (BMI) 32.0-32.9, adult Quit smoking Related to Incon clusive mammogram [...] assessment Chronic pain syndrome assessment Hypomagnesemia assessment Mixed hyperlipidemia assessment Type 2 diabetes mellitus with di abetic mononeuropathy assessment Mass in the left breast
--- OUTSIDE RECORDS SUMMARY | 2024-10-09 11:03 | XMS_ITS | Encounter Summary ---
Author Organization [facility] Address [address] [place] [id number] Care Team Providers Care Capsule Machine Operator Name Role Phone Michael Tapia MD Primary Care Provider [phone] Alfred Benton MD Primary Care Provider [phone] Alfred Benton MD Primary Care Provider [phone] Alfred Benton MD Primary Care Provider [phone] Alfred Benton MD Primary Care Provider [phone] Alfred Benton MD Primary Care Provider Brandon Schroeder MD Primary Care Provider [phone] Jose Childers MD Unavailable Leonid Mari MD Unavailable [phone] Encounter Details Date Type Department Care Team (Late st Contact Info) Description 08/17/2013 Abstract [facility] CONVERSION [address] [place] [address] , Generic Conversion, Social History Tobacco Use [...] st Contact Info) Description 10/14/2024 2:00 PM SECONDS INSPECTOR Office Visit [facility] [place] [id number] Leonid Cameron MD [address] [place] [address] documented as of this encounter Visit Diagnoses Not on filedocumented in this encounter Care Teams Capsule Machine Operator Relationship Specialty Start Date End Date Michael Tapia MD PCP - General INTERNAL MEDICINE 10/31/16 09/02/19 [place] [address] [place] [address] PCP - General 05/10/14 10/30/16 [place] [address] [place] [address] PCP - General 12/28/13 05/09/14 [place] [address] [place] [address] PCP - General 11/23/13 12/27/13 [place] [address] [place] [address] PCP - General 11/18/13 11/22/13 [place] [address] [place] [address] PCP - General 11/09/13 11/17/13 [place] [address] [place] [address] PCP - General FAMILY PRACTICE 09/03/19 [place] [address] [address] Director Of Sales CARDIOVASCULAR DISEASE 09/03/19 04/13/24 Leonid Cameron MD [address] [place] [address] INTERVENTIONAL CARDIOLOGY 04/14/24 documented as of this encounter
--- OUTSIDE RECORDS SUMMARY | 2024-10-09 11:03 | XMS_ITS | Clinical Summary ---
Author Organization [facility] Address [facility] [place] [address] Care Team Providers Care Client Success Manager Name Role Phone Brandon Schroeder MD Primary Care Provider [phone] Dasha Collazo COLLECTION SYSTEMS FOREMAN Unavailable [phone] Allergies Active Allergy Reactions Criticality Noted Date [...] Department Care Team Description 10/05/2024 9:30 AM ENTERPRISE ENGINEER Office Visit [facility] Diabetes and Endocrinology [address] [place] [phone] Tisha Nash MD Type 2 diabetes [...] Cause of : Cardiovascular disease Other Father [place] when young CABG; Cause of : [place] when young CABG Hyperlipidemia Mother Hyperlipidemi a; [...] on file Legal Sex Female 11:41 AM ENTERPRISE ENGINEER Gender Identity Not on file Sexual Orientation Not on file Obstetrics History Last Filed Vital Signs Vital Sign Reading Time Taken Comments Blood Pressure 130/80 10/05/2024 9:34 AM ENTERPRISE ENGINEER Pulse 77 10/05/2024 9:34 AM ENTERPRISE ENGINEER Temperature 36.1 C (97 F) 11/04/2020 9:23 AM ENTERPRISE ENGINEER Respiratory Rate 17 10/05/2024 9:34 AM ENTERPRISE ENGINEER Oxygen Saturation 90% 11/30/2016 3:58 PM CDT Inhaled Oxygen Concentration - - Weight 86.6 kg (191 lb) 10/05/2024 9:34 AM ENTERPRISE ENGINEER Height 172.7 cm (5' 8 ) 10/05/2024 9:34 AM ENTERPRISE ENGINEER Body Mass Index 29.04 10/05/2024 9:34 AM ENTERPRISE ENGINEER Plan of Treatment Health Maintenance Due Date [...] HEMOGLOBIN A1C Routine 10/05/2024 9 :36 AM ENTERPRISE ENGINEER Type 2 diabetes mellitus with diabetic polyneuropathy, without long-term current use of insulin (HCC) POCT GLUCOSE Routine 10/05/2024 9:36 AM ENTERPRISE ENGINEER Type 2 diabetes mellitus with diabetic polyneuropathy, without long-term current use of insulin (HCC) SERUM LIPID PANEL Routine 09/02/2015 1:5 5 AM ENTERPRISE ENGINEER from Last 3 Months or Most Recently Relevant to Health Maintenance Results * POCT hemoglobin A1c (10/05/2024 9:36 AM ENTERPRISE ENGINEER) Hemoglobin A1C, POC 8.1 4.0 - 5.6 % Blood 10/05/2024 9:36 AM ENTERPRISE ENGINEER Tisha Celeste MD POINT OF CARE TEST ORDERABLES Final Result * POCT glucose (10/05/2024 9:36 AM ENTERPRISE ENGINEER) Glucose Blood, POC 156 mg/dL Blood 10/05/2024 9:36 AM ENTERPRISE ENGINEER Tisha Celeste MD POINT OF CARE TEST ORDERABLES Final Result * (ABNORMAL) Serum lipid panel (09/02/2015 1:55 AM ENTERPRISE ENGINEER) Cholesterol 135 0 - 200 mg/dl HISTORICAL [...] last revised 2012. Serum 09/02/2015 1:55 AM ENTERPRISE ENGINEER us Historical Provider LAB BLOOD ORDERABLES Sara morales Result HISTORICAL RESULTS from Last 3 Months or Most Recently Relevant to Health Maintenance Insurance [facility] MEDICARE SOLUTIONS Care Teams Client Success Manager Relationship Specialty Start Date End Date Brandon Schroeder MD [address] [place] [address] [place] [address] PCP - General Family Medicine 10/12/21 Dasha Collazo, ZARI [address] [place] [address] Nurse Practitioner Obstetrics and Gynecology 07/23/23
--- OUTSIDE RECORDS SUMMARY | 2024-10-09 11:03 | XMS_ITS | Clinical Summary ---
Author Organization [facility] Address [place] [address] Care Team Providers Care Php Software Engineer Name Role Phone Brandon Schroeder MD Primary Care Provider [phone] Leonid Cameron MD Unavailable Allergies Active Allergy Reactions Criticality Noted Date [...] as needed. 9 Active vitamin D2, ergocalciferol, [address] UNITS capsule Take 1 capsule (50,000 Units [...] Comments Blood Pressure 124/58 10/10/2023 8:00 AM SAMPLE CUTTER Pulse 69 10/10/2023 8:00 AM SAMPLE CUTTER Temperature 36.2 C (97.2 F) 10/29/2019 9:05 AM SAMPLE CUTTER Respiratory Rate 14 10/10/2023 8:00 AM SAMPLE CUTTER Oxygen Saturation 94% 05/10/2022 2:55 PM CDT Inhaled Oxygen Concentration - - Weight 80.5 kg (177 lb 6.4 oz) 10/10/2023 8:00 A M SAMPLE CUTTER Height 172.7 cm (5' 8 ) 10/10/2023 8:00 AM SAMPLE CUTTER Body Mass Index 26.97 10/10/2023 8:00 AM SAMPLE CUTTER Plan of Treatment Upcoming Encounters Date Type Department Care Team (Late st Contact Info) Description 10/14/2024 2:00 PM SAMPLE CUTTER Office Visit [facility] [place] [address] Leonid Cameron MD [address] [place] [phone] Health Maintenance Due Date Last Done [...] Routine 12/13/2015 9:49 AM CDT COLONOSCOPY Routine SAMPLE CUTTER from Last 3 Months or Most Recently [...] OUP TO EPIC CONVERSION Comment: Result Comment: INTERPRETATION OF RESULTS NHLBI RECOMMENDED RANGES CHOLESTEROL MG/DL LDL MG/DL DESIRABLE <200 <130 BORDERLINE 200-239 130-159 HIGH RISK >240 >160 REFERENCE VALUE FOR HDL CHOLESTEROL RISK LEVEL MALE MG/DL FEMALE MG/DL DECREASED >45 >55 AVERAGE 45 55 INCREASED <45 <55 12/13/2015 9:49 AM CDT 12/13/2015 9:49 AM CDT Narrative [facility] TO EPIC CONVERSION - 12/13/2015 12:45 PM CDT Result Communication: Mail Results to Patient Michael Tapia MD LABORATORY Final Res ult Performing Organization Address City/State/[facility] Co de Phone Number [facility] TO EPIC CONVERSION * Colonoscopy ( SAMPLE CUTTER) Narrative [facility] TO EPIC CONVERSION - SAMPLE CUTTER Documented hx of procedure Procedure Note Rolando James MD - 07/06/2018 Documented hx of procedure Rolando Morton Md, MD GI PROCEDURE ORDERABLES Final Result [facility] TO EPIC CONVERSION from Last 3 Months or Most Recently Relevant to Health Maintenance Insurance [employer] Advance Directives * Full Code (Latest Code Status on File) Date Activated Date Inactivated Comments 10/29/2019 12:00 PM 10/29/2019 3:27 PM Care Teams Php Software Engineer Relationship Specialty Start Date End Date Brandon Schroeder MD PCP - General FAMILY PRACTICE 09/03/19 Leonid Cameron MD [address] [place] [address] INTERVENTIONAL CARDIOLOGY 04/14/24
--- OUTSIDE RECORDS SUMMARY | 2024-10-09 11:03 | XMS_ITS | Encounter Summary ---
Author Organization [facility] Address [address] [place] [address] Care Team Providers Care Costume Shop Coordinator Name Role Phone Michael Tapia MD Primary Care Provider [phone] Alfred Benton MD Primary Care Provider [phone] Brandon Schroeder MD Primary Care Provider [phone] Jose Childers MD Unavailable [facility] Leonid Ortiz MD Unavailable [phone] Encounter Details Date Type Department Care Team (Late st Contact Info) Description 04/17/2016 Abstract [facility] CONVERSION [address] [place] [address] , Generic ConversionMD Social History Tobacco Use [...] st Contact Info) Description 10/14/2024 2:00 PM FINANCIAL DEALERS Office Visit [facility] [place] [phone] Leonid Cameron MD [address] [place] [phone] documented as of this encounter Visit Diagnoses Not on filedocumented in this encounter Care Teams Costume Shop Coordinator Relationship Specialty Start Date End Date Michael Tapia MD PCP - General INTERNAL MEDICINE 10/31/16 09/02/19 [place] [address] [place], [place] [id number] PCP - General 05/10/14 10/30/16 [place] [address] [place] [address] PCP - General FAMILY PRACTICE 09/03/19 [place] [address] [facility] [address] [place] [address] Casing Man CARDIOVASCULAR DISEASE 09/03/19 04/13/24 Leonid Cameron MD [address] [place] [address] INTERVENTIONAL CARDIOLOGY 04/14/24 documented as of this encounter
[2024-10-09 11:04] LABS: Creatinine Urine 154.78 mg/dL (40-278); MALB Creatinine Ratio 8.3 mg/g (0-30); Microalbumin Urine Random < 13.0 mg/L
[2024-10-09 12:16] LABS: Alanine Aminotransferase 18 U/L (14-59); Albumin Level 3.7 g/dL (3.4-5.0); Alkaline Phosphatase 135 U/L (46-116); Anion Gap 10 mmol/L (4-12); Aspartate Amino Transferase 17 U/L (15-37); Bilirubin Direct 0.1 mg/dL (0-0.2); Bilirubin,Total 0.8 mg/dL (0.00-1.00); Blood Urea Nitrogen 8 mg/dL (7-18); Calcium 9.4 mg/dL (8.5-10.1); Carbon Dioxide 31 mmol/L (21-32); Chloride 99 mmol/L (98-108); Cholesterol 142 mg/dL (0-200); Estimated Glomerular Filt Rate > 60; Free T3 3.88 pg/mL (2.18-3.98); Glucose 106 mg/dL (70-99); HDL Direct 46 mg/dL (40-60); LDL Cholesterol Calculated 67 mg/dL (<130); Magnesium 1.9 mg/dL (1.8-2.4); Osmolality Calculated 288 mOsm/kg (285-295); Potassium 4.6 mmol/L (3.5-5.1); Sodium 140 mmol/L (136-145); Thyroid Stimulating Hormone 0.02 uIU/mL (0.36-3.74); Total Protein 6.5 g/dL (6.4-8.2); Triglycerides 145 mg/dL (0-150)
[2024-10-10 09:13] LABS: Phosphorus 3.8 mg/dL (2.6-4.7)
== END 2024-10-09 10:16 | disposition home or self-care (01) ==
LOC: CHSLAB 10:17
PROVIDERS: PCP Emergency Medicine; Visit Provider Internal Medicine Endocrinology, Diabetes & Metabolism
DX: E11.41 Type 2 diabetes mellitus with diabetic mononeuropathy (principal); E78.2 Mixed hyperlipidemia; E83.42 Hypomagnesemia; G89.4 Chronic pain syndrome; K22.70 Barrett's esophagus without dysplasia; N63.20 Unspecified lump in the left breast, unspecified quadrant
CPT/HCPCS: 36415; 80053; 80061; 82043; 82248; 83735; 84100; 84439; 84443; 84481; 85025

== ENCOUNTER 2024-10-30 12:56 | Outpatient (CLI) | payer MEDICARE, SELFPAY | END 2024-10-30 12:57 | disposition home or self-care (01) | LOC: CHSIMG 12:56 | PROVIDERS: PCP Emergency Medicine; Visit Provider Nurse Practitioner Family | DX: Z12.2 Encounter for screening for malignant neoplasm of respiratory organs (principal); Z87.891 Personal history of nicotine dependence; R05.9 Cough, unspecified | CPT/HCPCS: 71271 ==

== ENCOUNTER 2025-03-18 01:11 | Day surgery (SDC) | payer MEDICARE, SELFPAY ==
[2025-03-01 14:39] VITALS: BMI 28.5
--- OUTSIDE RECORDS SUMMARY | 2025-03-18 01:14 | XMS_ITS | Clinical Summary ---
Author Organization [facility] [place] Address [facility] [place] [address] Care Team Providers Care Potato Chip Frier Name Role Phone Brandon Schroeder MD Primary Care Provider [phone] Dasha Collazo FACULTY PHYSICIAN Unavailable [phone] Allergies Active Allergy Reactions Criticality Noted Date Comments Cyclobenzaprine Nausea only,Nausea A nd Vomiting Medium 10/20/2018 Reaction: Nausea, Cyclobenzaprine Hcl Nausea only Low 10/12/2021 Empagliflozin Unknown 10/20/2018 Lisinopril Other (See comments),Cough,Nausea only High Reaction: dry throat, choking, cough, Medications albuterol HFA (VENTOLIN HFA) 90 mcg/actuation inhaler inhale 2 puff by inhalation route every 4 - 6 hours as needed 0 Inhaler 0 7 Active OneTouch Verio test strips strip 1 Active ergocalciferol (VITAMIN D) 50,000 unit capsule 1 Active omeprazole (PriLOSEC) 20 mg capsule 0 Active rosuvastatin (CRESTOR) 10 mg tablet 1 Active HYDROcodone-melanie taminophen (NORCO) 10-325 mg per tablet 1 Active Bevespi Aerosphere 9-4.8 mcg inhaler 1 Active losartan (COZAAR) 100 mg tablet 2 Active TechLITE Pen Needle 31 gauge x 5/16 needle 2 Active blood glucose diagnostic (OneTouch Verio test strips) strip OneTouch Verio test strips USE TO TEST BLOOD SUGAR TWICE A DAY BEFORE MEALS Active metoprolol XL (TOPROL-XL) 200 mg extended release tabletIndicatio ns:Hypertension associated with diabetes (HCC) Take 1 tablet (200 mg total) by mouth daily 5 Active Anoro Ellipta 62.5-25 mcg/actuation blister with device 5 Active glimepiride (AMARYL) 1 mg tabletIndicatio ns:Type 2 diabetes mellitus with diabetic polyneuropathy, without long-term current use of insulin (HCC) Take 1 tablet (1 mg total) by mouth 2 (two) times a day with meals 180 tablet 3 5 01/27/20 26 Active metFORMIN (GLUCOPHAGE) 500 mg tabletIndicatio ns:Type 2 diabetes mellitus with diabetic polyneuropathy, without long-term current use of insulin (HCC) Take 2 tablets (1,000 mg total) by mouth 2 (two) times a day with meals 360 tablet 3 5 01/27/20 26 Active Active Problems Problem Noted Date Diagnosed Date Vitamin B12 deficiency 01/26/2025 Assessment & Plan (01/26/2025 9:38 AM CDT): Chronic problem. Currently taking B12 1000mcg 2 tabs daily. Vitamin D deficiency 01/26/2025 Assessment & Plan (01/26/2025 9:39 AM CDT): Chronic problem. Ergocalciferol 50,000IU decreased from weekly to monthly at 10/2024 appt. Hyperthyroidism 01/26/2025 Assessment & Plan (01/26/2025 10:10 AM CDT): Chronic problem. Reviewed labs from 2023 & again 10/2024 where TSH dropped from 0.09 to now 0.02. additional labs ordered. Will have drawn today. Will update labs. Does not mychart. Verified phone #/address to contact re: results. Type 2 diabetes mellitus wit h diabetic polyneuropathy, without long-term current use of insulin 01/26/2025 Assessment & Plan (01/26/2025 10:11 AM CDT): Chronic problem. A1c not at goal but improved from 8.1% 10/05/24 to now 7.6%. Current medications: Metformin 1000mg twice daily with meals Glimepiride 1mg twice daily with meals DM eye due. Aware to call to schedule. Will update MA/Cr. Verified that she uses [employer]. Aware to check results/results letter in [email or web address]. Will contact by phone if needed. Discussed with Drea Barker: Strive for regular exercise (30min most days) and diet (get at least 4-5 servings of fruit and veggies daily, avoid processed foods, increase lean protein intake and decrease carb portions as well as fruit juices, regular soda & desserts). Watch carbs and simple sugars. Check the feet daily for skin breakdown and infection. Abnormal thyroid function test 10/05/2024 Overweight with body mass in dex (BMI) of 29 to 29.9 in adult 10/05/2024 Smoking greater than 40 pack years 10/05/2024 Chest pain 11/30/2016 Overview (01/25/2017): Chest pain in adult Hypertension associated with diabetes 11/30/2016 Overview (01/25/2017): Essential hypertension Assessment & Plan (01/26/2025 9:35 AM CDT): Chronic problem. Controlled on current losartan 100mg daily, metoprolol XL 200mg daily Tobacco use 11/30/2016 Overview (01/25/2017): Tobacco use Hyperlipidemia associated with type 2 diabetes abe rogers 11/30/2016 Overview (01/25/2017): Mixed hyperlipidemia Assessment & Plan (01/26/2025 9:36 AM CDT): Chronic problem. At goal on current Rosuvastatin 10mg. Last lipid panel: 10/09/24 LDL=57, DK=507. Chronic pain associated with significant psychosocial dysfunction 11/30/2016 Overview (01/25/2017): Chronic pain disorder Diabetic neuropathy 11/30/2016 Overview (01/25/2017): Type 2 diabetes, uncontrolled, with neuropathy Assessment & Plan (01/26/2025 10:09 AM CDT): Chronic problem. Reports it is r/t multiple back surgeries. Reviewed foot care; needs to lotion daily. Aware to check feet nightly, not to go barefoot. Resolved Problems Problem Noted Date Diagnosed Date Resolved Date Type 2 diabetes mellitus wit h diabetic mononeuropathy, without long-term current use of insulin 10/05/2024 01/26/2025 Encounters Date Type Department Care Team Description 02/04/2025 Orders Only [facility] [address] [place] [phone] ProviderIshan MD 01/27/2025 Results Follow-Up [facility] [address] [place] [phone] Milagros Kang NP Albumin Creatinine Ratio, Urine, Thyroid peroxidase antibody (TPO), TSH receptor antibody 01/26/2025 10:30 AM CDT Lab [facility] at [address] [phone] 01/26/2025 10:26 AM CDT - 01/26/2025 11:59 PM CDT Hospital Encounter [address] [id number] Hyperthyroidism; Type 2 diabetes mellitus with diabetic polyneuropathy, without long-term current use of insulin (HCC) Discharge Disposition: Discharge to home or self care 01/26/2025 9:30 AM CDT Office Visit [facility] [address] [place] [phone] Milagros Kang, ZARI Type 2 diabetes mellitus with diabetic polyneuropathy, without long-term current use of insulin (HCC) (Primary Dx); Hypertension associated with diabetes (HCC); Hyperlipidemia associated with type 2 diabetes mellitus (HCC); Diabetic polyneuropathy associated with type 2 diabetes mellitus (HCC); Vitamin B12 deficiency; Vitamin D deficiency; Hyperthyroidism from Last 3 Months Surgical History Surgery [...] Disease of thyroid gland Thyroid disease; Comments: LISSETTU 11/30/2016 -for benign nodules Chronic obstructive pulmonary disease (HCC) COPD Family History Medical History Relation Name Comments Other Brother CABG in his 30' s; Heart disease Father Cardiovascular disease; Cause of : Cardiovascular disease Other Father CO's when young CABG; Cause of : CO's when young CABG Hyperlipidemia Mother Hyperlipidemi a; [...] on file Legal Sex Female 11:41 AM BAR HOST Gender Identity Not on file Sexual Orientation Not on file Obstetrics History Last Filed Vital Signs Vital Sign Reading Time Taken Comments Blood Pressure 118/70 01/26/2025 9:15 AM CDT Pulse 65 01/26/2025 9:15 AM CDT Temperature 36.1 C (97 F) 11/04/2020 9:23 AM BAR HOST Respiratory Rate 18 01/26/2025 9:15 AM CDT Oxygen Saturation 90% 11/30/2016 3:58 PM CDT Inhaled Oxygen Concentration - - Weight 83.9 kg (185 lb) 01/26/2025 9:15 AM CDT Height 172.7 cm (5' 7.99) 01/26/2025 9:15 AM CD T Body Mass Index 28.14 01/26/2025 9:15 AM CDT Plan of Treatment Health Maintenance Due Date Last Done Comments Breast Cancer Screening-Mammogram 1957 Colon Cancer Screening-Colonoscopy 1957 Depression Screening 1957 Fall Risk Assessment 1957 Hepatitis C Screening 1957 Osteoporosis Screening-Bone Density Scan 1957 Dilated Eye Exam 1957 DTaP/Tdap/Td Vaccine (1 - Tdap) 1968 Hepatitis B Screening 1975 Zoster Vaccine (1 of 2) 2007 Pneumococcal vaccine 65+ (3 of 3 - PCV20 or PCV21) 11/20/2021 11/20/2016, 06/04/2014 Well Visit 65+ 2022 Covid-19 Vaccine (3 - season) 2024, 11/22/2020 Influenza Vaccine (Season Ended) 2025 09/03/2015, 06/04/2014, 08/02/2013 Hemoglobin A1C 07/29/2025 01/26/2025, 10/05/2024 Lipid Panel 10/09/2025 10/09/2024, 09/02/2015 eGFR 10/09/2025 10/09/2024 Albumin Creatinine Ratio, Urine 01/26/2026 Foot Exam 01/26/2026 01/26/2025 Procedures Procedure Name Priority Date/Time Associated Diagnosis Comments TSH RECEPTOR ANTIBODY Routine 01/26/2025 10:26 AM CDT ALBUMIN CREATININE RATIO, URINE Routine 01/26/2025 10:26 AM CDT Type 2 diabetes mellitus with diabetic polyneuropathy, without long-term current use of insulin (HCC) THYROID STIMULATING IMMUNOGLOBULIN Routine 01/26/2025 10:26 AM CDT Hyperthyroidism THYROID PEROXIDASE ANTIBODY Routine 01/26/2025 10:26 AM CDT Hyperthyroidism POCT HEMOGLOBIN A1C Routine 01/26/2025 9 :18 AM CDT Type 2 diabetes mellitus with diabetic polyneuropathy, without long-term current use of insulin (HCC) POCT GLUCOSE Routine 01/26/2025 9:18 AM CDT Type 2 diabetes mellitus with diabetic polyneuropathy, without long-term current use of insulin (HCC) COMPREHENSIVE METABOLIC PANEL Routine 10/09/2024 10:46 AM BAR HOST LIPID PANEL Routine 10/09/2024 10:46 AM BAR HOST from Last 3 Months or Most Recently Relevant to Health Maintenance Results * TSH receptor antibody (01/26/2025 10:26 AM CDT) TSH receptor ab 1.29 0.00 - 1.75 IUnits/L [facility] Comment: ADDITIONAL INFORMATION At a decision limit of 1.75 IU/L, this assay has 97% sensitivity and 99% specificity for detection of Graves' disease. In healthy individuals and in patients with thyroid disease without diagnosis of Graves' disease, the upper limit of anti-TSHR values are 1.22 IU/L and 1.58 IU/L, respectively (97.5th percentiles). Test Performed by: [place] [address] Backend Developer: Pat Couch Ph.D.; CLIA# [id number] Blood 01/26/2025 10:2 6 AM CDT 01/27/2025 8:12 AM CDT us Milagros Kang NP LAB BLOOD ORDERABLES Sara l Result VANDA KENDALL [id number] Department [place] [address] [facility] * Thyroid peroxidase antibody (TPO) (01/26/2025 10:26 AM CDT) Anti Thyroid Peroxidase <30 <=34 IUnits/mL Comment: ATPO Interpretive Data Results may be up to 28% higher in patients receiving Itraconazole. Current interpretive data was last revised 2020. Testing performed by: [facility], [address] [facility], [place]., [address] Blood 01/26/2025 10:2 6 AM CDT 01/27/2025 9:53 AM CDT Milagros Kang FACULTY PHYSICIAN LAB BLOOD ORDERABLES Sara l Result Performing Organization Address City/[facility] [employer] de Phone Number VANDA [address] [place] [address] * Thyroid stimulating immunoglobulin (01/26/2025 10:26 AM CDT) Pathologist [facility] TSIG <1.0 <=1.3 [facility] Comment: Test Performed by: [place] [address] [place] [address] Backend Developer: Pat Couch Ph.D.; CLIA# [id number] Blood 01/26/2025 10:2 6 AM CDT 01/26/2025 3:44 PM CDT us Milagros Kang FACULTY PHYSICIAN LAB BLOOD ORDERABLES Sara l Result Performing Organization Address [facility] [employer] de Phone Number VANDA KENDALL [phone] Department [place] [employer] [place] [address] [facility] * Albumin Creatinine Ratio, Urine (01/26/2025 10:26 AM CDT) Albumin Ur <12.0 mg/L Comment: Interpretive Data No reference range established. Current interpretive data was last revised 2019. Creatinine Ur 18.7 mg/dL [facility] Comment: Interpretive Data No reference range established. Current interpretive data was last revised 2019. Albumin Creatinine Ratio, Ur See Comment 1 - 29 [facility] Comment:Unable to calculate Urine 01/26/2025 10:2 6 AM CDT 01/26/2025 3:45 PM CDT us Milagros Kang FACULTY PHYSICIAN LAB URINE ORDERABLES Sara l Result VANDA KENDALL [address] [place] [address] * (ABNORMAL) POCT hemoglobin A1c (01/26/2025 9:18 AM CDT) Hemoglobin A1C, POC 7.6(A) 4.0 - 5.6 % Blood 01/26/2025 9:18 AM CDT us Milagros Kang NP POINT OF CARE TEST ORDERA BLES Final Result * (ABNORMAL) POCT glucose (01/26/2025 9:18 AM CDT) Pathologist [facility] Glucose Blood, POC 139 Normal Fasting 70 - 100, Random <200 mg/dL Blood 01/26/2025 9:18 AM CDT us Milagros Kang NP POINT OF CARE TEST ORDERA BLES Final Result * Lipid panel (10/09/2024 10:46 AM BAR HOST) Pathologist [facility] SCRIBED Cholesterol, Total 142 30 - 199 mg/dL EXTERNAL LAB SCRIBED Triglycerides 145 <=149 mg/dL EXTERNAL LAB SCRIBED HDL 46 >=40 mg/dL EXTERNAL LAB SCRIBED LDL 67 <=129 mg/dL EXTERNAL LAB Scribed Non-HDL Cholesterol 0 NONE EXTERNAL LAB Comment:No value received SCRIBED Total Cholesterol/HDL Ratio 142 NONE EXTERNAL LAB Blood 10/09/2024 10:4 6 AM BAR HOST us Historical Provider LAB BLOOD ORDERABLES Edit ed Result - Final EXTERNAL LAB * (ABNORMAL) Comprehensive metabolic panel (10/09/2024 10:46 AM BAR HOST) SCRIBED Sodium 140 136 - 145 mmol/L EXTERNAL LAB SCRIBED Potassium 4.6 3.5 - 5.1 mmol/L EXTERNAL LAB SCRIBED Chloride 99 98 - 108 mmol/L EXTERNAL LAB SCRIBED Carbon Dioxide 31 21 - 32 mmol/L EXTERNAL LAB SCRIBED Anion Gap 10 4 - 12 mmol/L EXTERNAL LAB SCRIBED Urea Nitrogen (BUN) 8 7 - 18 mg/dl EXTERNAL LAB SCRIBED Creatinine 0.48(A) 0.55 - 1.02 mg/dl EXTERNAL LAB SCRIBED Glucose 106(A) 70 - 99 mg/dl EXTERNAL LAB SCRIBED Calcium 9.4 8.5 - 10.1 mg/dl EXTERNAL LAB SCRIBED Bilirubin 0.1 0 - 0.2 mg/dl EXTERNAL LAB SCRIBED Plasma Protein 6.5 6.4 - 8.2 g/dl EXTERNAL LAB SCRIBED Albumin 3.7 3.4 - 5.0 g/dl EXTERNAL LAB SCRIBED Alkaline Phosphatase 3.8 2.6 - 4.7 Units/L EXTERNAL LAB SCRIBED Alanine Transaminase (ALT) 18 14 - 59 Units/L EXTERNAL LAB SCRIBED Aspartate Transaminase (AST) 17 15 - 37 Units/L EXTERNAL LAB SCRIBED eGFR in NonAfrican [place] >60 >=60 - NA EXTERNAL LAB Blood 10/09/2024 10:4 6 AM BAR HOST us Historical Provider LAB BLOOD ORDERABLES Edit ed Result - Final EXTERNAL LAB from Last 3 Months or Most Recently Relevant to Health Maintenance Insurance [facility] MEDICARE ADVANTAGE Care Teams Potato Chip Frier Relationship Specialty Start Date End Date Brandon Schroeder MD [address] [place] [address] PCP - General Family Medicine 10/12/21 Dasha Collazo, ZARI [address] [place] [address] Nurse Practitioner Obstetrics and Gynecology 07/23/23
--- OUTSIDE RECORDS SUMMARY | 2025-03-18 01:14 | XMS_ITS | Data Portability ---
Author Organization [place] - [facility] [employer], Main Office Address [address] [place] [address] Assessment No assessment recorded. Plan of Treatment Reminders Order Date Submit Date Provider Last Modified By Organization Details Last Modified Time Details Appointments None recorded. Lab None recorded. Referral None recorded. Procedures None recorded. Surgeries None recorded. Imaging None recorded. Medication Orders Trulicity 1.5 mg/0.5 mL subcutaneou s pen injector 2022 023 [facility], [facility] [place], [address], 3 10:08:03 metformin ER 500 mg tablet,exte nded release 24 hr 2022 023 [facility], [facility] [place], [address], 3 10:08:02 Anoro Ellipta 62.5 mcg-25 mcg/actuati on powder for inhalation 2022 023 [facility], [facility] [place], [address], 3 11:14:42 albuterol sulfate 2.5 mg/3 mL (0.083 %) solution for nebulizatio n 2022 023 [facility], [facility] [place], [address], 3 11:14:42 albuterol sulfate HFA 90 mcg/actuati on aerosol inhaler 2022 023 DEIDRE [facility], [address] [place], [address], 11:14:41 Patient TargetsNo targets recorded. Patient Instructions Encounter Date Encounter Id Patient Instructions Last Modified By Organization Details Last Modified Time 01/29/2023 [id number] complete PFT w/ post bronchodilator spirometry* [email or web address] Not available 08/07/2023 10:56:14 six minute walk test* - Titrate for home O2 requirement if needed [email or web address] Not available 08/07/2023 10:56:14 Reason for Referral None Reported. Results Created Date Observation Date Name Description Value Unit Range Abnormal Flag Note LastModifiedBy Organization Detail LastModifiedTime 12/22/1912/21/2022 CT, chest , w/o contr ast No observ ation record ed. [email or web address] [place] [address] [address] [place], [address], 12/28/2022 11:02:45 09/12/19 24 07/31/2023 compl ete PFT w/ post [facility] hodil ator parviz metry * No observ ation record ed. [email or web address] [facility] [address] [place], [address], 09/12/2023 13:44:34 Result Notes None recorded. Problems Name Problem SNOMED Code Status Onset Date Resolution Date Notes Provider Name and Address Organization Details Recorded Time Well controlled type 2 diabetes mellitus 719262029 Active 2022 ARGENIS Ramirez [place] - [email or web address] [place] 3 11:27:22 Dyslipidemia 969348016 Active 2022 ARGENIS Ramirez [place] - [email or web address] [place] 3 11:27:56 Chronic obstructive pulmonary disease 46827967 Active 2019 Not Available [facility] 3 03:06:02 Asthma 931386757 Active 2018 Not Available [facility] 3 03:06:02 Hypertensive disorder 78127631 Active 2018 Not Available [facility] 3 03:06:02 Solitary nodule of lung 708036693 Active 2019 Not Available [facility] 3 03:06:02 Unintentional weight loss 231478706 Active 2021 Not Available [facility] 3 03:06:02 Nicotine dependence 64349212 Active 2020 Not Available [facility] 3 03:06:02 Dyspnea on exertion 27933338 Active 2019 Not Available [facility] 3 03:06:03 Diabetes mellitus 78067731 Active 2018 Not Available [facility] 3 03:06:03 Sleep apnea 50430956 Active 2019 Not Available [facility] 3 03:06:03 Obstructive sleep apnea syndrome 62279390 Active 2019 Not Available [facility] 3 03:06:03 Ex-smoker 9167188 Active 2019 Not Available [facility] 3 03:06:03 Problem Notes None recorded. Procedures Surgical History Date Name Laterality Status Provider Name and Address Organization Details Recorded Time procedure on elbow completed Not Available [facility] 10/31/2022 03:02:46 Back Surgeries completed Not Available [facility] 10/31/2022 03:02:46 cholecystectomy completed Not Available [facility] 10/31/2022 03:02:46 ultrasonography of thoracic outlet completed Not Available [facility] 10/31/2022 03:02:46 Imaging Results None recorded. Procedure Notes None recorded. Medical Equipment None Reported. Allergies Allergen ID Allergen Name Allergen Category Reaction Reaction Severity Criticality Documentation Date Start Date Code Code System Note Provider Name and Address Organization Details Recorded Time 5408 lisinopri l medicatio n cough severe Not available 10/31/2022 79209 RxNorm Not Available [facility] 3 03:12:35 5409 cyclobenz aprine hydrochlo ride medicatio n nausea moderate Not available 10/31/2022 08429 RxNorm Not Available [facility] 3 03:12:35 Medications Name Sig Start Date Stop Date Status Note LastModified by Organization Details LastModified Time metformin 500 mg tablet TAKE TWO TABLETS BY MOUTH TWICE A DAY 03/15 completed Not Available Not Available Not Available albuterol sulfate 2.5 mg/3 mL (0.083 %) solution for nebulizat ion Inhale 3 mL 3 times a day by nebuliza tion route for 30 days. active Not Available Not Available No t Available azithromy cheryl 250 mg tablet active Not Available Not Available No t Available tizanidin e 4 mg tablet 09/09 completed Not Available Not Available Not Available fluconazo le 150 mg tablet Take 1 tablet by oral route. active Not Available Not Available No t Available metoprolo l succinate ER 200 mg tablet,ex tended release 24 hr active Not Available Not Available Not Available sulfameth oxazole 800 mg-trimet hoprim 160 mg tablet Take 1 tablet every 12 hours by oral route for 14 days. 12/12 completed Not Available Not Available Not Available hydrocodo ne 10 mg-acetam inophen 325 mg tablet TAKE 1 TABLET BY MOUTH THREE TIMES DAILY NEEDED FOR PAIN AVOID DRIVING OR OPERATIN G MACHINES active Not Available Not Available No t Available peg-elect rolyte solution 420 gram oral solution 09/12 completed Not Available Not Available Not Available doxycycli ne monohydra te 100 mg tablet 07/29 completed Not Available Not Available Not Available glimepiri de 2 mg tablet TAKE ONE TABLET BY MOUTH EVERY MORNING active Not Available Not Available No t Available glimepiri de 1 mg tablet Take 1 tablet every day by oral route as directed for 30 days. 03/15 completed Not Available Not Available Not Available magnesium oxide 400 mg (241.3 mg magnesium ) tablet active Not Available Not Available Not Available [employer] Ultra Test strips USE TO TEST BLOOD SUGAR TWICE A DAY BEFORE MEALS active Not Available Not Available No t Available dexametha sone 1 mg tablet Take 1 tablet as needed by oral route at bedtime for 1 day. active take dexa tablet at 10 pm night before 8 am cortisol level for low dose dexa suppress ion test Not Available Not Available Not Available baclofen 10 mg tablet 07/15 completed Not Available Not Available Not Available cephalexi n 500 mg capsule Take 1 capsule every 12 hours by oral route for 10 days. active Not Available Not Available No t Available nystatin 100,000 unit/gram topical cream APPLY TO THE AFFECTED AREA(S) BY TOPICAL ROUTE 2 TIMES PER DAY active Not Available Not Available No t Available glimepiri de 4 mg tablet Take 1 tablet twice a day by oral route before meals for 90 days. active Not Available Not Available No t Available promethaz ine 25 mg tablet 09/12 completed Not Available Not Available Not Available gabapenti n 300 mg capsule 09/12 completed Not Available Not Available Not Available omeprazol e 20 mg capsule,d elayed release active Not Available Not Available Not Available ergocalci ferol (vitamin D2) 1,250 mcg (50,000 unit) capsule Take 1 capsule every 2 weeks by oral route in the morning for 90 days. active Not Available Not Available No t Available lovastati n 20 mg tablet Take 1 tablet every day by oral route in the morning for 90 days. active Not Available Not Available No t Available estradiol 0.01% (0.1 mg/gram) vaginal cream INSERT 2 GRAMS VAGINALL Y TWICE A WEEK AT BEDTIME DIRECTED active Not Available Not Available No t Available methylpre dnisolone 4 mg tablets in a dose pack Take 1 dose pk by oral route. 09/12 completed Not Available Not Available Not Available albuterol sulfate HFA 90 mcg/actua tion aerosol inhaler INHALE TWO PUFFS BY MOUTH EVERY 4-6H PRN SHORTNES S OF BREATH/C OUGH active Not Available Not Available No t Available cefdinir 300 mg capsule Take 1 capsule every 12 hours by oral route. active Not Available Not Available No t Available losartan 100 mg tablet Take 1 tablet every day by oral route in the morning for 90 days. active Not Available Not Available No t Available fluticaso ne propionat e 50 mcg/actua tion nasal spray,mame pension [place] 1 spray every day by intranas al route. active Not Available Not Available No t Available metformin ER 500 mg tablet,ex tended release 24 hr TAKE TWO TABLETS BY MOUTH TWICE A DAY active Not Available Not Available No t Available naproxen 500 mg tablet 09/12 completed Not Available Not Available Not Available nabumeton e 500 mg tablet 09/09 completed Not Available Not Available Not Available nicotine (polacril ex) 2 mg buccal lozenge Take 1 tablet every 3-4 hours by oral route as directed for 30 days. active Not Available Not Available No t Available rosuvasta tin 10 mg tablet Take 1 tablet every other day by oral route at bedtime for 90 days. active Not Available Not Available No t Available rosuvasta tin 20 mg tablet active Not Available Not Available Not Available pregabali n 75 mg capsule 06/13 completed Not Available Not Available Not Available Aspir-81 06/13 completed Not Available Not Available Not Available Januvia 100 mg tablet 09/09 completed Not Available Not Available Not Available Prevnar 13 (PF) 0.5 mL intramusc ular syringe 12/09 completed Not Available Not Available Not Available Victoza 2-Naren 0.6 mg/0.1 mL (18 mg/3 mL) subcutane ous pen injector INJECT 1.2 MG SUBCUTAN EOUSLY DAILY WITH FOOD 06/26 completed Not Available Not Available Not Available TRUEplus Lancets 28 gauge USE DIRECTED TO CHECK BLOOD GLUCOSE TWICE DAILY active Not Available Not Available No t Available aloglipti n 25 mg tablet TAKE ONE TABLET BY MOUTH EVERY MORNING active Not Available Not Available No t Available aloglipti n 12.5 mg tablet Take 1 tablet every day by oral route before meals for 30 days. 05/01 completed Not Available Not Available Not Available Anoro Ellipta 62.5 mcg-25 mcg/actua tion powder for inhalatio n Inhale 1 puff every day by inhalati on route as directed for 30 days. active Not Available Not Available No t Available Jardiance 10 mg tablet 07/29 completed Not Available Not Available Not Available Jardiance 25 mg tablet 09/09 completed Not Available Not Available Not Available Trulicity 1.5 mg/0.5 mL subcutane ous pen injector Inject 1.5 mg every week by subcutan eous route at dinner 2022 active Not Available Not Available Not Avai lable Trulicity 0.75 mg/0.5 mL subcutane ous pen injector inject 0.75 mg SQ weekly x 4 weeks then increase to 1.5 mg SQ weekly x 90 days 03/15 completed Not Available Not Available Not Available Incruse Ellipta 62.5 mcg/actua tion powder for inhalatio n active Not Available Not Available Not Available Bevespi Aerospher e 9 mcg-4.8 mcg HFA aerosol inhaler Inhale 2 puffs twice a day by inhalati on route as directed for 30 days. 02/27 completed Not Available Not Available Not Available TRUEplus Pen Needle 31 gauge x /16 active Not Available Not Available Not Available Shingrix (PF) 50 mcg/0.5 mL intramusc ular suspensio n, kit 12/09 completed Not Available Not Available Not Available OneTouch Ultra2 Meter active Not Available Not Available Not Available OneTouch Delica Plus Lancet 30 gauge active Not Available Not Available Not Available Afluria Qd 2018- (36 mos up)(PF)60 mcg (15 mcg x4)/0.5 mL IM syringe 12/09 completed Not Available Not Available Not Available Flucelvax Quad (PF) 60 mcg (15 mcg x 4)/0.5 mL IM syringe 12/09 completed Not Available Not Available Not Available Vitals Date Recorded Body height Body mass index (BMI) Body weight Heart rate Oxygen saturation Oxygen saturation in Arterial blood by Pulse oximetry Body temperature Systolic And Diastolic Provider Name and Address Organization Details Last Updated DateTime 3 172.72 cm 26 kg/m2 12783.3 g 80 /min 92 % 92 % 97.2 [degF] 126/60 mm[Hg] Luanne Sainz RN [facility] [employer] 3 10:17:26 Date Recorded Body mass index (BMI) Body height Oxygen saturation Oxygen saturation in Arterial blood by Pulse oximetry Heart rate Body temperature Body weight Provider Name and Address Organization Details Last Updated DateTime 2 28.6 kg/m2 172.72 cm 90 % 90 % 73 /min 98 [degF] 80406.0 8 g Not Available [facility] 3 03:04:26 Date Recorded Body height Body mass index (BMI) Body weight Body temperature Heart rate Systolic And Diastolic Provider Name and Address Organization Details Last Updated DateTime 3 172.72 cm 25.3 kg/m2 44482.4 9 g 97.8 [degF] 79 /min 142/89 mm[Hg] ARGENIS Ramirez [facility] 3 09:46:13 Date Recorded Body height Provider Name an d Address Organization Details Last Updated DateTime 06/26/2022 172.72 cm Not Available [facility] 3 03:04:23 Date Recorded Body mass index (BMI) Body height Oxygen saturation Oxygen saturation in Arterial blood by Pulse oximetry Heart rate Body temperature Body weight Systolic And Diastolic Provider Name and Address Organization Details Last Updated DateTime 2 26.8 kg/m2 172.72 cm 92 % 92 % 78 /min 96.5 [degF] 82119.2 6 g 142/70 mm[Hg] Not Available [facility] 3 03:04:22 Social History Question Answer Notes LastModified by [employer] ion Details LastModified Time Tobacco Smoking Status Current Every Day Smoker Not Available [facility] 10/31/2022 02:59:47 What Is Your Level Of Caffeine Consumption? Heavy Coffee Drinks From Time She Gets Up Til The Time She Goes To Bed [id number] Information not available 10/31/2022 In The 14 Days Before Symptom Onset, Have You Had Close Contact With A Laboratory-confir med COVID-19 While That Case Was Ill? No [id number] Information not available 10/31/2022 In The 14 Days Before Symptom Onset, Have You Had Close Contact With A Person Who Is Under Investigation For COVID-19 While That Person Was Ill? No [id number] Information not available 10/31/2022 What Was The Date Of Your Most Recent Tobacco Screening? 01/29/2023 [email or web address] Information not available 01/29/2023 Do You Have Any Pets? No [id number] Information not available 10/31/2022 Do You Have Smoke And Carbon Monoxide Detectors In Your Home? Yes [email or web address] Information not available 01/29/2023 At What Age Did You Start Smoking Tobacco? 18 [id number] Information not available 10/31/2022 Are You Passively Exposed To Smoke? Yes [email or web address] Information no t available 01/29/2023 How Much Tobacco Do You Smoke? 1 PPD [id number] Information not available 10/31/2022 How Many Years Have You Smoked Tobacco? 41 [id number].[id number] Information not available 10/31/2022 Sex: Unknown Functional Status Question Answer Note LastModified by Organizat ion Details LastModified Time Do you use any illicit or recreational drugs? No [id number] Information not available 10/31/2022 Do you or have you ever used any other forms of tobacco or nicotine? No [id number] Information not available 10/31/2022 What is your level of alcohol consumption? None [id number] Information not available 10/31/2022 Do you or have you ever used smokeless tobacco? Never used smokeless tobacco [id number] Information not available 10/31/2022 Do you or have you ever used e-cigarettes or vape? Never used electronic cigarettes [id number].[id number] Information not available 10/31/2022 Mental Status None recorded. Family History Nothing Reported Notes:Both Mom & Dad are dec eased Medical History Condition Response BLINDNESS N RHEUMATIC FEVER N SLEEP APNEA Y MRSA N INFECTIOUS DISEASE N HEART ARRHYTHMIA N LUNG DISEASE/DISORDER Y INSOMNIA N COPD Y RADIATION / CHEMOTHERAPY N HIGH CHOLESTEROL / HYPERLIPIDEMIA Y HYPERTHYROIDISM N EYE PROBLEMS Y NEUROLOGICAL PROBLEMS N BLOOD DISEASES N SURGERY N EDEMA N HYPOTHYROIDISM N DEPRESSION (INCLUDING POST ) Y HAVE YOU BEEN HOSPITALIZED OR SEEN IN [facility] IN THE PAST YEAR ? N STROKE/TIA N THYROID DISEASE N BENIGN PROSTATIC HYPERPLASIA N OBESITY Y EXCESSIVE PERSPIRATION N GERD/NAUSEA Y ANEURYSM N OSTEOPOROSIS N ARTHRITIS Y USE OF BLOOD THINNERS N SKIN PROBLEMS N DIABETES, TYPE Y PARATHYROID DISEASE N BLOOD CLOTS N HEPATITIS / LIVER DISEASE N GOUT N SLEEP DISORDER Y ALZHEIMER'S DISEASE N HERPES N RETINOPATHY N SEIZURES/EPILEPSY N HEADACHES/MIGRAINES Y SLEEP STUDY Y GI PROBLEMS Y DIZZINESS N KIDNEY DISEASE N HEART DISEASE/HEART PROBLEMS N AIDS/HIV N LIVER DISEASE N HYPERTENSION Y CANCER: SPECIFY Y BLOOD TRANSFUSION N ANEMIA/BLOOD DISORDER N ATRIAL FIBRILLATION N AUTOIMMUNE DISEASE N TUBERCULOSIS N Gynecological HistoryNo gynecological history recorded. Obstetrics History GPAL:G 0 P 0 0 0 0 Immunizations Vaccine Type Date Status Note Provider Nam e and Address Organization Details Recorded Time COVID-19, mRNA, LNP-S, PF, 100 mcg/0.5mL dose or 50 mcg/0.25mL dose 11/24/2020 completed Not Available [facility] 3 03:12:28 Influenza, split virus, quadrivalent, PF 07/31/2022 completed Not Available [facility] 3 03:12:28 Influenza, split virus, quadrivalent, PF 07/18/2021 completed Not Available [facility] 3 03:12:28 Past Encounters Encounter ID Performer Location Encounter Start Date Encounter Closed Date Diagnosis/Indication Diagnosis SNOMED-CT Code Diagnosis ICD10 Code Diagnosis Note [id number] [facility] [place] [address] [place] [address] 12/09/2020 00:00:00 12/20/2020 09:54:59 [id number] Edith Barrios MD [facility] [address] [place] [address] 12/12/2020 00:00:00 12/12/2020 10:22:21 [id number] [facility] [place] [address] [place] [address] 03/14/2021 00:00:00 03/14/2021 12:36:52 [id number] Edith Barrios MD [facility] [address] [place] [address] 06/13/2021 00:00:00 06/13/2021 10:07:52 [id number] [facility] [place] [address] [place] [address] 07/18/2021 00:00:00 07/18/2021 12:18:02 [id number] Edith Barrios MD [facility] [address] [place] [address] 12/11/2021 00:00:00 12/11/2021 10:07:18 [id number] JOSEE Faust [facility] [place] [address] [place] [address] 01/01/2022 00:00:00 01/01/2022 10:45:20 [id number] JOSEE Faust [facility] [place] [address] [place] [address] 02/27/2022 00:00:00 02/27/2022 12:44:28 [id number] Edith Barrios MD [facility] [address] [place] [address] 06/26/2022 00:00:00 06/26/2022 10:36:08 [id number] Latonia Sunil [facility] [place] [address] [place] [address] 07/31/2022 00:00:00 07/31/2022 13:11:28 [id number] Latonia Sunil [facility] [place] [address] [place] [address] 01/29/2023 09:56:48 01/29/2023 11:19:23 Chronic obstructive pulmonary disease 61893363 J44.9 CAT 14PFT 02/09/19 with mild/moder ate obstructio n per dictation (I do not have graphs)Nor mal TLC.Modera te air trappingIn creased airway resistance DLCO 71%Orders to repeat entered todayConti nue Anoro Ellipta, she has good use and benefitINs tructed on technique todayAlbut hemal PRN, discussed indication s for useAlpha1 MM normalIGE normalRAST with mild reaction to cockroach. Discussed reportable signs and symptoms.O rder for nebulizer for PRN use todayRX for refills todayRTC in 6 months, PRN for concerns Dyspnea on exertion 6084 5006 R06.09 Multifacto ral.Declin es pulmonary rehab at this time.Recom mend increased exerciseSm oking cessation Obstructiv e sleep apnea syndrome 28008113 G47.33 Not compliant with PAPDiscuss ed the risks of uncorrecte d EDIE, including Solitary n odule of lung 754789978 R91.1 CT chest completed 12/2020 with 6 mm nodule to RLL, unchanged from 04/2020.No other acute findings.C T chest completed 12/2021 with no change in nodule to RLLRepeat 12/2022 - unchangedR epeat due 12/2023 Nicotine dependence 5629 4008 Z87.891 Smoking cessation counseling and techniques reviewed at length. Literature reviewed. Avoid triggers, support groups. Distractio n techniques Greater than 3 but less than 10 minutes spent discussing cessation. Declines NRT. Discussed Rx options if needed in the future.CT as detailed above [id number] Edith Barrios MD [facility] [place] [address] [place] [address] 03/15/2023 09:34:29 03/15/2023 10:27:27 Well controlled type 2 diabetes mellitus 130463843 E11.9 A1C of 5.7% down from 6% range- she has lost 38 pounds in the past 3 years - will drop her metformin down to once daily with dinner and continue on trulicity 1.5 mg once weekly with food as patient tolerating well. Will have patient stop glimepirid e as this causes highest risk for hypoglycem ia. Will refill glucose meter/stri ps and lancets per patient request. Spent up to 25 minutes preparing to see the patient (eg, review of tests), obtaining and/or reviewing separately obtained history, performing a medically appropriat e examinatio n and evaluation , counseling and educating the patient, ordering medication s, tests, along with documentin g clinical informatio n in the electronic health record, independen tly interpreti ng results and communicat ing results to the patient. Patient can be followed by PCP - she/he is aware of my resignatio n and last day of June 14. If needed his/her PCP can refer patient to another endocrinol ogist in the area. All questions /concerns answered and refills necessary at visit today. Health Concerns Section Related Observation LastModified by Organization Detai ls LastModified Time None Recorded Concern Status LastModified by Organization Details LastModified Time None Recorded Advance Directives Directive None Recorded Payers Insurance Date Sequence Insurance Name Policy Number Policy Avila Covered Member ID Avila Member ID Guarantor Name 08/02/2023 1 [facility] (MEDICAID HMO) [id number] Drea Barker [id number] Drea Barker Notes Date Note Type Note Provider Name and Address Organization Details Recorded Time 01/29/2023 text/html Drea presents t willis to follow up on COPD, EDIE, dyspnea, cough, tobacco dependence.She has been increasingly stressed with her husbands illnesses and she tells me her smoking has increasedHas not had a respiratory exacerbation in the last 2 years, she has not had COVID that she is aware of.Compliant with Ewelina Whitten, this is affordableNo rescue MDI use in the cooler months but admits that she uses it at times when the weatherCan dress and bathe without shortness of breath.Can complete ADLs without dyspneaContinues to be limited by her back pain.Denies chest pain, night sweatsCough is daily, minimal mucous production. This is unchanged. She denies hemoptysis.Denies GERD and sinus congestion.Unable to tolerate CPAP machine, she is uninterested in troubleshooting or re-study.Endorses fatigue and restless sleep related to nocturiaEnergy levels and stamina have decreased Latonia Barber [facility] [address], [facility] [address], [place], [address], [employer] 01/29/2023 14:29:53 03/15/2023 text/html 67 yo female com es in for follow up in management of overall well controlled type 2 DM (A1C of 5.7% down from 6.6%) and dyslipidemia. last seen in Jun/telemedicine visit at that time we transitioned off victoza to trulicity/continued glimepiride scale and metformin for insulin sensitization. we continued rosuvastatin. Her just 10 days ago and patient emotional. She has her children and neighbors and has support for her grieving process. She denies any suicidal or homicidal ideations. her sugars are dropping on occasion but generally under 120 mg/dL in the morning with no hyperglycemia. She rarely takes glimepiride. labs from 03/08/23:glucose 111 mg/dL108/92/40/50TSH of 0.17 uIU/mlmicroalbumin 100 ug/mga1c 5.7% Edith Barrios MD [address], [address], [place], [id number], [employer] 03/15/2023 10:15:35 OBGyn Episode No OBEpisode recorded.
--- OUTSIDE RECORDS SUMMARY | 2025-03-18 01:14 | XMS_ITS | Continuity of Care Document ---
Author Organization [facility] Address [address] [place] [address] [place] [address] Phone Care Team Providers Care Critical Care Unit Manager Name Role Phone Brandon Schroeder MD Unavailable Unavailable Allergies, Adverse Reactions, Alerts Substance Reaction Status Criticality empagliflozin Active No Information lisinopril Nausea Active No Information CYCLOBENZAPRINE HCL Nausea Active No Infor mation Medications Medication Instructions Dosage Effective Dates (start - stop) Status Comments hydrocodone 10 mg-acetaminophen 325 mg tablet take 1 by Oral route 3 times every day as needed for G89.4 1 - Active PRN for pain, avoid driving or operate machines losartan 100 mg tablet take 1 tablet by oral route every day 100 MG - Active Crestor 10 mg tablet take 1 tablet by oral route every day 10 MG - Active magnesium 400 mg (as [...] as needed - Active PRN For sob Anoro Ellipta 62.5 mcg-25 mcg/actuation powder for inhalation inhale 1 puff by inhalation route every day at the same time each day 1.00 puff - Active Vitamin D2 1,250 mcg (50,000 unit) capsule take 1 capsule by oral route every week - Active Procedures Procedure Date OFFICE/OUTPATIENT VISIT, [...] VISIT, EST PREV VISIT, EST, 67 & OFFICE/OUTPATIENT VISIT, [...] Providers Copied on Encounter OFFICE/OUTPA TIENT VISIT, [facility], [address], [place], [address], tel:[phone] [facility] pain (chief complaint) Chronic pain syndrome 5 Alexandre Mary [address], [place], [place], [address] , [place]. tel:[phone] OFFICE/OUTPA TIENT VISIT, [facility], [address], [place], [place], [address], [place] tel:[phone] [facility] pain (chief complaint) thyroid1 (chief complaint) DM (chief complaint) Chronic pain syndromeType 2 diabetes mellitus with diabetic mononeuropathyDisor moises of thyroid, unspecifiedBarrett' s esophagus without dysplasia 5 Alexandre Taylor. [address], [place], [place], [address] , [place]. tel:[phone] OFFICE/OUTPA TIENT VISIT, [facility], [address], [place], [place], [address], [place] tel:[phone] [facility] pain (chief complaint) barrett1 (chief complaint) Chronic pain syndromeBarrett's esophagus without dysplasia 5 Alexandre Taylor. [address], [place], [place], [address] , [place]. tel:[phone] OFFICE/OUTPA TIENT VISIT, [facility], [address], [place], [place], [address], [place] tel:[phone] [facility] pain (chief complaint) HTN (chief complaint) melanoma1 (chief complaint) Barrett1 (chief complaint) Chronic pain syndromeEssential (primary) hypertensionNevus, non-neoplasticBarre tt's esophagus without dysplasia 5 Alexandre Taylor. [address], [place], [place], [address] , [place]. [phone] OFFICE/OUTPA TIENT VISIT, [facility], [address], [address], [place] tel:[phone] [facility] pain (chief complaint) thyroid (chief complaint) COPD1 (chief complaint) HLP (chief complaint) mag (chief complaint) Chronic pain syndromeHypomagnese miaMixed hyperlipidemiaDisor moises of thyroid, unspecifiedCentrilo bular emphysema 5 Alexandre Mary [address], [place], [place], [address] , [place]. tel:[phone] OFFICE/OUTPA TIENT VISIT, [facility], [address], [address], [place] tel:[phone] [facility] DM (chief complaint) nipple (chief complaint) pain (chief complaint) mag (chief complaint) Chronic pain syndromeHypomagnese miaMixed hyperlipidemiaType 2 diabetes mellitus with diabetic mononeuropathyMass in the left breast 5 Alexandre Taylor. [address], [place], [place], [address] , [place]. tel:[phone] OFFICE/OUTPA TIENT VISIT, [facility], [address], [place], [place], [address], [place] tel:[phone] [facility] DM (chief complaint) pain (chief complaint) mag (chief complaint) french (chief complaint) Chronic pain syndromeHypomagnese miaBarrett's esophagus without dysplasiaType 2 diabetes mellitus with diabetic mononeuropathy 5 Alexandre Mary [address], [place], [place], [address] , [place]. tel:[phone] OFFICE/OUTPA TIENT VISIT, [facility], [address], [place], [place], [address], [place] tel:[phone] [facility] pain (chief complaint) skin (chief complaint) HTN (chief complaint) Chronic pain syndromeEssential (primary) hypertensionNevus, non-neoplastic 4 Schroeder Brandon. [address], [place], [place], [address] , [place]. tel:[phone] OFFICE/OUTPA TIENT VISIT, [facility], [address], [place], [place], [address], [place] tel:[phone] [facility] Medicine pain (chief complaint) breast1 (chief complaint) DM (chief complaint) Chronic pain syndromeType 2 diabetes mellitus with diabetic mononeuropathyMass in the left breast 4 Alexandre Taylor. [address], [place], [place], [address] , [place]. tel:[phone] OFFICE/OUTPA TIENT VISIT, [facility], [address], [place], [place], [address], [place] tel:[phone] [facility] Medicine pain (chief complaint) breast (chief complaint) HTN (chief complaint) Chronic pain syndromeEssential (primary) hypertensionMass in the left breast 4 Alexandre Taylor. [address], [place], [place], [address] , [place]. tel:[phone] [facility], [address], [place], [place], [address], [place] tel:[phone] [facility] No Information Sep-3 4 Schroeder Brandon. [address], [place], [place], [address] , [place]. tel:[phone] OFFICE/OUTPA TIENT VISIT, [facility], [address], [place], [place], [address], [place] tel:[phone] [facility] pain (chief complaint) Chronic pain syndrome Sep-2 4 Schroeder Brandon. [address], [place], [place], [address] , [place]. tel:[phone] OFFICE/OUTPA TIENT VISIT, [facility], [address], [place], [place], [address], [place] tel:[phone] [facility] pain (chief complaint) DM (chief complaint) Chronic pain syndromeType 2 diabetes mellitus with diabetic mononeuropathy 4 Alexandre Taylor. [address], [place], [place], [address] , [place]. [phone] OFFICE/OUTPA TIENT VISIT, [facility], [address], [place], [place], [address], [place] tel:[phone] [facility] pain (chief complaint) COPD1 (chief complaint) DM (chief complaint) Centrilobular emphysemaChronic pain syndromeType 2 diabetes mellitus with diabetic nephropathy 4 Alexandre Taylor. [address], [place], [place], [address] , [place]. tel:[phone] OFFICE/OUTPA TIENT VISIT, [facility], [address], [place], [place], [address], [place] tel:[phone] [facility] pain (chief complaint) DM (chief complaint) thyroid1 (chief complaint) Chronic pain syndromeThyroid noduleType 2 diabetes mellitus with diabetic nephropathy 4 Alexandre Taylor. [address], [place], [place], [address] , [place]. tel:[phone] OFFICE/OUTPA TIENT VISIT, [facility], [address], [place], [place], [address], [place] tel:[phone] [facility] Barrett1 (chief complaint) DM (chief complaint) Type 2 diabetes mellitus with diabetic mononeuropathyBarre tt's esophagus without dysplasia 4 Alexandre Taylor. [address], [place], [place], [address] , [place]. tel:[phone] OFFICE/OUTPA TIENT VISIT, [facility], [address], [place], [place], [address], [place] tel:[phone] [facility] DM (chief complaint) polycythem ia1 (chief complaint) thyroid1 (chief complaint) pain1 (chief complaint) osteopenia 1 (chief complaint) COPD1 (chief complaint) Centrilobular emphysemaHypomagnes emiaOther spondylosis, lumbar regionType 2 diabetes mellitus with diabetic mononeuropathySecon victor manuel polycythemiaOther specified disorder of bone densityThyroid nodule 4 Alexandre Taylor. [address], [place], [place], [address] , [place]. tel: [phone] OFFICE/OUTPA TIENT VISIT, [facility], [address], [place], [place], [address], [place] tel:[phone] [facility] back pain1 (chief complaint) COPD1 (chief complaint) thyroid nodule1 (chief complaint) HTN (chief complaint) HLP (chief complaint) DM (chief complaint) Thyroid noduleCentrilobular emphysemaEssential (primary) hypertensionHypomag nesemiaMixed hyperlipidemiaOther spondylosis, lumbar regionType 2 diabetes mellitus with diabetic mononeuropathy 0 4 Alexandre Taylor. [address], [place], [place], [address] , [place]. tel: [phone] OFFICE/OUTPA TIENT VISIT, [facility], [address], [address], [place] tel:[phone] [facility] thyroid nodule1 (chief complaint) back pain1 (chief complaint) basal (chief complaint) Other spondylosis, lumbar regionThyroid noduleBasal cell carcinoma of skin 4 Alexandre Taylor. [address], [place], [place], [address] , [place]. tel: [phone] OFFICE/OUTPA TIENT VISIT, [facility], [address], [place], [place], [address], [place] tel:[phone] [facility] pain (chief complaint) skin (chief complaint) leg weak1 (chief complaint) thyroid1 (chief complaint) Chronic pain syndromeMuscle weakness (generalized)Thyroi d noduleNevus, non-neoplastic Oct- 4 Alexandre Taylor. [address], [place], [place], [address] , [place]. tel:[phone] OFFICE/OUTPA TIENT VISIT, [facility], [address], [place], [place], [address], [place] tel:[phone] [facility] pain (chief complaint) elbow cyst1 (chief complaint) leg pain1 (chief complaint) nipple1 (chief complaint) Anterior chest-wall painMuscle weakness (generalized)Other signs and symptoms in breastAbscess of bursa, right elbow 4 Alexandre Taylor. [address], [place], [place], [address] , [place]. tel:[phone] OFFICE/OUTPA TIENT VISIT, [facility], [address], [place], [place], [address], [place] tel:[phone] [facility] osteopenia 1 (chief complaint) COPD1 (chief complaint) pain (chief complaint) CAD (chief complaint) Centrilobular emphysemaOther specified disorder of bone densityChronic pain syndromeCoronary artery disease of [place] coronary artery without angina pectoris 4 Alexandre Taylor. [address], [place], [place], [address] , [place]. tel:[phone] OFFICE/OUTPA TIENT VISIT, [facility], [address], [place], [place], [address], [place] tel:[phone] [facility] pain (chief complaint) HTN (chief complaint) mag1 (chief complaint) Chronic pain syndromeHypomagnese miaEssential (primary) hypertensionOther signs and symptoms in breast 4 Alexandre Taylor. [address], [place], [place], [address] , [place]. tel:[phone] OFFICE/OUTPA TIENT VISIT, [facility], [address], [place], [place], [address], [place] tel:[phone] [facility] polycythem ia1 (chief complaint) thyroid1 (chief complaint) barrett1 (chief complaint) mag (chief complaint) pain (chief complaint) nipple (chief complaint) French's esophagus without dysplasiaChronic pain syndromeDisorder of thyroid, unspecifiedHypomagn esemiaSecondary polycythemiaCentril obular emphysemaOther signs and symptoms in breast 3 Alexandre Mary [address], [place], [place], [address] , [place]. tel:[phone] PREV VISIT, EST, 65 & OVER [facility], [address], [place], [place], [address], [place] tel:[phone] [facility] physical (chief complaint) HypomagnesemiaEssen tial (primary) hypertensionChronic pain syndromeSecondary polycythemiaType 2 diabetes mellitus with diabetic mononeuropathyDisor moises of thyroid, unspecifiedMixed hyperlipidemiaBarre tt's esophagus without dysplasiaEncounter for general adult medical exam w abnormal findingsObstructive sleep apnea (adult) (pediatric) - 3 Alexandre Mary [address], [place], [place], [address] , [place]. tel:[phone] OFFICE/OUTPA TIENT VISIT, [facility], [address], [place], [place], [address], [place] tel:[phone] [facility] pain (chief complaint) HTN (chief complaint) low mag (chief complaint) Chronic pain syndromeHypomagnese miaEssential (primary) hypertensionOther signs and symptoms in breastSecondary polycythemia - 3 Alexandre Mary [address], [place], [place], [address] , [place]. tel:[phone] OFFICE/OUTPA TIENT VISIT, [facility], [address], [place], [place], [address], [place] tel:[phone] [facility] DM (chief complaint) pain1 (chief complaint) breast1 (chief complaint) Chronic pain syndromeType 2 diabetes mellitus with diabetic mononeuropathyOther signs and symptoms in breast 3 Alexandre Taylor. [address], [place], [place], [address] , [place]. tel:[phone] OFFICE/OUTPA TIENT VISIT, [facility], [address], [address], [place] tel:[phone] [facility] DM (chief complaint) pain (chief complaint) mag (chief complaint) breast1 (chief complaint) Chronic pain syndromeType 2 diabetes mellitus with diabetic mononeuropathyOther signs and symptoms in breastDisorder of thyroid, unspecifiedHypomagn esemia 3 Alexandre Mary [address], [place], [place], [address] , [place]. tel:[phone] OFFICE/OUTPA TIENT VISIT, [facility], [address], [address], [place] tel:[phone] [facility] thyroid1 (chief complaint) polycytehe mia1 (chief complaint) mag (chief complaint) DM (chief complaint) polycythem ia1 (chief complaint) barrett1 (chief complaint) Mixed hyperlipidemiaDisor moises of thyroid, unspecifiedType 2 diabetes mellitus with diabetic mononeuropathySecon victor manuel polycythemiaBarrett 's esophagus without dysplasiaHypomagnes emiaChronic pain syndrome 3 Alexandre Mary [address], [place], [place], [address] , [place]. tel:[phone] OFFICE/OUTPA TIENT VISIT, [facility], [address], [address], [place] tel:[phone] [facility] pain (chief complaint) HLP (chief complaint) HTN (chief complaint) Chronic pain syndromeMixed hyperlipidemiaEssen tial (primary) hypertension 3 Alexandre Mary [address], [place], [place], [address] , [place]. tel:[phone] PREV VISIT, EST, 65 & OVER [facility], [address], [place], [place], [address], [place] tel:[phone] [facility] physical (chief complaint) Encounter for general adult medical examination without abnormal findings 3 Alexandre Taylor. [address], [place], [place], [address] , [place]. [phone] OFFICE/OUTPA TIENT VISIT, [facility], [address], [place], [place], [address], [place] tel:[phone] [facility] pain (chief complaint) Chronic pain syndromeCentrilobul ar emphysema 3 Alexandre Taylor. [address], [place], [place], [address] , [place]. [phone] OFFICE/OUTPA TIENT VISIT, [facility], [address], [place], [place], [address], [place] tel:[phone] [facility] pain (chief complaint) HTN (chief complaint) weight loss1 (chief complaint) Chronic pain syndromeEssential (primary) hypertensionDisorde r of thyroid, unspecifiedAbnormal weight loss 3 Alexandre Taylor. [address], [place], [place], [address] , [place]. [phone] OFFICE/OUTPA TIENT VISIT, [facility], [address], [place], [place], [address], [place] tel:[phone] [facility] HTN (chief complaint) pain (chief complaint) thyroid1 (chief complaint) osteopenia 1 (chief complaint) Disorder of thyroid, unspecifiedEssentia l (primary) hypertensionOther specified disorder of bone densityChronic pain syndrome 3 Alexandre Taylor. [address], [place], [place], [address] , [place]. tel:[phone] OFFICE/OUTPA TIENT VISIT, [facility], [address], [place], [place], [address], [place] tel:[phone] [facility] Thyroid1 (chief complaint) DM (chief complaint) HTN (chief complaint) pain (chief complaint) osteopenia 1 (chief complaint) Inconclusive mammogramOther specified disorder of bone densityType 2 diabetes mellitus with diabetic mononeuropathyDisor moises of thyroid, unspecifiedAbnormal weight lossMixed hyperlipidemiaEssen tial (primary) hypertension 3 Alexandre Taylor. [address], [place], [place], [address] , [place]. [phone] OFFICE/OUTPA TIENT VISIT, [facility], [address], [place], [address], [place] tel:[phone] [facility] pain (chief complaint) HTN (chief complaint) Chronic pain syndromeEssential (primary) hypertension 2 Alexandre Taylor. [address], [place], [place], [address] , [place]. [phone] OFFICE/OUTPA TIENT VISIT, [facility], [address], [address], [place] tel:[phone] [facility] pain (chief complaint) HTN (chief complaint) mammo (chief complaint) Essential (primary) hypertensionInconcl usive mammogramChronic pain syndrome 2 Alexandre Taylor. [address], [place], [place], [address] , [place]. [phone] OFFICE/OUTPA TIENT VISIT, [facility], [address], [place], [place], [address], [place] tel:[phone] [facility] pain (chief complaint) HTN (chief complaint) mammo (chief complaint) Chronic pain syndromeInconclusiv e mammogramEssential (primary) hypertension 2 Alexandre Taylor. [address], [place], [place], [address] , [place]. [phone] OFFICE/OUTPA TIENT VISIT, [facility], [address], [place], [place], [address], [place] tel:[phone] [facility] Chronic pain syndrome 2 Alexandre Taylor. [address], [place], [place], [address] , [place]. [phone] OFFICE/OUTPA TIENT VISIT, EST [facility], [address], [place], [place], [address], [place] tel:[phone] [facility] pain (chief complaint) Chronic pain syndrome 2 Alexandre Taylor. [address], [place], [place], [address] , [place]. tel:[phone] OFFICE/OUTPA TIENT VISIT, EST [facility], [address], [place], [place], [address], [place] tel:[phone] [facility] HLP (chief complaint) Barrett1 (chief complaint) mammo1 (chief complaint) pain (chief complaint) Inconclusive mammogramChronic pain syndromeBarrett's esophagus without dysplasiaPolyp of colonMixed hyperlipidemia 2 Alexandre Taylor. [address], [place], [place], [address] , [place]. tel:[phone] OFFICE/OUTPA TIENT VISIT, EST [facility], [address], [place], [place], [address], [place] tel:[phone] [facility] Medicine pain1 (chief complaint) mammo (chief complaint) Chronic pain syndromeInconclusiv e mammogram 2 Alexandre Taylor. [address], [place], [place], [address] , [place]. tel:[phone] PREV VISIT, EST, AGE 40-64 [facility], [address], [place], [place], [address], [place] tel:[phone] [facility] physical (chief complaint) Encounter for general adult medical examination without abnormal findings 2 Alexandre Taylor. [address], [place], [place], [address] , [place]. tel:[phone] OFFICE/OUTPA TIENT VISIT, [facility], [address], [place], [place], [address], [place] tel:[phone] [facility] pain (chief complaint) knee pain1 (chief complaint) lung nodule1 (chief complaint) barrett1 (chief complaint) sleep apnea1 (chief complaint) Chronic pain syndromeBarrett's esophagus without dysplasiaPolyp of colonOther specified disorder of bone densityPain in left kneeSleep apneaSolitary lung noduleInconclusive mammogram 2 Alexandre Brandon. [address], [place], [place], [address] , [place]. tel:[phone] OFFICE/OUTPA TIENT VISIT, [facility], [address], [place], [place], [address], [place] tel:[phone] [facility] pain (chief complaint) french (chief complaint) osteopenia 1 (chief complaint) French's esophagus without dysplasiaChronic pain syndromeOther specified disorder of bone density 2 Alexandre Brandon. [address], [place], [place], [address] , [place]. tel:[phone] OFFICE/OUTPA TIENT VISIT, [facility], [address], [place], [place], [address], [place] tel:[phone] [facility] pain (chief complaint) knee pain1 (chief complaint) Chronic pain syndromePain in left knee 2 Alexandre Brandon. [address], [place], [place], [address] , [place]. tel:[phone] OFFICE/OUTPA TIENT VISIT, [facility], [address], [place], [place], [address], [place] tel:[phone] [facility] pain (chief complaint) knee pain1 (chief complaint) mammo (chief complaint) Pain in left kneeInconclusive mammogramChronic pain syndromeOther specified disorder of bone density 2 Alexandre Mary [address], [place], [place], [address] , [place]. tel:[phone] OFFICE/OUTPA TIENT VISIT, [facility], [address], [place], [place], [address], [place] tel:[phone] [facility] pain (chief complaint) Chronic pain syndromeInconclusiv e mammogram 1 Alexandre Mary [address], [place], [place], [address] , [place]. tel:[phone] OFFICE/OUTPA TIENT VISIT, [facility], [address], [place], [place], [address], [place] tel:[phone] [facility] pain (chief complaint) Chronic pain syndromePain in left knee 1 Alexandre Mary [address], [place], [place], [address] , [place]. tel:[phone] OFFICE/OUTPA TIENT VISIT, [facility], [address], [place], [place], [address], [place] tel:[phone] [facility] pain (chief complaint) mammo (chief complaint) HTN (chief complaint) nevus1 (chief complaint) Chronic pain syndromeNevus, non-neoplasticPain in left kneeInconclusive mammogramEssential (primary) hypertension 1 Alexandre Mary [address], [place], [place], [address] , [place]. tel:[phone] OFFICE/OUTPA TIENT VISIT, [facility], [address], [place], [place], [address], [place] tel:[phone] [facility] pain1 (chief complaint) knee pain1 (chief complaint) mole (chief complaint) Chronic pain syndromeNevus, non-neoplasticPain in left knee Sep-2 1 Alexandre Mary [address], [place], [place], [address] , [place]. tel:[phone] OFFICE/OUTPA TIENT VISIT, EST [facility], [address], [place], [place], [address], [place] tel:[phone] [facility] pain (chief complaint) leg pain1 (chief complaint) nevus1 (chief complaint) weight loss1 (chief complaint) Chronic pain syndromeAbnormal weight lossNevus, non-neoplasticPain in left kneeNeuropathy 1 Alexandre Mary [address], [place], [place], [address] , [place]. [phone] OFFICE/OUTPA TIENT VISIT, [facility], [address], [place], [place], [address], [place] tel:[phone] [facility] pain (chief complaint) HLP (chief complaint) mammo (chief complaint) Inconclusive mammogramHyperlipid emiaChronic pain syndrome 1 Alexandre Mary [address], [place], [place], [address] , [place]. [phone] OFFICE/OUTPA TIENT VISIT, EST [facility], [address], [place], [place], [address], [place] tel:[phone] [facility] back pain1 (chief complaint) Chronic pain syndrome 1 Alexandre Mary [address], [place], [place], [address] , [place]. [phone] [id number] PREV VISIT, EST, AGE 40-64 [facility], [address], [place], [place], [address], [place] tel:[phone] [facility] physical (chief complaint) Encounter for general adult medical examination without abnormal findings 1 Alexandre Mary [address], [place], [place], [address] , [place]. [phone] OFFICE/OUTPA TIENT VISIT, EST [facility], [address], [place], [place], [address], [place] tel:[phone] [facility] back pain1 (chief complaint) breast1 (chief complaint) barrett1 (chief complaint) HLP (chief complaint) Chronic pain syndromeBarrett's esophagus without dysplasiaSolitary lung noduleInconclusive mammogramHyperlipid emia 1 Alexandre Mary [address], [address], [place], [place], [address] , [place]. tel:[phone] OFFICE/OUTPA TIENT VISIT, [facility], [address], [place], [place], [address], [place] tel:[phone] [facility] pain (chief complaint) Chronic pain syndromeOther spondylosis, lumbar region 1 Alexandre Mary [address], [address], [place], [place], [address] , [place]. tel:[phone] OFFICE/OUTPA TIENT VISIT, [facility], [address], [address], [place] tel:[phone] [facility] pain (chief complaint) Other spondylosis, lumbar regionChronic pain syndrome 1 Alexandre Mary [address], [place], [place], [address] , [place]. tel:[phone] OFFICE/OUTPA TIENT VISIT, [facility], [address], [address], [place] tel:[phone] [facility] pain (chief complaint) osteoporos is1 (chief complaint) DM (chief complaint) french (chief complaint) Chronic pain syndromeBarrett's esophagus without dysplasiaOther specified disorder of bone densityType 2 diabetes mellitus with diabetic mononeuropathy 1 Alexandre Mary [address], [place], [place], [address] , [place]. tel: [phone] OFFICE/OUTPA TIENT VISIT, [facility], [address], [address], [place] tel:[phone] [facility] pain (chief complaint) Chronic pain syndrome 0 Alexandre Taylor. [address], [place], [place], [address] , [place]. tel:[phone] OFFICE/OUTPA TIENT VISIT, [facility], [address], [place], [place], [address], [place] tel:[phone] [facility] pain (chief complaint) mammogram1 (chief complaint) Inconclusive mammogramChronic pain syndrome 0 Alexandre Taylor. [address], [place], [place], [address] , [place]. tel:[phone] OFFICE/OUTPA TIENT VISIT, [facility], [address], [place], [place], [address], [place] tel:[phone] [facility] pain (chief complaint) mammo (chief complaint) HLP (chief complaint) HTN (chief complaint) Inconclusive mammogramHyperlipid emiaEssential (primary) hypertensionType 2 diabetes mellitus with diabetic mononeuropathyChron ic pain syndrome 0 Alexandre Taylor. [address], [place], [place], [address] , [place]. tel:[phone] OFFICE/OUTPA TIENT VISIT, [facility], [address], [place], [place], [address], [place] tel:[phone] [facility] back pain1 (chief complaint) mammo (chief complaint) sleep apnea1 (chief complaint) lung nodule1 (chief complaint) Chronic pain syndromeSleep apneaSolitary lung noduleInconclusive mammogram 0 Alexandre Taylor. [address], [place], [place], [address] , [place]. tel:[phone] OFFICE/OUTPA TIENT VISIT, [facility], [address], [place], [place], [address], [place] tel:[phone] [facility] back pain1 (chief complaint) tobacco1 (chief complaint) HLP (chief complaint) DM (chief complaint) HyperlipidemiaChron ic pain syndromeType 2 diabetes mellitus with diabetic mononeuropathyOsteo porosisTobacco useEncounter for oth screening for malignant neoplasm of breast 0 Alexandre Mary [address], [place], [place], [address] , [place]. tel:[phone] OFFICE/OUTPA TIENT VISIT, [facility], [address], [place], [place], [address], [place] tel:[phone] [facility] French (chief complaint) back pain1 (chief complaint) Chronic pain syndromeBarrett's esophagus without dysplasiaHyperlipid emia 0 Alexandre Mary [address], [place], [place], [address] , [place]. tel:[phone] OFFICE/OUTPA TIENT VISIT, [facility], [address], [place], [place], [address], [place] tel:[phone] [facility] back pain1 (chief complaint) HTN (chief complaint) HLP (chief complaint) sleep apnea1 (chief complaint) Chronic pain syndromeHyperlipide miaEssential (primary) hypertensionSleep apnea 0 Alexandre Mary [address], [place], [place], [address] , [place]. tel: [phone] OFFICE/OUTPA TIENT VISIT, [facility], [address], [address], [place] tel:[phone] [facility] back pain1 (chief complaint) Barrett1 (chief complaint) French's esophagus without dysplasiaChronic pain syndrome 0 Alexandre Taylor. [address], [place], [place], [address] , [place]. tel:[phone] OFFICE/OUTPA TIENT VISIT, [facility], [address], [place], [place], [address], [place] tel:[phone] [facility] back pain1 (chief complaint) DM (chief complaint) osteoporos is1 (chief complaint) COPD1 (chief complaint) CAD (chief complaint) OsteoporosisEmphyse maChronic pain syndromeType 2 diabetes mellitus with diabetic mononeuropathyCoron angelo artery disease of [place] coronary artery without angina pectoris 0 Alexandre Mary [address], [place], [place], [address] , [place]. [phone] OFFICE/OUTPA TIENT VISIT, EST [facility], [address] [place], [address], [place] tel:[phone] [facility] back pain1 (chief complaint) sleep apnea1 (chief complaint) DM (chief complaint) osteopenia 1 (chief complaint) HLP (chief complaint) Chronic pain syndromeHyperlipide miaType 2 diabetes mellitus with diabetic mononeuropathyOther specified disorder of bone densitySleep apneaIron deficiency 0 Alexandre Mary [address], [place], [place], [address] , [place]. [phone] Referring Provider: Garima Camacho [address], [place], [place], [address]. tel:[phone] PREV VISIT, EST, AGE 40-64 [facility], [address] [place], [address], [place] tel:[phone] [facility] physical (chief complaint) Encntr for general adult medical exam w/o abnormal findings Oct- 0 Alexandre [address] [place], [address] , [place]. [phone] Referring Provider: Garima Cam[address], [place], [place], [address]. tel:[phone] OFFICE/OUTPA TIENT VISIT, EST [facility], [address] [place] [place], [address], [place] tel:[phone] [facility] sleep apnea1 (chief complaint) back pain1 (chief complaint) osteoporos is1 (chief complaint) barrett1 (chief complaint) CAD (chief complaint) Coronary artery disease of [place] coronary artery without angina pectorisSleep apneaOsteoporosisBa rrett's esophagus without dysplasiaLumbago with sciatica, left side 0 0 Alexandre Taylor. [address], [place], [place], [address] , [place]. tel:[phone] Referring Provider: Garima [address], [place], [place], [address]. tel:[phone] OFFICE/OUTPA TIENT VISIT, [facility], [address], [place], [place], [address], [place] tel:[phone] [facility] back pain1 (chief complaint) sleep apnea1 (chief complaint) Sleep apneaLumbago with sciatica, left sideNeuropathyNevus , non-neoplastic 9 Alexandre Mary [address], [place], [place], [address] , [place]. tel:[phone] Referring Provider: Garima Cam[address], [place], [place], [address]. tel:[phone] OFFICE/OUTPA TIENT VISIT, [facility], [address], [place], [place], [address], [place] tel:[phone] [facility] chronic pain1 (chief complaint) sleep apnea1 (chief complaint) osteoporos is1 (chief complaint) Sleep apneaOsteoporosisCh ronic pain syndromeTobacco use 9 Alexandre [address], [place], [place], [address] , [place]. tel:[phone] Referring Provider: Garima Camacho [address], [place], [place], [address]. tel:[phone] OFFICE/OUTPA TIENT VISIT, [facility], [address], [place], [place], [address], [place] tel:[phone] [facility] chronic pain (chief complaint) sleep apnea1 (chief complaint) CAD (chief complaint) Chronic pain syndromeSleep apneaCoronary artery disease of [place] coronary artery without angina pectoris 9 Schroeder Brandon. [address], [place], [place], [address] , [place]. tel:[phone] Referring Provider: Garima Camacho [address], [place], [place], [address]. tel:[phone] OFFICE/OUTPA TIENT VISIT, [facility], [address], [place], [place], [address], [place] tel:[phone] [facility] sleep apnea1 (chief complaint) chronic pain1 (chief complaint) DM (chief complaint) COPD1 (chief complaint) Type 2 diabetes mellitus with diabetic mononeuropathyEmphy semaSleep apneaChronic pain syndrome 9 Alexandre Taylor. [address], [place], [place], [address] , [place]. tel:[phone] Referring Provider: Garima Camacho [address], [place], [place], [address]. tel:[phone] OFFICE/OUTPA TIENT VISIT, [facility], [address], [place], [place], [address], [place] tel:[phone] [facility] chronic pain1 (chief complaint) sleep apena1 (chief complaint) Chronic pain syndromeSleep apnea 9 Alexandre Taylor. [address], [place], [place], [address] , [place]. tel:[phone] Referring Provider: Garima Camacho [address], [place], [place], [address]. tel:[phone] OFFICE/OUTPA TIENT VISIT, [facility], [address], [place], [place], [address], [place] tel:[phone] [facility] chronic pain (chief complaint) French (chief complaint) sleep apnea1 (chief complaint) COPD1 (chief complaint) DM (chief complaint) HTN (chief complaint) EmphysemaBarrett's esophagus without dysplasiaSleep apneaChronic pain syndromeType 2 diabetes mellitus with diabetic mononeuropathyEssen tial (primary) hypertension 9 Alexandre Taylor. [address], [place], [place], [address] , [place]. tel:[phone] Referring Provider: Garima Camacho [address], [place], [place], [address]. tel:[phone] OFFICE/OUTPA TIENT VISIT, [facility], [address], [place], [place], [address], [place] tel:[phone] [facility] GERD1 (chief complaint) back pain1 (chief complaint) CAD1 (chief complaint) sleep apnea1 (chief complaint) COPD1 (chief complaint) EmphysemaCoronary artery disease of [place] coronary artery without angina pectorisGERD with esophagitisSleep apneaOsteoporosisCh ronic pain syndrome 9 Alexandre Taylor. [address], [place], [place], [address] , [place]. tel:[phone] Referring Provider: Garima Camacho [address], [place], [place], [address]. tel:[phone] OFFICE/OUTPA TIENT VISIT, [facility], [address], [place], [place], [address], [place] tel:[phone] [facility] back pain1 (chief complaint) CAD1 (chief complaint) sleep apnea1 (chief complaint) GERD1 (chief complaint) Coronary artery disease of [place] coronary artery without angina pectorisGERD with esophagitisSleep apneaChronic pain syndrome 9 Alexandre Taylor. [address], [place], [place], [address] , [place]. tel:[phone] Referring Provider: Garima Camacho [address], [place], [place], [address]. tel:[phone] OFFICE/OUTPA TIENT VISIT, [facility], [address], [place], [place], [address], [place] tel:[phone] [facility] gerd1 (chief complaint) CAD (chief complaint) back pain1 (chief complaint) Inconclusive mammogramSleep apneaCoronary artery disease of [place] coronary artery without angina pectorisGERD with esophagitisChronic pain syndrome Dec- 9 Alexandre Taylor. [address], [place], [place], [address] , [place]. tel:[phone] Referring Provider: Brandon Schroeder, [address], [place], [place], [address]. tel:[phone] OFFICE/OUTPA TIENT VISIT, EST [facility], [address], [place], [place], [address], [place] tel:[phone] [facility] osteoporos is1 (chief complaint) chronic pain (chief complaint) breast1 (chief complaint) sleep apnea1 (chief complaint) HLP (chief complaint) HyperlipidemiaChron ic pain syndromeOsteoporosi sInconclusive mammogramSleep apneaTobacco useType 2 diabetes mellitus with diabetic mononeuropathy 9 Alexandre Taylor. [address], [place], [place], [address] , [place]. tel:[phone] Referring Provider: Garima Camacho [address], [place], [place], [address]. tel:[phone] OFFICE/OUTPA TIENT VISIT, [facility], [address], [place], [place], [address], [place] tel:[phone] [facility] DM (chief complaint) polycythem ia1 (chief complaint) HLP (chief complaint) chronic pain1 (chief complaint) HyperlipidemiaSecon victor manuel polycythemiaType 2 diabetes mellitus with diabetic mononeuropathyOther specified abnormal findings of blood chemistryChronic pain syndrome 9 Alexandre Taylor. [address], [place], [place], [address] , [place]. tel:[phone] Referring Provider: Gar[address], [place], [place], [address]. tel:[phone] PREV VISIT, NEW, AGE 40-64 [facility], [address], [place], [place], [address], [place] tel:[phone] [facility] Physical (chief complaint) Encounter for general adult medical exam w abnormal findingsEssential (primary) hypertensionType 2 diabetes mellitus with diabetic mononeuropathyHyper lipidemiaChronic pain syndrome 9 Alexandre Taylor. [address] [facility] [address], [place], [place], [address] , [place]. tel:[phone] Referring Provider: Brandon Schroeder Garima [facility] A, [place], [place], [address]. tel:[phone] Family History Family Member Type Diagnosis Age At Onset Mother Problem (finding) of colon CA (Cause Of ) 68 Father Problem (finding) of CHF (Cause Of D eath) 65 Brother Problem (finding) Alive and well Payers Payer name Insurance type Covered alliance party ID Authorgertrude leonard(s) [facility] [id number] Social History Type Description Quantity Date Captured Comments Alcohol Use Details No Caffeine Use Details Unknown Tobacco Use Status Heavy cigarette smok er (20-39 cigs/day) Smoking Status Heavy tobacco smoker Sex Female Vital Signs Date / Time: Height Weight BMI Pulse Rate Blood Pressure Temperature Respiratory Rate Body Surface Area Head Circumference BMI percentile Pulse Ox Inhaled Ox 9:34 AM 68.00 in 187.00 lbs 28.4 3 kg/m eter (2) 72 /min 120/70 mm[Hg] 97.2 F 16 /min Chief Complaint And Reason For Visit From encounter dated 03/01/2025 09:30'. pain (chief complaint). Description: Pt has low back pain with neuropathy. Pt failed neurontin. Pt takes norco PRn for pain. . Pt denies any loss of bladder control. Pt has chronic sciatica and leg numbness. Pt denies any worsening pain. Pt denies any saddle area paresthesia. Pt had MRI done which showed severe spondylosis. Plan Of Treatment Date Type Action Status [...] Special diet education compl eted Referral Ordered: ESOPHAGUS ENDOSCOPY ordered Referral Ordered: Dermatology (related to Nevus, non-neoplastic) ordered Referral Ordered: Endocrinology, Diabetes and Metabolism (related to Type 2 diabetes mellitus with diabetic mononeuropathy) ordered Referral Ordered: [place] KIDNEY ordered Referral Referred To: Janel REESE, Olinda Ramos [address] [facility]
[address], [place], [address] Ordered: Referrals: Janel REESE, Olinda Ramos. Evaluate and treat ordered Referral Ordered: US [...] breast) ordered Referral Referred To: Vivian Harper [address] [place] [address], [id number] Ordered: Referrals: Allopathic & Osteopathic Physicians : Surgery. Vivian Harper. Evaluate and treat ordered Referral Ordered: Endocrinology, Diabetes and Metabolism (related to Type 2 diabetes mellitus with diabetic mononeuropathy) ordered Referral Ordered: Dwayne Hennessy MD -Allopathic & Osteopathic Physicians : Obstetrics & Gynecology (related to Other signs and symptoms in breast) ordered Referral Referred To: Dwayne Hennessy MD [address] [place] [address], [id number] Ordered: Referrals: Allopathic & Osteopathic Physicians : Obstetrics & Gynecology. Dwayne Hennessy MD. Evaluate and treat ordered Referral Ordered: Referrals: Endocrinology, Diabetes and Metabolism. Evaluate and treat ordered Referral Ordered: MAMMOGRAM, BOTH BREASTS ordered Referral Ordered: KNEE XRAY, 3 VIEW Left ordered Referral Referred To: Estela REESE, Rosales Shoemaker [facility] [address] [place], [place], [address] Ordered: Referrals: Rosales Palmer MD. Evaluate and [...] Willis MD [address]
[place], [address] Ordered: Referrals: Richard. Willis MD Evaluate and treat ordered Referral Ordered: Pulmonology (related to Sleep apnea) ordered Referral Ordered: Referrals: Pulmonology. Evaluate and treat ordered Referral Ordered: Baldemar Fowler -Allopathic & Osteopathic Physicians : Internal Medicine : Cardiovascular Disease (related to Coronary artery disease of [place] coronary artery without angina pectoris) ordered Referral Referred To: Baldemar Fowler [address] [place], [place] [address] Ordered: Referrals: Allopathic & Osteopathic Physicians : Internal Medicine : Cardiovascular Disease. Baldemar Fowler. Evaluate and treat ordered Referral Ordered: MAMMOGRAM, ONE BREAST ordered Referral Ordered: Grant Mendez -Allopathic & Osteopathic Physicians : Internal Medicine : Endocrinology, Diabetes & Metabolism (related to Type 2 diabetes mellitus with diabetic mononeuropathy) ordered Referral Ordered: SLEEP STUDY, ATTENDED ordered Referral Referred To: Grant Mendez [address] [facility]
[address] [place], [place] [id number] Ordered: Referrals: Allopathic & Osteopathic Physicians : Internal Medicine : Endocrinology, Diabetes & Metabolism. Grant Mendez. Evaluate and treat ordered Referral Ordered: DXA BONE DENSITY, AXIAL ordered Referral Ordered: COLONOSCOPY AND BIOPSY ordered Referral Ordered: CT THORAX W/O DYE ordered Referral Ordered: MAMMOGRAM, SCREENING ordered Appointment Drea Barker BOOKED History Of Present Illness Encounter Date Complaint History Of Prese nt Illness pain Pt has low back pain with neuropathy. Pt failed neurontin. Pt takes norco PRn for pain. . Pt denies any loss of bladder control. Pt has chronic sciatica and leg numbness. Pt denies any worsening pain. Pt denies any saddle area paresthesia. Pt had MRI done which showed severe spondylosis. thyroid1 Pt has history o f high thyroid. Pt saw endo recently and she had TSH, TPO and TSI done but she does not know the result yet DM Pt has DM pt saw endo recently and she is on metformin and amaryl and her A1c is 7.6 per patient and she was told to continue metformin and amaryl pain Pt has low back pain with neuropathy. Pt failed neurontin. Pt takes norco PRn for pain. . Pt denies any loss of bladder control. Pt has chronic sciatica and leg numbness. Pt denies any worsening pain. Pt denies any saddle area paresthesia. Pt had MRI done which showed severe spondylosis. barrett Pt has french e sophagus. Pt is on omeprazole pt denies any GERD or abd pain pain Pt has low back pain with [...] had MRI done which showed severe spondylosis. HTN Pt has HTN Pt ta kes metoprolol and losartan and her bp is ok Pt denies any chest pain or headache . melanoma1 Pt saw eneida ellis and she was diagnosed with melanoma on her back s/p surgical removal. Pt will have left forearm lesion removed soon Barrett1 Pt has french P t is on omeprazole Pt needs EGD. Pt doing ok with omeprazole thyroid Pt has chronical ly suppressed tsh pt denies any dysphagia or neck pain Pt is seeing endo. COPD1 Pt has COPD. Pt is on anoro and she is seeing pulmonary Pt had benign LDCT recently Pt denies any worsening sob HLP Pt has HLP Pt is on crestor and lipid ok. Pt denies any myalgia mag Pt is on oral ma g and her mag is ok pain Pt has low back pain with neuropathy. Pt failed neurontin. Pt takes norco PRn for pain. . Pt denies any loss of bladder control. Pt has chronic sciatica and leg numbness. Pt denies any worsening pain. Pt denies any saddle area paresthesia. Pt had MRI done which showed severe spondylosis. DM Pt has DM Pt saw endo and [...] see pulmonary closer [place] thyroid nodule1 Pt has thyroid n odule [...] benign diagnostic mammo and ultrasound recently by VERIFICATION ENGINEER. Pt was referred to breast specialist in [facility] but she could not make to [facility] mag Pt has been taki ng mag [...] prolactin done which is normal Pt saw elementary educator and she was told to do mammogram [...] apnea. HLP Pt has HLP Pt ta kes crestor Pt denies any myalgia. Pt had lab [...] per pulmonary barrett1 Pt has french e melanieus and she is on omeprazole and she [...] or swelling sleep apnea1 Pt has sleep retread builder ea but she is noncompliant with cpap. pt denies any fatigue or snoring or any trouble with breathing at night french pt has french e rebel. Pt underwent esophageal ablation 2018. Pt takes [...] myalgia Pt just had lab done by jasmina and was A1c down to 6 and [...] was canceled again and she told me [facility] told her they no longer takes her scanlon so they will not be able to see her at all. french Pt has french e sophagus s/p ablation Pt is on omeprazole. Pt doing ok DM Pt has DM. Pt ta kes metformin, amaryl and victoza. Pt just saw jasmina and she had lab done and her [...] yet . sleep apnea1 Pt has sleep retread builder ea Pt failed cpap. pt told me [...] pain. Pt needs to see neurosurgery at [facility] and she still has not made [...] is waiting for alysa with neurosurgery at [facility]. Pt denies any loss of bladder control. Pt has chronic sciatica and leg numbness. Pt states that neurosurgery at [facility] told her that they are not scheduling new patient due to COVID-19. HTN Pt has HTn. Pt t akes losartan and metoprolol. Pt has not been checking her BP at home Pt denies any chest pain or headache HLP Pt has HLP. Pt t akes lovastatin Pt denies any myalgia. her LDL is not at goal sleep apnea1 Pt has sleep retread builder ea .Pt states that she is still not using cpap Pt states that the machine is not working right and she wants to discuss with her pulmonary back pain1 Pt has back pain with neuropathy. Pt failed neurontin. Pt takes norco PRn for pain. Pt is waiting for alysa with neurosurgery at [facility]. Pt denies any loss of bladder [...] and she was referred to neurosurgery at [facility] for neck issue .However, [facility] is not taking new pt now [...] any myalgia sleep apnea1 Pt has sleep retread builder ea Pt is seeing pulmonary and she [...] has CAD. Pt just saw a new manager integrated and will do cardiac cath pt denies [...] pain CAD Pt has alysa with another manager integrated for 2nd opinion Pt denies any chest [...] any claudication sleep apnea1 Pt has sleep retread builder ea pt is noncompliant with cpap Pt [...] back surgery. sleep apnea1 Pt has sleep retread builder ea. Pt is working with [employer] to try to fix the mask issue Pt states that they did some setting change and she is doing better. pt has alysa with cardiology in 6 days. Pt did not call cardiology regarding the abnormal stress test Pt also did not call cardiology regarding pulmonary sleep apnea1 Pt has sleep retread builder ea Pt states that she has trouble [...] chest pain sleep apnea1 Pt has sleep retread builder ea Pt is not using cpap due [...] ay hemoptysis. sleep apena1 Pt has sleep retread builder ea Pt started CPAP but she is [...] BP stable sleep apnea1 Pt has sleep retread builder ea. Pt just had cpAP done and [...] ad pain sleep apnea1 Pt has sleep retread builder ea. Pt supposes to do cpAP study [...] has intermittent nonexertional chest pain Pt seen manager integrated already. Pt will do stress test and echo later this week. Pt denies any acute chest pain sleep apnea1 Pt has sleep retread builder ea symptoms Pt does snore and feels [...] any other complaints Instructions Date Instruction Additional Manuelar vinny Special diet education Related t o [...] o Body mass index (BMI) 31.0-31.9, adult Increase physical activity Relat ed to Chronic pain syndrome Special diet education Related t o Body mass index (BMI) 30.0-30.9, adult Weight management Related to Chr onic pain syndrome Quit smoking Related to Chron ic pain syndrome Special diet education Related t o Body mass index (BMI) 30.0-30.9, adult Quit smoking Related to Emphy sema Special diet education Related t o Body mass index (BMI) 31.0-31.9, adult Quit smoking Related to Emphy sema Special diet education Related t o Body mass index (BMI) 30.0-30.9, adult Quit smoking Related to Coron angelo artery disease of [place] coronary artery without angina pectoris Quit smoking [...] Type Assessment Date assessment Chronic pain syndrome Mental Status Date Cognitive Assessment Orientation - [place] ed to time, place, person, situation.
--- OUTSIDE RECORDS SUMMARY | 2025-03-18 01:14 | XMS_ITS | Clinical Summary ---
Author Organization [facility] Address Counts include 234 beds at the [facility] [place] [address] Care Team Providers Care Supervisor Prop Making Name Role Phone Brandon Schroeder MD Primary Care Provider Leonid Cameron MD Unavailable [phone] Allergies Active Allergy Reactions Criticality Noted Date [...] as needed. 9 Active vitamin D2, ergocalciferol, 89623 UNITS capsule Take 1 capsule (50,000 Units [...] apnea) 10/19/2019 GERD (gastroesophageal reflux disease) Immunizations Immunization Administration Dates Next Due MODERNA COVID-19 (12+) [...] Comments Blood Pressure 124/58 10/10/2023 8:00 AM AIR QUALITY CONSULTANT Pulse 69 10/10/2023 8:00 AM AIR QUALITY CONSULTANT Temperature 36.2 C (97.2 F) 10/29/2019 9:05 AM AIR QUALITY CONSULTANT Respiratory Rate 14 10/10/2023 8:00 AM AIR QUALITY CONSULTANT Oxygen Saturation 94% 05/10/2022 2:55 PM CDT Inhaled Oxygen Concentration - - Weight 80.5 kg (177 lb 6.4 oz) 10/10/2023 8:00 A M AIR QUALITY CONSULTANT Height 172.7 cm (5' 8) 10/10/2023 8:00 AM AIR QUALITY CONSULTANT Body Mass Index 26.97 10/10/2023 8:00 AM AIR QUALITY CONSULTANT Plan of Treatment Health Maintenance Due Date Last Done Comments Colorectal Cancer Screening Colonoscopy (10 Years) 1957 Hepatitis C 1975 DTaP, Tdap and Td Vaccines ( 1 - Tdap) 1976 Mammogram Screening 1997 Zoster Vaccines (1 of 2) 2007 Pneumococcal Vaccine: 50+ Years (3 of 3 - PCV20 or PCV21) 11/20/2021 11/20/2016, 06/04/2014 Annual Medicare Wellness Visit 2022 Dexa Scan (General) 2022 COVID-19 Vaccine (3 - 2023-2 5 season) 2024 12/20/2020, 11/22/2020 RSV Immunization or 60+ Years (1 - 1-dose 75+ series) 2032 Meningococcal B Vaccine Aged Out No l onger eligible based on patient's age to complete this topic Meningococcal Vaccine Aged Out No jessenia tino eligible based on patient's age to complete this topic RSV Immunizations Under 20 Months Aged Out No longer eligible b ased on patient's age to complete this topic Procedures Procedure Name Priority Date/Time Associated Diagnosis Comments COLONOSCOPY Routine AIR QUALITY CONSULTANT from Last 3 Months or Most Recently Relevant to Health Maintenance Results * Colonoscopy ( AIR QUALITY CONSULTANT) Narrative [facility] TO EPIC CONVERSION - AIR QUALITY CONSULTANT Documented hx of procedure Procedure Note , Generic Conversion, - 07/06/2018 Documented hx of procedure us Generic Conversion Md REESE GI PROCEDURE ORDERABLES Final Result [facility] TO EPIC CONVERSION from Last 3 Months or Most Recently Relevant to Health Maintenance Insurance [facility] Advance Directives * Full Code (Latest Code Status on File) Date Activated Date Inactivated Comments 10/29/2019 12:00 PM 10/29/2019 3:27 PM Care Teams Supervisor Prop Making Relationship Specialty Start Date End Date Brandon Schroeder MD PCP - General FAMILY PRACTICE 09/03/19 Leoind Cameron MD INTERVENTIONAL CARDIOLOGY 04/14/24
--- OUTSIDE RECORDS SUMMARY | 2025-03-18 01:14 | XMS_ITS | Encounter Summary ---
Author Organization [facility] Address [address] [place] [address] Care Team Providers Care Car Pusher Name Role Phone Michael Tapia MD Primary Care Provider [phone] Alfred Benton MD Primary Care Provider [phone] Alfred Benton MD Primary Care Provider [phone] Alfred Benton MD Primary Care Provider [phone] Alfred Benton MD Primary Care Provider [phone] Alfred Benton MD Primary Care Provider [phone] Brandon Schroeder MD Primary Care Provider [phone] Jose Childers MD Unavailable [phone] Leonid Cameron MD Unavailable [phone] Encounter Details Date Type Department Care Team (Late st Contact Info) Description 08/17/2013 Abstract [facility] CONVERSION [address] [place] [address] , Generic Conversion, Social History Tobacco Use [...] on file documented as of this encounter Visit Diagnoses Not on filedocumented in this encounter Care Teams Car Pusher Relationship Specialty Start Date End Date Michael Tapia MD PCP - General INTERNAL MEDICINE 10/31/16 09/02/19 [place] [address] [place] [address] PCP - General 05/10/14 10/30/16 [place] [address] [address] PCP - General 12/28/13 05/09/14 [place] [address] [place] [address] PCP - General 11/23/13 12/27/13 [place] [address] [address] PCP - General 11/18/13 11/22/13 [place] [address] [address] PCP - General 11/09/13 11/17/13 [place] [address] [address] PCP - General FAMILY PRACTICE 09/03/19 Jose Childers MD [address] [place] [address] [place] [facility] Specialist CARDIOVASCULAR DISEASE 09/03/19 04/13/24 Leonid Cameron MD [address] [place] [address] INTERVENTIONAL CARDIOLOGY 04/14/24 documented as of this encounter
--- OUTSIDE RECORDS SUMMARY | 2025-03-18 01:14 | XMS_ITS | Referral Summary ---
Author Organization [facility] Address [facility] [place] [address] Care Team Providers Care Buffet Runner Name Role Phone Brandon Schroeder MD Primary Care Provider [phone] Dasha Collazo HOME RESTORATION SERVICE SUPERVISOR Unavailable [phone] Encounters Date Type Department Care Team Description 02/04/2025 Orders Only [facility] Medical [facility] Diabetes and Endocrinology [address] [place] [phone] ProviderIshan MD 01/27/2025 Results Follow-Up [facility] Diabetes and Endocrinology [address] [place] [phone] Milagros Kang NP Albumin Creatinine Ratio, Urine, Thyroid peroxidase antibody (TPO), TSH receptor antibody 01/26/2025 10:26 AM CDT - 01/26/2025 11:59 PM CDT Hospital Encounter [address] [address] Hyperthyroidism; Type 2 diabetes mellitus with diabetic polyneuropathy, without long-term current use of insulin (HCC) Discharge Disposition: Discharge to home or self care 01/26/2025 10:30 AM CDT Lab [facility] Outpatient Lab at [address] [address] 01/26/2025 9:30 AM CDT Office Visit [facility] Diabetes and Endocrinology [address] [place] [phone] Milagros Kang NP Type 2 diabetes mellitus with diabetic polyneuropathy, without long-term current use of insulin (HCC) (Primary Dx); Hypertension associated with diabetes (HCC); Hyperlipidemia associated with type 2 diabetes mellitus (HCC); Diabetic polyneuropathy associated with type 2 diabetes mellitus (HCC); Vitamin B12 deficiency; Vitamin D deficiency; Hyperthyroidism from Last 3 Months Allergies Active Allergy [...] drawn today. Will update labs. Does not [facility]. Verified phone #/address to contact re: results. [...] Will update MA/Cr. Verified that she uses [facility]. Aware to check results/results letter in [facility]. Will contact by phone if needed. Discussed [...] m ellitus 11/30/2016 Overview (01/25/2017): Mixed hyperlipidemia Assessment & Plan (01/26/2025 9:36 AM CDT): Chronic problem. At goal on current Rosuvastatin 10mg. Last lipid panel: 10/09/24 LDL=57, FB=584. Chronic pain associated with significant psychosocial dysfunction [...] long-term current use of insulin 10/05/2024 01/26/2025 Social History Tobacco Use Types Packs/Day Years [...] on file Legal Sex Female 11:41 AM LARRY OPERATOR Gender Identity Not on file Sexual Orientation Not on file Last Filed Vital Signs Vital Sign Reading Time Taken Comments Blood Pressure 118/70 01/26/2025 9:15 AM CDT Pulse 65 01/26/2025 9:15 AM CDT Temperature 36.1 C (97 F) 11/04/2020 9:23 AM LARRY OPERATOR Respiratory Rate 18 01/26/2025 9:15 AM CDT Oxygen Saturation 90% 11/30/2016 3:58 PM CDT Inhaled Oxygen Concentration - - Weight 83.9 kg (185 lb) 01/26/2025 9:15 AM CDT Height 172.7 cm (5' 7.99) 01/26/2025 9:15 AM CD T Body Mass Index 28.14 01/26/2025 9:15 AM CDT Plan of Treatment Not on file Procedures [...] COMPREHENSIVE METABOLIC PANEL Routine 10/09/2024 10:46 AM LARRY OPERATOR LIPID PANEL Routine 10/09/2024 10:46 AM LARRY OPERATOR from Last 3 Months or Most Recently Relevant to Health Maintenance Results * TSH receptor antibody (01/26/2025 10:26 AM CDT) TSH receptor ab 1.29 0.00 - 1.75 IUnits/L [facility] Lab Comment: ADDITIONAL INFORMATION At a decision limit of 1.75 IU/L, this assay has 97% sensitivity and 99% specificity for detection of Graves' disease. In healthy individuals and in patients with thyroid disease without diagnosis of Graves' disease, the upper limit of anti-TSHR values are 1.22 IU/L and 1.58 IU/L, respectively (97.5th percentiles). Test Performed by: [place] [address] Template Inspector: Pat Couch Ph.D.; CLIA# [id number] Blood 01/26/2025 10:2 6 AM CDT 01/27/2025 8:12 AM CDT us Milagros Kang NP LAB BLOOD ORDERABLES Sara l Result TREYISAMAR ENOCH [address] [facility] [place] [address] [facility] * Thyroid peroxidase antibody (TPO) (01/26/2025 10:26 AM CDT) Anti Thyroid Peroxidase <30 <=34 IUnits/mL Comment: ATPO Interpretive Data Results may be up to 28% higher in patients receiving Itraconazole. Current interpretive data was last revised 2020. Testing performed by: [facility], [address] [facility], [place]., [address] Blood 01/26/2025 10:2 6 AM CDT 01/27/2025 9:53 AM CDT Milagros Kang HOME RESTORATION SERVICE SUPERVISOR LAB BLOOD ORDERABLES Sara l Result Performing Organization Address City/[facility] Co de Phone Number VANDA KENDALL [address] [place] [address] * Thyroid stimulating immunoglobulin (01/26/2025 10:26 AM CDT) Pathologist [facility] TSIG <1.0 <=1.3 [facility] Comment: Test Performed by: [place] [address] Template Inspector: Pat Couch Ph.D.; CLIA# [id number] Blood 01/26/2025 10:2 6 AM CDT 01/26/2025 3:44 PM CDT us Milagros Kang HOME RESTORATION SERVICE SUPERVISOR LAB BLOOD ORDERABLES Sara l Result Performing Organization Address [facility] Co de Phone Number VANDA KENDALL [address] [address] [place] [address] [facility] * Albumin Creatinine Ratio, Urine (01/26/2025 10:26 AM CDT) Pathologist [facility] Albumin Ur <12.0 mg/L Comment: Interpretive Data [...] 01/26/2025 3:45 PM CDT us Milagros Kang HOME RESTORATION SERVICE SUPERVISOR LAB URINE ORDERABLES Sara l Result VANDA KENDALL [address] Department [place] [address] * (ABNORMAL) POCT hemoglobin A1c (01/26/2025 9:18 AM CDT) Hemoglobin A1C, POC 7.6(A) 4.0 - 5.6 % Blood 01/26/2025 9:18 AM CDT us Milagros Kang HOME RESTORATION SERVICE SUPERVISOR POINT OF CARE TEST ORDERA BLES Final Result * (ABNORMAL) POCT glucose (01/26/2025 9:18 AM CDT) Glucose Blood, POC 139 Normal Fasting 70 - 100, Random <200 mg/dL Blood 01/26/2025 9:18 AM CDT us Milagros Kang HOME RESTORATION SERVICE SUPERVISOR POINT OF CARE TEST ORDERA BLES Final Result * Lipid panel (10/09/2024 10:46 AM LARRY OPERATOR) Pathologist [facility] SCRIBED Cholesterol, Total 142 30 - 199 mg/dL EXTERNAL LAB SCRIBED Triglycerides 145 <=149 mg/dL EXTERNAL LAB SCRIBED HDL 46 >=40 mg/dL EXTERNAL LAB SCRIBED LDL 67 <=129 mg/dL EXTERNAL LAB Scribed Non-HDL Cholesterol 0 NONE EXTERNAL LAB Comment:No value received SCRIBED Total Cholesterol/HDL Ratio 142 NONE EXTERNAL LAB Blood 10/09/2024 10:4 6 AM LARRY OPERATOR us Historical Provider LAB BLOOD ORDERABLES Edit ed Result - Final EXTERNAL LAB * (ABNORMAL) Comprehensive metabolic panel (10/09/2024 10:46 AM LARRY OPERATOR) Pathologist [facility] SCRIBED Sodium 140 136 - 145 mmol/L [...] Units/L EXTERNAL LAB SCRIBED eGFR in NonAfrican Nepalese >60 >=60 - NA EXTERNAL LAB Blood 10/09/2024 10:4 6 AM LARRY OPERATOR us Historical Provider LAB BLOOD ORDERABLES Edit ed Result - Final EXTERNAL LAB from Last 3 Months or Most Recently Relevant to Health Maintenance Insurance [facility] MEDICARE [facility] MEDICARE Address: [address] [address] [place] [address] Care Teams Buffet Runner Relationship Specialty Start Date End Date Brandon Schroeder MD [address] [place] [address] [place] [address] PCP - General Family Medicine 10/12/21 Dasha Collazo, ZARI [address] [place] [address] Nurse Practitioner Obstetrics and Gynecology 07/23/23
--- OUTSIDE RECORDS SUMMARY | 2025-03-18 01:15 | XMS_ITS | Encounter Summary ---
Author Organization [facility] Address [address] [place] [address] Care Team Providers Care Certified Corporate Travel Executive Name Role Phone Michael Tapia MD Primary Care Provider [phone] Alfred Benton MD Primary Care Provider [phone] Brandon Schroeder MD Primary Care Provider [phone] Jose Childers MD Unavailable [phone] Leonid Cameron MD Unavailable [phone] Encounter Details Date Type Department Care Team (Late st Contact Info) Description 04/17/2016 Abstract [facility] CONVERSION [address] [place] [address] , Generic MD Selene Social History Tobacco Use Types Packs/Day Years [...] on filedocumented in this encounter Care Teams Certified Corporate Travel Executive Relationship Specialty Start Date End Date Michael Tapia MD PCP - General INTERNAL MEDICINE 10/31/16 09/02/19 [place] [address] [address] PCP - General 05/10/14 10/30/16 [place] [address] [address] PCP - General FAMILY PRACTICE 09/03/19 Jose Childers MD [address] [place] [address] [place] [employer] CARDIOVASCULAR DISEASE 09/03/19 04/13/24 Leonid Cameron MD [address] [place] [address] INTERVENTIONAL CARDIOLOGY 04/14/24 documented as of this encounter
--- OUTSIDE RECORDS SUMMARY | 2025-03-18 01:15 | XMS_ITS | Encounter Summary ---
Author Organization [facility] Address [address] [place] [address] Care Team Providers Care Physician General Internal Medicine Name Role Phone Brandon Schroeder MD Primary Care Provider [phone] Dasha Collazo NP Unavailable [phone] Encounter Details Date Type Department Care Team (Late st Contact Info) Description 01/27/2025 Results Follow-Up [facility] Group Diabetes and Endocrinology [address] [place] [phone] Milagros Kang, ASPHALT LAYER [address] [facility] [address] [place] [address] Albumin Creatinine Ratio, Urine, Thyroid peroxidase antibody (TPO), TSH receptor antibody Social History Tobacco Use Types Packs/Day Years [...] on file Legal Sex Female 11:41 AM SHEET TAKER Gender Identity Not on file Sexual Orientation Not on file documented as of this encounter Miscellaneous Notes * Result Encounter Note - Noa Luis LPN - 02/01/2025 3:07 PM CDT Pt aware of lab results. Pt denies any questions or concerns at this time. * Result Encounter Note - Milagros Kang NP - 02/01/2025 12:23 PM CDT Please call Drea to let her know that the TSH receptor antibody is negative for Graves disease. Her TPO antibodies are normal which means no autoimmune thyroid disease. * Result Encounter Note - Noa Luis LPN - 01/27/2025 9:26 AM CDT Pt aware of results. Pt denies any questions or concerns at this time * Result Encounter Note - Milagros Kang NP - 01/27/2025 8:13 AM CDT Please call Drea to let her know that her urine test is elevated at 64.2; normal is less than 30. Getting her blood sugar under control will help to improve this. This shows excess protein spilling,some damage to her kidneys. documented in this encounter Plan of Treatment Not on file documented as of this encounter Visit Diagnoses Not on filedocumented in this encounter Care Teams Physician General Internal Medicine Relationship Specialty Start Date End Date Brandon Schroeder MD [address] [place] [address] PCP - General Family Medicine 10/12/21 Dasha Collazo NP [address] [place] [id number] Nurse Practitioner Obstetrics and Gynecology 07/23/23 documented as of this encounter
--- OUTSIDE RECORDS SUMMARY | 2025-03-18 01:15 | XMS_ITS | Clinical Summary ---
Author Organization [facility] Address [address] [facility] [place] [address] Care Team Providers Care Circulation Assistant Name Role Phone Brandon Schroeder MD Primary Care Provider [phone] Source Comments [facility],non-owned Affiliates and Associated Physician Practices is amultiple site organization consisting of ambulatory clinics and hospital sitesin [place], [place], [place] and [place]. This disclosure is being madepursuant to the Care Everywhere program and may not contain all information available regarding this patient. Last updated 18.[facility] Allergies Active Allergy Reactions Criticality Noted Date Comments Cyclobenzaprine Nausea and/or Vomiting 06/02/20 21 Lisinopril Swelling 06/02/2021 Medications * Be aware that medications may not be up to date on this document. Alwaysverify current medications with the patient. metoprolol succinate XL 24hr (TOPROL XL) 200 MG tablet once daily Activ e glimepiride (AMARYL) 2 MG tablet once daily 03/20/2021 Active metFORMIN (GLUCOPHAGE) 500 MG tablet once daily 03/20/2021 Active Active Problems No known active problems Social History Tobacco Use Types Packs/Day Years Used Date Smoking Tobacco: Every Day Smokeless Tobacco: Never Comments Unknown Sex and Gender Information Value Date Recorded Sex Assigned at Not on file Legal Sex Female 10:04 AM RESIN FILTERER Gender Identity Not on file Sexual Orientation Not on file Plan of Treatment Health Maintenance Due Date Last Done Comments BONE DENSITY TESTING 1955 COLOGUARD (AGES 45-75) - COL ON CA SCREENING 1957 COLON MONITORING 1957 COLONOSCOPY - COLON CA SCREENING 1957 CT COLONOGRAPHY - COLON CA SCREENING 1957 Colorectal Cancer Screening 1957 FIT - COLON CA SCREENING 1957 FLEX SIG - COLON CA SCREENING 1957 LIPID TESTING 1957 MAMMOGRAM 1957 HEPATITIS C SCREENING 08/09/1975 DTAP/TDAP/TD VACCINES (1 - Tdap) 1976 PNEUMOCOCCAL VACCINE 50+ (1 of 2 - PCV) 1976 ZOSTER VACCINE (1 of 2) 2007 COVID-19 VACCINE (3 - 2023-2 5 season) 2024 12/20/2020, 11/22/2020 DEPRESSION SCREENING 09/02/2024 MEDICARE AWV CALENDAR YEAR 2024 INFLUENZA VACCINE (#1) 2025 Respiratory Syncytial Virus (RSV) Vaccine Pt: or over 60 yrs (1 - 1-dose 75+ series) 2032 HEPATITIS B VACCINE Aged Out No longe r eligible based on patient's age to complete this topic HIB VACCINE Aged Out No longer eligi ble based on patient's age to complete this topic HPV VACCINE Aged Out No longer eligi ble based on patient's age to complete this topic MENINGOCOCCAL (Group B) VACCINE SHARED DECISION-MAKING Aged Out No longer eligible based on patient's age to complete this topic MENINGOCOCCAL GROUPS A/C/Y/W VACCINE Aged Out No longer eligible b ased on patient's age to complete this topic Insurance [facility] MANAGED MEDICARE ADV SELF PAY NO INSURANCE Member Subscriber Plan / Payer (Ef fective for All Dates) Name:Mary Jo Newell Member ID:Not on file Relation to Subscriber:Not on file Name:MARY JO NEWELL Subscriber ID:Not on file (Home) Address: [address] [address] Payer ID:Not on file Group ID:Not on file Type:Self Pay Address: [place], [place] SELF PAY NO INSURANCE Member Subscriber Plan / Payer (Ef fective for All Dates) Name:[place] Mary Jo Aldo Member ID:Not on file Relation to Subscriber:Not on file Name:MARY JO NEWELL Subscriber ID:Not on file Address: [address] [address] Payer ID:Not on file Group ID:Not on file Type:Self Pay Address: [facility] MANAGED MEDICARE ADV SELF PAY NO INSURANCE Member Subscriber Plan / Payer (Ef fective for All Dates) Name:Mary Jo Newell Member ID:Not on file Relation to Subscriber:Not on file Name:MARY JO NEWELL Subscriber ID:Not on file Address: [address] [address] Payer ID:Not on file Group ID:Not on file Type:Self Pay Address: [facility] MANAGED MEDICARE ADV SELF PAY NO INSURANCE Member Subscriber Plan / Payer (Ef fective for All Dates) Name:Mary Jo Newell Member ID:Not on file Relation to Subscriber:Not on file Name:MARY JO NEWELL Subscriber ID:Not on file Address: [address] [address] Payer ID:Not on file Group ID:Not on file Type:Self Pay Address: [facility] MANAGED MEDICARE ADV Care Teams Circulation Assistant Relationship Specialty Start Date End Date Brandon Schroeder MD PCP - General 10/22/19
--- OUTSIDE RECORDS SUMMARY | 2025-03-18 01:15 | XMS_ITS | Encounter Summary ---
Author Organization [facility] Address [address] [facility] [address] [place] [address] Care Team Providers Care Occupational Therapy Program Director Name Role Phone Michael Tapia MD Primary Care Provider + Brandon Schroeder MD Primary Care Provider [phone] Dasha Collazo SINGING WAITER OR WAITRESS Unavailable [phone] Encounter Details Date Type Department Care Team (Late st Contact Info) Description 11/30/2016 Orders Only [facility] ProviderIshan MD [address] [place] [address] Social History Tobacco Use Types Packs/Day Years Used Date Smoking Tobacco: Never Assessed Comments Unknown Sex and Gender Information Value Date Recorded Sex Assigned at Not on file Legal Sex Female 11:41 AM DATA ANALYTICS CHIEF SCIENTIST Gender Identity Not on file Sexual Orientation [...] on filedocumented in this encounter Care Teams Occupational Therapy Program Director Relationship Specialty Start Date End Date Michael Tapia MD PCP - General 11/30/16 10/11/21 Brandon Schroeder MD [facility] [place] [address] PCP - General Family Medicine 10/12/21 Dasha Collazo NP [address] [place] [address] Nurse Practitioner Obstetrics and Gynecology 07/23/23 documented as of this encounter
[2025-03-18 07:14] VITALS: BP 138/62; PULSE 82; RESP 20; TEMP 36.3; O2SAT 94; BMI 28.0
[2025-03-18] MEDS: LACTATED RINGERS 1,000 ML 150 ML IV CONT (07:26)
--- NOTE | 2025-03-18 08:13 | P.PNAN_ITS ---
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 Patient Data Age: 69 Gender: F Height: 1.73 m Weight: 83.5 kg Last Vital Signs Temp 97.3 F L 03/18/25 07:14 Pulse 82 03/18/25 07:14 Resp 20 03/18/25 07:14 BP 138/62 03/18/25 07:14 Pulse Ox 94 03/18/25 07:14 O2 Del Method Room Air 03/18/25 07:14 Allergies Allergy/AdvReac Type Severity Reaction Status Date / Time cyclobenzaprine AdvReac Unknown NAUSEA/VOMI Verified 03/18/25 07:12 TING lisinopril AdvReac Unknown Cough Verified 03/18/25 07:12 Home Medications ?Medication ?Instructions ?Recorded ?Confirmed ?Type losartan 100 mg tablet 100 mg PO QAM 08/06/19 03/18/25 History metformin 500 mg tablet,extended 500 mg PO BID 08/06/19 03/18/25 History release 24 hr metoprolol succinate 200 mg 200 mg PO QAM 08/06/19 03/18/25 History tablet,extended release 24 hr omeprazole 20 mg capsule,delayed 20 mg PO DAILY #30 caps 01/16/22 03/18/25 Rx release magnesium oxide 400 mg PO BID 10/14/23 03/18/25 History rosuvastatin 10 mg tablet 10 mg PO DAILY 10/16/23 03/18/25 History ergocalciferol (vitamin D2) 1,250 1,250 mcg PO MONTHLY 12/12/23 03/18/25 History mcg (50,000 unit) capsule Anoro Ellipta 62.5 mcg-25 1 inh inhalation QAM #60 ea 03/13/24 03/18/25 Rx mcg/actuation powder for inhalation (umeclidinium-vilanterol) glimepiride 2 mg tablet 2 mg PO DAILY 10/01/24 03/18/25 History hydrocodone 5 mg-acetaminophen 325 1 tablet PO Q6H PRN pain #10 tabs 10/07/24 03/01/25 Rx mg tablet albuterol sulfate 90 mcg/actuation 1 - 2 inh inhalation Q4-6H PRN 10/23/24 Rx aerosol inhaler (Ventolin HFA) Shortness Of Breath #8.5 grams cyanocobalamin (vitamin B-12) 2,000 mcg PO DAILY 03/01/25 03/18/25 History 2,000 mcg tablet,extended release Laboratory Tests 03/18/25 07:35 POC Capillary Glucose 131 H mg/dl (65-105) Patient hx anesthesia problems: none Family hx anesthesia problems: none Results Review: All pre-operative results and documents have been reviewed as part of the pre- operative evaluation. [facility] Past Medical History Medical History Colon polyp Epstein esophagus CAD in [place] artery Chest pain in adult ADAMES (dyspnea on exertion) Diabetes 1.5, managed as type 2 Dyslipidemia Elevated hemoglobin Essential hypertension Hyperkalemia Spinal stenosis of lumbar region Type 2 diabetes mellitus without complication, without long-term current use of insulin Surgical History Surgical History Personal history of spine surgery Family History Family History Father Family history of cardiovascular disease Acute myocardial infarction Sibling Family history of cardiovascular disease Mother Family history of malignant neoplasm Social History Social History Smoking packs per day: 1.5 Smoking cigarettes per day: 30.0 Years smoked: 50 Smoking pack-years: 75.00 Smoking status: Current every day smoker Tobacco type: cigarettes Alcohol intake: never Substance use: never Substance use type: does not use Do You Feel Safe in your Home?: Yes Lack of Transportation: No Lack of Food: Never True Current Housing: I Have Housing Concerned About Future Housing: No Difficulty Paying Gas/Electric Bills: Decline to Answer Difficulty Paying for Meds: No Currently Unemployed: No Education: Decline to Answer Difficulty w/ Childcare or Family Care: No Living arrangements: with family Additional living arrangements comments: [facility] Spiritual care concerns: No Anes - Eval Final PreProcedure Day of Procedure 03/18/25 08:13 Patient weight: overweight Lungs: normal air movement Airway: Mallampati scale class II Neurological: alert and oriented Last oral intake: >/= 8 hours ASA classification: III Emergent: no Anesthetic plan: proceed Anesthesia type and monitoring: general GIVS and standard monitoring Results Review: All pre-operative results and documents have been reviewed as part of the pre- operative evaluation. HTN, hyperlipidemia, smoker 1 ppd, EDIE not compliant w CPAP, DM fsbs 131. Informed Consent: The patient's anesthetic plan and its attendant risks and benefits were discussed with the patient/family/POA. Questions were solicited and answers provided to the satisfaction of the patient/family/POA.
--- NOTE | 2025-03-18 08:18 | P.HP_ITS ---
History of Present Illness History of Present Illness Consent: Risks, benefits, and alternatives have been discussed and questions answered. Patient agrees to proceed with procedure. Chief complaint: French's esophagus without dysplasia Narrative: Drea Barker is a 69 year old female with french's, last egd 2021, on ppi daily Review of Systems Review of Systems: All systems reviewed & are unremarkable except as noted in HPI and below PMFSH Past Medical History Medical History Colon polyp French esophagus CAD in [place] artery Chest pain in adult ADAMES (dyspnea on exertion) Diabetes 1.5, managed as type 2 Dyslipidemia Elevated hemoglobin Essential hypertension Hyperkalemia Spinal stenosis of lumbar region Type 2 diabetes mellitus without complication, without long-term current use of insulin Surgical History Surgical History Personal history of spine surgery Family History Family History Father Family history of cardiovascular disease Acute myocardial infarction Sibling Family history of cardiovascular disease Mother Family history of malignant neoplasm Social History Social History Smoking packs per day: 1.5 Smoking cigarettes per day: 30.0 Years smoked: 50 Smoking pack-years: 75.00 Smoking status: Current every day smoker Tobacco type: cigarettes Alcohol intake: never Substance use: never Substance use type: does not use Do You Feel Safe in your Home?: Yes Lack of Transportation: No Lack of Food: Never True Current Housing: I Have Housing Concerned About Future Housing: No Difficulty Paying Gas/Electric Bills: Decline to Answer Difficulty Paying for Meds: No Currently Unemployed: No Education: Decline to Answer Difficulty w/ Childcare or Family Care: No Living arrangements: with family Additional living arrangements comments: [facility] Spiritual care concerns: No Meds Home Medications and Allergies Home Medications ?Medication ?Instructions ?Recorded ?Confirmed ?Type losartan 100 mg tablet 100 mg PO QAM 08/06/19 03/18/25 History metformin 500 mg tablet,extended 500 mg PO BID 08/06/19 03/18/25 History release 24 hr metoprolol succinate 200 mg 200 mg PO QAM 08/06/19 03/18/25 History tablet,extended release 24 hr omeprazole 20 mg capsule,delayed 20 mg PO DAILY #30 caps 01/16/22 03/18/25 Rx release magnesium oxide 400 mg PO BID 10/14/23 03/18/25 History rosuvastatin 10 mg tablet 10 mg PO DAILY 10/16/23 03/18/25 History ergocalciferol (vitamin D2) 1,250 1,250 mcg PO MONTHLY 12/12/23 03/18/25 History mcg (50,000 unit) capsule Anoro Ellipta 62.5 mcg-25 1 inh inhalation QAM #60 ea 03/13/24 03/18/25 Rx mcg/actuation powder for inhalation (umeclidinium-vilanterol) glimepiride 2 mg tablet 2 mg PO DAILY 10/01/24 03/18/25 History hydrocodone 5 mg-acetaminophen 325 1 tablet PO Q6H PRN pain #10 tabs 10/07/24 03/01/25 Rx mg tablet albuterol sulfate 90 mcg/actuation 1 - 2 inh inhalation Q4-6H PRN 10/23/24 03/01/25 Rx aerosol inhaler (Ventolin HFA) Shortness Of Breath #8.5 grams cyanocobalamin (vitamin B-12) 2,000 mcg PO DAILY 03/01/25 03/18/25 History 2,000 mcg tablet,extended release Allergies Allergy/AdvReac Type Severity Reaction Status Date / Time cyclobenzaprine AdvReac Unknown NAUSEA/VOMI Verified 03/18/25 07:12 TING lisinopril AdvReac Unknown Cough Verified 03/18/25 07:12 Vital Signs Vital Signs - 24 hr 03/18/25 07:14 Temperature 97.3 F L Pulse Rate 82 Respiratory Rate 20 Blood Pressure 138/62 Pulse Oximetry 94 Oxygen Delivery Room Air Exam Const: General: comfortable and no acute distress HENMT: Face/Nose/Sinus: Normal nares present Eyes: General: appearance normal, both eyes and all related structures Neck: Neck: no JVD Resp: Auscultation: clear to auscultation bilaterally Cardio: Rate: regular rate Rhythm: regular rhythm GI: Inspection: non-distended GI Palp: Yes Soft to palpation Skin: General skin exam: normal color Neuro: Speech: normal speech Extrem: General: normal to inspection Psych: Mental Status: mental status grossly normal Assessment and Plan Assessment and plan (1) French esophagus: Code(s): K22.70 - French's esophagus without dysplasia Status: Acute Assessment and Plan: egd with bx on ppi
[2025-03-18] MEDS: BENZOCAINE (*SP) 60 ML SPRAY CAN (HURRICAINE) 1 SPRAY MUCOUS MEM (08:21)
--- NOTE | 2025-03-18 08:23 | S_PTH ---
PATIENT: Drea Barker LOC: [facility]#:[id number] AGE/SX: 69/F ROOM: RE03/18/[address]: Caio Nicholas MD : 1955 BED: DIS: 03/18/2025 SPEC #: [id number] RECD: 03/18/25 09:50 STATUS: ALLISON ORTA #: [id number] ALEKSANDAR: 03/18/25 08:[address]: Caio Nicholas DEPT: [facility] Surgical RECD BY: Kathleen Acevedo ENTERED: 03/18/25 09:50 SP TYPE: Surgical OTHR DR: Brandon Schroeder MD Tissues: A - Esophageal Biopsy Procedures: Hematoxylin and Eosin Stain Gross and Microscopic Level 4
[2025-03-18 08:34] VITALS: BP 114/69; PULSE 70; RESP 22; O2SAT 97
[2025-03-18 08:44] VITALS: BP 122/68; PULSE 70; RESP 22; O2SAT 96
[2025-03-18 08:54] VITALS: BP 114/51; PULSE 69; RESP 94; O2SAT 96
== END 2025-03-18 08:57 | disposition home or self-care (01) ==
PROVIDERS: PCP Emergency Medicine; Referring Provider Emergency Medicine; Visit Provider Internal Medicine Gastroenterology
PROC: 0DJ08ZZ Inspection of Upper Intestinal Tract, Via Natural or Artificial Opening Endoscopic (ICD-10-PCS; CPT 43239; principal; 2025-03-18 08:30)
DX: K22.70 Barrett's esophagus without dysplasia (principal); K21.9 Gastro-esophageal reflux disease without esophagitis; K44.9 Diaphragmatic hernia without obstruction or gangrene; E13.9 Other specified diabetes mellitus without complications; F17.210 Nicotine dependence, cigarettes, uncomplicated
CPT/HCPCS: 43239; 82948; 88305; J2003; J2704; J7120

== ENCOUNTER 2025-07-08 08:33 | Outpatient (CLI) | payer MEDICARE, SELFPAY ==
--- NOTE | ~2025-07-08 | NM_ITS ---
EXAMINATION: NM ban stress w perfusion DATE: 07/08/2025 11:32 INDICATION: Other forms of dyspnea TECHNIQUE: Rest images were obtained following intravenous administration of 8.5 mCi Tc99m tetrofosmin (Myoview). The patient was infused intravenously with Lexiscan (Regadenoson). Then, 34.9 mCi Tc99m tetrofosmin (Myoview) was administered intravenously, and stress images were obtained, initially in the supine position with repeat post stress images obtained in the prone position. Data was reconstructed into short axis and horizontal and vertical long axis SPECT images. Gated SPECT images were also obtained. COMPARISON: None. FINDINGS: There is a mild nonreversible perfusion defect evident on the rest and both the prone and supine post stress imaging at the inferior apical and mid inferior segments consistent with infarct. The portion of the defect on the supine imaging at the mid inferoseptal segment appears to normalize on the prone imaging. No reversible perfusion defects to suggest ischemia. There is normal left ventricular chamber size, wall motion and ejection fraction. Left ventricular ejection fraction measures 64%. IMPRESSION: 1. Mild nonreversible perfusion defect consistent with infarct along the apical inferior and mid inferior segments. No reversible ischemia. 2. Left ventricular ejection fraction measuring 64%. Reviewed, dictated and finalized at location A. [employer]IST
--- NOTE | 2025-07-08 08:25 | EST_ITS ---
Patient Info Name: Drea Barker Age: 69 years : 1955 Gender: Female Ht: 67 in Wt: 180 lbs BSA: 1.98 m2 HR: 68 bpm BP: 127 / 69 mmHg Exam Date: 07/08/2025 8:25 AM Patient Status: O Admit Date: 07/08/2025 Exam Type: CA stress ban w NM A regadenoson stress test was performed. Staff Referring Physician: Baldemar Fowler DO Attending Provider: Baldemar Fowler DO Exercise Technologist: Nicolasa Linda Exercise Physician: Baldemar Fowler DO Summary 1. 1. Negative lexiscan stress test for ischemic ST changes by ECG criteria. 2. 2. Stable hemodynamics throughout the test. 3. 3. Nuclear scan to follow and will be reported separately. Please correlate with it. 4. 4. Patient informed of the above results. Protocol: Lexiscan Stress ECG Details Stage: REST Duration (min): 1 min : 4 sec HR (bpm): 70 SBP (mmHg): 127 DBP (mmHg): 69 Stage: REST Duration (min): 9 min : 49 sec HR (bpm): 73 SBP (mmHg): 127 DBP (mmHg): 69 Stage: STAGE 1 Duration (min): 1 min : 0 sec HR (bpm): 83 SBP (mmHg): 133 DBP (mmHg): 73 Stage: RECOVERY Duration (min): 1 min : 0 sec HR (bpm): 87 SBP (mmHg): 133 DBP (mmHg): 73 Stage: RECOVERY Duration (min): 2 min : 0 sec HR (bpm): 86 SBP (mmHg): 133 DBP (mmHg): 73 Stage: RECOVERY Duration (min): 3 min : 0 sec HR (bpm): 86 SBP (mmHg): 136 DBP (mmHg): 72 Stage: RECOVERY Duration (min): 3 min : 3 sec HR (bpm): 86 SBP (mmHg): 136 DBP (mmHg): 72 Rest HR: 73 bpm Peak HR: 87 bpm Rest Sys BP: 127 mmHg Peak Sys BP: 136 mmHg Max Pred HR: 153 bpm % Max Pred HR: 57 % Target HR: 130 bpm Max RPP: 11,832 bpm*mmHg Termination Reason: Completed protocol Cardiac Symptoms: Shortness of breath Total Time: 1 min : 0 sec Rest Martinez BP: 69 mmHg Peak Martinez BP: 72 mmHg Total Dose: 0.4 mg Resting ECG Sinus rhythm. Stress ECG No ST changes. Arrhythmias None. Report Signatures
--- OUTSIDE RECORDS SUMMARY | 2025-07-08 17:20 | XMS_ITS | Encounter Summary ---
Author Organization [facility] Address [address] [place] [address] Care Team Providers Care Flatware Maker Name Role Phone Michael Tapia MD Primary Care Provider + Brandon Schroeder MD Primary Care Provider [phone] Dasha Collazo JEWEL BEARING FACER Unavailable [phone] Encounter Details Date Type Department Care Team (Late st Contact Info) Description 11/30/2016 Orders Only [facility] ProviderIshan MD [address] [place] [id number] Social History Tobacco Use Types Packs/Day Years Used Date Smoking Tobacco: Never Assessed Comments Unknown Sex and Gender Information Value Date Recorded Sex Assigned at Not on file Legal Sex Female 11:41 AM CLIENT EXECUTIVE Gender Identity Not on file Sexual Orientation Not on file documented as of this encounter Functional Status documented as of this encounter Plan of [...] on filedocumented in this encounter Care Teams Flatware Maker Relationship Specialty Start Date End Date Michael Tapia MD PCP - General 11/30/16 10/11/21 Brandon Schroeder MD [address] [place] [address] PCP - General Family Medicine 10/12/21 Dasha Collazo NP [address] [place] [address] Nurse Practitioner Obstetrics and Gynecology 07/23/23 documented as of this encounter
--- OUTSIDE RECORDS SUMMARY | 2025-07-08 17:20 | XMS_ITS | Clinical Summary ---
Author Organization [facility] Address [facility] [place] [address] Care Team Providers Care Husbandry Person Name Role Phone Brandon Schroeder MD Primary Care Provider [phone] Leonid Cameron MD Unavailable [phone] Allergies Active Allergy Reactions Criticality Noted [...] as needed. 9 Active vitamin D2, ergocalciferol, 84560 UNITS capsule Take 1 capsule (50,000 Units [...] Comments Blood Pressure 124/58 10/10/2023 8:00 AM RING ROLLING MACHINE OPERATOR Pulse 69 10/10/2023 8:00 AM RING ROLLING MACHINE OPERATOR Temperature 36.2 C (97.2 F) 10/29/2019 9:05 AM RING ROLLING MACHINE OPERATOR Respiratory Rate 14 10/10/2023 8:00 AM RING ROLLING MACHINE OPERATOR Oxygen Saturation 94% 05/10/2022 2:55 PM CDT Inhaled Oxygen Concentration - - Weight 80.5 kg (177 lb 6.4 oz) 10/10/2023 8:00 A M RING ROLLING MACHINE OPERATOR Height 172.7 cm (5' 8) 10/10/2023 8:00 AM RING ROLLING MACHINE OPERATOR Body Mass Index 26.97 10/10/2023 8:00 AM RING ROLLING MACHINE OPERATOR Plan of Treatment Health Maintenance Due [...] Scan (General) 2022 COVID-19 Vaccine (3 - season) 2025 12/20/2020, 11/22/2020 Influenza Adult (#1) 2025 07/31/2022, 07/18/2021, 06/04/2014, Additional history exists RSV Immunization or 60+ Years (1 - 1-dose 75+ series) 2032 Hepatitis A Vaccines Aged Out No long er eligible based on patient's age to complete this topic Meningococcal B Vaccine Aged Out No l onger eligible based on patient's age to complete this topic Meningococcal Vaccine Aged Out No jessenia tino eligible based on patient's age to complete this topic RSV Immunizations Under 20 Months Aged Out No longer eligible based on patient's age to complete this topic Procedures Procedure Name Priority Date/Time Associated Diagnosis Comments COLONOSCOPY Routine RING ROLLING MACHINE OPERATOR from Last 3 Months or Most Recently Relevant to Health Maintenance Results * Colonoscopy ( RING ROLLING MACHINE OPERATOR) Narrative [facility] TO EPIC CONVERSION - RING ROLLING MACHINE OPERATOR Documented hx of procedure Procedure Note Rolando James MD - 07/06/2018 Documented hx of procedure us Generic Selene James MD GI PROCEDURE ORDERABLES Final Result [facility] TO EPIC CONVERSION from Last 3 Months or Most Recently Relevant to Health Maintenance Insurance MEDICARE Advance Directives * Full Code (Latest Code Status on File) Date Activated Date Inactivated Comments 10/29/2019 12:00 PM 10/29/2019 3:27 PM Care Teams Husbandry Person Relationship Specialty Start Date End Date Brandon Schroeder MD PCP - General FAMILY PRACTICE 09/03/19 Leonid Cameron MD INTERVENTIONAL CARDIOLOGY 04/14/24
--- OUTSIDE RECORDS SUMMARY | 2025-07-08 17:20 | XMS_ITS | Encounter Summary ---
Author Organization [facility] Address [address] [place] [address] Care Team Providers Care Chief Nurse Executive Name Role Phone Michael Tapia MD Primary Care Provider [phone] Alfred Benton MD Primary Care Provider [phone] Brandon Schroeder MD Primary Care Provider Jose Childers MD Unavailable [phone] Leonid Cameron MD Unavailable [phone] Encounter Details Date Type Department Care Team (Late st Contact Info) Description 04/17/2016 Abstract [facility] CONVERSION [id number] [place] [address] , Generic MD Selene Social [...] on filedocumented in this encounter Care Teams Chief Nurse Executive Relationship Specialty Start Date End Date Michael Tapia MD PCP - General INTERNAL MEDICINE 10/31/16 09/02/19 [place] [address] [address] PCP - General 05/10/14 10/30/16 [place] [address] [address] PCP - General FAMILY PRACTICE 09/03/19 Jose Childers MD [address] [place] [address] Wilkinson Patternmaker Hand CARDIOVASCULAR DISEASE 09/03/19 04/13/24 Leonid Cameron MD [address] [place] [address] INTERVENTIONAL CARDIOLOGY 04/14/24 documented as of this encounter
--- OUTSIDE RECORDS SUMMARY | 2025-07-08 17:20 | XMS_ITS | Clinical Summary ---
Author Organization [facility] Address [facility] [place] [address] Care Team Providers Care [place] Superintendent Name Role Phone Brandon Schroeder MD Primary Care Provider [phone] Dasha Collazo CONTRACT AGENT Unavailable [phone] Allergies Active Allergy Reactions Criticality Noted Date [...] rosuvastatin (CRESTOR) 10 mg tablet 1 Active HYDROcodone-ac etaminophen (NORCO) 10-325 mg per tablet 1 Active [...] device 5 Active glimepiride (AMARYL) 1 mg tabletIndicati ons:Type 2 diabetes mellitus with diabetic polyneuropathy , without long-term current use of insulin (HCC) Take 1 tablet (1 mg total) by mouth 2 (two) times a day with meals 180 tablet 3 5 06/14/20 26 Active metFORMIN (GLUCOPHAGE) 500 mg tabletIndicati ons:Type 2 diabetes mellitus with diabetic polyneuropathy , without long-term current use of insulin (HCC) Take 2 tablets (1,000 mg total) by mouth 2 (two) times a day with meals 360 tablet 3 5 06/14/20 26 Active methIMAzole (TAPAZOLE) 5 mg tablet Take 1 tablet daily 30 tablet 2 5 Active glimepiride (AMARYL) 1 mg tabletIndicati ons:Type 2 diabetes mellitus with diabetic polyneuropathy , without long-term current use of insulin ([facility]) Take 1 tablet (1 mg total) by mouth 2 (two) times a day with meals 180 tablet 3 5 06/14/20 25 Discontinu ed(Reorder ) metFORMIN (GLUCOPHAGE) 500 mg tabletIndicati ons:Type 2 diabetes mellitus with diabetic polyneuropathy , without long-term current use of insulin ([facility]) Take 2 tablets (1,000 mg total) by mouth 2 (two) times a day with meals 360 tablet 3 5 06/14/20 25 Discontinu ed(Reorder ) Active Problems Problem Noted Date Diagnosed Date [...] drawn today. Will update labs. Does not [place]. Verified phone #/address to contact re: results. [...] Will update MA/Cr. Verified that she uses [facility]. Aware to check results/results letter in [facility]. Will contact by phone if needed. Discussed [...] Rosuvastatin 10mg. Last lipid panel: 10/09/24 LDL=57, NO=463. Chronic pain associated with significant psychosocial dysfunction [...] Encounters Date Type Department Care Team Description 06/14/2025 8:55 AM CDT Lab [address] [address] Abnormal thyroid function test; Type 2 diabetes mellitus with diabetic polyneuropathy, without long-term current use of insulin (HCC); Vitamin D deficiency; Vitamin B12 deficiency 06/14/2025 8:15 AM CDT Office Visit [facility] Diabetes and Endocrinology [address] [place] [address] Tisha Nash MD Type 2 diabetes mellitus with diabetic polyneuropathy, without long-term current use of insulin (HCC) (Primary Dx); Hypertension associated with diabetes (HCC); Hyperlipidemia associated with type 2 diabetes mellitus (HCC); Abnormal thyroid function test; Vitamin B12 deficiency; Vitamin D deficiency 06/14/2025 Results Follow-Up [facility] Diabetes and Endocrinology [facility] [place] [address] Booker Celeste, Tisha Celeste MD TSH, T4, free, T3, free, Additional followed-up results: 4 from Last 3 Months Surgical History Surgery Date Site/Laterality Comments CHOLECYSTECTOMY Cholecystectomy BACK SURGERY ULNAR TUNNEL RELEASE THORACIC OUTLET SURGERY Medical History Medical History Date Comments Hx Other Medical Lumbar laminect arturo Hx Other Medical Thoracic outlet surgery Type 2 diabetes mellitus Diabete s type 2 Hypercholesterolemia High choles terol Heart valve disease Valvular dis ease Disease of thyroid gland Thyroid disease; Comments: ELU 11/30/2016 -for benign nodules Chronic obstructive pulmonary disease COPD Family History Medical History Relation Name Comments Other Brother CABG in his 30' s; Heart disease Father Cardiovascular disease; Cause of : Cardiovascular disease Other Father OR's when young CABG; Cause of : OR's when young CABG Hyperlipidemia Mother Hyperlipidemi a; [...] on file Legal Sex Female 11:41 AM TRADE SHOW MANAGER Gender Identity Not on file Sexual Orientation Not on file Last Filed Vital Signs Vital Sign Reading Time Taken Comments Blood Pressure 132/70 06/14/2025 8:16 AM CDT Pulse 70 06/14/2025 8:16 AM CDT Temperature 36.1 C (97 F) 11/04/2020 9:23 AM TRADE SHOW MANAGER Respiratory Rate 15 06/14/2025 8:16 AM CDT Oxygen Saturation 90% 11/30/2016 3:58 PM CDT Inhaled Oxygen Concentration - - Weight 81.6 kg (180 lb) 06/14/2025 8:16 AM CDT Height 170.2 cm (5' 7) 06/14/2025 8:16 AM CDT Body Mass Index 28.19 06/14/2025 8:16 AM CDT Plan of Treatment Health Maintenance [...] 65+ 2022 Covid-19 Vaccine (3 - season) 2025, 11/22/2020 Influenza Vaccine (#1) 2025 6, 06/04/2014, 08/02/2013 Lipid Panel 10/09/2025 10/09/2024, 09/02/2015 Hemoglobin A1C 12/13/2025 06/14/2025, 05/03/2025, 10/05/2024 Albumin Creatinine Ratio, Urine 01/26/2026 Foot Exam 01/26/2026 01/26/2025 eGFR 06/14/2026 06/14/2025, 10/09/2024 Procedures Procedure Name Priority Date/Time Associated Diagnosis Comments EGFR Routine 06/14/2025 9:01 AM CDT Type 2 diabetes mellitus with diabetic polyneuropathy, without long-term current use of insulin (HCC) VITAMIN B12 Routine 06/14/2025 9:01 AM CDT Vitamin B12 deficiency VITAMIN D 25 HYDROXY Routine 06/14/2025 9:01 AM CDT Vitamin D deficiency BASIC METABOLIC PANEL Routine 06/14/2025 9:01 AM CDT Type 2 diabetes mellitus with diabetic polyneuropathy, without long-term current use of insulin (HCC) T3, FREE Routine 06/14/2025 9:01 AM CDT Abnormal thyroid function test T4, FREE Routine 06/14/2025 9:01 AM CDT Abnormal thyroid function test TSH Routine 06/14/2025 9:01 AM CDT Abnormal thyroid function test POCT HEMOGLOBIN A1C Routine 06/14/2025 8 :21 AM CDT Type 2 diabetes mellitus with diabetic polyneuropathy, without long-term current use of insulin (HCC) POCT GLUCOSE Routine 06/14/2025 8:18 AM CDT Type 2 diabetes mellitus with diabetic polyneuropathy, without long-term current use of insulin (HCC) ALBUMIN CREATININE RATIO, URINE Routine 01/26/2025 10:26 AM CDT Type 2 diabetes mellitus with diabetic polyneuropathy, without long-term current use of insulin (HCC) LIPID PANEL Routine 10/09/2024 10:46 AM TRADE SHOW MANAGER from Last 3 Months or Most Recently Relevant to Health Maintenance Results * eGFR (06/14/2025 9:01 AM CDT) Pathologist [facility] eGFR >90 >=60 mL/min/1. 73 m2 Comment: Interpretive Data Reference Interval Normal >/= 90 mL/min/1.73m2 Mildly decreased* 60 - 89 mL/min/1.73m2 Mildly to moderately decreased 45 - 59 mL/min/1.73m2 Moderately to severely decreased 30 - 44 mL/min/1.73m2 Severely decreased 15 - 29 mL/min/1.73m2 Kidney Failure < 15 mL/min/1.73m2 *Relative to young adult level Estimated glomerular filtration rate is determined by the 2020 CKD-EPI equation recommended by the National Kidney Foundation (A Unifying Approach to GFR Estimation: Recommendations of the NKF-ASK Task Force on Reassessing the Inclusion of Race in Diagnosing Kidney Disease, JASN 2020). The CKD-EPI equation should not be used for patients with unstable renal function and has not been validated in children and those over 70. Current interpretive data was last reviewed 2021. Blood 06/14/2025 9:01 AM CDT 06/14/2025 10:52 AM CDT Tisha Celeste MD LAB BLOOD ORDERABLE S Final Result Performing Organization Address City/[facility]/ZIP Co de Phone Number [address] [place] [address] * Vitamin D 25 hydroxy (06/14/2025 9:01 AM CDT) Vitamin D 25-OH 42.0 30.0 - 80.0 ng/mL Blood 06/14/2025 9:01 AM CDT 06/14/2025 10:52 AM CDT Tisha Celeste MD LAB BLOOD ORDERABLE S Final Result Performing Organization Address [facility] Co de Phone Number [address] [place] [address] * T3, free (06/14/2025 9:01 AM CDT) Free T3 4.2 2.0 - 4.4 pg/mL Blood 06/14/2025 9:01 AM CDT 06/14/2025 10:52 AM CDT Tisha Celeste MD LAB BLOOD ORDERABLE S Final Result Performing Organization Address City/[facility] Co de Phone Number [address] [place] [address] * (ABNORMAL) TSH (06/14/2025 9:01 AM CDT) Thyroid Stimulating Hormone 0.03(L) 0.30 - 4.20 mcIUnit/mL Blood 06/14/2025 9:01 AM CDT 06/14/2025 10:52 AM CDT Tisha Celeste MD LAB BLOOD ORDERABLE S Final Result Performing Organization Address [facility] Co de Phone Number [address] [place] [address] * T4, free (06/14/2025 9:01 AM CDT) [facility] Free T4 1.70 0.90 - 1.70 ng/dL Blood 06/14/2025 9:01 AM CDT 06/14/2025 10:52 AM CDT Tisha Celeste MD LAB BLOOD ORDERABLE S Final Result Performing Organization Address [facility] Co de Phone Number [address] [place] [address] * Vitamin B12 (06/14/2025 9:01 AM CDT) [facility] Vitamin B12 493 230 - 1,250 pg/mL Blood 06/14/2025 9:01 AM CDT 06/14/2025 10:52 AM CDT Tisha Celeste MD LAB BLOOD ORDERABLE S Final Result Performing Organization Address [facility] Co de Phone Number [address] [place] [address] * (ABNORMAL) Basic metabolic panel (06/14/2025 9:01 AM CDT) [facility] Sodium 135 135 - 145 mmol/L Potassium, pl 4.4 3.3 - 4.9 mmol/L [facility] Chloride 95(L) 97 - 110 mmol/L [facility] CO2 31 22 - 32 mmol/L [facility] Anion gap 9 2 - 15 mmol/L [facility] BUN 11 6 - 25 mg/dL [facility] Creatinine 0.56(L) 0.60 - 1.10 mg/dL [facility] Glucose 125 70 - 199 mg/dL [facility] Comment: Interpretive Data Fasting glucose >/= 126 mg/dl is diagnostic for diabetes. Fasting is defined as no caloric intake for at least 8 hours. Fasting glucose between 100 mg/dl to 125 mg/dl is diagnostic of prediabetes. In a patient with classic symptoms of hyperglycemia or hyperglycemic crisis, a random glucose >/= 200 mg/dl is diagnostic for diabetes. In the absence of unequivocal hyperglycemia, results should be confirmed by repeat testing. The classification and Diagnosis of Diabetes Diabetes Care 2021; 46: S19-S40. Current interpretive data was last revised 2022. Calcium 10.0 8.5 - 10.3 mg/dL [facility] Blood 06/14/2025 9:01 AM CDT 06/14/2025 10:52 AM CDT us Tisha Celeste MD LAB BLOOD ORDERABLE S Final Result [place] [id number] [facility] Department of Laboratories [place], [place] [id number] * (ABNORMAL) POCT hemoglobin A1c (06/14/2025 8:21 AM CDT) Hemoglobin A1C, POC 7.0(A) 4.0 - 5.6 % Blood 06/14/2025 8:21 AM CDT us Tisha Celeste MD POINT OF CARE TEST ORDERABLES Final Result * POCT glucose (06/14/2025 8:18 AM CDT) Glucose Blood, POC 140 Normal Fasting 70 - 100, Random <200 mg/dL Blood 06/14/2025 8:18 AM CDT Tisha Celeste MD POINT OF CARE TEST ORDERABLES Final Result * Albumin Creatinine Ratio, Urine (01/26/2025 10:26 AM CDT) Albumin Ur <12.0 mg/L Comment: Interpretive Data No reference range established. Current interpretive data was last revised 2019. Creatinine Ur 18.7 mg/dL [facility] Comment: Interpretive Data No reference range established. Current interpretive data was last revised 2019. Albumin Creatinine Ratio, Ur See Comment 1 - 29 [facility] Comment:Unable to calculate Urine 01/26/2025 10:2 6 AM CDT 01/26/2025 3:45 PM CDT Milagros Kang NP LAB URINE ORDERABLES [facility]ales [facility] [address] [address] [place] [address] * Lipid panel (10/09/2024 10:46 AM TRADE SHOW MANAGER) SCRIBED Cholesterol, Total 142 30 - 199 mg/dL EXTERNAL LAB SCRIBED Triglycerides 145 <=149 mg/dL EXTERNAL LAB SCRIBED HDL 46 >=40 mg/dL EXTERNAL LAB SCRIBED LDL 67 <=129 mg/dL EXTERNAL LAB Scribed Non-HDL Cholesterol 0 NONE EXTERNAL LAB Comment:No value received SCRIBED Total Cholesterol/HDL Ratio 142 NONE EXTERNAL LAB Blood 10/09/2024 10:4 6 AM TRADE SHOW MANAGER Historical Provider LAB BLOOD ORDERABLES Edit ed Result - Final EXTERNAL LAB from Last 3 Months or Most Recently Relevant to Health Maintenance Insurance [facility] Address: [address] [place] [phone] Care Teams [place] Superintendent Relationship Specialty Start Date End Date Brandon Schroeder MD [address] [place] [address] PCP - General Family Medicine 10/12/21 Dasha Collazo NP [address] [place] [address] Nurse Practitioner Obstetrics and Gynecology 07/23/23
--- OUTSIDE RECORDS SUMMARY | 2025-07-08 17:20 | XMS_ITS | Encounter Summary ---
Author Organization [facility] Address [address] [place] [address] Care Team Providers Care Clinical Analyst Name Role Phone Michael Tapia MD Primary Care Provider [phone] Alfred Benton MD Primary Care Provider [phone] Alfred Benton MD Primary Care Provider [phone] Alfred Benton MD Primary Care Provider [phone] Alfred Benton MD Primary Care Provider [phone] Alfred Benton MD Primary Care Provider [phone] Brandon Schroeder MD Primary Care Provider [phone] Jose Childers MD Unavailable [phone] Leonid Cameron MD Unavailable [phone] Encounter Details Date Type Department Care Team (Late st Contact Info) Description 08/17/2013 Abstract [facility] CONVERSION [address] [place] [address] , Generic Conversion, Social History Tobacco Use [...] on filedocumented in this encounter Care Teams Clinical Analyst Relationship Specialty Start Date End Date Michael Tapia MD PCP - General INTERNAL MEDICINE 10/31/16 09/02/19 [place] [address] [place] [address] PCP - General 05/10/14 10/30/16 [place] [address] [address] PCP - General 12/28/13 05/09/14 [place] [address] [place] [address] PCP - General 11/23/13 12/27/13 [place] [address] [address] PCP - General 11/18/13 11/22/13 [place] [address] [address] PCP - General 11/09/13 11/17/13 [place] [address] [address] PCP - General FAMILY PRACTICE 09/03/19 Jose Childers MD [address] [place] [address] [place] Executive Chef Assistant CARDIOVASCULAR DISEASE 09/03/19 04/13/24 Leonid Cameron MD [address] [place] [address] INTERVENTIONAL CARDIOLOGY 04/14/24 documented as of this encounter
== END 2025-07-08 08:34 | disposition home or self-care (01) ==
PROVIDERS: PCP Emergency Medicine; Visit Provider Internal Medicine Cardiovascular Disease
DX: R06.09 Other forms of dyspnea (principal)
CPT/HCPCS: 78452; 93017; A9502; J2785